=== PATIENT | female | born 2000 | race Caucasian/White ===

== ENCOUNTER 2020-05-26 13:31 | Outpatient (REF) | payer OTHER, SELFPAY ==
--- NOTE | 2020-05-26 | US_ITS ---
EXAMINATION: PELVIC ULTRASOUND CLINICAL INFORMATION: Irregular menses COMPARISON: Previous exam November 2017 TECHNIQUE: Transabdominal and transvaginal pelvic ultrasound was performed. Transvaginal exam was performed for better visualization of the uterus and ovaries. FINDINGS: The uterus is anteverted and anteflexed and measures 7.5 x 3.1 x 4 cm in dimension. No focal uterine lesion is seen. Endometrial thickness is normal measuring 1.2 cm. There are nabothian cysts in the cervix. The ovaries are normal in size. The right ovary measures 3.8 x 2.2 x 2.1 cm and the left ovary measures 3.4 x 3.3 x 2.2 cm. There are multiple small ovarian cysts or follicles seen. Appearance is questionable for polycystic ovarian syndrome. There is a larger simple left ovarian cyst that measures 1.9 x 1.3 x 1.8 cm. There is no fluid in the pelvis. IMPRESSION: Multiple small peripheral cysts or follicles in both ovaries questionable for polycystic ovarian syndrome. The ovaries are normal in size.
== END 2020-05-26 13:32 | disposition home or self-care (01) ==
LOC: HO.US 13:31
PROVIDERS: PCP Internal Medicine; Visit Provider Advanced Practice Midwife
DX: N92.6 Irregular menstruation, unspecified (principal)
CPT/HCPCS: 76830; 76856

== ENCOUNTER 2020-06-18 09:31 | Outpatient (REF) | payer OTHER, SELFPAY | END 2020-06-18 09:32 | disposition home or self-care (01) | LOC: HO.LAB 09:31 | PROVIDERS: Visit Provider Internal Medicine | DX: Z20.828 Contact with and (suspected) exposure to other viral communicable diseases (principal) | CPT/HCPCS: 87635 ==

== ENCOUNTER 2020-07-29 14:14 | Outpatient (REF) | payer OTHER, SELFPAY | END 2020-07-29 14:15 | disposition home or self-care (01) | LOC: HO.LAB 14:14 | PROVIDERS: Visit Provider Internal Medicine | DX: Z20.828 Contact with and (suspected) exposure to other viral communicable diseases (principal) | CPT/HCPCS: C9803; U0003 ==

== ENCOUNTER 2020-07-31 12:25 | Outpatient (REF) | payer OTHER, SELFPAY ==
[2020-07-31 13:01] LABS: MANUAL DIFF FLAG NO
[2020-07-31 13:36] LABS: Anion Gap 12 (12-20); Blood Urea Nitrogen 15 mg/dL (9-16); Calcium 9.3 mg/dL (8.4-10.2); Carbon Dioxide 28 mmol/L (22-29); Chloride 103 mmol/L (96-108); Cholesterol 173 mg/dL; Estimated Glomerular Filt Rate > 60; Glucose Fasting 88 mg/dL (60-99); HDL Cholesterol 59 mg/dL; LDL Cholesterol Calculated 97 mg/dl; Potassium 4.9 mmol/l (3.3-5.1); Sodium 138 mmol/L (135-145); Triglycerides 87 mg/dL
[2020-07-31 13:38] LABS: Basophils Percent Auto 0.2 % (0-2); Eosinophils Percent Auto 0.4 % (0-4); Hematocrit 43.6 % (37-47); Hemoglobin 14.2 g/dl (12.0-16.0); Imm Gran Abs Auto 0.01 X10*3/uL (0.00-0.03); Imm Gran Pct Auto 0.2 % (0.0-0.4); Lymphocytes Absolute Auto 1.5 X10*3/uL (1.2-4.9); Lymphocytes Percent Auto 25.8 % (20-40); Mean Corpuscular HGB Conc 32.6 g/dl (31.0-35.0); Mean Corpuscular Hemoglobin 27.5 pg (27.0-33.0); Mean Corpuscular Volume 84.5 fL (80-98); Monocytes Absolute Auto 0.4 X10*3/uL (0.1-1.2); Monocytes Percent Auto 7.7 % (2-11); Neutrophils Absolute Auto 3.7 X10*3/uL (2.0-8.3); Neutrophils Percent Auto 65.7 % (45-73); Platelet Count 290 X10*3/uL (160-400); Red Blood Count 5.16 X10*6/uL (4.20-5.50); Red Cell Distribution Width 12.4 % (11.0-16.0); White Blood Count 5.6 X10*3/uL (4.8-10.8)
[2020-07-31 13:47] LABS: TSH reflex Free T4 0.64 mIU/mL (0.32-4.0)
== END 2020-07-31 12:26 | disposition home or self-care (01) ==
LOC: HO.LAB 12:25
PROVIDERS: PCP Internal Medicine; Visit Provider Nurse Practitioner Family
DX: Z00.00 Encounter for general adult medical examination without abnormal findings (principal)
CPT/HCPCS: 36415; 80048; 80061; 84443; 85025

== ENCOUNTER 2020-09-02 14:33 | Outpatient (REF) | payer OTHER, SELFPAY ==
[2020-09-03 10:32] LABS: BV Int Neg Control Negative (Negative); BV Int Pos Control Positive (Positive)
[2020-09-03 18:52] LABS: C. trachomatis RNA TMA NOT DETECTED (NOT DETECTED); N. gonorrhoeae RNA TMA NOT DETECTED (NOT DETECTED)
== END 2020-09-02 14:34 | disposition home or self-care (01) ==
LOC: HO.LAB 14:33
PROVIDERS: PCP Internal Medicine; Visit Provider Advanced Practice Midwife
DX: N89.8 Other specified noninflammatory disorders of vagina (principal); Z87.42 Personal history of other diseases of the female genital tract
CPT/HCPCS: 36415; 87480; 87491; 87510; 87591; 87660; 99212

== ENCOUNTER → 2020-09-10 11:32 | Outpatient (BNVA) | payer OTHER, SELFPAY | PROVIDERS: PCP Internal Medicine; Visit Provider Advanced Practice Midwife ==

== ENCOUNTER 2020-09-11 11:17 | Outpatient (REF) | payer OTHER, SELFPAY ==
[2020-09-11 12:56] LABS: HCG Quantitative < 2 mIU/mL; Thyroid Stimulating Hormone 0.65 uIU/mL (0.32-4.0)
[2020-09-13 04:12] LABS: Prolactin 7.9 ng/mL
[2020-09-14 18:23] LABS: DHEA Sulfate 235 mcg/dL (18-391)
== END 2020-09-11 11:18 | disposition home or self-care (01) ==
LOC: HO.LAB 11:17
PROVIDERS: PCP Internal Medicine; Visit Provider Advanced Practice Midwife
DX: N92.6 Irregular menstruation, unspecified (principal); L68.0 Hirsutism
CPT/HCPCS: 36415; 82627; 83498; 84146; 84402; 84403; 84443; 84702

== ENCOUNTER → 2020-10-26 11:43 | Outpatient (BNVA) | payer OTHER, SELFPAY | PROVIDERS: PCP Internal Medicine; Visit Provider Advanced Practice Midwife ==

== ENCOUNTER 2020-10-28 11:20 | Outpatient (REF) | payer OTHER, SELFPAY ==
[2020-11-02 16:07] LABS: Testosterone, Free 6.9 pg/mL (0.1-6.4); Testosterone, Total 41 ng/dL (2-45)
== END 2020-10-28 11:21 | disposition home or self-care (01) ==
LOC: HO.LAB 11:20
PROVIDERS: PCP Internal Medicine; Visit Provider Advanced Practice Midwife
DX: N92.6 Irregular menstruation, unspecified (principal); L68.0 Hirsutism
CPT/HCPCS: 36415; 84402; 84403

== ENCOUNTER → 2020-11-05 11:13 | Outpatient (BNVA) | payer OTHER, SELFPAY | PROVIDERS: PCP Internal Medicine; Visit Provider Advanced Practice Midwife ==

== ENCOUNTER 2021-05-26 09:14 | Outpatient (REF) | payer OTHER, SELFPAY ==
[2021-05-26 11:05] LABS: Mean Corpuscular HGB Conc 33.3 g/dl (31.0-35.0); Mean Corpuscular Hemoglobin 27.1 pg (27.0-33.0); Mean Corpuscular Volume 81.4 fL (80-98); Platelet Count 266 X10*3/uL (160-400); Red Blood Count 4.42 X10*6/uL (4.20-5.50); Red Cell Distribution Width 13.2 % (11.0-16.0)
[2021-05-26 12:06] LABS: Thyroid Stimulating Hormone 0.66 uIU/mL (0.32-4.0)
[2021-05-27 02:41] LABS: CT PCR NOT DETECTED (Not Detect.); NG PCR NOT DETECTED (Not Detect.)
[2021-05-27 10:37] LABS: BV Int Neg Control Negative (Negative); BV Int Pos Control Positive (Positive)
== END 2021-05-26 09:15 | disposition home or self-care (01) ==
LOC: HO.LAB 09:14
PROVIDERS: PCP Internal Medicine; Visit Provider Advanced Practice Midwife
DX: R10.2 Pelvic and perineal pain (principal); N92.6 Irregular menstruation, unspecified; N92.1 Excessive and frequent menstruation with irregular cycle
CPT/HCPCS: 36415; 81003; 81025; 84443; 85027; 87480; 87491; 87510; 87591; 87660; 99212

== ENCOUNTER 2021-08-01 19:57 | Emergency (ER) | payer OTHER, SELFPAY ==
[2021-08-01 20:36] VITALS: BP 99/51; PULSE 80; RESP 16; TEMP 36.6; O2SAT 99; BMI 27.1
--- NOTE | 2021-08-01 21:39 | ED_ITS ---
HPI - Abdominal Pain General Chief Complaint: Abdominal Pain Stated Complaint: abd pain Time Seen by Provider: 08/01/21 21:39 Source: patient Mode of arrival: ambulatory Limitations: no limitations History of Present Illness HPI narrative: Patient having nausea vomiting diarrhea for last 3 -4 days vomiting 3 -4 times and same number of diarrhea every day no fever no chills no cough no shortness of breath no other family member sick Related Data Previous Rx's Medication Instructions Recorded drospirenone 3 mg-ethinyl 1 tab PO DAILY #28 tab 11/05/20 estradiol 0.02 mg tablet (DARYL (28)) drospirenone 3 mg-ethinyl 1 tab PO DAILY 28 Days #28 tab 06/14/21 estradiol 0.02 mg tablet (DARYL (28)) omeprazole 40 mg capsule,delayed 40 mg PO DAILY #20 cap 08/02/21 release ondansetron 4 mg disintegrating 4 mg PO Q6-8H PRN #7 tab 08/02/21 tablet Allergies Allergy/AdvReac Type Severity Reaction Status Date / Time meperidine [From DEMEROL] Allergy Unknown DIFF Verified 08/01/21 20:36 BREATHING morphine [MORPHINE] Allergy Unknown DIFF Verified 08/01/21 20:36 BREATHING Review of Systems Review of Systems Yes all other systems are reviewed and are negative Physical Exam Vital Signs: Vital Signs: Last Vital Signs Temp 98.1 F 08/02/21 00:17 Pulse 73 08/02/21 00:17 Resp 16 08/02/21 00:17 BP 100/60 08/02/21 00:17 Pulse Ox 100 08/02/21 00:17 BMI result Body Mass Index 27.1 Appearance: Alert. Oriented X3. No acute distress. Eyes: No pallor icterus ENT: Pharynx normal. Oral Mucosa moist Neck: Normal inspection. Neck supple. CVS: Normal heart rate and rhythm. Pulses normal. Respiratory: No respiratory distress. Equal air entry bilateral, Abdomen: Soft mild epigastric tenderness Bowel sounds are present, no mass palpable, no CVA tenderness Skin: Skin warm and dry. Normal skin color. Normal skin turgor. Neuro: Oriented X 3. MDM - Abdominal Pain Lab Data Attestation: I reviewed the patient's lab results. Result diagrams: 08/01/21 22:47 08/01/21 22:47 Labs: Lab Results 08/01/21 08/01/21 08/01/21 Range/Units 22:47 22:47 23:41 WBC 4.5 L (4.8-10.8) X10*3/uL RBC 4.87 (4.20-5.50) X10*6/uL Hgb 13.1 (12.0-16.0) g/dl Hct 40.7 (37.0-47.0) % MCV 83.6 (80.0-98.0) fL MCH 26.9 L (27.0-33.0) pg MCHC 32.2 (31.0-35.0) g/dl RDW 13.0 (11.0-16.0) % Plt Count 227 (160-400) X10*3/uL MPV 9.8 (9.4-12.3) fL Immature Gran % (Auto) 0.2 (0.0-0.4) % Neut % (Auto) 60.3 (45-73) % Lymph % (Auto) 22.9 (20-40) % [place] % (Auto) 16.0 H (2-11) % Eos % (Auto) 0.4 (0-4) % Baso % (Auto) 0.2 (0-2) % Lymph # (Auto) 1.0 L (1.2-4.9) X10*3/uL [place] # (Auto) 0.7 (0.1-1.2) X10*3/uL Eos # (Auto) 0.0 (0.0-0.4) X10*3/uL Baso # (Auto) 0.0 (0.0-0.2) X10*3/uL Abs Immat Gran (auto) 0.01 (0.00-0.03) X10*3/uL Absolute Neuts (auto) 2.7 (2.0-8.3) x10*3/uL Absolute Nucleated RBC 0.000 (0.0-0.012) X10*3/uL Nucleated RBC % (auto) 0.0 (0.0-0.2) /100WBC Sodium 141 (135-145) mmol/L Potassium 4.3 (3.3-5.1) mmol/L Chloride 109 H (96-108) mmol/L Carbon Dioxide 19 L (22-29) mmol/L Anion Gap 17 (12-20) BUN 15 (9-16) mg/dL Creatinine 0.67 (0.5-1.4) mg/dL Estim Creat Clear Calc 137.3 Estimated GFR > 60 Random Glucose 80 (60-115) mg/dL Calcium 8.8 (8.4-10.2) mg/dL Total Bilirubin 0.5 (0.0-1.0) mg/dL AST 54 H (5-31) U/L ALT 49 H (0-31) U/L Alkaline Phosphatase 59 (39-117) U/L Total Protein 7.2 (6.5-8.0) g/dL Albumin 3.9 (3.5-5.0) g/dL Lipase 31 (8-78) U/L Urine Color YELLOW Urine Appearance HAZY Urine pH 6.0 (5.0-8.0) Ur Specific [place] >= 1.030 H (1.005-1.025) Urine Protein TRACE (NEG-TRACE) MG/DL Urine Glucose (UA) NEG (NEG) MG/DL Urine Ketones NEG (NEG) MG/DL Urine Blood 1+ H (NEG) Urine Nitrite NEG (NEG) Ur Leukocyte Esterase NEG (NEG) Urine RBC 10-14 H (0) /HPF Urine WBC 1-4 (0-4) /HPF Ur Squamous Epith Cells 1+ /LPF Urine Bacteria TRACE /LPF Urine Mucus 3+ /LPF Urine Test (NEGATIVE) 08/01/21 Range/Units 23:41 WBC (4.8-10.8) X10*3/uL RBC (4.20-5.50) X10*6/uL Hgb (12.0-16.0) g/dl Hct (37.0-47.0) % MCV (80.0-98.0) fL MCH (27.0-33.0) pg MCHC (31.0-35.0) g/dl RDW (11.0-16.0) % Plt Count (160-400) X10*3/uL MPV (9.4-12.3) fL Immature Gran % (Auto) (0.0-0.4) % Neut % (Auto) (45-73) % Lymph % (Auto) (20-40) % [place] % (Auto) (2-11) % Eos % (Auto) (0-4) % Baso % (Auto) (0-2) % Lymph # (Auto) (1.2-4.9) X10*3/uL [place] # (Auto) (0.1-1.2) X10*3/uL Eos # (Auto) (0.0-0.4) X10*3/uL Baso # (Auto) (0.0-0.2) X10*3/uL Abs Immat Gran (auto) (0.00-0.03) X10*3/uL Absolute Neuts (auto) (2.0-8.3) x10*3/uL Absolute Nucleated RBC (0.0-0.012) X10*3/uL Nucleated RBC % (auto) (0.0-0.2) /100WBC Sodium (135-145) mmol/L Potassium (3.3-5.1) mmol/L Chloride (96-108) mmol/L Carbon Dioxide (22-29) mmol/L Anion Gap (12-20) BUN (9-16) mg/dL Creatinine (0.5-1.4) mg/dL Estim Creat Clear Calc Estimated GFR Random Glucose (60-115) mg/dL Calcium (8.4-10.2) mg/dL Total Bilirubin (0.0-1.0) mg/dL AST (5-31) U/L ALT (0-31) U/L Alkaline Phosphatase (39-117) U/L Total Protein (6.5-8.0) g/dL Albumin (3.5-5.0) g/dL Lipase (8-78) U/L Urine Color Urine Appearance Urine pH (5.0-8.0) Ur Specific [place] (1.005-1.025) Urine Protein (NEG-TRACE) MG/DL Urine Glucose (UA) (NEG) MG/DL Urine Ketones (NEG) MG/DL Urine Blood (NEG) Urine Nitrite (NEG) Ur Leukocyte Esterase (NEG) Urine RBC (0) /HPF Urine WBC (0-4) /HPF Ur Squamous Epith Cells /LPF Urine Bacteria /LPF Urine Mucus /LPF Urine Test NEGATIVE (NEGATIVE) Discharge Plan Discharge Clinical Impression: Gastroenteritis Patient Disposition: Home, Self-Care Instructions: Gastroenteritis (ED) Additional Instructions: Drink plenty of fluids Medication for nausea as advised Follow-up with PCP if not better Prescriptions: New ondansetron 4 mg tablet,disintegrating 4 mg PO Q6-8H PRN (Reason: nausea and vomiting) Qty: 7 RF: 0 omeprazole 40 mg capsule,delayed release(DR/EC) 40 mg PO DAILY Qty: 20 RF: 0 No Action drospirenone-ethinyl estradiol [DARYL (28)] 3-0.02 mg tablet 1 tab PO DAILY 28 Days Qty: 28 RF: 3 drospirenone-ethinyl estradiol [DARYL (28)] 3-0.02 mg tablet 1 tab PO DAILY Qty: 28 RF: 4 Stand Alone Forms: Work/School Release Interventions: ED Discharge Assessment Last Done: 08/02/21 00:47 Discharge Date/Time: 08/02/21 00:45 [facility] Past Medical History Medical History Hirsutism History of irregular menstrual cycles PCOS (polycystic ovarian syndrome) Surgical History History of gastric surgery Family History Family History Maternal Grandfather Hx of thyroid cancer Maternal Aunt Hx of thyroid cancer History of colon cancer Social History Social History Alcohol intake: never Patient Tobacco Use Status: Never used Tobacco Advance Directives: No Advance Directives Information Provided: Yes Patient : No Gender identity: Female
[2021-08-01 22:51] LABS: MANUAL DIFF FLAG NO
[2021-08-01 22:52] LABS: Basophils Percent Auto 0.2 % (0-2); Eosinophils Percent Auto 0.4 % (0-4); Hematocrit 40.7 % (37.0-47.0); Hemoglobin 13.1 g/dl (12.0-16.0); Imm Gran Abs Auto 0.01 X10*3/uL (0.00-0.03); Imm Gran Pct Auto 0.2 % (0.0-0.4); Lymphocytes Percent Auto 22.9 % (20-40); Mean Corpuscular HGB Conc 32.2 g/dl (31.0-35.0); Mean Corpuscular Hemoglobin 26.9 pg (27.0-33.0); Mean Corpuscular Volume 83.6 fL (80.0-98.0); Mean Platelet Volume 9.8 fL (9.4-12.3); Monocytes Absolute Auto 0.7 X10*3/uL (0.1-1.2); Neutrophils Absolute Auto 2.7 x10*3/uL (2.0-8.3); Neutrophils Percent Auto 60.3 % (45-73); Platelet Count 227 X10*3/uL (160-400); Red Blood Count 4.87 X10*6/uL (4.20-5.50); White Blood Count 4.5 X10*3/uL (4.8-10.8)
[2021-08-01] MEDS: 0.9 % Sodium Chloride 1,000 ML 999 ML IVCONT (22:52)
[2021-08-01] MEDS: ondansetron HCL 4 MG/2 ML VIAL IVPUSH (22:52)
[2021-08-01 23:09] LABS: Alanine Aminotransferase 49 U/L (0-31); Albumin Level 3.9 g/dL (3.5-5.0); Alkaline Phosphatase 59 U/L (39-117); Anion Gap 17 (12-20); Aspartate Amino Transferase 54 U/L (5-31); Bilirubin Total 0.5 mg/dL (0.0-1.0); Blood Urea Nitrogen 15 mg/dL (9-16); Calcium 8.8 mg/dL (8.4-10.2); Carbon Dioxide 19 mmol/L (22-29); Chloride 109 mmol/L (96-108); Creatinine Clr Calc Pharmacy 137.3; Estimated Glomerular Filt Rate > 60; Glucose Random 80 mg/dL (60-115); Lipase 31 U/L (8-78); Potassium 4.3 mmol/L (3.3-5.1); Sodium 141 mmol/L (135-145); Total Protein 7.2 g/dL (6.5-8.0)
[2021-08-01 23:50] LABS: Appearance Urine HAZY; Color Urine YELLOW; Glucose Urine UA NEG (NEG); Leukocyte Esterase Urine NEG (NEG); Nitrite Urine NEG (NEG); Specific Gravity - Urine >= 1.030 (1.005-1.025); UACC Culture Trigger NO; Urine Blood 1+ (NEG); Urine Ketones NEG (NEG); Urine Protein TRACE MG/DL (NEG-TRACE)
[2021-08-01 23:53] LABS: UPreg QC Valid YES; Urine Pregnancy NEGATIVE (NEGATIVE)
[2021-08-01 23:56] LABS: Bacteria Urine TRACE /LPF; Mucus Urine 3+ /LPF; Squamous Epithelial Cell Urine 1+ /LPF
[2021-08-02 00:17] VITALS: BP 100/60; PULSE 73; RESP 16; TEMP 36.7; O2SAT 100
== END 2021-08-02 00:45 | disposition home or self-care (01) ==
PROVIDERS: Emergency Provider Internal Medicine; PCP Internal Medicine
DX: K52.9 Noninfective gastroenteritis and colitis, unspecified (principal); R11.2 Nausea with vomiting, unspecified
CPT/HCPCS: 36415; 80053; 81001; 81025; 83690; 85025; 96361; 96374; 99283; 99284; J2405

== ENCOUNTER 2021-10-26 16:57 | Emergency (ER) | payer OTHER, SELFPAY ==
[2021-10-26 17:37] VITALS: BP 97/45; PULSE 85; RESP 16; TEMP 36.9; O2SAT 98; BMI 27.2
--- NOTE | 2021-10-26 19:33 | ED_ITS ---
HPI - Skin/Abscess/Foreign Bdy General Chief complaint: Skin/Abscess/Foreign Body Stated complaint: itchy body rash Time Seen by Provider: 10/26/21 18:00 Source: patient Mode of arrival: ambulatory Limitations: no limitations History of Present Illness HPI narrative: Patient is a 21 year old female presenting to the emergency department today with a rash. Patient states that she began having a rash a couple of days ago that has been very itchy. Patient states that she got a tattoo last Monday but the rash is no where near the new tattoo and has been healing fine. Patient denies any dizziness, lightheadedness, abdominal pain, nausea, vomiting, fever, chills, blurry vision, double vision, loss of vision, chest pain, difficulty breathing, shortness of breath, back pain, night sweats, pain with urination, increased urinary frequency, increased urinary urgency, blood in her urine or stool, syncope or a near syncopal episode, recent trauma or falls, bowel incontinence, bladder incontinence, bowel retention, bladder retention, or any other complaints at this time. MD complaint: rash Related Data Previous Rx's Medication Instructions Recorded drospirenone 3 mg-ethinyl 1 tab PO DAILY #28 tab 11/05/20 estradiol 0.02 mg tablet (DARYL (28)) drospirenone 3 mg-ethinyl 1 tab PO DAILY 28 Days #28 tab 06/14/21 estradiol 0.02 mg tablet (DARYL (28)) omeprazole 40 mg capsule,delayed 40 mg PO DAILY #20 cap 08/02/21 release ondansetron 4 mg disintegrating 4 mg PO Q6-8H PRN #7 tab 08/02/21 tablet prednisone 20 mg tablet 20 mg PO DAILY 12 Days #26 tab 10/26/21 Allergies Allergy/AdvReac Type Severity Reaction Status Date / Time meperidine [From DEMEROL] Allergy Unknown DIFF Verified 08/01/21 20:36 BREATHING morphine [MORPHINE] Allergy Unknown DIFF Verified 08/01/21 20:36 BREATHING Review of Systems Constitutional: Constitutional: Reports no additional constitutional complaints, Denies chills, Denies fever(s) and Denies night sweats Eyes: Eyes: Reports no additional eye complaints, Denies blurry vision, Denies change in vision, Denies diplopia, Denies eye discharge, Denies loss of vision and Denies eye pain ENT: Denies dizziness Cardiovascular: Cardiovascular: Reports no additional cardiovascular complaints, Denies chest pain, Denies lightheadedness, Denies Loss of Consciousness and Denies dyspnea Respiratory: Respiratory: Reports no additional respiratory complaints and Denies dyspnea Gastrointestinal: Gastrointestinal: Reports no additional gastrointestinal complaints, Denies abdominal pain, Denies melena, Denies hematochezia, Denies change in bowel habits and Denies change in stool character Genitourinary: Genitourinary: Denies hematuria, Denies urinary frequency, Denies dysuria, Denies urinary incontinence, Denies urinary hesitancy and Denies urinary urgency Musculoskeletal: Musculoskeletal: Reports no additional musculoskeletal complaints, Denies numbness and Denies tingling Integumentary/Breasts: Skin/Breast: Reports pruritus and Reports rash Neurologic: Denies dizziness, Denies loss of vision, Denies numbness and Denies tingling Psychiatric: Psychiatric: Reports no additional psychiatric complaints Endocrine: Endocrine: Reports no additional endocrine complaints Hematologic/Lymphatic: Hematologic/Lymphatic: Reports no additional hematologic/lymphatic complaints Allergic/Immunologic: Allergic/Immunologic: Reports no additional allergic/immunologic complaints [facility] Past Medical History Attestation statement: The following information was validated with the patient. Source: old records reviewed Medical History Hirsutism History of irregular menstrual cycles PCOS (polycystic ovarian syndrome) Surgical History History of gastric surgery Family History Family History Maternal Grandfather Hx of thyroid cancer Maternal Aunt Hx of thyroid cancer History of colon cancer Social History Social History Alcohol intake: never Patient Tobacco Use Status: Never used Tobacco Advance Directives: No Advance Directives Information Provided: No Gender identity: Female Physical Exam Vital Signs: Vital Signs: Last Vital Signs Temp 98.4 F 10/26/21 17:37 Pulse 85 10/26/21 17:37 Resp 16 10/26/21 17:37 BP 97/45 L 10/26/21 17:37 Pulse Ox 98 10/26/21 17:37 BMI result Body Mass Index 27.2 Const: General: cooperative, no acute distress, alert and awake Nutritional Appearance: well nourished Orientation/consciousness: patient oriented x3 Limitations: no limitations HENMT: Head: Yes normal to inspection and Yes atraumatic Ears: hearing grossly normal bilaterally and external ears normal General nose exam: Normal external nose present, no nasal discharge noted and no epistaxis Face and sinus: Yes normal facial exam, No abrasion and No laceration Mouth: Normal oral and palatal mucosa present, no drooling and no muffled voice Eyes: General: appearance normal, both eyes and all related structures Periorbital: periorbital findings normal Eyelids: Yes eyelids normal Conjunctivae: conjunctivae normal Pupils: Equal, round and reactive pupils present EOM: EOMs intact bilaterally Neck: Neck: Yes normal visual inspection, Yes full ROM and Yes no lymphadenopathy Chest: Chest palpation & inspection: normal inspection of the chest Resp: Effort & Inspection: normal respiratory effort and able to speak in complete sentences Auscultation: clear to auscultation bilaterally Cardio: Rate: regular rate Rhythm: regular rhythm GI: Inspection: Yes normal to inspection Skin: Other: diffuse urticaria Neuro: General: patient oriented x3 and moves all extremities Cranial nerves: Yes Equal, round and reactive pupils present Cognition (Neuro): normal cognition Motor exam (neuro): 5/5 motor strength present throughout Sensory Exam: Normal double simultaneous stimulation for sensation Coordination: [id number] test normal Extrem: General: Yes normal to inspection, Yes full ROM and Yes capillary refill normal Psych: Appearance: grossly normal Mental Status: mental status grossly normal Affect: normal affect Attitude: cooperative Thought process: Normal thought process present Thought content: Normal thought content present Insight: Good insight present (Psych) MDM - Skin/Abscess/Foreign Bdy MDM Narrative Medical decision making narrative: Patient is a 21 year old female presenting to the emergency department today with a diffuse, itchy, rash. Patient's physical exam showed diffuse urticaria. However, the patient's new tattoo to the right hip was normal in appearance. Patient's airway was intact and her voice was clear. I explained my physical exam findings to the patient. I answered all questions asked by the patient. Patient received IM solu-medrol and PO Benadryl which she stated helped her symptoms significantly. I stressed the importance of the patient taking her medication as prescribed. I stressed the importance of the patient following up with her primary care provider. I stressed the importance of the patient r eturning to the emergency department immediately if her symptoms were to worsen or if she were to develop any dizziness, shortness of breath, difficulty breathing, chest pain, blurry vision, loss of vision, nausea, vomiting, abdominal pain, fever, chills, back pain, or any other complaints. Patient verbalized agreement and understanding with this treatment plan and discharge. Differential Diagnosis Differential diagnosis: Likely urticaria and eczema Medical Records Attestation: I reviewed the patient's medical records. Discharge Plan Discharge Clinical Impression: Acute idiopathic urticaria Patient Disposition: Home, Self-Care Instructions: Urticaria (ED), Acute Rash (ED) Additional Instructions: Follow up with your primary care provider. Return to the emergency department immediately if your symptoms worsen or if you develop any dizziness, shortness of breath, difficulty breathing, chest pain, blurry vision, loss of vision, nausea, vomiting, abdominal pain, fever, chills, back pain, or any other complaints. Prescriptions: New prednisone 20 mg tablet 20 mg PO DAILY 12 Days Qty: 26 0RF Rx Instructions: Take 3 tablets by mouth for 5 days THEN; Take 2 tablets by mouth for 4 days THEN; Take 1 tablet by mouth for 3 days No Action drospirenone-ethinyl estradiol [DARYL (28)] 3-0.02 mg tablet 1 tab PO DAILY 28 Days Qty: 28 3RF ondansetron 4 mg tablet,disintegrating 4 mg PO Q6-8H PRN (Reason: nausea and vomiting) Qty: 7 0RF omeprazole 40 mg capsule,delayed release(DR/EC) 40 mg PO DAILY Qty: 20 0RF drospirenone-ethinyl estradiol [DARYL (28)] 3-0.02 mg tablet 1 tab PO DAILY Qty: 28 4RF Referrals: Sana Carvalho MD [Primary Care Provider] - 2 days Interventions: ED Discharge Assessment Last Done: 10/26/21 20:37 Discharge Date/Time: 10/26/21 20:39 Print Language: [place]
[2021-10-26] MEDS: diphenhydrAMINE HCL 25 MG TABLET 50 MG PO (19:55)
[2021-10-26] MEDS: methylPREDNISolone Sod Succ 125 MG/2 ML VIAL 120 MG IM (19:55)
== END 2021-10-26 20:39 | disposition home or self-care (01) ==
PROVIDERS: Emergency Provider Internal Medicine; PCP Internal Medicine
DX: L50.1 Idiopathic urticaria (principal)
CPT/HCPCS: 96372; 99283; 99284; J2930; Q0163

== ENCOUNTER 2021-12-14 09:54 | Outpatient (REF) | payer OTHER, SELFPAY ==
[2021-12-14 11:07] LABS: Alanine Aminotransferase 12 U/L (0-31); Albumin Level 4.4 g/dL (3.5-5.0); Alkaline Phosphatase 66 U/L (39-117); Anion Gap 13 (12-20); Aspartate Amino Transferase 18 U/L (5-31); Bilirubin Total 0.7 mg/dL (0.0-1.0); Blood Urea Nitrogen 17 mg/dL (9-16); Calcium 9.8 mg/dL (8.4-10.2); Carbon Dioxide 28 mmol/L (22-29); Chloride 104 mmol/L (96-108); Cholesterol 176 mg/dL; Estimated Glomerular Filt Rate > 60; Glucose Fasting 84 mg/dL (60-99); HDL Cholesterol 60 mg/dL; LDL Cholesterol Calculated 97 mg/dl; Potassium 4.5 mmol/L (3.3-5.1); Sodium 140 mmol/L (135-145); Total Protein 7.7 g/dL (6.5-8.0); Triglycerides 96 mg/dL
== END 2021-12-14 09:55 | disposition home or self-care (01) ==
LOC: HO.LAB 09:54
PROVIDERS: PCP Internal Medicine; Visit Provider Internal Medicine
DX: Z00.00 Encounter for general adult medical examination without abnormal findings (principal); R30.0 Dysuria; L98.9 Disorder of the skin and subcutaneous tissue, unspecified; Z13.220 Encounter for screening for lipoid disorders; T78.40XA Allergy, unspecified, initial encounter
CPT/HCPCS: 36415; 80053; 80061

== ENCOUNTER 2021-12-29 10:43 | Emergency (ER) | payer OTHER, SELFPAY ==
[2021-12-29 11:02] VITALS: BP 123/70; PULSE 120; RESP 18; TEMP 37.6; O2SAT 100; BMI 29.1
[2021-12-29 11:29] LABS: COVID-19 Test Negative (Negative)
[2021-12-29 11:30] LABS: IDNOW Serial# 9DB6401D; Influenza A Positive (Negative); Influenza B2 Negative (Negative)
--- NOTE | 2021-12-29 13:10 | ED_ITS ---
HPI - URI/Sore Throat General Chief Complaint: Upper Respiratory Symptoms Stated Complaint: fever nausea headache Time Seen by Provider: 12/29/21 13:10 Source: patient and family (Mother at bedside) Mode of arrival: ambulatory Limitations: no limitations History of Present Illness MD elicited complaint: fever, cough, rhinorrhea and nasal congestion Onset (ago): day(s) (3) Consistency: constant and progressively worsening Severity: mild Description of mucous: clear, watery and yellow Able to tolerate fluids by mouth: Yes Exacerbating factors: other (Coughing) Relieving factors: nothing Context: sick contacts (Mother started with her symptoms prior to the patient) Associated symptoms: fever, chills, myalgias, headache, rhinorrhea, nasal congestion and cough Treatments prior to arrival: none Related Data Home Medications Medication Instructions Recorded Confirmed diphenhydramine HCl 25 mg tablet 25 mg PO TID PRN 12/14/21 12/14/21 (Benadryl Allergy) Previous Rx's Medication Instructions Recorded clotrimazole-betamethasone 1 1 appl TOPICAL BID 14 Days #15 g 12/14/21 %-0.05 % topical cream acetaminophen 500 mg tablet 1,000 mg PO QID PRN #14 tab 12/29/21 (Tylenol Extra Strength) ibuprofen 800 mg tablet 800 mg PO Q8H PRN #14 tab 12/29/21 oseltamivir 75 mg capsule (Tamiflu) 75 mg PO BID 5 Days #10 cap 12/29/21 Allergies Allergy/AdvReac Type Severity Reaction Status Date / Time meperidine [From DEMEROL] Allergy Unknown DIFF Verified 12/14/21 09:20 BREATHING morphine [MORPHINE] Allergy Unknown DIFF Verified 12/14/21 09:20 BREATHING Review of Systems Review of Systems: Constitutional : + subjective fevers/chills/fatigue/malaise, No Weight loss, No Fever, No Chills, No Night Sweats, No Fatigue, No Malaise ENT/Mouth : + nasal congestion/rhinorrhea, No Hearing loss, No Ear Pain, No Sinus Pain, No Hoarseness, No sore throat, No Swallowing Difficulty Eyes: No Eye Pain, No Swelling, No Redness, No Foreign Body, No Discharge, No Vi romaine Changes Cardiovascular : No Chest Pain, No SOB, No Dyspnea on Exertion, No Orthopnea, No Edema, No Palpitations Respiratory : + Cough, + Sputum, No Wheezing, No Smoke Exposure, No Dyspnea Gastrointestinal : No Nausea, No Vomiting, No Diarrhea, No Constipation, No abdominal Pain, No Hematochezia, No Melena Genitourinary : no irregular bleeding, No Dysuria, No Urinary Frequency, No Hematuria, No Urinary Incontinence, No Urgency, No Flank Pain, No Urinary Flow Changes, No Hesitancy Musculoskeletal : No joint pain, + Myalgias, No Joint Swelling Skin : No Skin Lesions, No rash Neuro : No Weakness, No Numbness, No Paresthesias, No Loss of Consciousness, No Dizziness, No Headache Psych : No Anxiety/Panic, No Depression, No SI/HI/AH/VH, No Social Issues, Heme/Lymph: No Bruising, No Bleeding,No Lymphadenopathy Endocrine : No Polyuria, No Polydipsia, No Temperature Intolerance Yes all other systems are reviewed and are negative [facility] Past Medical History Attestation statement: The following information was validated with the patient. Medical History Abnormal menses Allergic reaction Hirsutism History of irregular menstrual cycles PCOS (polycystic ovarian syndrome) Physical exam Skin lesion Surgical History History of gastric surgery Family History Family History Maternal Grandfather Hx of thyroid cancer Maternal Aunt Hx of thyroid cancer History of colon cancer Father Diabetes mellitus Mother Asthma Social History Social History Housing: Apartment Alcohol intake: never Patient Tobacco Use Status: Never used Tobacco e-Cigarette/Vaping Use: Never Used Second Hand Smoke Exposure: No Advance Directives: No Advance Directives Information Provided: No Patient : No service: No Current occupational status: employed Current occupational exposures/hazards: No Gender identity: Female Cognitive needs: No Hearing needs: No Vision needs: No Physical Exam Vital Signs: Vital Signs: Last Vital Signs Temp 99.6 F 12/29/21 11:02 Pulse 120 H 12/29/21 11:02 Resp 18 12/29/21 11:02 BP 123/70 12/29/21 11:02 Pulse Ox 100 12/29/21 11:02 BMI result Body Mass Index 29.1 vital signs have been reviewed as normal and appeared to be correct. Blood pressure normal. Heart rate 120. Respiration rate normal. Temperature 99.6. Oxygen saturation normal. Appearance: Alert. Oriented X3. No acute distress. Head: Normal external exam. Normocephalic. Atraumatic. Eyes: PERRLA. EOMI. Conjunctiva and sclera normal. Eyelids normal. ENT: EAC normal. TM's Normal. Pharynx normal. Uvula midline. Moist mucous membranes. No lesions/ulcerations or masses noted on the tongue. Normal voice. No trismus noted. No drooling noted. No muffled voice noted. Neck: Normal inspection. Neck supple. FROM. No adenopathy. Thyroid Normal. No meningeal signs. No neck mass noted. CVS: Normal heart rate and rhythm. Heart sound normal. Pulses normal throughout. No murmurs/rales/gallops. Respiratory: No respiratory distress. Painless inspiration. Breath sounds normal. No wheezes/rales/rhonchi noted. Chest nontender. No crepitus is noted. No signs of trauma noted. No accessory muscle usage noted or decreased air movement noted. Abdomen: Soft and nontender. Bowel sounds normal in all 4 quadrants. No distent ion noted. No organomegaly noted. No visible injury noted. Back: No CVA tenderness. Full range of motion noted. Nontender. No signs of trauma. Patient neuro intact bilaterally and distally on all 4 extremities. Patient's reflexes intact bilaterally and distally on all 4 extremities. No rashes/lesion/induration/fluctuance or signs of infection noted. Skin: Skin warm and dry. Normal skin color. Normal skin turgor. No rashes/lesions/lacerations noted. Extremities: No lower extremity edema. No calf tenderness is noted. Extremities exhibit normal range of motion and nontender. Neuro: Oriented X 3. No motor deficit. No sensory deficit. Reflexes normal. Normal steady gait. No focal neuro deficits noted. CN's II-XII intact bilaterally? Vascular: + radial pulses/+ 2 distal pedal pulses/+2 dorsalis pedis b/l. Normal cap refill. No cyanosis noted to upper extremity nails and lower extremity toes nails. Course Course Course Narrative: 21-year-old female who is vaccinated to COVID although not vaccinated to the flu presenting to the ED with her mother at bedside with similar symptoms with complaints of subjective fevers, chills, fatigue, malaise, nasal congestion/rhinorrhea and a productive cough with yellow/clear color sputum for the past 3 days worse today. Denies recent travel or any other sick contacts. She is positive for influenza A. Negative for COVID. No additional labs or imaging indicated at this time. Will DC home with symptomatic treatment instructions to self isolate and to return if any new or worsening symptoms to follow up with primary care provider. Patient understands agrees with this plan. MDM - URI/Sore Throat Medical Records Attestation: I reviewed the patient's medical records. Lab Data Attestation: I reviewed the patient's lab results. Labs: Lab Results 12/29/21 12/29/21 Range/Units 10:58 10:58 COVID-19 (PARMINDER) Negative (Negative) COVID-19 Clin Com See Note Influenza Type A (GEORGETTE) Positive A (Negative) Influenza Type B (GEORGETTE) Negative (Negative) Influenza A & B Note See Note Discharge Plan Discharge Clinical Impression: Influenza A Patient Disposition: Home, Self-Care Instructions: Influenza (ED), Flu Shot (Vaccine) for Adults (ED), Droplet Precautions (ED) Prescriptions: New ibuprofen 800 mg tablet 800 mg PO Q8H PRN (Reason: pain) Qty: 14 0RF acetaminophen [Tylenol Extra Strength] 500 mg tablet 1,000 mg PO QID PRN (Reason: fever or pain) Qty: 14 0RF oseltamivir [Tamiflu] 75 mg capsule 75 mg PO BID 5 Days Qty: 10 0RF No Action diphenhydramine HCl [Benadryl Allergy] 25 mg tablet 25 mg PO TID PRN0RF clotrimazole-betamethasone 1-0.05 % cream 1 appl topical BID 14 Days Qty: 15 0RF Referrals: Sana Carvalho MD [Primary Care Provider] - 2 days Stand Alone Forms: Work/School Release
[2021-12-29] MEDS: Ibuprofen 800 MG TABLET PO (13:48)
== END 2021-12-29 14:40 | disposition home or self-care (01) ==
PROVIDERS: Emergency Provider Emergency Medicine; PCP Internal Medicine
DX: J10.1 Influenza due to other identified influenza virus with other respiratory manifestations (principal); R50.9 Fever, unspecified; R05.9 Cough, unspecified; Z20.822 Contact with and (suspected) exposure to COVID-19; Z79.899 Other long term (current) drug therapy
CPT/HCPCS: 87502; 87635; 99283

== ENCOUNTER 2022-05-18 08:57 | Outpatient (REF) | payer OTHER, SELFPAY ==
[2022-05-18 10:19] LABS: Alanine Aminotransferase 14 U/L (0-31); Albumin Level 4.3 g/dL (3.5-5.0); Alkaline Phosphatase 62 U/L (39-117); Anion Gap 14 (12-20); Aspartate Amino Transferase 16 U/L (5-31); Bilirubin Total 0.5 mg/dL (0.0-1.0); Blood Urea Nitrogen 18 mg/dL (9-16); Calcium 9.2 mg/dL (8.4-10.2); Carbon Dioxide 26 mmol/L (22-29); Chloride 103 mmol/L (96-108); Cholesterol 149 mg/dL; Estimated Glomerular Filt Rate > 60; Glucose Fasting 86 mg/dL (60-99); HDL Cholesterol 46 mg/dL; LDL Cholesterol Calculated 79 mg/dl; Potassium 4.4 mmol/L (3.3-5.1); Sodium 139 mmol/L (135-145); Total Protein 7.3 g/dL (6.5-8.0); Triglycerides 122 mg/dL
[2022-05-18 10:42] LABS: Thyroid Stimulating Hormone 0.84 uIU/mL (0.32-4.0)
== END 2022-05-18 08:58 | disposition home or self-care (01) ==
LOC: HO.LAB 08:57
PROVIDERS: PCP Internal Medicine; Visit Provider Internal Medicine
DX: Z00.00 Encounter for general adult medical examination without abnormal findings (principal); E66.9 Obesity, unspecified
CPT/HCPCS: 36415; 80053; 80061; 84439; 84443

== ENCOUNTER 2022-07-20 09:21 | Outpatient (REF) | payer OTHER, SELFPAY ==
[2022-07-22 05:24] LABS: Rubella IgG Antibody 2.37 Index
== END 2022-07-20 09:22 | disposition home or self-care (01) ==
LOC: HO.LAB 09:21
PROVIDERS: PCP Internal Medicine; Visit Provider Internal Medicine
DX: Z01.84 Encounter for antibody response examination (principal)
CPT/HCPCS: 36415; 86735; 86762; 86765

== ENCOUNTER 2022-11-09 22:20 | Emergency (ER) | payer OTHER, SELFPAY ==
[2022-11-09 22:45] VITALS: BP 94/47; PULSE 90; RESP 16; TEMP 37.1; O2SAT 100; BMI 27.2
--- NOTE | 2022-11-10 01:58 | ED_ITS ---
HPI - General Adult General Chief complaint: General Medical Stated complaint: sore throat Time Seen by Provider: 11/09/22 23:06 Source: patient Mode of arrival: ambulatory Limitations: no limitations History of Present Illness HPI narrative: Patient comes to the emergency room complaining of sore throat for 3-4 days. Patient states it hurts to swallow. Patient denies any dental pain, has mild left-sided ear discomfort. Patient denies fever or chills. Patient denies any trouble handling secretions. Related Data Previous Rx's Medication Instructions Recorded clotrimazole-betamethasone 1 1 appl topical BID 2 weeks #15 12/14/21 %-0.05 % topical cream grams acetaminophen 500 mg tablet 1,000 mg PO QID PRN fever or pain 12/29/21 (Tylenol Extra Strength) #14 tabs ibuprofen 800 mg tablet 800 mg PO Q8H PRN pain #14 tabs 12/29/21 docusate calcium 240 mg capsule 240 mg PO BEDTIME PRN constipation 05/04/22 90 days #90 caps omeprazole 20 mg capsule,delayed 20 mg PO DAILY 90 days #90 caps 07/27/22 release benzocaine 6 mg-menthol 10 mg 1 george mucous membrane Q2-4H PRN 11/10/22 lozenges sore throat #18 ea Allergies Allergy/AdvReac Type Severity Reaction Status Date / Time meperidine [From DEMEROL] Allergy Unknown DIFF Verified 05/04/22 15:37 BREATHING morphine [MORPHINE] Allergy Unknown DIFF Verified 05/04/22 15:37 BREATHING Review of Systems Review of Systems: Constitutional : No Weight loss, No Fever, No Chills, No Night Sweats, No Fatigue, No Malaise ENT/Mouth : No Hearing loss, complaining of mild left-sided Ear Pain, No Nasal Congestion, No Sinus Pain, No Hoarseness, complaining of sore throat, No Rhinorrhea, No Swallowing Difficulty but complaining of pain swallowing Eyes: No Eye Pain, No Swelling, No Redness, No Foreign Body, No Discharge, No Vision Changes Cardiovascular : No Chest Pain, No SOB, No Dyspnea on Exertion, No Orthopnea, No Edema, No Palpitations Respiratory : No Cough, No Sputum, No Wheezing, No Smoke Exposure, No Dyspnea Gastrointestinal : No Nausea, No Vomiting, No Diarrhea, No Constipation, No abdominal Pain, No Hematochezia, No Melena Genitourinary : no irregular bleeding, No Dysuria, No Urinary Frequency, No Hematuria, No Urinary Incontinence, No Urgency, No Flank Pain, No Urinary Flow Changes, No Hesitancy Musculoskeletal : No joint pain, No Myalgias, No Joint Swelling Skin : No Skin Lesions, No rash Neuro : No Weakness, No Numbness, No Paresthesias, No Loss of Consciousness, No Dizziness, No Headache Psych : No Anxiety/Panic, No Depression, No SI/HI/AH/VH, No Social Issues, Heme/Lymph: No Bruising, No Bleeding,No Lymphadenopathy Endocrine : No Polyuria, No Polydipsia, No Temperature Intolerance [facility] Past Medical History Medical History Abnormal menses Allergic reaction Hirsutism History of irregular menstrual cycles PCOS (polycystic ovarian syndrome) Physical exam Skin lesion Surgical History History of gastric surgery Family History Family History Maternal Grandfather Hx of thyroid cancer Maternal Aunt Hx of thyroid cancer History of colon cancer Father Diabetes mellitus Mother Asthma Social History Social History Housing: Apartment Alcohol intake: never Patient Tobacco Use Status: Never used Tobacco e-Cigarette/Vaping Use: Never Used Second Hand Smoke Exposure: No Advance Directives: No service: No Current occupational status: employed Current occupational exposures/hazards: No Gender identity: Female Cognitive needs: No Hearing needs: No Vision needs: No Physical Exam ED Vital Signs: Vital Signs - 24 hr 11/09/22 22:45 Temperature 98.7 F Pulse Rate 90 Respiratory Rate 16 Blood Pressure 94/47 L Pulse Oximetry 100 Oxygen Delivery Method Room Air BMI result Body Mass Index 27.2 Const Other: Appearance: Alert. Oriented X3. No acute distress. Eyes: Pupils equal, round and reactive to light. ENT: Pharynx normal. Neck: Neck is supple, normal flexion and extension, no rigidity. Palpable lymph nodes bilaterally CVS: Normal heart rate and rhythm. Pulses normal. Normal S1 and S2 Respiratory: No respiratory distress. Breath sounds normal. No Wheezing. No rales Abdomen: Soft and nontender. No rigidity. No distention. Skin: Skin warm and dry. Normal skin color. Normal skin turgor. Extremities: No lower extremity edema. No Lacerations. No Rash Neuro: Oriented X 3. No motor deficit. No sensory deficit. Moving all extremities. No slurred speech. CN 2 through 12 grossly intact Psych: calm, cooperative, normal affect Course Course Course Narrative: -patient's COVID and strep test pending -for symptomatic relief patient being given p.o. dexamethasone and viscous lidocaine. Medications Administered Discontinued Medications Generic Name Dose Route Start Last Admin Trade Name Freq PRN Reason Stop Dose Admin Dexamethasone Sodium Phosphate 6 mg 11/10/22 01:58 11/10/22 02:14 Dexamethasone Sod Phosphate 4 Mg/Ml Vial IVPUSH 11/10/22 01:59 6 mg ONCE ONE Administration Lidocaine HCl 15 ml 11/10/22 01:58 11/10/22 02:14 Lidocaine Hcl Viscous 2 % 15 Ml Solution MUCOUS MEM 11/10/22 01:59 15 ml ONCE ONE Administration Medical Decision Making Medical Decision Making MDM Narrative: Patient tested negative for COVID and strep. Patient like having viral pharyngitis Differential Diagnosis Differential Diagnoses: The differential diagnosis associated with the presentation includes (Strep, COVID, bacterial pharyngitis) Lab Data Labs: Lab Results 11/10/22 11/10/22 Range/Units 01:44 02:26 COVID-19 (PARMINDER) Negative (Negative) COVID-19 Clin Com See Note S. pyogenes GrpA GEORGETTE Negative (Negative) Discharge Plan Discharge Clinical Impression: Acute viral pharyngitis Patient Disposition: Home, Self-Care Instructions: Pharyngitis (ED) Additional Instructions: Please follow-up with your primary care physician tomorrow. If you have any worsening or new symptoms, please return to the emergency room or call 911 Prescriptions: New benzocaine-menthol 6-10 mg lozenge 1 george mucous membrane Q2-4H PRN (Reason: sore throat) Qty: 18 0RF No Action omeprazole 20 mg capsule,delayed release(DR/EC) 20 mg PO DAILY 90 Days Qty: 90 0RF ibuprofen 800 mg tablet 800 mg PO Q8H PRN (Reason: pain) Qty: 14 0RF acetaminophen [Tylenol Extra Strength] 500 mg tablet 1,000 mg PO QID PRN (Reason: fever or pain) Qty: 14 0RF clotrimazole-betamethasone 1-0.05 % cream 1 appl topical BID 14 Days Qty: 15 0RF docusate calcium 240 mg capsule 240 mg PO BEDTIME PRN (Reason: constipation) 90 Days Qty: 90 0RF
[2022-11-10 02:03] LABS: Strep A Nucleic Acid Negative (Negative)
[2022-11-10] MEDS: Lidocaine HCl Viscous 2 % 15 ML SOLUTION MUCOUS MEM (02:14)
[2022-11-10] MEDS: dexAMETHasone sod phosphate 4 MG/ML VIAL 6 MG IVPUSH (02:14)
[2022-11-10 03:07] LABS: COVID-19 Test Negative (Negative); IDNOW Serial# BCCEAD1C
[2022-11-10 03:19] VITALS: BP 106/62; PULSE 88; RESP 16; TEMP 37.1; O2SAT 99
== END 2022-11-10 03:20 | disposition home or self-care (01) ==
PROVIDERS: Emergency Provider Emergency Medicine; PCP Internal Medicine
DX: J02.8 Acute pharyngitis due to other specified organisms (principal); Z20.822 Contact with and (suspected) exposure to COVID-19
CPT/HCPCS: 36415; 87635; 87651; 99283; 99284; J1100

== ENCOUNTER 2022-12-21 09:52 | Outpatient (REF) | payer OTHER, SELFPAY ==
[2022-12-21 10:26] LABS: MANUAL DIFF FLAG NO
[2022-12-21 10:38] LABS: Basophils Percent Auto 0.1 % (0-2); Eosinophils Percent Auto 0.3 % (0-4); Hematocrit 39.9 % (37.0-47.0); Hemoglobin 13.3 g/dl (12.0-16.0); Imm Gran Abs Auto 0.05 X10*3/uL (0.00-0.03); Imm Gran Pct Auto 0.7 % (0.0-0.4); Lymphocytes Absolute Auto 1.8 X10*3/uL (1.2-4.9); Lymphocytes Percent Auto 26.9 % (20-40); Mean Corpuscular HGB Conc 33.3 g/dl (31.0-35.0); Mean Corpuscular Hemoglobin 27.1 pg (27.0-33.0); Mean Corpuscular Volume 81.3 fL (80.0-98.0); Mean Platelet Volume 9.9 fL (9.4-12.3); Monocytes Absolute Auto 0.5 X10*3/uL (0.1-1.2); Monocytes Percent Auto 8.1 % (2-11); Neutrophils Absolute Auto 4.3 x10*3/uL (2.0-8.3); Neutrophils Percent Auto 63.9 % (45-73); Platelet Count 303 X10*3/uL (160-400); Red Blood Count 4.91 X10*6/uL (4.20-5.50); White Blood Count 6.7 X10*3/uL (4.8-10.8)
[2022-12-21 10:52] LABS: Alanine Aminotransferase 16 U/L (0-31); Albumin Level 4.2 g/dL (3.5-5.0); Alkaline Phosphatase 55 U/L (39-117); Anion Gap 14 (12-20); Aspartate Amino Transferase 19 U/L (5-31); Bilirubin Total 0.5 mg/dL (0.0-1.0); Blood Urea Nitrogen 17 mg/dL (9-16); Calcium 9.6 mg/dL (8.4-10.2); Carbon Dioxide 25 mmol/L (22-29); Chloride 106 mmol/L (96-108); Estimated Glomerular Filt Rate > 60; Glucose Random 88 mg/dL (60-115); Lipase 24 U/L (8-78); Potassium 4.6 mmol/L (3.3-5.1); Sodium 140 mmol/L (135-145); Total Protein 7.4 g/dL (6.5-8.0)
[2022-12-21 11:06] LABS: Vitamin D 25-OH Total 23.9 ng/mL (>30)
== END 2022-12-21 09:53 | disposition home or self-care (01) ==
LOC: HO.LAB 09:52
PROVIDERS: PCP Internal Medicine; Visit Provider Nurse Practitioner Family
DX: R10.13 Epigastric pain (principal)
CPT/HCPCS: 36415; 80053; 82306; 83690; 85025

== ENCOUNTER 2023-03-10 16:06 | Outpatient (REF) | payer OTHER, SELFPAY ==
[2023-03-13 16:28] LABS: TS Negative Control Passed; TS Panel A 1; TS Panel B 0; TS Positive Control Passed; TSpotTB Negative (Negative)
== END 2023-03-10 16:07 | disposition home or self-care (01) ==
LOC: HO.LAB 16:06
PROVIDERS: PCP Internal Medicine; Visit Provider Internal Medicine
DX: Z11.1 Encounter for screening for respiratory tuberculosis (principal)
CPT/HCPCS: 36415; 86481

== ENCOUNTER 2023-04-12 09:28 | Outpatient (AMB) | payer OTHER, SELFPAY ==
[2023-04-12 09:31] VITALS: BP 92/60; PULSE 69; O2SAT 99; BMI 29.3
--- NOTE | 2023-04-12 09:31 | MHC.PC.OV ---
Vital Signs 04/12/23 09:31 Height 5 ft 5 in Weight 176 lb BMI 29.3 BP 92/60 Blood Pressure Location Lt brachial Position Sitting Pulse 69 Pulse Source Pulse Oximeter Temp Source Skin Pulse Oximetry (%) 99 Oxygen Delivery Method Room Air Intake Visit Reasons: Annual PE Intake Note: Patient is here today for a physical. Instructional Technology Coordinator Required: No Allergies meperidine [From DEMEROL] Allergy (Unknown, Verified 04/12/23 09:40) DIFF BREATHING morphine [MORPHINE] Allergy (Unknown, Verified 04/12/23 09:40) DIFF BREATHING Medication List - Last Reconciled 04/12/23 by SD Low acetaminophen (Tylenol Extra Strength) 1,000 mg (2 x 500 mg) PO QID PRN benzocaine-menthol 6-10 mg 1 george mucous membrane Q2-4H PRN cholecalciferol (vitamin D3) 25 mcg PO DAILY docusate calcium 240 mg PO BEDTIME PRN 90 days ibuprofen 800 mg PO Q8H PRN omeprazole 20 mg PO BID 90 days Tobacco use date assessed: 04/12/23 Dental Screening Dental Screen Date: 04/12/23 Did you have a dental visit in the last 12 months?: No Did you have a dental problem in the last 6 months where you did not have access to dental care?: No Was dental information given to patient?: Patient has dentist HPI Annual PE HPI Details Patient is a 22-year-old female who presents today for physical exam. Patient of Dr. Garcia. Medical history significant for PCOS, dyspepsia-currently on omeprazole 20 mg b.i.d. with no much improvement-she has referral to see GI specialist-will follow-up on this, low vitamin-D level. Patient also reports intermittent sore throat on monthly basis, she reports that in [place] she was told that her tonsils need to be removed - patient would like to be seen by ENT provider in regards to this. Currently she denies any sore throat. Patient reports normal Pap smear 2 years ago in [place], she reports that she is followed by [facility] gynecology and she will ask them when is her next Pap smear due. Patient reports tetanus vaccine in the last 10 years. Patient will call for an eye exam. Up-to-date with dental exam. Patient denies shortness of breath or chest pain. [facility] Medical History Abnormal menses Allergic reaction Hirsutism History of irregular menstrual cycles PCOS (polycystic ovarian syndrome) Physical exam Skin lesion Surgical History History of gastric surgery Family History Maternal Grandfather Hx of thyroid cancer Maternal Aunt Hx of thyroid cancer History of colon cancer Father Diabetes mellitus Mother Asthma Social History Housing: Apartment Alcohol intake: never Patient Tobacco Use Status: Never used Tobacco e-Cigarette/Vaping Use: Never Used Second Hand Smoke Exposure: No service: No Current occupational status: employed Current occupational exposures/hazards: No Gender identity: Female Cognitive needs: No Hearing needs: No Vision needs: No Questionnaire PHQ-9 Over the last 2 weeks, how often have you been bothered by any of the following problems? 1. Little interest or pleasure in doing things: not at all 2. Feeling down, depressed, or hopeless: not at all 3. Trouble falling or staying asleep, or sleeping too much: not at all 4. Feeling tired or having little energy: not at all 5. Poor appetite or overeating: not at all 6. Feeling bad about yourself - or that you are a failure or have let yourself or your family down: not at all 7. Trouble concentrating on things, such as reading the newspaper or watching television: not at all 8. Moving or speaking so slowly that other people could have noticed. Or the opposite - being so fidgety or restless that you have been moving around a lot more than usual: not at all 9. Thoughts that you would be better off or of hurting yourself in some way: not at all Total score: 0 Depression Screening Interpretation: Negative 49681 - PHQ-9 Billing: Yes Source: Developed by Drs. Jeffery Sprague, Charity Thomas, Huy Holman and colleagues, with an educational lila from [employer]. Thrive Questionnaire Date Thrive assessed: 12/21/22 AUDIT C Alcohol Use Questionnaire (AUDIT-C) 1. How often do you have a drink containing alcohol?: Never Total Score: 0 Score Reviewed/Action Taken: No ANDRESSA-7 AMB Questionnaire ANDRESSA-7 Date ANDRESSA - 7 assessed: 01/24/23 Feeling nervous, anxious, or on edge: 0 = Not at all Not being able to stop or control worryin = Not at all Worrying too much about different things: 0 = Not at all Trouble relaxin = Not at all Being so restless that it is hard to sit still: 0 = Not at all Becoming easily annoyed or irritable: 0 = Not at all Feeling afraid as if something awful might happen: 0 = Not at all Total ANDRESSA-7 score (0-4 normal; 5-9 mild; 10-14 moderate; 15-21 severe): 0 Source: Developed by Drs. Jeffery Sprague, Charity Thomas, Huy Holman and colleagues, with an educational lila from [employer]. ANDRESSA-7 Assessment Billing ANDRESSA-7 Assessment Tool: ANDRESSA-7 Assessment 48319 Review of Systems Const Denies body aches, Denies chills, Denies fever(s) and Denies headache(s) Eyes Denies change in vision ENT Reports as per HPI, Denies dizziness, Denies otalgia, Denies headache(s), Denies nasal discharge, Denies sinus pain and Denies sore throat Card Denies chest pain, Denies edema, Denies lightheadedness and Denies dyspnea Resp Denies cough, Denies dyspnea and Denies wheezing GI Reports abdominal pain, Denies constipation, Reports dyspepsia, Denies diarrhea, Reports nausea and Denies vomiting Denies dysuria Musc Denies myalgias Skin/Breast Denies rash Neuro Denies dizziness and Denies headache(s) Aller/Immun Denies wheezing Physical exam (Primary Care) Vital Signs: Last Vital Signs Pulse 69 04/12/23 09:31 BP 92/60 04/12/23 09:31 Pulse Ox 99 04/12/23 09:31 Oxygen Delivery Method Room Air 04/12/23 09:31 BMI result Body Mass Index 29.3 Tobacco/Smoking Status: Tobacco use Status Tobacco use date assessed 04/12/23 04/12/23 09:32 Patient Tobacco Use Status Never used Tobacco 04/12/23 09:32 e-Cigarette/Vaping Use Never Used 04/12/23 09:32 PHQ-9: PHQ-9 Score PHQ-9: Total score 0 04/12/23 09:32 Depression Screening Interpretation: Negative Thrive Assessment: Date of Thrive Assessment Date Thrive assessed 12/21/22 04/12/23 09:32 Const General: cooperative and no acute distress Orientation/consciousness: patient oriented x3 HENMT Other: Left ear canal with moderate cerumen, visualized TM normal Head: Yes normocephalic and Yes atraumatic Ears: TM normal on the right Face and sinus: Yes sinuses nontender Mouth: oropharynx normal and moist mucous membranes Throat: Yes posterior oropharynx normal and Yes other (Enlarged tonsils) Eyes General: appearance normal, both eyes and all related structures Pupils: Equal, round and reactive pupils present EOM: EOMs intact bilaterally Neck Neck: Yes normal visual inspection, Yes full ROM and Yes no lymphadenopathy Thyroid: Thyroid normal Resp Effort & Inspection: normal respiratory effort and able to speak in complete sentences Auscultation: clear to auscultation bilaterally, no crackles, no rales, no rhonchi and no wheezes Cardio Rate: regular rate Rhythm: regular rhythm Heart sounds: S1 normal heart sound present, S2 normal heart sound present and no murmurs GI Palpation (GI): Soft to palpation, not firm, Tenderness to palpation present (GI) in the epigastrum; with no rebound tenderness, no guarding, not rigid and no hepatosplenomegaly Auscultation: normal bowel sounds General: No CVA tenderness Back/Spine/Pelvis Back: No CVA tenderness Skin General skin exam: no rashes or lesions noted Neuro General: patient oriented x3 Cranial nerves: Yes Equal, round and reactive pupils present Gait exam (Neuro): Normal gait present Extrem General: Yes full ROM and No edema Assessment and Plan Assessment & Plan (1) Enlarged tonsils: Code(s): J35.1 - Hypertrophy of tonsils Plan: ENT referral for an evaluation and treatment (2) Dyspepsia: Code(s): R10.13 - Epigastric pain Plan: Continue omeprazole 20 mg b.i.d. Avoid acidic foods Do not lay down 2-3 hours after evening meal Will follow-up on GI referral (3) Annual physical exam: Code(s): Z00.00 - Encounter for general adult medical examination without abnormal findings Plan: Repeat in 1 year Orders: Referrals Ear/Nose/Throat Referral J35.1 - Hypertrophy of tonsils Coding Level of Care Code Est Pt Prev Care 18-39y(39308) Diagnoses Enlarged tonsils J35.1 Dyspepsia R10.13 Annual physical exam Z00.00 Additional Codes ANDRESSA-7 Assessment Billing - ANDRESSA-7 Assessment Tool: ANDRESSA-7 Assessment [id number] ([id number])
== END 2023-04-12 09:54 | disposition home or self-care (01) ==
PROVIDERS: PCP Internal Medicine; Visit Provider Nurse Practitioner Family
DX: J35.1 Hypertrophy of tonsils (principal); R10.13 Epigastric pain; Z00.00 Encounter for general adult medical examination without abnormal findings
CPT/HCPCS: 99395

== ENCOUNTER 2023-04-17 14:28 | Outpatient (AMB) | payer OTHER, SELFPAY ==
[2023-04-17 14:36] VITALS: BP 101/50; PULSE 87; BMI 29.5
--- NOTE | 2023-04-17 14:36 | A.OFFVIS_ITS ---
Intake Vital Signs 04/17/23 14:36 Height 5 ft 5 in Weight 177 lb 4.026 oz BMI 29.5 BP 101/50 L Blood Pressure Location Lt brachial Position Sitting Pulse 87 Intake Visit Reasons: epigastric pain Intake Note: Molly presents in office as a new.patient for epigastric pain. PT CC: pt reports having epigastric pain pt denies any other GI Issues Block Handler Required: No Accompanied by: Self / Same As Patient Allergies meperidine [From DEMEROL] Allergy (Unknown, Verified 04/17/23 14:37) DIFF BREATHING morphine [MORPHINE] Allergy (Unknown, Verified 04/17/23 14:37) DIFF BREATHING HPI epigastric pain HPI Details 22-year-old female with past medical history dyspepsia, PCOS, low vitamin-D level, is here today for initial consultation. Patient was sent by her PCP. Patient reports history of epigastric discomfort with nausea and occasional vomiting postprandially for over 6 months or so. Patient reports that she is feeling like this despite taking omeprazole. Patient has been on omeprazole for over 6 months. Initially patient was on omeprazole twice a day, however reports no help and she stopped taking it twice a day and now taking it every morning. Patient reports that occasionally after eating she will have epigastric discomfort Patient states that she was diagnosed with H pylori in the past and treated. As a baby at 7-month-old patient had stomach surgery most likely pyloric stenosis repair for frequent vomiting. Patient reports that she had similar surgery when she was 6 years old. Patient reports that she is not moving her bowels regularly. Sometimes she is unable to move her bowels for 5 days or so. Reports abdominal bloating. Patient also reports occasional dyspepsia with dysphagia without odynophagia. Patient denies melena, hematochezia, unintentional weight loss or ribbon like stools. [facility] Medical History Abnormal menses Allergic reaction Hirsutism History of irregular menstrual cycles PCOS (polycystic ovarian syndrome) Physical exam Skin lesion Surgical History History of gastric surgery Family History Maternal Grandfather Hx of thyroid cancer Maternal Aunt Hx of thyroid cancer History of colon cancer Father Diabetes mellitus Mother Asthma Social History Housing: Apartment Alcohol intake: never Patient Tobacco Use Status: Never used Tobacco e-Cigarette/Vaping Use: Never Used Second Hand Smoke Exposure: No service: No Current occupational status: employed Current occupational exposures/hazards: No Gender identity: Female Cognitive needs: No Hearing needs: No Vision needs: No Review of Systems Const Denies weight gain and Denies weight loss ENT Reports no additional complaints, Denies dysphagia and Denies odynophagia Card Reports no additional complaints Resp Reports no additional complaints GI Reports abdominal pain (Epigastric), Denies belching, Denies melena, Reports bloating, Denies change in bowel habits, Denies dysphagia, Denies excessive flatus, Reports dyspepsia (Occasional solids and liquids), Reports heartburn, Denies diarrhea, Denies loose stools, Reports nausea, Denies odynophagia and Denies vomiting Reports no additional complaints Musc Reports no additional complaints Neuro Reports no additional complaints Psych Reports no additional complaints Endo Reports no additional complaints Physical Exam Vital Signs: Last Vital Signs Pulse 87 04/17/23 14:36 BP 101/50 L 04/17/23 14:36 BMI result Body Mass Index 29.5 Const General: healthy appearing, no acute distress and well developed Nutritional Appearance: obese Orientation/consciousness: patient oriented x3 HEENT Head: Yes normal to inspection, Yes normocephalic and Yes atraumatic Face and sinus: Yes normal facial exam Mouth: Normal oral and palatal mucosa present Throat: Yes posterior oropharynx normal, Yes tonsils normal and Yes uvula midline Eyes General: appearance normal, both eyes and all related structures Neck Neck: Yes normal visual inspection, Yes full ROM and Yes trachea midline Thyroid: Thyroid normal Resp Effort & Inspection: normal respiratory effort, able to speak in complete sentences, no tracheal deviation and symmetric chest movement Auscultation: clear to auscultation bilaterally Cardio Rate: regular rate Heart sounds: S1 normal heart sound present and S2 normal heart sound present GI Inspection: Yes normal to inspection, No distended and Yes obesity Palpation (GI): Soft to palpation, not firm, nontender and No hepatosplenomegaly present Auscultation: normal bowel sounds General: Yes no CVA tenderness Back/Spine/Pelvis Back: no CVA tenderness Skin General skin exam: elasticity normal, turgor normal and dry skin Neuro General: patient oriented x3 Psych Appearance: grossly normal Mental Status: mental status grossly normal Speech and movement: Normal speech and movement present Assessment & Plan Assessment & Plan (1) Dyspepsia: Code(s): R10.13 - Epigastric pain Plan: Patient reports occasional dyspepsia with dysphagia without odynophagia. Patient will be tested for H pylori. Will treat empirically if positive. (2) GERD (gastroesophageal reflux disease): Code(s): K21.9 - Gastro-esophageal reflux disease without esophagitis Qualifiers: Esophagitis presence: esophagitis presence not specified Qualified Code(s): K21.9 - Gastro-esophageal reflux disease without esophagitis Plan: Will stop omeprazole. Will start patient on pantoprazole. H pylori testing as mentioned above. Patient does have a history of H pylori in the past. He will schedule upper endoscopy in near future (3) Chronic idiopathic constipation: Code(s): K59.04 - Chronic idiopathic constipation Plan: Patient reports constipation sometimes no BM for 5 days. Patient was encouraged to increase fluid intake and activity to promote better bowel motility. I will start her on Senokot 2 tablets every evening. (4) Postprandial abdominal bloating: Code(s): R14.0 - Abdominal distension (gaseous) Plan: Patient reports postprandial abdominal bloating and dyspepsia. Most likely related to her being constipated. Will have patient move her bowels better. Will check for transglutaminase, patient does have epigastric discomfort postprandially. I will see her in 4 weeks, sooner on as needed basis. Patient is agreeable to this plan and verbalizes understanding of instructions. She was given the opportunity to ask questions and all questions answered. Thank you for allowing me to participate in her care Orders: Orders Transglutaminase IgA Today R10.9 - Unspecified abdominal pain Transglutaminase Ab IgG Today R10.9 - Unspecified abdominal pain H pylori Ag Stool Today K21.9 - Gastro-esophageal reflux disease without esophagitis TSH reflex Free T4 Today K59.00 - Constipation, unspecified Medications: New pantoprazole take one tablet half an hour before breakfast 40 mg PO DAILY 30 tabs 2RF K21.9 - Gastro-esophageal reflux disease without esophagitis sennosides (Natural Senna Laxative) 17.2 mg (2 x 8.6 mg) PO BEDTIME 60 tabs 3RF constipation K59.00 - Constipation, unspecified Discontinued omeprazole Discontinued Reason: Doctor's Order 20 mg PO BID 90 days 180 caps 0RF R10.13 - Epigastric pain Coding Level of Care Code New Pt Level 4 (73382) Diagnoses Dyspepsia R10.13 GERD (gastroesophageal reflux disease) K21.9 Esophagitis presence: esophagitis presence not specified Chronic idiopathic constipation K59.04 Postprandial abdominal bloating R14.0 Time Spent (min) 45 Comment 30 minutes spent with patient and additional 15 minutes spent reviewing her records
== END 2023-04-17 15:14 | disposition home or self-care (01) ==
PROVIDERS: PCP Internal Medicine; Visit Provider Nurse Practitioner Family
DX: R10.13 Epigastric pain (principal); K21.9 Gastro-esophageal reflux disease without esophagitis; K59.04 Chronic idiopathic constipation; R14.0 Abdominal distension (gaseous)
CPT/HCPCS: 99204

== ENCOUNTER → 2023-04-17 14:28 | Outpatient (BNVA) | payer OTHER, SELFPAY | PROVIDERS: PCP Internal Medicine; Visit Provider Nurse Practitioner Family | DX: K21.9 Gastro-esophageal reflux disease without esophagitis (principal); K59.04 Chronic idiopathic constipation; R10.13 Epigastric pain; R14.0 Abdominal distension (gaseous) | CPT/HCPCS: 99202 ==

== ENCOUNTER 2023-04-18 15:55 | Outpatient (REF) | payer OTHER, SELFPAY ==
[2023-04-18 17:41] LABS: TSH reflex Free T4 1.05 uIU/mL (0.32-4.0)
[2023-04-20 13:33] LABS: Transglutaminase Ab IgG <1.0 U/mL; Transglutaminase IgA <1.0 U/mL
== END 2023-04-18 15:56 | disposition home or self-care (01) ==
LOC: HO.LAB 15:55
PROVIDERS: PCP Internal Medicine; Visit Provider Nurse Practitioner Family
DX: R10.9 Unspecified abdominal pain (principal); K59.00 Constipation, unspecified
CPT/HCPCS: 36415; 84443; 86364

== ENCOUNTER 2023-05-03 | Outpatient (REF) | payer OTHER, SELFPAY | END 2023-05-03 00:01 | disposition home or self-care (01) | LOC: HO.LNP | PROVIDERS: Visit Provider Nurse Practitioner Family | DX: K21.9 Gastro-esophageal reflux disease without esophagitis (principal) | CPT/HCPCS: 87338 ==

== ENCOUNTER 2023-05-05 13:08 | Outpatient (REF) | payer OTHER, SELFPAY | END 2023-05-05 13:09 | disposition home or self-care (01) | LOC: HO.LNP 13:08 | PROVIDERS: Visit Provider Nurse Practitioner Family | DX: Z13.89 Encounter for screening for other disorder (principal) ==

== ENCOUNTER 2023-06-16 13:21 | Outpatient (AMB) | payer OTHER, SELFPAY ==
--- NOTE | 2023-06-16 13:23 | A.OFFVIS_ITS ---
Intake Vital Signs 06/16/23 13:33 Height 5 ft 5 in Weight 178 lb 9.191 oz BMI 29.7 BP 118/72 Intake Visit Reasons: pelvic pain/irregular periods Intake Note: The patient agreed to use of a medical illustrator during this encounter. Scribed for ALTON Pabon by Lian Treadwell medical illustrator, on 06/14/2023 at 1:40 pm, EST. Nursing Services Manager Required: Yes Nursing Services Manager Language: Ward Helper Name: Audrey MITCHELL Information Interpreted: non-clinical & clinical Business Systems Technician: Business Systems Technician Present (Audrey Otto MITCHELL) Accompanied by: Self / Same As Patient Allergies meperidine [From DEMEROL] Allergy (Unknown, Verified 06/16/23 13:34) DIFF BREATHING morphine [MORPHINE] Allergy (Unknown, Verified 06/16/23 13:34) DIFF BREATHING Nexplanon Adverse Reaction (Uncoded 06/16/23 14:07) rash Is last menstrual period known: Yes Last menstrual period: 04/27/23 HPI HPI Comments History of Present Illness Details The patient presented to the office today for an evaluation of pelvic pain and irregular periods. Was seen in the office 3 years ago, in 2019. Chart documents PCOS. Pain for one month and radiates down. Has had pain before with a diagnosis of ovarian cyst. History of taking control that caused headaches. Has done patch with headaches and nausea. Nexplanon caused her an allergic reaction. She was seen by [facility]. Denies smoking. Confirms having an intimate partner. She is not currently using any form of control. Her last pap smear was here. [facility] Medical History Abnormal menses Allergic reaction Skin lesion Physical exam PCOS (polycystic ovarian syndrome) Hirsutism History of irregular menstrual cycles Surgical History History of gastric surgery Family History Maternal Grandfather Hx of thyroid cancer Maternal Aunt Hx of thyroid cancer History of colon cancer Father Diabetes mellitus Mother Asthma Social History Housing: Apartment Alcohol intake: never Patient Tobacco Use Status: Never used Tobacco e-Cigarette/Vaping Use: Never Used Second Hand Smoke Exposure: No service: No Current occupational status: employed Current occupational exposures/hazards: No Gender identity: Female Cognitive needs: No Hearing needs: No Vision needs: No Female Reproductive History Menstrual Date of last menstrual period: 04/27/23 Review of Systems Const All systems reviewed & are unremarkable except as noted in HPI and below Reports pelvic pain Physical Exam Vital Signs: Last Vital Signs BP 118/72 06/16/23 13:33 BMI result Body Mass Index 29.7 Const General: cooperative, healthy appearing, no acute distress, well developed and alert Orientation/consciousness: patient oriented x3 General: Yes bladder normal to inspection and Yes bladder normal to palpation External Female Exam: normal external appearance and normal appearance of the urethra Speculum Exam - Vagina: normal appearance of the vagina and normal palpation Speculum Exam - Cervix: normal appearance of the cervix Bimanual exam- vagina & uterus: normal bimanual exam, normal palpation, uterine size normal, bladder normal to palpation and Uterine tenderness (on exam; no guarding.) Bimanual Exam- Adnexa, other: normal adnexae and no masses Neuro General: patient oriented x3 Psych Attitude: cooperative Thought process: Normal thought process present Results AMB Test Urine AMB Test Urine Negative Last Edit by Audrey Menjivar CMA on 13:38 AMB Urinalysis Dipstick UR Leukocytes Negative Last Edit by Audrey Menjivar CMA on 06/16/23 13:39 UR Nitrite Negative Last Edit by Audrey Menjivar CMA on 06/16/23 13:39 UR Urobilinogen Normal Last Edit by Audrey Menjivar CMA on 06/16/23 13:39 UR Protein Negative Last Edit by Audrey Menjivar CMA on 06/16/23 13:39 UR Ph 6.0 Last Edit by Audrey Menjivar CMA on 06/16/23 13:39 UR Blood Negative Last Edit by Audrey Menjivar CMA on 06/16/23 13:39 UR Specific [place] 1.020 Last Edit by Audrey Menjivar CMA on 06/16/23 13:39 UR Ketone Negative Last Edit by Audrey Menjivar CMA on 06/16/23 13:39 UR Bilirubin Negative Last Edit by Audrey Menjivar CMA on 06/16/23 13:39 UR Glucose Negative Last Edit by Audrey Menjivar CMA on 06/16/23 13:39 Results Reviewed Results Reviewed: Laboratory Last Values Urine pH (Clinic) 6.0 06/16/23 13:38 Specific [place] (Clinic) 1.020 06/16/23 13:38 Ur Protein (Clinic) Negative 06/16/23 13:38 Ur Ketones (Clinic) Negative 06/16/23 13:38 Urine Blood (Clinic) Negative 06/16/23 13:38 Urine Nitrite Negative 06/16/23 13:38 Urine Bilirubin (Clinic) Negative 06/16/23 13:38 Urobilinogen (Clinic) Normal 06/16/23 13:38 Leukocyte Esterase (Clinic) Negative 06/16/23 13:38 Urine Glucose (Clinic) Negative 06/16/23 13:38 Tst Clinic Negative 06/16/23 13:38 EXAMINATION: PELVIC ULTRASOUND obtained on 05/26/2020. CLINICAL INFORMATION: Irregular menses COMPARISON: Previous exam November 2017 TECHNIQUE: Transabdominal and transvaginal pelvic ultrasound was performed. Transvaginal exam was performed for better visualization of the uterus and ovaries. FINDINGS: The uterus is anteverted and anteflexed and measures 7.5 x 3.1 x 4 cm in dimension. No focal uterine lesion is seen. Endometrial thickness is normal measuring 1.2 cm. There are nabothian cysts in the cervix. The ovaries are normal in size. The right ovary measures 3.8 x 2.2 x 2.1 cm and the left ovary measures 3.4 x 3.3 x 2.2 cm. There are multiple small ovarian cysts or follicles seen. Appearance is questionable for polycystic ovarian syndrome. There is a larger simple left ovarian cyst that measures 1.9 x 1.3 x 1.8 cm. There is no fluid in the pelvis. IMPRESSION: Multiple small peripheral cysts or follicles in both ovaries questionable for polycystic ovarian syndrome. The ovaries are normal in size. Assessment & Plan Assessment & Plan (1) Pelvic pain: Code(s): R10.2 - Pelvic and perineal pain Plan: I would like for her to schedule an annual exam in the near future. At that time we will discuss her control options. Pelvic rest, nothing in the vagina, heating pad, and Tylenol for pain. She was educated should her pain increase she should present to the emergency room. Pelvic US ordered. Follow up in person for results. All of her questions and concerns were addressed to the best of my ability and shared decision making. She is agreeable to plan of care. Orders: Orders AMB Urinalysis Dipstick Today Z32.02 - Encounter for test, result negative US pelvic and transvaginal Today R10.2 - Pelvic and perineal pain CT NG by PCR Today R10.2 - Pelvic and perineal pain Bacterial Vaginosis Panel Today R10.2 - Pelvic and perineal pain AMB HCG Urine Test Today Z32.02 - Encounter for test, result negative Coding Level of Care Code Est Pt Level 4 (18313) Diagnoses Pelvic pain R10.2
[2023-06-16 13:33] VITALS: BP 118/72; BMI 29.7
== END 2023-06-16 14:19 | disposition home or self-care (01) ==
PROVIDERS: PCP Internal Medicine; Visit Provider Advanced Practice Midwife
DX: Z32.02 Encounter for pregnancy test, result negative (principal); R10.2 Pelvic and perineal pain
CPT/HCPCS: 99214

== ENCOUNTER 2023-06-16 13:21 | Outpatient (REF) | payer OTHER, SELFPAY ==
[2023-06-17 05:59] LABS: CT PCR NOT DETECTED (Not Detect.); NG PCR NOT DETECTED (Not Detect.)
[2023-06-17 11:24] LABS: BV Int Neg Control Negative (Negative); BV Int Pos Control Positive (Positive)
== END 2023-06-16 13:22 | disposition home or self-care (01) ==
LOC: HO.LNP 13:21
PROVIDERS: PCP Internal Medicine; Visit Provider Advanced Practice Midwife
DX: Z32.02 Encounter for pregnancy test, result negative (principal); R10.2 Pelvic and perineal pain
CPT/HCPCS: 0353U; 81002; 81025; 87480; 87510; 87660; 99212

== ENCOUNTER 2023-09-05 15:44 | Outpatient (REF) | payer OTHER, SELFPAY ==
--- NOTE | ~2023-09-05 | US_ITS ---
EXAMINATION: US PELVIS COMPLETE TRANSVAGINAL PELVIC ULTRASOUND: CLINICAL INFORMATION: Pelvic and perineal pain COMPARISON: 05/26/2020 TECHNIQUE: Transabdominal imaging initially performed. For more definitive evaluation of the endometrium and ovaries, transvaginal technique was employed. FINDINGS: Uterus is anteverted measuring 6.9 x 2.2 x 3.2cm. Endometrium measures and 0.9 cm. Small amount of endometrial and endocervical fluid. Right ovary measures 3.5 x 2.0 x 2.6 cm for a volume of 9.5 mL. Previous measurement was 3.8 x 2.2 x 2.1 cm for a volume of 9.2 mL. Multiple small ovarian follicles. The left ovary measures 3.2 x 1.8 x 3.1 cm for a volume of 9.3 mL. Previous measurement was 3.4 x 3.3 x 2.2 cm for a volume of 12.9 mL. Multiple small ovarian follicles. There is small amount of pelvic free fluid. US/US pelvic and transvaginal IMPRESSION: Small amount of endocervical, endometrial and free pelvic fluid.
== END 2023-09-05 15:45 | disposition home or self-care (01) ==
LOC: HO.US 15:44
PROVIDERS: PCP Internal Medicine; Visit Provider Advanced Practice Midwife
DX: R10.2 Pelvic and perineal pain (principal)
CPT/HCPCS: 76830; 76856

== ENCOUNTER 2023-09-15 14:05 | Outpatient (AMB) | payer OTHER, SELFPAY ==
[2023-09-15 14:07] VITALS: BP 116/72; PULSE 99; TEMP 36.8; O2SAT 98; BMI 30.1
--- NOTE | 2023-09-15 14:07 | MHC.OFFWIV ---
Intake Vital Signs 09/15/23 14:07 Height 5 ft 5 in Weight 181 lb BMI 30.1 BP 116/72 Blood Pressure Location Lt brachial Position Sitting Pulse 99 Pulse Source Pulse Oximeter Temp 98.3 F Temp Source Temporal Artery Scan Pulse Oximetry (%) 98 Oxygen Delivery Method Room Air Intake Visit Reasons: EP Sore throat/LT Ear/Headache [phone] Intake Note: pt is here today for sore throat lft ear headaches started yesterday Patient Tobacco Use Status: Never used Tobacco Allergies meperidine [From DEMEROL] Allergy (Unknown, Verified 09/15/23 14:11) DIFF BREATHING morphine [MORPHINE] Allergy (Unknown, Verified 09/15/23 14:11) DIFF BREATHING Nexplanon Adverse Reaction (Uncoded 06/16/23 14:07) rash Do you need a note to return to daycare/school/sports/work: No HPI HPI Comments History of Present Illness Details This is a 23-year-old female who presented to the walk-in clinic today complaining of sore throat x 1 day. Patient states she started to develop left ear pain with muffled/decreased hearing approximately 3 days ago. She then developed a severe sore throat yesterday. She reports associated subjective fever/chills and myalgias. She reports odynophagia but denies dysphagia. She does not have any wheezing or difficulty breathing. [facility] Medical History Abnormal menses Allergic reaction Skin lesion Physical exam PCOS (polycystic ovarian syndrome) Hirsutism History of irregular menstrual cycles Surgical History History of gastric surgery Family History Maternal Grandfather Hx of thyroid cancer Maternal Aunt Hx of thyroid cancer History of colon cancer Father Diabetes mellitus Mother Asthma Social History Housing: Apartment Alcohol intake: never Patient Tobacco Use Status: Never used Tobacco e-Cigarette/Vaping Use: Never Used Second Hand Smoke Exposure: No service: No Current occupational status: employed Current occupational exposures/hazards: No Gender identity: Female Cognitive needs: No Hearing needs: No Vision needs: No Review of Systems Const All systems reviewed & are unremarkable except as noted in HPI and below Reports no additional complaints Eyes Reports no additional complaints ENT Reports no additional complaints Card Reports no additional complaints Resp Reports no additional complaints GI Reports no additional complaints Reports no additional complaints Musc Reports no additional complaints Skin/Breast Reports system reviewed and no additional complaints, except as documented Neuro Reports no additional complaints Psych Reports no additional complaints Endo Reports no additional complaints Grayson/Lymph Reports no additional complaints Aller/Immun Reports no additional complaints Physical Exam Vital Signs: Last Vital Signs Temp 98.3 F 09/15/23 14:07 Pulse 99 09/15/23 14:07 BP 116/72 09/15/23 14:07 Pulse Ox 98 09/15/23 14:07 Oxygen Delivery Method Room Air 09/15/23 14:07 BMI result Body Mass Index 30.1 Const Other: Vital signs reviewed. Constitutional: Non-toxic appearing. No acute distress. Well-developed and well-nourished. HEENT: Bilateral cerumen impaction, left greater than right. She has bilateral tonsillar hypertrophy/edema with scattered patchy exudates and erythema. Skin: Warm and dry. No rashes or lesions noted. Neck: Boggy anterior cervical lymphadenopathy. Cardio: Regular rate and rhythm. No murmurs, gallops, or rubs. No lower extremity edema. No JVD. Pulmonary: No respiratory distress. No accessory muscle usage. Clear to auscultation bilaterally without wheezing, crackles, or rhonchi. No stridor. Gastrointestinal: Soft, nontender, and nondistended in all 4 quadrants. Musculoskeletal: Normal range of motion in joints throughout the body. No deformity or other signs of injury. Neuro: Alert and oriented x4. Cranial nerves 2-12 grossly intact. No focal deficits appreciated. Psych: Normal mood and affect. Office Procedures Cerumen Removal From which ear canal was the cerumen removed: bilateral Removal: irrigation Notes: patient tolerated procedure well [id number] Irrigation/Lavage Results AMB Rapid Strep AMB Rapid Strep Negative Last Edit by Ariadna Corral CMA on 09/15/23 14:28 Assessment & Plan Assessment & Plan (1) Strep pharyngitis: Code(s): J02.0 - Streptococcal pharyngitis Plan: This is a 23-year-old female who presented to the walk-in clinic complaining of a sore throat with subjective fever/chills x1 day. On physical examination, patient has bilateral tonsillar hypertrophy/edema with scattered patchy exudates and boggy anterior cervical lymphadenopathy. Her rapid strep testing was negative; however, her physical examination does appear to be consistent with streptococcal pharyngitis. No evidence of peritonsillar mass/abscess, peritonsillar cellulitis, or, unilateral neck swelling. Patient's vital signs are stable, physical exam is otherwise benign, and patient is overall nontoxic appearing. Patient sent home on p.o. amoxicillin 500 mg twice daily times 10 days. Recommended symptomatic management including rest, increased fluids, advil/tylenol for pain/fever, salt water gargles, and over the counter throat lozenges. Patient advised to follow up here or go to the emergency room for worsening/persistent symptoms including difficulty breathing, wheezing/stridor, difficulty swallowing, worsening throat pain, or worsening fevers. Patient verbalizes understanding and she is in agreement the plan. (2) Impacted cerumen of both ears: Code(s): H61.23 - Impacted cerumen, bilateral Plan: On physical examination, the patient was found to have bilateral cerumen impaction (left greater than right). Cerumen removal was performed with ear irrigation/lavage patient states that her ears feel significantly better. On repeat physical examination, there is no cerumen impaction. Orders: Orders AMB Rapid Strep Screen Today Z13.9 - Encounter for screening, unspecified Medications: New amoxicillin 500 mg PO BID 20 caps 0RF Coding Level of Care Code Est Pt Level 3 (69120) Diagnoses Strep pharyngitis J02.0 Impacted cerumen of both ears H61.23 CPT Codes Office Procedure - CPT: 87451-Mxc Irrigation/Lavage ([id number])
== END 2023-09-15 16:01 | disposition home or self-care (01) ==
PROVIDERS: PCP Internal Medicine; Visit Provider Physician Assistant Medical
DX: J02.0 Streptococcal pharyngitis (principal); H61.23 Impacted cerumen, bilateral; J02.9 Acute pharyngitis, unspecified
CPT/HCPCS: 69209; 87880; 99213

== ENCOUNTER 2023-09-22 09:42 | Outpatient (AMB) | payer OTHER, SELFPAY ==
--- NOTE | 2023-09-22 09:46 | MHC.OFFVIS ---
Intake Vital Signs 09/22/23 09:55 Height 5 ft 5 in Weight 180 lb 12.465 oz BMI 30.1 BP 118/70 Intake Visit Reasons: pelvic pain/ultra sound follow up Allergies meperidine [From DEMEROL] Allergy (Unknown, Verified 09/15/23 14:11) DIFF BREATHING morphine [MORPHINE] Allergy (Unknown, Verified 09/15/23 14:11) DIFF BREATHING Nexplanon Adverse Reaction (Uncoded 06/16/23 14:07) rash HPI HPI Comments History of Present Illness Details Patient is here for a follow-up on ultrasound results for history of pelvic pain. She has a history of PCOS and reports she has not had a period in 4 months. She is sexually active same monogamous partner and admits to painful intimacy. She reports on and off chronic pelvic pain she is concerned that she might have endometriosis. Family history of endometriosis- mother and sister. She also complains of vaginal discharge that is increased, no odor, itching, or burning irritation. She requests further testing to diagnose whether she has endometriosis. She reports trying the Nexplanon in the past when she was at [facility] she had a removed within the month of insertion due to arm numbness and itching near the insertion site. She tried Maria C control in the past and discontinued after 1 month due to headaches. She is not interested in BC today. [facility] Medical History Abnormal menses Allergic reaction Skin lesion Physical exam PCOS (polycystic ovarian syndrome) Hirsutism History of irregular menstrual cycles Surgical History History of gastric surgery Family History Maternal Grandfather Hx of thyroid cancer Maternal Aunt Hx of thyroid cancer History of colon cancer Father Diabetes mellitus Mother Asthma Social History Housing: Apartment Alcohol intake: never Patient Tobacco Use Status: Never used Tobacco e-Cigarette/Vaping Use: Never Used Second Hand Smoke Exposure: No service: No Current occupational status: employed Current occupational exposures/hazards: No Gender identity: Female Cognitive needs: No Hearing needs: No Vision needs: No Review of Systems Const All systems reviewed & are unremarkable except as noted in HPI and below Physical Exam Vital Signs: Last Vital Signs BP 118/70 09/22/23 09:55 BMI result Body Mass Index 30.1 Const General: cooperative, healthy appearing and no acute distress Orientation/consciousness: patient oriented x3 GI Inspection: Yes normal to inspection Palpation (GI): Soft to palpation and Other GI palpation findings present (Nontender) Rectal Exam - Female: visual inspection normal General: Yes bladder normal to palpation External Female Exam: normal appearance of the urethra Speculum Exam - Vagina: normal appearance of the vagina, normal palpation and normal vaginal discharge Speculum Exam - Cervix: normal appearance of the cervix and normal palpation Bimanual exam- vagina & uterus: normal bimanual exam, normal palpation, uterine size normal, bladder normal to palpation, normal palpation, uterine shape normal and non-tender Bimanual Exam- Adnexa, other: normal adnexae Neuro General: patient oriented x3 Results AMB Test Urine AMB Test Urine Negative Last Edit by Audrey Menjivar CMA on 09/22/23 11:22 Results Reviewed Results Reviewed: Laboratory Last Values Tst Clinic Negative 09/22/23 11:21 Assessment & Plan Assessment & Plan (1) PCOS (polycystic ovarian syndrome): Code(s): E28.2 - Polycystic ovarian syndrome Plan: (2) Encounter to discuss test results: Code(s): Z71.2 - Person consulting for explanation of examination or test findings (3) Chronic pelvic pain in female: Code(s): R10.2 - Pelvic and perineal pain; G89.29 - Other chronic pain Plan Discussed: Ultrasound results findings consistent with PCOS symptoms. Encouraged her to consider control options for a longer period of time to see if it will alleviate any of her pelvic discomfort. Option for consult with MD possible laparoscopic diet for diagnosis of endometrial cyst advised that it has not the 1st option usually. Advised to use progesterone now to help protect the endometrium, purpose of the use of this medicine explained. Plan consult with MD due to chronic pelvic pain, w/ PCOS. All of her questions and concerns were addressed to the best of my ability and shared decision making. She is agreeable to the plan of care. This note is constructed using voice recognition software. While every effort has been made to ensure accuracy, landscape maintenance internship errors may have been included. Orders: Orders Bacterial Vaginosis Panel Today R10.2 - Pelvic and perineal pain AMB HCG Urine Test Today Z32.02 - Encounter for test, result negative CT NG by PCR Today R10.2 - Pelvic and perineal pain Medications: New progesterone micronized (Prometrium) 200 mg PO ONCE 10 days 10 caps 0RF E28.2 - Polycystic ovarian syndrome Coding Level of Care Code Est Pt Level 3 (65473) Diagnoses PCOS (polycystic ovarian syndrome) E28.2 Encounter to discuss test results Z71.2 Chronic pelvic pain in female R10.2; G89.29
[2023-09-22 09:55] VITALS: BP 118/70; BMI 30.1
== END 2023-09-22 13:29 | disposition home or self-care (01) ==
LOC: HO.HWS 09:42
PROVIDERS: PCP Internal Medicine; Visit Provider Advanced Practice Midwife
DX: E28.2 Polycystic ovarian syndrome (principal); Z71.2 Person consulting for explanation of examination or test findings; R10.2 Pelvic and perineal pain; G89.29 Other chronic pain; Z32.02 Encounter for pregnancy test, result negative
CPT/HCPCS: 99213

== ENCOUNTER 2023-09-22 09:42 | Outpatient (REF) | payer OTHER, SELFPAY ==
[2023-09-23 05:55] LABS: CT PCR NOT DETECTED (Not Detect.); NG PCR NOT DETECTED (Not Detect.)
[2023-09-23 11:44] LABS: BV Int Neg Control Negative (Negative); BV Int Pos Control Positive (Positive)
== END 2023-09-22 09:43 | disposition home or self-care (01) ==
LOC: HO.LNP 09:42
PROVIDERS: PCP Internal Medicine; Visit Provider Advanced Practice Midwife
DX: R10.2 Pelvic and perineal pain (principal); G89.29 Other chronic pain; E28.2 Polycystic ovarian syndrome; N94.10 Unspecified dyspareunia; N89.8 Other specified noninflammatory disorders of vagina; Z32.02 Encounter for pregnancy test, result negative; Z84.2 Family history of other diseases of the genitourinary system; Z71.2 Person consulting for explanation of examination or test findings
CPT/HCPCS: 0353U; 81025; 87480; 87510; 87660; 99212

== ENCOUNTER 2023-10-24 07:36 | Outpatient (AMB) | payer OTHER, SELFPAY ==
--- NOTE | 2023-10-24 07:44 | MHC.OFFVIS ---
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 Language: Day Trader Name: Audrey MITCHELL Information Interpreted: non-clinical & clinical Accompanied by: Self / Same As Patient Allergies meperidine [From DEMEROL] Allergy (Unknown, Verified 10/24/23 07:47) DIFF BREATHING morphine [MORPHINE] Allergy (Unknown, Verified 10/24/23 07:47) DIFF BREATHING Nexplanon Adverse Reaction (Uncoded 10/24/23 07:47) rash Is last menstrual period known: Yes Last menstrual period: 10/04/23 HPI HPI Comments History of Present Illness Details Presenting complaining of long-term history of irregular menstrual cycles/oligomenorrhea associated with continuous daily pelvic pain and dyspareunia that gets exacerbated around the menstrual cycle and improves afterwards. Last Pap smear? Workup done recently included the following: Pelvic ultrasound in 09/13 which was unremarkable, and GC/CT which were negative. [facility] Medical History Abnormal menses Allergic reaction Skin lesion Physical exam PCOS (polycystic ovarian syndrome) Hirsutism History of irregular menstrual cycles Surgical History History of gastric surgery Family History Maternal Grandfather Hx of thyroid cancer Maternal Aunt Hx of thyroid cancer History of colon cancer Father Diabetes mellitus Mother Asthma Social History Housing: Apartment Alcohol intake: never Patient Tobacco Use Status: Never used Tobacco e-Cigarette/Vaping Use: Never Used Second Hand Smoke Exposure: No service: No Current occupational status: employed Current occupational exposures/hazards: No Gender identity: Female Cognitive needs: No Hearing needs: No Vision needs: No Female Reproductive History Menstrual Date of last menstrual period: 10/04/23 Review of Systems Const All systems reviewed & are unremarkable except as noted in HPI and below Physical Exam Vital Signs: Last Vital Signs BP 108/60 10/24/23 07:46 BMI result Body Mass Index 30.1 General: Yes no CVA tenderness External Female Exam: normal external appearance and normal appearance of the urethra Speculum Exam - Vagina: normal appearance of the vagina, normal palpation, no lesions and no masses Speculum Exam - Cervix: normal appearance of the cervix, normal palpation, no lesions, no masses and nontender Bimanual exam- vagina & uterus: normal bimanual exam, normal palpation, uterine size normal, normal palpation, uterine shape normal, No Cervical tenderness present and non-tender Bimanual Exam- Adnexa, other: normal adnexae Back/Spine/Pelvis Back: no CVA tenderness Assessment & Plan Assessment & Plan (1) Pelvic pain: Code(s): R10.2 - Pelvic and perineal pain Plan: Urine test done in the office was negative. GC and chlamydia taken recently were negative and pelvic ultrasound done in 09/13 was unremarkable. Discussed with the patient the differential diagnosis of pelvic pain including but not limited to adnexal, uterine masses, pelvic infections (PID), GI the (Irritable bowel syndrome, diverticulitis, others), musculoskeletal, myofascial pain abdominal wall , adhesions, endometriosis, psychological and others causes. Will consider diagnostic/therapeutic treatment for possible endometriosis and oligomenorrhea as part of the options of treatment during next visit. Instructions given the patient to schedule a 2 week follow-up appointment (2) Oligomenorrhea: Code(s): N91.5 - Oligomenorrhea, unspecified Plan: Pap smear taken. Discussed the patient possible cause of oligomenorrhea including anovulation with its different possible causes including but not limited to thyroid/prolactin this ordered, hyperandrogenism and PCOS and other Will order CBC, TSH, prolactin, hCG, 17 hydroxyprogesterone, total and free testosterone. Instructions given the patient to schedule a 2 week follow-up appointment if negative will consider continuous control pills for treatment of oligomenorrhea and possible endometriosis if oligomenorrhea is persistent will consider endometrial biopsy to rule out endometrial pathology including endometrial hyperplasia malignancy (3) Microscopic hematuria: Code(s): R31.29 - Other microscopic hematuria Plan: Urine dip done in the office showed microscopic hematuria, will send urine for culture and repeat urine dip next visit, if microscopic hematuria is persistent and urine culture is negative will proceed with CT scan and urology referral. All questions answered, the patient verbalized understanding Orders: Orders HCG Quantitative Today N93.9 - Abnormal uterine and vaginal bleeding, unspecified Testosterone, Free/Total Today N91.5 - Oligomenorrhea, unspecified TSH reflex Free T4 Today N93.9 - Abnormal uterine and vaginal bleeding, unspecified Prolactin Today N93.9 - Abnormal uterine and vaginal bleeding, unspecified 17 Hydroxyprogesterone Today N91.5 - Oligomenorrhea, unspecified Coding Level of Care Code Est Pt Level 3 (58690) Diagnoses Pelvic pain R10.2 Oligomenorrhea N91.5 Microscopic hematuria R31.29
[2023-10-24 07:46] VITALS: BP 108/60; BMI 30.1
== END 2023-10-24 08:18 | disposition home or self-care (01) ==
LOC: HO.HWS 07:37
PROVIDERS: PCP Internal Medicine; Visit Provider Obstetrics & Gynecology
DX: R10.2 Pelvic and perineal pain (principal); N91.5 Oligomenorrhea, unspecified; R31.29 Other microscopic hematuria; Z32.02 Encounter for pregnancy test, result negative
CPT/HCPCS: 99213

== ENCOUNTER 2023-10-24 07:36 | Outpatient (REF) | payer OTHER, SELFPAY ==
[2023-10-24 10:28] LABS: HCG Quantitative < 2 mIU/mL; TSH reflex Free T4 0.46 uIU/mL (0.32-4.0)
[2023-10-25 15:43] LABS: Prolactin 7.1 ng/mL
== END 2023-10-24 07:37 | disposition home or self-care (01) ==
LOC: HO.LAB 07:36
PROVIDERS: PCP Internal Medicine; Visit Provider Obstetrics & Gynecology
DX: R10.2 Pelvic and perineal pain (principal); N91.5 Oligomenorrhea, unspecified; R31.29 Other microscopic hematuria; N93.9 Abnormal uterine and vaginal bleeding, unspecified
CPT/HCPCS: 36415; 81002; 81025; 83498; 84146; 84402; 84403; 84443; 84702; 87086; 87147; 99212

== ENCOUNTER 2023-10-24 08:27 | Outpatient (REF) | payer OTHER, SELFPAY | END 2023-10-24 08:28 | disposition home or self-care (01) | LOC: HO.LNP 08:27 | PROVIDERS: Visit Provider Obstetrics & Gynecology | DX: Z12.4 Encounter for screening for malignant neoplasm of cervix (principal); R10.2 Pelvic and perineal pain; R31.29 Other microscopic hematuria | CPT/HCPCS: 88142 ==

== ENCOUNTER 2023-11-28 16:07 | Outpatient (REF) | payer OTHER, SELFPAY ==
[2023-12-06 19:03] LABS: Testosterone, Free 5.5 pg/mL (0.1-6.4); Testosterone, Total 41 ng/dL (2-45)
== END 2023-11-28 16:08 | disposition home or self-care (01) ==
LOC: HO.LAB 16:07
PROVIDERS: PCP Internal Medicine; Visit Provider Obstetrics & Gynecology
DX: N91.5 Oligomenorrhea, unspecified (principal)
CPT/HCPCS: 36415; 84402; 84403

== ENCOUNTER 2023-11-29 11:26 | Outpatient (AMB) | payer OTHER, SELFPAY ==
[2023-11-29 11:40] VITALS: BP 110/64
--- NOTE | 2023-11-29 11:40 | A.OFFVIS_ITS ---
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 The following workup was done TSH, prolactin are negative androgen level including free and total testosterone was 17 hydroxy progesterone are still pending Urine culture showed GBS less than 10 K GC/CT was negative H&H 13.3/39.2 Pap smear was negative Pelvic ultrasound was unremarkable [facility] Medical History Abnormal menses Allergic reaction Skin lesion Physical exam PCOS (polycystic ovarian syndrome) Hirsutism History of irregular menstrual cycles Surgical History History of gastric surgery Family History Maternal Grandfather Hx of thyroid cancer Maternal Aunt Hx of thyroid cancer History of colon cancer Father Diabetes mellitus Mother Asthma Social History Housing: Apartment Alcohol intake: never Patient Tobacco Use Status: Never used Tobacco e-Cigarette/Vaping Use: Never Used Second Hand Smoke Exposure: No service: No Current occupational status: employed Current occupational exposures/hazards: No Gender identity: Female Cognitive needs: No Hearing needs: No Vision needs: No Female Reproductive History Menstrual Date of last menstrual period: 11/16/23 control method: none Review of Systems Const All systems reviewed & are unremarkable except as noted in HPI and below Reports as per HPI and Reports no additional complaints GI Reports no additional complaints Reports no additional complaints Physical Exam Vital Signs: Last Vital Signs BP 110/64 11/29/23 11:40 BMI result Body Mass Index 30.0 Results AMB Urinalysis, Automated UA Leukoctes 0 Katie/uL Last Edit by STEPHEN Maradiaga on 11/29/23 11:42 UA Nitrite Negative Last Edit by Genet Rojas Acosta on 11/29/23 11:42 UA Urobilinogen 0 mg/dL Last Edit by Genet Rojas Acosta on 11/29/23 11:42 UA Protein 1 mg/dL Last Edit by Genet Rojas [facility] on 11/29/23 11:42 UA pH 5 Last Edit by Genet Rojas [facility] on 11/29/23 11:42 UA Blood 1 Rki/uL Last Edit by Genet Rojas [facility] on 11/29/23 11:42 UA Specific [place] 1.025 Last Edit by Genet Rojas Acosta on 11/29/23 11: 42 UA Ketone Negative Last Edit by Genet Rojas [facility] on 11/29/23 11:42 UA Bilirubin 0 mg/dL Last Edit by Genet Rojas [facility] on 11/29/23 11:42 UA Glucose 0 mg/dL Last Edit by Genet Rojas [facility] on 11/29/23 11:42 Assessment & Plan Assessment & Plan (1) Microscopic hematuria: Code(s): R31.29 - Other microscopic hematuria Plan: Repeat urine dip showed persistent microscopic hematuria. Will refer to Urology for further management (2) Oligomenorrhea: Code(s): N91.5 - Oligomenorrhea, unspecified Plan: Since androgen levels are still pending, instructions given the patient to schedule a 2 week follow-up appointment to discuss the results and options of treatment (3) Pelvic pain: Code(s): R10.2 - Pelvic and perineal pain Plan: Since urine dip showed persistent microscopic hematuria will await urology workup if negative and not related to pelvic pain will treat accordingly. Instructions given the patient to follow-up after urology workup is done to discuss options of treatment regarding pelvic pain if it is still persistent not improved. All questions answered, the patient verbalized understanding Orders: Orders AMB Urinalysis Automated Today R31.29 - Other microscopic hematuria Referrals Urology Referral R31.29 - Other microscopic hematuria Coding Level of Care Code Est Pt Level 3 (90074) Diagnoses Microscopic hematuria R31.29 Oligomenorrhea N91.5 Pelvic pain R10.2
== END 2023-11-29 11:50 | disposition home or self-care (01) ==
PROVIDERS: PCP Internal Medicine; Visit Provider Obstetrics & Gynecology
DX: R31.29 Other microscopic hematuria (principal); N91.5 Oligomenorrhea, unspecified; R10.2 Pelvic and perineal pain
CPT/HCPCS: 99213

== ENCOUNTER → 2023-11-29 11:26 | Outpatient (BNVA) | payer OTHER, SELFPAY | PROVIDERS: PCP Internal Medicine; Visit Provider Obstetrics & Gynecology | DX: R31.29 Other microscopic hematuria (principal); R10.2 Pelvic and perineal pain; N91.5 Oligomenorrhea, unspecified | CPT/HCPCS: 81003; 99212 ==

== ENCOUNTER 2023-12-06 15:39 | Outpatient (AMB) | payer OTHER, SELFPAY ==
[2023-12-06 15:43] VITALS: BP 80/72; BMI 30.1
--- NOTE | 2023-12-06 15:43 | MHC.PC.OV ---
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 Accompanied by: Self / Same As Patient Allergies meperidine [From DEMEROL] Allergy (Unknown, Verified 12/06/23 15:53) DIFF BREATHING morphine [MORPHINE] Allergy (Unknown, Verified 12/06/23 15:53) DIFF BREATHING Nexplanon Adverse Reaction (Uncoded 12/06/23 15:53) rash Medication List - Last Reconciled 12/06/23 by Sana Lynn MD cholecalciferol (vitamin D3) 25 mcg PO DAILY pantoprazole 40 mg PO DAILY Tobacco use date assessed: 12/06/23 Dental Screening Dental Screen Date: 12/06/23 Did you have a dental visit in the last 12 months?: Yes Did you have a dental problem in the last 6 months where you did not have access to dental care?: No Was dental information given to patient?: Patient has dentist HPI HPI Comments History of Present Illness Details This is a 23-year-old female with chronic GERD and low vitamin-D that comes today complaining of fatigue and tiredness that has been present for few weeks and happens on a daily basis. She also has been found to have low blood pressure most likely idiopathic hypotension and blood pressure will be recheck by nurse in 3 weeks. GERD has been stable with pantoprazole. On vitamin-D supplements for her low vitamin-D. She also complains of bilateral hand pain that is bothering her. Feels like she catches colds very frequently and is always sick. [facility] Medical History (Updated 12/06/23 @ 19:38 by Sana Lynn MD) Abnormal menses Allergic reaction Skin lesion Physical exam PCOS (polycystic ovarian syndrome) Hirsutism History of irregular menstrual cycles Surgical History History of gastric surgery Family History Maternal Grandfather Hx of thyroid cancer Maternal Aunt Hx of thyroid cancer History of colon cancer Father Diabetes mellitus Mother Asthma Social History Housing: Apartment Alcohol intake: never Patient Tobacco Use Status: Never used Tobacco e-Cigarette/Vaping Use: Never Used Second Hand Smoke Exposure: No service: No Current occupational status: employed Current occupational exposures/hazards: No Gender identity: Female Cognitive needs: No Hearing needs: No Vision needs: No Questionnaire PHQ-9 Over the last 2 weeks, how often have you been bothered by any of the following problems? 1. Little interest or pleasure in doing things: not at all 2. Feeling down, depressed, or hopeless: not at all 3. Trouble falling or staying asleep, or sleeping too much: not at all 4. Feeling tired or having little energy: nearly every day 5. Poor appetite or overeating: not at all 6. Feeling bad about yourself - or that you are a failure or have let yourself or your family down: not at all 7. Trouble concentrating on things, such as reading the newspaper or watching television: not at all 8. Moving or speaking so slowly that other people could have noticed. Or the opposite - being so fidgety or restless that you have been moving around a lot more than usual: not at all 9. Thoughts that you would be better off or of hurting yourself in some way: not at all Total score: 3 Depression Screening Interpretation: Negative Depression Screening Done: Yes 53024 - PHQ-9 Billing: Yes Source: Developed by Drs. Jeffery Sprague, Charity Thomas, Huy Holman and colleagues, with an educational lila from [employer]. Thrive Questionnaire Date Thrive assessed: 12/06/23 I am a: Patient What is your living situation today?: I have a steady place to live Within the past 12 months, did the food you bought not last and you didn't have the money to get more?: Never true Within the past 12 months, did you worry whether your food would run out before you got money to buy more?: Never true Do you have trouble paying for medicines?: No Do you have trouble getting transportation to medical appointments?: No Do you have trouble paying your heating and electricity bill?: No Do you have trouble taking care of your child, family member or friend?: No Do you have trouble with day-to-day activities such as bathing, preparing meals, shopping, managing finances, etc.?: No Are you currently unemployed and looking for a job?: No Are you interested in more education?: No Please select the resources that you would like help with: None Currently or been in a relationship where the following occur: no concerns reported THRIVE Score: 0 AUDIT C Alcohol Use Questionnaire (AUDIT-C) 1. How often do you have a drink containing alcohol?: Never Total Score: 0 Score Reviewed/Action Taken: No ANDRESSA-7 AMB Questionnaire ANDRESSA-7 Date ANDRESSA - 7 assessed: 12/06/23 Feeling nervous, anxious, or on edge: 0 = Not at all Not being able to stop or control worryin = Not at all Worrying too much about different things: 0 = Not at all Trouble relaxin = Not at all Being so restless that it is hard to sit still: 0 = Not at all Becoming easily annoyed or irritable: 0 = Not at all Feeling afraid as if something awful might happen: 0 = Not at all Total ANDRESSA-7 score (0-4 normal; 5-9 mild; 10-14 moderate; 15-21 severe): 0 Source: Developed by Drs. Jeffery Sprague, Charity Thomas, Huy Holman and colleagues, with an educational lila from [employer]. ANDRESSA-7 Assessment Billing ANDRESSA-7 Assessment Tool: ANDRESSA-7 Assessment 43249 Review of Systems Const All systems reviewed & are unremarkable except as noted in HPI and below Eyes Reports no additional complaints, Denies change in vision and Denies other visual disturbances Card Denies chest pain at rest, Denies chest pain with activity, Denies edema, Denies irregular heart rhythm, Denies claudication, Denies dyspnea, Denies dyspnea on exertion, Denies orthopnea, Denies paroxysmal nocturnal dyspnea and Denies slow heart rate Resp Denies cough, Denies dyspnea and Denies dyspnea on exertion GI Denies abdominal pain, Denies change in bowel habits, Denies excessive flatus, Denies nausea and Denies vomiting Denies urinary incontinence, Denies urinary hesitancy and Denies urinary urgency Physical exam (Primary Care) Vital Signs: Last Vital Signs BP 80/72 L 12/06/23 15:43 BMI result Body Mass Index 30.1 Tobacco/Smoking Status: Tobacco use Status Tobacco use date assessed 12/06/23 12/06/23 15:49 Patient Tobacco Use Status Never used Tobacco 12/06/23 15:49 e-Cigarette/Vaping Use Never Used 12/06/23 15:49 PHQ-9: PHQ-9 Score PHQ-9: Total score 3 12/06/23 15:55 Depression Screening Interpretation: Negative Thrive Assessment: Date of Thrive Assessment Date Thrive assessed 12/06/23 12/06/23 15:49 Currently or been in a relationship where the following occur: no concerns reported Resp Effort & Inspection: normal respiratory effort Auscultation: clear to auscultation bilaterally Cardio Jugular venous distension: no JVD Rate: regular rate Rhythm: regular rhythm Heart sounds: S1 normal heart sound present and S2 normal heart sound present Extrem General: Yes full ROM Assessment and Plan Assessment & Plan (1) Fatigue: Code(s): R53.83 - Other fatigue Plan: Labs ordered to further evaluate the etiology of fatigue. (2) Idiopathic hypotension: Code(s): I95.0 - Idiopathic hypotension Plan: Was advised to monitor blood pressure at home with her sphingomanometer. Blood pressure will be recheck in 3 weeks by nurse. (3) Low vitamin D level: Code(s): R79.89 - Other specified abnormal findings of blood chemistry Plan: Continue vitamin-D supplements. (4) Chronic GERD: Code(s): K21.9 - Gastro-esophageal reflux disease without esophagitis Plan: Continue pantoprazole. Orders: Orders XR hand LT 2V Today M79.642 - Pain in left hand XR hand RT 2V Today M79.641 - Pain in right hand Vitamin D 25-OH Total Today E55.9 - Vitamin D deficiency, unspecified Thyroid Stimulating Hormone Today R53.83 - Other fatigue Complete Blood Count Auto Diff Today R53.83 - Other fatigue Erythrocyte Sedimentation Rate Today M79.641 - Pain in right hand SANA Reflex Titer and Pattern Today M79.641 - Pain in right hand Comprehensive [place]. Panel Fast Today R53.83 - Other fatigue Vitamin B12 and Folate Today R53.83 - Other fatigue Cyclic Citrullinated Peptide Today M79.641 - Pain in right hand Rheumatoid Factor Today M79.641 - Pain in right hand Coding Level of Care Code Est Pt Level 4 (19862) Diagnoses Fatigue R53.83 Idiopathic hypotension I95.0 Low vitamin D level R79.89 Chronic GERD K21.9 Additional Codes ANDRESSA-7 Assessment Billing - ANDRESSA-7 Assessment Tool: ANDRESSA-7 Assessment 65252 ([id number]) Time Spent (min) 22
== END 2023-12-06 16:06 | disposition home or self-care (01) ==
PROVIDERS: PCP Internal Medicine; Visit Provider Internal Medicine
DX: R53.83 Other fatigue (principal); I95.0 Idiopathic hypotension; R79.89 Other specified abnormal findings of blood chemistry; K21.9 Gastro-esophageal reflux disease without esophagitis
CPT/HCPCS: 99214

== ENCOUNTER 2023-12-14 14:14 | Outpatient (AMB) | payer OTHER, SELFPAY ==
--- NOTE | 2023-12-14 14:15 | A.OFFVIS_ITS ---
Vital Signs 12/14/23 14:18 Height 5 ft 5 in Weight 180 lb 12.465 oz BMI 30.1 BP 80/40 L Intake Visit Reasons: lab follow up Telecommunications Field Technician Required: Yes Telecommunications Field Technician Language: Lead Android Developer Name: Audrey MITCHELL Information Interpreted: non-clinical & clinical Accompanied by: Self / Same As Patient Allergies meperidine [From DEMEROL] Allergy (Unknown, Verified 12/14/23 14:19) DIFF BREATHING morphine [MORPHINE] Allergy (Unknown, Verified 12/14/23 14:19) DIFF BREATHING Nexplanon Adverse Reaction (Uncoded 12/14/23 14:19) rash Is last menstrual period known: Yes Last menstrual period: 11/15/23 HPI Comments Details: The following workup was done TSH, prolactin are negative free and total testosterone and 17 hydroxy progesterone are within normal Urine culture showed GBS less than 10 K GC/CT was negative H&H 13.3/39.2 Pap smear was negative Pelvic ultrasound was unremarkable [facility] Medical History Abnormal menses Allergic reaction Skin lesion Physical exam PCOS (polycystic ovarian syndrome) Hirsutism History of irregular menstrual cycles Surgical History History of gastric surgery Family History Maternal Grandfather Hx of thyroid cancer Maternal Aunt Hx of thyroid cancer History of colon cancer Father Diabetes mellitus Mother Asthma Social History Housing: Apartment Alcohol intake: never Patient Tobacco Use Status: Never used Tobacco e-Cigarette/Vaping Use: Never Used Second Hand Smoke Exposure: No service: No Current occupational status: employed Current occupational exposures/hazards: No Gender identity: Female Cognitive needs: No Hearing needs: No Vision needs: No Female Reproductive History Menstrual Date of last menstrual period: 11/15/23 Review of Systems Const All systems reviewed & are unremarkable except as noted in HPI and below Reports as per HPI and Reports no additional complaints GI Reports no additional complaints Reports no additional complaints Physical Exam Vital Signs: Last Vital Signs BP 80/40 L 12/14/23 14:18 BMI result Body Mass Index 30.1 Assessment & Plan Assessment & Plan (1) PCOS (polycystic ovarian syndrome): Code(s): E28.2 - Polycystic ovarian syndrome Category: Medical Plan: Discussed with the patient the results of her blood work included TSH, prolactin, testosterone, 17 hydroxyprogesterone and DHEA-S. Recommended EMB Explained to the patient that she has a diagnosis of PCOS. D/w the patient the association of PCOS with an increase in the risk of diabetes or pre diabetes, heart disease, hypercholesterolemia and metabolic syndrome, endometrial hyperplasia and/or cancer if untreated and an increase in the risk of breast cancer. Recommended for the patient the following: -To call her pcp to screen for cardiovascular risk and diabetes with FBS and 2 hr GTT after 75 g OGTT, in addition to cholesterol, lipids, HDL and LDL. -Instructions given to patient to increase exercise combined with dietary changes reduce the risk of diabetes, explained to the patient that reduction in body weight has been associated with improved rate and decreased hirsutism as well as improvement in glucose tolerance and lipid levels -For her Menstrual cycle control: Discussed with the patient the following options of treatment : Combination low-dose hormonal contraceptives are recommended as the primary treatment for menstrual disorder, but the patient developed headaches on the previous experience with control pills Or Progestins: Cyclic progesterone versus Mirena IUD No studies have addressed the long-term use of depot medroxyprogesterone acetate and intermittent oral medroxyprogesterone acetate to treat hirsutism. The regimen of cyclic oral progestin therapy or progestin-containing intrauterine devices that most effectively prevent endometrial cancer in women with PCOS is unknown. Progestin-only contraceptives or progestin-containing intrauterine devices are an alternative for endometrial protection, but they are associated with abnormal bleeding patterns in 50?89% of users. The patient would like to be on cyclic progesterone so a more detailed discussion re: Progesterone treatment including mechanism of action, benefits (regular menses, endometrial protection form unopposed estrogen and reduction in the risk of endometrial hyperplasia and/or cancer ...), risks (Thrombosis, mood changes, weight gain, breast soreness, ? increased breast ca, others). Instructions were given to use a back- up method for contraception since this is not a method control, take Prometrium 200 mg 1 tablet daily starting day 15-24 and to schedule a 2 week EMB appointment and a 3 months follow-up appointment; patient verbalized understanding and agreed with the plan. Medications: New progesterone micronized (Prometrium) Take the pill 1 tablet a day cyclically every month from day 15-24 day 1 being the 1st day of next menstrual cycle 200 mg PO BEDTIME 10 days 30 caps 0RF Coding Level of Care Code Est Pt Level 3 (43053) Diagnoses PCOS (polycystic ovarian syndrome) E28.2
[2023-12-14 14:18] VITALS: BP 80/40; BMI 30.1
== END 2023-12-14 14:44 | disposition home or self-care (01) ==
PROVIDERS: PCP Internal Medicine; Visit Provider Obstetrics & Gynecology
DX: E28.2 Polycystic ovarian syndrome (principal)
CPT/HCPCS: 99213

== ENCOUNTER → 2023-12-14 14:14 | Outpatient (BNVA) | payer OTHER, SELFPAY | PROVIDERS: PCP Internal Medicine; Visit Provider Obstetrics & Gynecology | DX: E28.2 Polycystic ovarian syndrome (principal) | CPT/HCPCS: 99212 ==

== ENCOUNTER 2023-12-19 11:31 | Outpatient (REF) | payer OTHER, SELFPAY ==
--- NOTE | ~2023-12-19 | XR_ITS ---
EXAMINATION: XR HAND, RIGHT CLINICAL INFORMATION: Pain in right hand, numbness in fingers, no injury. COMPARISON: November 23, 2018. TECHNIQUE: PA, lateral, and oblique views of the right hand. FINDINGS: Redemonstration of a healed fracture of the distal aspect of the middle phalanx of the third digit. The bone mineralization is normal. Joint spaces and alignment are preserved. XR/XR hand RT min 3V IMPRESSION: Redemonstration of a healed fracture of the distal aspect of the middle phalanx of the third digit. No acute displaced fracture appreciated. Recommend follow-up imaging in 10-14 days if fracture is suspected.
--- NOTE | ~2023-12-19 | XR_ITS ---
EXAMINATION: XR HAND, LEFT CLINICAL INFORMATION: Pain and numbness in fingers, no injury. COMPARISON: 12/18/2019. TECHNIQUE: PA, lateral, and oblique views of the left hand. FINDINGS: Redemonstration of a sclerotic lesion characteristic of a bone island in the distal third metacarpal. Joint spaces and alignment are preserved. No displaced fracture. XR/XR hand LT min 3V IMPRESSION: No displaced fracture. Recommend follow-up imaging in 10-14 days if fracture is suspected.
[2023-12-19 11:59] LABS: MANUAL DIFF FLAG NO
[2023-12-19 12:12] LABS: Basophils Percent Auto 0.2 % (0-2); Eosinophils Absolute Auto 0.1 X10*3/uL (0.0-0.4); Eosinophils Percent Auto 0.8 % (0-4); Hematocrit 41.1 % (37.0-47.0); Hemoglobin 13.4 g/dl (12.0-16.0); Imm Gran Abs Auto 0.01 X10*3/uL (0.00-0.03); Imm Gran Pct Auto 0.2 % (0.0-0.4); Lymphocytes Absolute Auto 1.5 X10*3/uL (1.2-4.9); Lymphocytes Percent Auto 23.8 % (20-40); Mean Corpuscular HGB Conc 32.6 g/dl (31.0-35.0); Mean Corpuscular Hemoglobin 27.3 pg (27.0-33.0); Mean Corpuscular Volume 83.7 fL (80.0-98.0); Mean Platelet Volume 9.9 fL (9.4-12.3); Monocytes Absolute Auto 0.5 X10*3/uL (0.1-1.2); Monocytes Percent Auto 8.2 % (2-11); Neutrophils Absolute Auto 4.2 x10*3/uL (2.0-8.3); Neutrophils Percent Auto 66.8 % (45-73); Platelet Count 259 X10*3/uL (160-400); Red Blood Count 4.91 X10*6/uL (4.20-5.50); Red Cell Distribution Width 12.9 % (11.0-16.0); White Blood Count 6.2 X10*3/uL (4.8-10.8)
[2023-12-19 12:55] LABS: Erythrocyte Sedimentation Rate 11 MM/HR (0-20)
[2023-12-19 13:05] LABS: Alanine Aminotransferase 19 U/L (0-31); Albumin Level 4.2 g/dL (3.5-5.0); Alkaline Phosphatase 68 U/L (39-117); Anion Gap 13 (12-20); Aspartate Amino Transferase 20 U/L (5-31); Bilirubin Total 0.3 mg/dL (0.0-1.0); Blood Urea Nitrogen 16 mg/dL (9-16); Calcium 9.6 mg/dL (8.4-10.2); Carbon Dioxide 25 mmol/L (22-29); Chloride 105 mmol/L (96-108); Estimated Glomerular Filt Rate > 60; Glucose Fasting 91 mg/dL (60-99); Potassium 4.3 mmol/L (3.3-5.1); Sodium 139 mmol/L (135-145); Total Protein 7.7 g/dL (6.5-8.0)
[2023-12-19 13:08] LABS: Vitamin D 25-OH Total 16.8 ng/mL (>30)
[2023-12-19 16:18] LABS: Rheumatoid Factor < 13.0 IU/mL (<15.0)
[2023-12-19 16:43] LABS: Folate 7.3 ng/mL (> or = 4.0); Vitamin B12 334 pg/mL (200-900)
[2023-12-20 13:04] LABS: Cyclic Citrullinated Peptide <16 UNITS
[2023-12-22 18:29] LABS: Anti Nuclear Antibody Screen NEGATIVE (NEGATIVE)
== END 2023-12-19 11:32 | disposition home or self-care (01) ==
LOC: HO.LAB 11:31
PROVIDERS: PCP Internal Medicine; Visit Provider Internal Medicine
DX: M79.641 Pain in right hand (principal); M79.642 Pain in left hand; R53.83 Other fatigue; E55.9 Vitamin D deficiency, unspecified
CPT/HCPCS: 36415; 73130; 80053; 82306; 82607; 82746; 84443; 85025; 85652; 86038; 86200; 86431

== ENCOUNTER 2023-12-26 14:05 | Outpatient (AMB) | payer OTHER, SELFPAY ==
[2023-12-26 14:10] VITALS: BP 110/72; BMI 30.8
--- NOTE | 2023-12-26 14:10 | A.OFFPC_ITS ---
Vital Signs 12/26/23 14:10 Height 5 ft 5 in Weight 185 lb BMI 30.8 BP 110/72 Blood Pressure Location Lt brachial Position Sitting Intake Visit Reasons: breast pain Intake Note: Patient here c/o right side underarm shooting pain radiating to breast Invasive Cardiologist Required: No Accompanied by: Self / Same As Patient Allergies meperidine [From DEMEROL] Allergy (Unknown, Verified 12/26/23 14:23) DIFF BREATHING morphine [MORPHINE] Allergy (Unknown, Verified 12/26/23 14:23) DIFF BREATHING Nexplanon Adverse Reaction (Uncoded 12/26/23 14:23) rash Medication List - Last Reconciled 12/26/23 by Sana Lynn MD cholecalciferol (vitamin D3) 25 mcg PO DAILY pantoprazole 40 mg PO DAILY progesterone micronized (Prometrium) 200 mg PO BEDTIME 10 days Tobacco use date assessed: 12/06/23 Dental Screening Dental Screen Date: 12/06/23 HPI HPI Comments History of Present Illness Details This is a 23-year-old female with chronic GERD and low vitamin-D that complains of right breast pain at 09:00 o'clock that started about 2-3 weeks ago. She denies any mass, nipple discharge or nipple retraction. Has family history of cancer but not breast cancer. GERD stable with medication as needed. On vitamin-D supplements for her low vitamin-D. [facility] Medical History (Updated 12/26/23 @ 14:32 by Sana Lynn MD) Abnormal menses Allergic reaction Skin lesion Physical exam PCOS (polycystic ovarian syndrome) Hirsutism History of irregular menstrual cycles Surgical History History of gastric surgery Family History Maternal Grandfather Hx of thyroid cancer Maternal Aunt Hx of thyroid cancer History of colon cancer Father Diabetes mellitus Mother Asthma Social History Housing: Apartment Alcohol intake: never Patient Tobacco Use Status: Never used Tobacco e-Cigarette/Vaping Use: Never Used Second Hand Smoke Exposure: No service: No Current occupational status: employed Current occupational exposures/hazards: No Gender identity: Female Cognitive needs: No Hearing needs: No Vision needs: No Questionnaire Thrive Questionnaire Date Thrive assessed: 12/06/23 ANDRESSA-7 AMB Questionnaire ANDRESSA-7 Date ANDRESSA - 7 assessed: 12/06/23 Source: Developed by Drs. Jeffery Sprague, Charity Thomas, Huy Holman and colleagues, with an educational lila from [employer]. Review of Systems Const All systems reviewed & are unremarkable except as noted in HPI and below Eyes Reports no additional complaints, Denies change in vision and Denies other visual disturbances Card Denies chest pain at rest, Denies chest pain with activity, Denies edema, Denies irregular heart rhythm, Denies claudication, Denies dyspnea, Denies dyspnea on exertion, Denies orthopnea, Denies paroxysmal nocturnal dyspnea and Denies slow heart rate Resp Denies cough, Denies dyspnea and Denies dyspnea on exertion Skin/Breast Reports breast pain Physical exam (Primary Care) Vital Signs: Last Vital Signs BP 110/72 12/26/23 14:10 BMI result Body Mass Index 30.8 Tobacco/Smoking Status: Tobacco use Status Tobacco use date assessed 12/06/23 12/26/23 14:13 Patient Tobacco Use Status Never used Tobacco 12/26/23 14:13 e-Cigarette/Vaping Use Never Used 12/26/23 14:13 Thrive Assessment: Date of Thrive Assessment Date Thrive assessed 12/06/23 12/26/23 14:13 Chest Breast/axilla inspection: normal inspection of the breasts and normal inspection of the axillae Breast/axilla palpation: normal palpation of the axillae and abnormal palpation of the breast (Right breast pain at 09:00 o'clock) Resp Effort & Inspection: normal respiratory effort Auscultation: clear to auscultation bilaterally Cardio Jugular venous distension: no JVD Rate: regular rate Rhythm: regular rhythm Heart sounds: S1 normal heart sound present and S2 normal heart sound present Extrem General: Yes full ROM Assessment and Plan Assessment & Plan (1) Breast pain, right: Code(s): N64.4 - Mastodynia Plan: Ultrasound and mammogram ordered. (2) Chronic GERD: Code(s): K21.9 - Gastro-esophageal reflux disease without esophagitis Plan: Continue PPIs. (3) Low vitamin D level: Code(s): R79.89 - Other specified abnormal findings of blood chemistry Plan: Continue vitamin-D supplements. Orders: Orders US breast RT complete Today N64.4 - Mastodynia MM diagnostic mammo BI Today N64.4 - Mastodynia Medications: Refilled pantoprazole take one tablet half an hour before breakfast 40 mg PO DAILY 30 tabs 2RF K21.9 - Gastro-esophageal reflux disease without esophagitis Coding Level of Care Code Est Pt Level 3 (03158) Diagnoses Breast pain, right N64.4 Chronic GERD K21.9 Low vitamin D level R79.89 Time Spent (min) 19
== END 2023-12-26 14:36 | disposition home or self-care (01) ==
PROVIDERS: PCP Internal Medicine; Visit Provider Internal Medicine
DX: N64.4 Mastodynia (principal); K21.9 Gastro-esophageal reflux disease without esophagitis; R79.89 Other specified abnormal findings of blood chemistry
CPT/HCPCS: 99213

== ENCOUNTER 2024-01-31 14:02 | Outpatient (REF) | payer OTHER, SELFPAY | END 2024-01-31 14:03 | disposition home or self-care (01) | LOC: HO.LNP 14:02 | PROVIDERS: PCP Internal Medicine; Visit Provider Obstetrics & Gynecology | DX: N93.9 Abnormal uterine and vaginal bleeding, unspecified (principal); N92.6 Irregular menstruation, unspecified | CPT/HCPCS: 58100; 81025; 88305 ==

== ENCOUNTER 2024-01-31 14:02 | Outpatient (AMB) | payer OTHER, SELFPAY ==
--- NOTE | 2024-01-31 14:23 | A.OFFVIS_ITS ---
Intake Visit Reasons: EMB Allergies meperidine [From DEMEROL] Allergy (Unknown, Verified 12/26/23 14:23) DIFF BREATHING morphine [MORPHINE] Allergy (Unknown, Verified 12/26/23 14:23) DIFF BREATHING Nexplanon Adverse Reaction (Uncoded 12/26/23 14:23) rash HPI Comments Details: Presenting for EMB [facility] Medical History Abnormal menses Allergic reaction Skin lesion Physical exam PCOS (polycystic ovarian syndrome) Hirsutism History of irregular menstrual cycles Surgical History History of gastric surgery Family History (Reviewed 12/26/23 @ 14: by Sana Lynn MD) Maternal Grandfather Hx of thyroid cancer Maternal Aunt Hx of thyroid cancer History of colon cancer Father Diabetes mellitus Mother Asthma Social History Housing: Apartment Alcohol intake: never Patient Tobacco Use Status: Never used Tobacco e-Cigarette/Vaping Use: Never Used Second Hand Smoke Exposure: No service: No Current occupational status: employed Current occupational exposures/hazards: No Gender identity: Female Cognitive needs: No Hearing needs: No Vision needs: No Office Procedures Endometrial Biopsy Details: The patient was counseled regarding the indication and benefits of endometrial sampling to rule out endometrial pathology including not limited to endometrial hyperplasia or endometrial cancer and others; The alternatives (Either do nothing vs. hysteroscopy D&C) & the risks were discussed with the patient including but not limited: pain, uterine perforation, bleeding, infection, possible injury to bladder, bowel, ureter, possible need for blood transfusion with all its possible risks. The patient verbalized understanding all questions answered and signed consent. Urine test done in the office was negative The patient was placed into the dorsal lithotomy position; a speculum was inserted in the vagina. Using aseptic technique for the procedure, the cervix w as cleansed with Betadine. The anterior lip of the cervix was grasped with a single tooth tenaculum. The uterus was sounded to 7 cm with a 4 mm Pipelle was used. Tissues samples were obtained and placed in formalin, in a patient labeled container and sent to the pathology department. At the end of the procedure, there was minimal bleeding noted The patient tolerated the procedure well and was discharged in good condition with the following instructions: Nothing in the vagina until the bleeding stops. No sex until the bleeding stops, to call if any of the following occurs: fever (>100.4), flu-like symptoms, abdominal pain, heavy bleeding, four smelling vaginal discharge. The patient was instructed to schedule a Follow up appointment in 2 weeks to discuss pathology results of the biopsy and treatment options. This note was generated with a voice recognition program. Some errors may have been overlooked during the review of this note. Sometimes these errors may affect the content or meaning of a given sentence. [id number] Biopsy Assessment & Plan Assessment & Plan (1) Irregular menses: Comment: PCOS Code(s): N92.6 - Irregular menstruation, unspecified Category: Medical Plan: EMB done, see procedure note Orders: Orders AMB Endometrial Biopsy Today N92.6 - Irregular menstruation, unspecified Coding Level of Care Code Procedure Only Diagnoses Irregular menses N92.6 CPT Codes Endometrial Biopsy - CPT: 45520-[id number] Biopsy ([id number])
== END 2024-01-31 14:46 | disposition home or self-care (01) ==
LOC: HO.HWS 14:02
PROVIDERS: PCP Internal Medicine; Visit Provider Obstetrics & Gynecology
DX: N92.6 Irregular menstruation, unspecified (principal); Z32.02 Encounter for pregnancy test, result negative
CPT/HCPCS: 58100

== ENCOUNTER 2024-02-06 15:01 | Outpatient (REF) | payer OTHER, SELFPAY ==
[2024-02-06 16:53] LABS: Urine Cytology See Pathology rpt
== END 2024-02-06 15:02 | disposition home or self-care (01) ==
LOC: HO.LNP 15:01
PROVIDERS: PCP Internal Medicine; Visit Provider Nurse Practitioner Family
DX: R31.29 Other microscopic hematuria (principal); R39.89 Other symptoms and signs involving the genitourinary system
CPT/HCPCS: 81003; 88112; 99202

== ENCOUNTER 2024-02-06 15:01 | Outpatient (AMB) | payer OTHER, SELFPAY ==
--- NOTE | 2024-02-06 15:06 | MHC.OFFVIS ---
Intake Visit Reasons: microscopic hematuria Intake Note: New Patient presents today for initial visit to establish treatment for : microscopic hematuria Urology Medications: none Allergies to Antibiotic: none Blood Thinner: none Smoker: never Plant Protection Officer Required: No Accompanied by: Self / Same As Patient Allergies meperidine [From DEMEROL] Allergy (Unknown, Verified 02/06/24 15:49) DIFF BREATHING morphine [MORPHINE] Allergy (Unknown, Verified 02/06/24 15:49) DIFF BREATHING Nexplanon Adverse Reaction (Uncoded 02/06/24 15:49) rash Medication List - Last Reconciled 02/06/24 by LOLLY Mcneil No Known Home Meds HPI Comments Details: Molly is a very pleasant 23-year-old female patient of Dr. Jose Lynn. She has a past medical history of PCOS an abnormal menses. She presents to the office today as a new patient for microscopic hematuria. When asked she denies any previous smoking history and or workplace chemical exposure. She does note intermittent bladder pressure/discomfort approximately 2-3 times per month however this is very infrequent. She otherwise denies any bothersome urinary issues. She denies urinary urgency, urinary frequency, incontinence, nocturia, hematuria, dysuria, foul smelling urine, changes to urinary stream, flank pain, fever, and or chills. She is happy with her current voiding parameters. In office urinalysis results reviewed with the patient today no microscopic hematuria noted. Discussed at length potential causes for microscopic hematuria. She otherwise offers no other issues or concerns at this time. [facility] Medical History Abnormal menses Allergic reaction Skin lesion Physical exam PCOS (polycystic ovarian syndrome) Hirsutism History of irregular menstrual cycles Surgical History History of gastric surgery Family History Maternal Grandfather Hx of thyroid cancer Maternal Aunt Hx of thyroid cancer History of colon cancer Father Diabetes mellitus Mother Asthma Social History Housing: Apartment Alcohol intake: never Patient Tobacco Use Status: Never used Tobacco e-Cigarette/Vaping Use: Never Used Second Hand Smoke Exposure: No service: No Current occupational status: employed Current occupational exposures/hazards: No Gender identity: Female Cognitive needs: No Hearing needs: No Vision needs: No Review of Systems Const All systems reviewed & are unremarkable except as noted in HPI and below Physical Exam Const General: cooperative, healthy appearing, comfortable, no acute distress, well developed, alert and awake Orientation/consciousness: patient oriented x3 Limitations: no limitations HEENT Head: Yes normal to inspection, Yes normocephalic and Yes atraumatic Ears: hearing grossly normal bilaterally Eyes General: appearance normal, both eyes and all related structures Neck Neck: Yes normal visual inspection and Yes trachea midline Chest Chest palpation & inspection: normal inspection of the chest Resp Effort & Inspection: normal respiratory effort and able to speak in complete sentences Cardio Rate: regular rate GI Inspection: Yes normal to inspection General: Yes no CVA tenderness Back/Spine/Pelvis Back: no CVA tenderness Skin General skin exam: no rashes or lesions noted Neuro General: patient oriented x3 Extrem General: Yes normal to inspection Psych Appearance: grossly normal and well kempt Mental Status: mental status grossly normal Speech and movement: Normal speech and movement present and Clear speech present Affect: normal affect Attitude: cooperative Thought process: Normal thought process present Thought content: Normal thought content present Insight: Fair insight present (Psych) Judgement: Fair judgement present (Psych) Results AMB Urinalysis, Automated UA Leukoctes 0 Katie/uL Last Edit by [employer] on 02/06/24 15:26 UA Nitrite Negative Last Edit by [employer] on 02/06/24 15:26 UA Urobilinogen 0.2 mg/dL Last Edit by E[employer] on 02/06/24 15:26 UA Protein 0 mg/dL Last Edit by E[employer] on 02/06/24 15:26 UA pH 7.5 Last Edit by [employer] on 02/06/24 15:26 UA Blood 0 Rik/uL Last Edit by [employer] on 02/06/24 15:26 UA Specific [place] 1.005 Last Edit by E[employer] App on 02/06/24 15:26 UA Ketone Negative Last Edit by E[employer] App on 02/06/24 15:26 UA Bilirubin 0 mg/dL Last Edit by [employer] on 02/06/24 15:26 UA Glucose 0 mg/dL Last Edit by Amber Shafer on 02/06/24 15:26 Assessment & Plan Assessment & Plan (1) Microscopic hematuria: Code(s): R31.29 - Other microscopic hematuria Category: Medical (2) Sensation of pressure in bladder area: Code(s): R39.89 - Other symptoms and signs involving the genitourinary system Category: Medical Plan In office urinalysis results reviewed with the patient today; as noted above; will send for urine cytology. Discussed at length potential causes of microscopic hematuria. Will obtain retroperitoneal ultrasound for further assessment evaluation. Discussed, educated, and stressed the importance of adequate hydration. Discussed bladder triggers/irritants. Follow-up in 1-3 months with imaging to be completed prior; or sooner with any issues, concerns, and or questions. Orders: Orders AMB Urinalysis Automated Today Z13.9 - Encounter for screening, unspecified Urine Cytology Today R31.29 - Other microscopic hematuria US retroperitoneal comp Today R31.29 - Other microscopic hematuria, R39.89 - Other symptoms and signs involving the genitourinary system Patient Instructions: The patient had an opportunity to ask questions regarding the treatment plan. All questions were answered. Physical exam, labs, and imaging were discussed and reviewed in detail. As well as risks, benefits, and discussion of treatment choices. No major barriers to understanding were identified. The patient expressed understanding and agreement with the above treatment plan. The patient was made aware they should contact our office by phone for worsening of their current condition, the appearance of new symptoms, or with any questions or concerns. Compliance is encouraged with any medications and follow up testing that is ordered. It is a privilege to be allowed the opportunity to participate in? your urological care.? Again, if you have any questions or concerns If you have any questions or concerns please do not hesitate to contact me. The office is [phone]. This note is constructed using voice recognition software. While every effort has been made to ensure accuracy electro optics engineer errors may have been included. Yours sincerely, LOLLY Mcneil Coding Level of Care Code New Pt Level 3 (80279) Diagnoses Microscopic hematuria R31.29 Sensation of pressure in bladder area R39.89
== END 2024-02-06 15:31 | disposition home or self-care (01) ==
PROVIDERS: PCP Internal Medicine; Visit Provider Nurse Practitioner Family
DX: R31.29 Other microscopic hematuria (principal); R39.89 Other symptoms and signs involving the genitourinary system; Z13.9 Encounter for screening, unspecified
CPT/HCPCS: 99203

== ENCOUNTER 2024-02-20 15:47 | Outpatient (AMB) | payer OTHER, SELFPAY ==
[2024-02-20 15:49] VITALS: BP 100/70; PULSE 83; O2SAT 99; BMI 30.5
--- NOTE | 2024-02-20 15:49 | A.OFFPC_ITS ---
Vital Signs 02/20/24 15:49 Height 5 ft 5 in Weight 183 lb 0.4 oz BMI 30.5 BP 100/70 Blood Pressure Location Lt brachial Position Sitting Pulse 83 Pulse Source Pulse Oximeter Pulse Oximetry (%) 99 Oxygen Delivery Method Room Air Intake Visit Reasons: referred to [facility] Data Entry Required: No Accompanied by: Self / Same As Patient Allergies meperidine [From DEMEROL] Allergy (Unknown, Verified 02/20/24 16:01) DIFF BREATHING morphine [MORPHINE] Allergy (Unknown, Verified 02/20/24 16:01) DIFF BREATHING Nexplanon Adverse Reaction (Uncoded 02/20/24 16:01) rash Medication List - Last Reconciled 02/20/24 by Sana Lynn MD No Known Home Meds Tobacco use date assessed: 12/06/23 Dental Screening Dental Screen Date: 12/06/23 HPI HPI Comments History of Present Illness Details This is a 23-year-old female with PCOS, chronic GERD and obesity that complains of infertility for the past 8-9 years. She has irregular menses and was recently diagnosed with PCOS. I will start her on metformin. Side effects such as abdominal discomfort and diarrhea were discussed. Wants to be referred to reproductive endocrinology for her infertility. Also has GERD and last endoscopy was 6 years ago at [facility] and had peptic ulcer disease. She has obese with a BMI of 30.5 and was advised to do diet and exercise to reach BMI goal less than 30. Denies any chest pain or shortness on breath. [facility] Medical History (Updated 02/20/24 @ 16:13 by Sana Lynn MD) Abnormal menses Allergic reaction Skin lesion Physical exam PCOS (polycystic ovarian syndrome) Hirsutism History of irregular menstrual cycles Surgical History History of gastric surgery Family History Maternal Grandfather Hx of thyroid cancer Maternal Aunt Hx of thyroid cancer History of colon cancer Father Diabetes mellitus Mother Asthma Social History Housing: Apartment Alcohol intake: never Patient Tobacco Use Status: Never used Tobacco e-Cigarette/Vaping Use: Never Used Second Hand Smoke Exposure: No service: No Current occupational status: employed Current occupational exposures/hazards: No Gender identity: Female Cognitive needs: No Hearing needs: No Vision needs: No Questionnaire PHQ-9 Over the last 2 weeks, how often have you been bothered by any of the following problems? 1. Little interest or pleasure in doing things: not at all 2. Feeling down, depressed, or hopeless: not at all 3. Trouble falling or staying asleep, or sleeping too much: not at all 4. Feeling tired or having little energy: nearly every day 5. Poor appetite or overeating: not at all 6. Feeling bad about yourself - or that you are a failure or have let yourself or your family down: not at all 7. Trouble concentrating on things, such as reading the newspaper or watching television: not at all 8. Moving or speaking so slowly that other people could have noticed. Or the opposite - being so fidgety or restless that you have been moving around a lot more than usual: not at all 9. Thoughts that you would be better off or of hurting yourself in some way: not at all Total score: 3 Depression Screening Interpretation: Positive Depression Screening Follow-up: Existing condition and Follow-up Visit Requested Depression Screening Done: Yes 40902 - PHQ-9 Billing: Yes Source: Developed by Drs. Jeffery Sprague, Huy Arthur and colleagues, with an educational lila from [employer]. Thrive Questionnaire Date Thrive assessed: 12/06/23 AUDIT C Alcohol Use Questionnaire (AUDIT-C) 1. How often do you have a drink containing alcohol?: Never Total Score: 0 Score Reviewed/Action Taken: No ANDRESSA-7 AMB Questionnaire ANDRESSA-7 Date ANDRESSA - 7 assessed: 12/06/23 Source: Developed by Charity Kenyon Kurt Kroenke and colleagues, with an educational lila from [employer]. Review of Systems Const All systems reviewed & are unremarkable except as noted in HPI and below Card Denies chest pain at rest, Denies chest pain with activity, Denies edema, Denies irregular heart rhythm, Denies claudication, Denies dyspnea, Denies dyspnea on exertion, Denies orthopnea, Denies paroxysmal nocturnal dyspnea and Denies slow heart rate Resp Denies cough, Denies dyspnea and Denies dyspnea on exertion GI Reports heartburn Physical exam (Primary Care) Vital Signs: Last Vital Signs Pulse 83 02/20/24 15:49 BP 100/70 02/20/24 15:49 Pulse Ox 99 02/20/24 15:49 Oxygen Delivery Method Room Air 02/20/24 15:49 BMI result Body Mass Index 30.5 Tobacco/Smoking Status: Tobacco use Status Tobacco use date assessed 12/06/23 02/20/24 15:50 Patient Tobacco Use Status Never used Tobacco 02/20/24 15:50 e-Cigarette/Vaping Use Never Used 02/20/24 15:50 PHQ-9: PHQ-9 Score PHQ-9: Total score 3 02/20/24 15:50 Depression Screening Interpretation: Positive Depression Screening Follow-up: Existing condition and Follow-up Visit Requested Thrive Assessment: Date of Thrive Assessment Date Thrive assessed 12/06/23 02/20/24 15:50 Resp Effort & Inspection: normal respiratory effort Auscultation: clear to auscultation bilaterally Cardio Jugular venous distension: no JVD Rate: regular rate Rhythm: regular rhythm Heart sounds: S1 normal heart sound present and S2 normal heart sound present Extrem General: Yes full ROM Assessment and Plan Assessment & Plan (1) Chronic GERD: Code(s): K21.9 - Gastro-esophageal reflux disease without esophagitis Plan: Restart PPIs. Upper GI series ordered. Referred to Gastroenterology. (2) PCOS (polycystic ovarian syndrome): Code(s): E28.2 - Polycystic ovarian syndrome Plan: Start metformin. (3) Infertility counseling: Code(s): Z31.69 - Encounter for other general counseling and advice on procreation Plan: Referred to reproductive endocrinology. (4) Obesity (BMI 30-39.9): Code(s): E66.9 - Obesity, unspecified Plan: Advised to do diet and exercise. BMI goal is less than 30. Orders: Orders [place] upper GI series Today K21.9 - Gastro-esophageal reflux disease without esophagitis Referrals Reproductive Endocrinology Z31.69 - Encounter for other general counseling and advice on procreation Gastroenterology Referral K21.9 - Gastro-esophageal reflux disease without esophagitis Medications: New metformin 500 mg PO DAILY 90 days 90 tabs 1RF E28.2 - Polycystic ovarian syndrome omeprazole 20 mg PO DAILY 90 days 90 caps 1RF K21.9 - Gastro-esophageal reflux disease without esophagitis Coding Level of Care Code Est Pt Level 4 (13554) Complex EM visit Add On G2211 Diagnoses Chronic GERD K21.9 PCOS (polycystic ovarian syndrome) E28.2 Infertility counseling Z31.69 Obesity (BMI 30-39.9) E66.9 Time Spent (min) 21
== END 2024-02-20 16:11 | disposition home or self-care (01) ==
PROVIDERS: PCP Internal Medicine; Visit Provider Internal Medicine
DX: K21.9 Gastro-esophageal reflux disease without esophagitis (principal); E28.2 Polycystic ovarian syndrome; E66.9 Obesity, unspecified; Z68.30 Body mass index [BMI] 30.0-30.9, adult; Z31.69 Encounter for other general counseling and advice on procreation
CPT/HCPCS: 99214; G2211

== ENCOUNTER → 2024-03-11 15:02 | Outpatient (BNVA) | payer OTHER, SELFPAY | PROVIDERS: PCP Internal Medicine; Visit Provider Obstetrics & Gynecology | DX: N91.5 Oligomenorrhea, unspecified (principal); Z71.2 Person consulting for explanation of examination or test findings | CPT/HCPCS: 81025; 99212 ==

== ENCOUNTER 2024-05-21 11:04 | Outpatient (AMB) | payer OTHER, SELFPAY ==
--- NOTE | 2024-05-21 11:04 | AM.OFFWIN_ITS ---
Intake Vital Signs 05/21/24 11:05 Height 5 ft 5 in Weight 181 lb 8 oz BMI 30.2 BP 110/62 Blood Pressure Location Rt brachial Position Sitting Pulse 77 Pulse Source Pulse Oximeter Temp 97.2 F Temp Source Temporal Artery Scan Pulse Oximetry (%) 100 Oxygen Delivery Method Room Air Intake Visit Reasons: EP-rt ear pain Intake Note: Pt presents to the office today for c/o right ear pain that started monday. Pt states she went to the dentist Monday to fill a cavity and then her ear started hurting the next day. Patient Tobacco Use Status: Never used Tobacco Allergies meperidine [From DEMEROL] Allergy (Unknown, Verified 05/21/24 11:07) DIFF BREATHING morphine [MORPHINE] Allergy (Unknown, Verified 05/21/24 11:07) DIFF BREATHING Nexplanon Adverse Reaction (Uncoded 05/21/24 11:07) rash Medication List - Last Reconciled 05/21/24 by Opal Page MD metformin 500 mg PO DAILY 90 days omeprazole 20 mg PO DAILY 90 days progesterone micronized (Prometrium) 200 mg PO BEDTIME 10 days HPI EP-rt ear pain HPI Details 23-year-old female came in today to be e valuated for right ear pain Patient had dental work done a day before the pain started She says that she is able to chew from right side However her ear hurts even when she press on it On examination she has pain with the tricuspid pressure however her ear is filled with wax Unable to visualize tympanic membrane I am treating her with amoxicillin for 7 days Patient was instructed to return in 7 days for re-evaluation Review system: There is no fever no chills no cough no sore throat no headache PFSH Medical History Abnormal menses Allergic reaction Skin lesion Physical exam PCOS (polycystic ovarian syndrome) Hirsutism History of irregular menstrual cycles Surgical History History of gastric surgery Family History Maternal Grandfather Hx of thyroid cancer Maternal Aunt Hx of thyroid cancer History of colon cancer Father Diabetes mellitus Mother Asthma Social History Housing: Apartment Alcohol intake: never Patient Tobacco Use Status: Never used Tobacco e-Cigarette/Vaping Use: Never Used Second Hand Smoke Exposure: No service: No Current occupational status: employed Current occupational exposures/hazards: No Gender identity: Female Cognitive needs: No Hearing needs: No Vision needs: No Review of Systems Const All systems reviewed & are unremarkable except as noted in HPI and below Physical Exam Vital Signs: Last Vital Signs Temp 97.2 F 05/21/24 11:05 Pulse 77 05/21/24 11:05 BP 110/62 05/21/24 11:05 Pulse Ox 100 05/21/24 11:05 Oxygen Delivery Method Room Air 05/21/24 11:05 BMI result Body Mass Index 30.2 Const General: no acute distress Orientation/consciousness: patient oriented x3 HEENT Other: Both ears filled with wax, right ear painful with tragus pressure, no throat erythema, no swelling right side of her gums Eyes General: appearance normal, both eyes and all related structures Resp Effort & Inspection: normal respiratory effort and able to speak in complete sentences Neuro General: patient oriented x3 Psych Mental Status: mental status grossly normal Assessment & Plan Assessment & Plan (1) Right ear pain: Code(s): H92.01 - Otalgia, right ear (2) Impacted cerumen, bilateral: Code(s): H61.23 - Impacted cerumen, bilateral Plan 23-year-old female came in today to be evaluated for right ear pain Patient had dental work done a day before the pain started She says that she is able to chew from right side However her ear hurts even when she press on it On examination she has pain with the tricuspid pressure however her ear is filled with wax Unable to visualize tympanic membrane I am treating her with amoxicillin for 7 days Patient was instructed to return in 7 days for re-evaluation Review system: There is no fever no chills no cough no sore throat no headache Medications: New amoxicillin 875 mg PO BID 14 tabs 0RF 7 days Coding Level of Care Code Est Pt Level 3 (78096) Diagnoses Right ear pain H92.01 Impacted cerumen, bilateral H61.23
[2024-05-21 11:05] VITALS: BP 110/62; PULSE 77; TEMP 36.2; O2SAT 100; BMI 30.2
== END 2024-05-21 11:24 | disposition home or self-care (01) ==
PROVIDERS: PCP Internal Medicine; Visit Provider Internal Medicine
DX: H92.01 Otalgia, right ear (principal); H61.23 Impacted cerumen, bilateral

== ENCOUNTER → 2024-05-21 11:04 | Outpatient (BNVA) | payer OTHER, SELFPAY | PROVIDERS: PCP Internal Medicine | DX: H92.01 Otalgia, right ear (principal); H61.23 Impacted cerumen, bilateral | CPT/HCPCS: 99212 ==

== ENCOUNTER 2024-06-10 08:59 | Outpatient (AMB) | payer OTHER, SELFPAY ==
--- NOTE | 2024-06-10 09:10 | AM.OFFVISNUR ---
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
== END 2024-06-10 09:10 | disposition home or self-care (01) ==
PROVIDERS: PCP Internal Medicine; Visit Provider Internal Medicine
DX: Z11.1 Encounter for screening for respiratory tuberculosis (principal)

== ENCOUNTER → 2024-06-10 08:59 | Outpatient (BNVA) | payer OTHER, SELFPAY | PROVIDERS: PCP Internal Medicine; Visit Provider Internal Medicine | DX: Z11.1 Encounter for screening for respiratory tuberculosis (principal) | CPT/HCPCS: 86580 ==

== ENCOUNTER 2025-05-09 11:34 | Emergency (ER) | payer OTHER, SELFPAY ==
--- NOTE | 2025-05-09 | ECG_ITS ---
Test Reason : DIZINESS Blood Pressure : */* mmHG Vent. Rate : 71 BPM Atrial Rate : 71 BPM P-R Int : 148 ms QRS Dur : 66 ms QT Int : 382 ms P-R-T Axes : 22 53 24 degrees QTcB Int : 415 ms Normal sinus rhythm Nonspecific ST and T wave abnormality Borderline ECG No previous ECGs available Referred By: Generic ED Physician Electronically Signed By: TETE MARTINEZ
[2025-05-09 11:59] VITALS: BP 104/57; PULSE 70; RESP 16; TEMP 36.4; O2SAT 98; BMI 23.6
--- NOTE | 2025-05-09 11:59 | ED.GENADULT ---
HPI - General Adult General Chief complaint: General Medical Stated complaint: rapid heart beat dizzy Time Seen by Provider: 05/09/25 18:46 Source: patient Limitations: language barrier History of Present Illness ED Provider: Shavon Barnhart PA-C HPI narrative: 24-year-old female presents with multiple complaints. Patient states she has not been feeling well for the past 2 days, experiencing palpitations at times. Associated poor oral intake and nausea. Denies chest pain, shortness of breath, cough cold symptoms or fever. No sick contacts with similar symptoms. Related Data Previous Rx's ?Medication ?Instructions ?Recorded metformin 500 mg tablet 500 mg PO DAILY 90 days #90 tabs 02/20/24 omeprazole 20 mg capsule,delayed 20 mg PO DAILY 90 days #90 caps 02/20/24 release progesterone micronized 200 mg 200 mg PO BEDTIME 10 days #30 caps 03/15/24 capsule (Prometrium) amoxicillin 875 mg tablet 875 mg PO BID 7 days #14 tabs 05/21/24 Allergies Allergy/AdvReac Type Severity Reaction Status Date / Time meperidine (From DEMEROL) Allergy Unknown DIFF Verified 05/09/25 12:00 BREATHING morphine (MORPHINE) Allergy Unknown DIFF Verified 05/09/25 12:00 BREATHING Nexplanon AdvReac Unknown rash Uncoded 05/09/25 12:00 Review of Systems Review of Systems: Yes all other systems are reviewed and are negative Constitutional: Constitutional: Denies chills, Denies fatigue, Denies fever(s), Reports malaise and Reports poor appetite Cardiovascular: Cardiovascular: Denies chest pain, Reports chest pain at rest, Reports palpitations and Denies dyspnea Respiratory: Respiratory: Denies cough and Denies dyspnea Gastrointestinal: Gastrointestinal: Denies abdominal pain, Denies diarrhea, Reports nausea and Denies vomiting Endocrine: Endocrine: Denies fatigue and Reports palpitations PMFSH Past Medical History Attestation statement: The following information was validated with the patient. Medical History Abnormal menses Allergic reaction Skin lesion Physical exam PCOS (polycystic ovarian syndrome) Hirsutism History of irregular menstrual cycles Surgical History History of gastric surgery Family History Family History Maternal Grandfather Hx of thyroid cancer Maternal Aunt Hx of thyroid cancer History of colon cancer Father Diabetes mellitus Mother Asthma Social History Social History Housing: Apartment Alcohol intake: current Alcohol intake frequency: holidays/special occasions only Patient Tobacco Use Status: Never used Tobacco Smoked in Last 30 Days: No e-Cigarette/Vaping Use: Never Used Second Hand Smoke Exposure: No Use of substances other than those prescribed or required for medical reasons: No Advance Directives: No Advance Directives Information Provided: Yes Patient : No service: No Current occupational status: employed Current occupational exposures/hazards: No Gender identity: Female Cognitive needs: No Hearing needs: No Vision needs: No Physical Exam ED Vital Signs: Vital Signs - 24 hr 05/09/25 11:59 05/09/25 18:19 Temperature 97.6 F 98.2 F Pulse Rate 70 78 Respiratory Rate 16 18 Blood Pressure 104/57 L 109/60 Pulse Oximetry 98 100 Oxygen Delivery Method Room Air Room Air BMI result Body Mass Index 23.6 Const Other: Alert well-appearing Orientation/consciousness: patient oriented x3 Resp Effort & Inspection: normal respiratory effort Cardio Other: Normal peripheral perfusion Skin Other: Warm dry no rash Neuro General: patient oriented x3, gait normal, no focal motor deficits and CN's II-XI intact bilaterally Psych Other: Cooperative Course Course Course Narrative: RME, this is a rapid medical exam performed by Arturo Ayala please refer to primary provider for complete H&P- 24 year old female presents for evaluation of epigastric abdominal pain, nausea, and palpitations for the last few days. Ekg performed on arrival. Plan for labs, UA Medications Administered Discontinued Medications Generic Name Dose Route Start Last Admin Trade Name Freq PRN Reason Stop Dose Admin Ondansetron HCl 4 mg 05/09/25 19:12 05/09/25 20:00 Ondansetron Odt 4 Mg Tab.Rapdis TRANSLINGU 05/09/25 19:13 4 mg ONCE ONE Administration Medical Decision Making Medical Decision Making [facility] Narrative: 24-year-old female presents with multiple complaints. Patient states she has not been feeling well for the past 2 days, experiencing palpitations at times. Associated poor oral intake and nausea. Denies chest pain, shortness of breath, cough cold symptoms or fever. No sick contacts with similar symptoms. No chronic issues History: Per patient I have considered the following differential diagnoses: Viral syndrome, acute intra-abdominal pathology, UTI, palpitations, dehydration, anemia, electrolyte abnormality Plan: Regard to the palpitations, we have not documented elevated heart rate, her EKG is normal sinus, a cardiac enzyme was obtained and it was negative. Not that I expected it to be elevated, the patient has a risk factors for coronary artery disease, her heart score is 0. There are so are no underlying organic causes that could have precipitated her symptoms; i.e. dehydration, anemia or electrolyte abnormality. We will be giving Zofran and adding on a viral panel. Her symptoms are very vague and nonspecific, she also has no abdominal pain, she does not require imaging. I have independently reviewed the following tests: Labs: No leukocytosis, not anemic, not , COVID negative, troponin less than 2.7 EKG: Normal sinus rhythm, rate of 71, no ischemic changes no ectopy QTC 415 Differential Diagnosis Differential Diagnoses: The differential diagnosis associated with the presentation includes See medical decision-making Admission/Observation Consideration of admission/observation: Escalation of care including admission/observation considered Not applicable Lab Data MDM Lab Attestation statement: I reviewed the patient's lab results. 05/09/25 15:14 05/09/25 15:14 Labs: Lab Results 05/09/25 05/09/25 Range/Units 15:14 19:38 WBC 8.0 (4.8-10.8) X10*3/uL RBC 5.13 (4.20-5.50) X10*6/uL Hgb 14.2 (12.0-16.0) g/dl Hct 42.2 (37.0-47.0) % MCV 82.3 (80.0-98.0) fL MCH 27.7 (27.0-33.0) pg MCHC 33.6 (31.0-35.0) g/dl RDW 13.0 (11.0-16.0) % Plt Count 297 (160-400) X10*3/uL MPV 9.2 L (9.4-12.3) fL Immature Gran % (Auto) 0.3 (0.0-0.4) % Neut % (Auto) 72.8 (45-73) % Lymph % (Auto) 19.4 L (20-40) % [place] % (Auto) 7.3 (2-11) % Eos % (Auto) 0.1 (0-4) % Baso % (Auto) 0.1 (0-2) % Lymph # (Auto) 1.6 (1.2-4.9) X10*3/uL [place] # (Auto) 0.6 (0.1-1.2) X10*3/uL Eos # (Auto) 0.0 (0.0-0.4) X10*3/uL Baso # (Auto) 0.0 (0.0-0.2) X10*3/uL Abs Immat Gran (auto) 0.02 (0.00-0.03) X10*3/uL Absolute Neuts (auto) 5.8 (2.0-8.3) x10*3/uL Absolute Nucleated RBC 0.000 (0.0-0.012) X10*3/uL Nucleated RBC % (auto) 0.0 (0.0-0.2) /100WBC Sodium 139 (135-145) mmol/L Potassium 4.4 (3.3-5.1) mmol/L Chloride 105 (96-108) mmol/L Carbon Dioxide 25 (22-29) mmol/L Anion Gap 13 (12-20) BUN 12 (9-16) mg/dL Creatinine 0.61 (0.5-1.4) mg/dL Estim Creat Clear Calc 130.8 Estimated GFR > 60 Random Glucose 74 (60-115) mg/dL Calcium 9.5 (8.4-10.2) mg/dL Total Bilirubin 0.8 (0.0-1.0) mg/dL AST 25 (5-31) U/L ALT 17 (0-31) U/L Alkaline Phosphatase 70 (39-117) U/L Total Protein 8.4 H (6.5-8.0) g/dL Albumin 4.8 (3.5-5.0) g/dL Lipase 20 (8-78) U/L TSH 0.81 (0.32-4.0) uIU/mL Beta HCG, Quant < 2 mIU/mL COVID-19 (PARMINDER) Negative (Negative) COVID-19 Clin Com See Note Independent Interpretation I performed an independent interpretation of an: EKG Discharge Plan Discharge Clinical Impression: Heart palpitations, Nausea Patient Disposition: Home, Self-Care Instructions: Heart Palpitations (ED) Additional Instructions: All of your screening labs were normal, you were not , you were tested for COVID the viral panel was negative. There were no concerning changes on the EKG. You may still be coming down with another virus has been circulating within the community given you have not been feeling well. Uses Zofran as needed for nausea. In regard to the heart palpitations, you should follow up with primary care, you can discuss the need to have a Holter monitor trial. This will determine if you truly have an abnormal rhythm of your heart. Call tomorrow to schedule an appointment. Prescriptions: No Action progesterone micronized [Prometrium] 200 mg capsule 200 mg PO BEDTIME 10 Days Qty: 30 0RF Rx Instructions: Take the pill 1 tablet a day cyclically every month from day 15-24 day 1 being the 1st day of next menstrual cycle metformin 500 mg tablet 500 mg PO DAILY 90 Days Qty: 90 1RF omeprazole 20 mg capsule,delayed release(DR/EC) 20 mg PO DAILY 90 Days Qty: 90 1RF amoxicillin 875 mg tablet 875 mg PO BID 7 Days Qty: 14 0RF Stand Alone Forms: Work/School Release Print Language: Macedonian
[2025-05-09 15:18] LABS: Hematocrit 42.2 % (37.0-47.0); Hemoglobin 14.2 g/dl (12.0-16.0); Imm Gran Abs Auto 0.02 X10*3/uL (0.00-0.03); Imm Gran Pct Auto 0.3 % (0.0-0.4); Lymphocytes Absolute Auto 1.6 X10*3/uL (1.2-4.9); MANUAL DIFF FLAG NO; Mean Corpuscular HGB Conc 33.6 g/dl (31.0-35.0); Mean Corpuscular Hemoglobin 27.7 pg (27.0-33.0); Mean Corpuscular Volume 82.3 fL (80.0-98.0); NRBC Abs Auto 0.000 X10*3/uL (0.0-0.012); NRBC Pct Auto 0.0 /100WBC (0.0-0.2); Platelet Count 297 X10*3/uL (160-400); Red Blood Count 5.13 X10*6/uL (4.20-5.50); White Blood Count 8.0 X10*3/uL (4.8-10.8)
[2025-05-09 15:39] LABS: Alanine Aminotransferase 17 U/L (0-31); Albumin Level 4.8 g/dL (3.5-5.0); Alkaline Phosphatase 70 U/L (39-117); Anion Gap 13 (12-20); Aspartate Amino Transferase 25 U/L (5-31); Blood Urea Nitrogen 12 mg/dL (9-16); Calcium 9.5 mg/dL (8.4-10.2); Carbon Dioxide 25 mmol/L (22-29); Chloride 105 mmol/L (96-108); Creatinine Clr Calc Pharmacy 130.8; Estimated Glomerular Filt Rate > 60; Lipase 20 U/L (8-78); Potassium 4.4 mmol/L (3.3-5.1); Sodium 139 mmol/L (135-145); Total Protein 8.4 g/dL (6.5-8.0)
[2025-05-09 18:19] VITALS: BP 109/60; PULSE 78; RESP 18; TEMP 36.8; O2SAT 100
--- OUTSIDE RECORDS SUMMARY | 2025-05-09 18:34 | XMS_ITS | Clinical Summary ---
Author Organization [facility] Address [address] [place] [address] Care Team Providers Care Liner Roll Changer Name Role Phone Sana Carvalho Primary Care Provider [phone] Allergies Active Allergy Reactions Criticality Noted Date Comments Meperidine Rash 07/09/2024 Morphine Rash 07/09/2024 Medications medroxyPROGESTER one (PROVERA) 10 mg tabletIndication s:PCOS (polycystic ovarian syndrome) Take 1 tablet (10 mg total) by mouth once a day. 10 tablet 07/09/2024 Active Active Problems Problem Noted Date Diagnosed Date Procreation management investigation and testing 07/09/2024 Encounters Date Type Department Care Team Description 05/05/2025 Results Follow-Up [facility] [address] [place] [address] Component Prep Operator: Cheri Gómez MS 03/18/2025 myChart Message [facility] Financial Counseling Department [address] [place] [id number] Mychart, Generic Provider To set up Payment plan Please read from Last 3 Months Social History Tobacco Use Types Packs/Day Years Used Date Smoking Tobacco: Never Assessed Comments Unknown Sex and Gender Information Value Date Recorded Sex Assigned at Female 03/11/2024 2:46 PM EDT Legal Sex Female 2:25 PM EDT Gender Identity Female 07/08/2024 1:38 PM EST Sexual Orientation Straight 07/08/2024 1: 38 PM EST Last Filed Vital Signs Vital Sign Reading Time Taken Comments Blood Pressure 97/63 07/09/2024 1:03 PM EST Pulse - - Temperature - - Respiratory Rate - - Oxygen Saturation - - Inhaled Oxygen Concentration - - Weight 81.2 kg (179 lb) 07/09/2024 1:03 PM EST Height 167.6 cm (5' 6 ) 07/09/2024 1:03 PM EST Body Mass Index 28.89 07/09/2024 1:03 PM EST Plan of Treatment Upcoming Encounters Date Type Department Care Team (Late st Contact Info) Description 10/03/2025 1:00 PM EST Appointment [facility] Ot[facility]ology [facility] [address] [place] [address] Component Prep Operator: Supa Olson MD [address] [place] [address] Health Maintenance Due Date Last Done Comments Pap Smear 1998 Varicella Vaccines (1 of 2 - 13+ 2-dose series) 2011 HPV Vaccines (1 - 3-dose series) 2013 Hepatitis B Vaccines (1 of 3 - 19+ 3-dose series) 2017 DTaP,Tdap,and Td Vaccines (1 - Tdap) 2020 Alcohol/Substance Use Screening 08/21/2024 Depression Screening and Follow-Up 08/21/2024 Social Drivers of Health Codie ual Screening 08/21/2024 COVID-19 Vaccine (1 - 2023-2 5 season) 2025 Influenza Vaccine (#1) 2025 Chlamydia Screening 10/15/2025 10/15/2024 RSV Vaccine (60+ years old a nd patients) (1 - 1-dose 75+ series) 2073 HIV Screening Completed 07/09/2024 Hepatitis C Screening Completed 07/09/2024 Pneumococcal Vaccine: Pediat lynnette (0-5 Years) and At-Risk Patients (6-50 Years) Aged Out No longer eligible b ased on patient's age to complete this topic Procedures * Due to [place] state law, this organization might not be sharing negative HIV tests. Procedure Name Priority Date/Time Associated Diagnosis Comments CHLAMYDIA/NEISSERIA GONORRHEA RNA Routine 10/15/2024 11:32 AM EST PCOS (polycystic ovarian syndrome) Procreation management investigation and testing HEPATITIS C ANTIBODY W/REFLEX TO HCV RNA, QUANTITATIVE PCR Routine 07/09/2024 2:16 PM EST PCOS (polycystic ovarian syndrome) Procreation management investigation and testing from Last 3 Months or Most Recently Relevant to Health Maintenance Results * Due to [place] state law, this organization might not be sharing negative HIV tests. * Chlamydia/Neisseria gonorrhoeae RNA (10/15/2024 11:32 AM EST) Chlamydia trachomatis RNA, TMA NOT DETECTED NOT DETECTED 10/16/2024 9:48 AM EST [facility] Neisseria Gonorrhoeae RNA, TMA NOT DETECTED NOT DETECTED 10/16/2024 9:48 AM EST [facility] Comment: The analytical performance characteristics of this assay, when used to test SurePath(TM) specimens have been determined by [facility]. The modifications have not been cleared or approved by the FDA. This assay has been validated pursuant to the CLIA regulations and is used for clinical purposes. For additional information, please refer to https://education.Netrepid/faq/DKK066 (This link is being provided for information/ educational purposes only.) Urine Voided urine specimen / Unknown Non-Blood Collection / Unknown 10/15/2024 11:32 AM EST 10/15/2024 12:36 PM EST Narrative [facility] - 10/16/2024 9:48 AM EST [facility] Received Date:[id number] Sandra Leigh NP LAB URINE ORDERABLES Fin al Result [facility] [address] [facility] [address], [place] [address], [place] [phone] [facility] [address] [facility] 3rd Floor, [place] [address], [place] [phone] * Hepatitis C Antibody w/Reflex to HCV RNA, Quantitative PCR (07/09/2024 2:16 PM EST) Hepatitis C Antibody NON-REACT KAITLIN NON-REACT KAITLIN 07/09/2024 10:42 PM EST [facility] Comment: HCV antibody was non-reactive. There is no laboratory evidence of HCV infection. In most cases, no further action is required. However, if recent HCV exposure is suspected, a test for HCV RNA (test code 17812) is suggested. For additional information please refer to http://education.Netrepid/faq/ZQY29z3 (This link is being provided for informational/ educational purposes only.) Blood Structure of peripheral vein / Unknown Venipuncture / Unknown 07/09/2024 2:16 PM EST 07/09/2024 2:41 PM EST Narrative [facility] - 07/09/2024 10:42 PM EST [facility] Received Date: Sandra Leigh NP LAB BLOOD ORDERABLES Fin al Result [facility] [address] [facility] [address], [place] [address], General Assembly [facility] [address], [place] [address], from Last 3 Months or Most Recently Relevant to Health Maintenance Insurance CIG HMO/POS Care Teams Liner Roll Changer Relationship Specialty Start Date End Date Sana Carvalho [address] [place] [address] PCP - General Internal Medicine 02/28/24
--- OUTSIDE RECORDS SUMMARY | 2025-05-09 18:34 | XMS_ITS | Encounter Summary ---
Author Organization [facility] Address [address] [id number] Care Team Providers Care Digital Forensic Analyst Name Role Phone Sana Carvalho Primary Care Provider [phone] Encounter Details Date Type Department Care Team (Late st Contact Info) Description 05/05/2025 Results Follow-Up [facility]etics [facility] [address] [place] [address] Geography Head: Cheri Gómez, MS [address] [place] [address] Social History Tobacco Use Types Packs/Day Years Used Date Smoking Tobacco: Never Assessed Comments Unknown Sex and Gender Information Value Date Recorded Sex Assigned at Female 03/11/2024 2:46 PM EDT Legal Sex Female 2:25 PM EDT Gender Identity Female 07/08/2024 1:38 PM EST Sexual Orientation Straight 07/08/2024 1: 38 PM EST documented as of this encounter Plan of Treatment Upcoming Encounters Date Type Department Care Team (Late st Contact Info) Description 10/03/2025 1:00 PM EST Appointment [facility] Otolaryngology Clinic [address] [place] [address] Geography Head: Supa Olson MD [address] [place] [address] documented as of this encounter Visit Diagnoses Not on filedocumented in this encounter Care Teams Digital Forensic Analyst Relationship Specialty Start Date End Date Sana Carvalho [address] [facility] [place] [address] PCP - General Internal Medicine 02/28/24 documented as of this encounter
--- OUTSIDE RECORDS SUMMARY | 2025-05-09 18:34 | XMS_ITS | Encounter Summary ---
Author Organization [facility] Address [address] [place] [address] Care Team Providers Care Import Manager Name Role Phone Sana Carvalho Primary Care Provider Encounter Details Date Type Department Care Team (Late st Contact Info) Description 03/18/2025 [employer]is [employer] Message [facility] Financial Counseling Department [address] [place], [place] [phone] Dada Room, Generic Provider [address] [place], [place] [phone] To set up Payment plan Please read Social History Tobacco Use Types Packs/Day Years [...] Info) Description 10/03/2025 1:00 PM EST Appointment [facility] Otolaryngology Clinic [address] [place] [address] Trash Man: Supa Olson MD [address] [place] [address] documented as of this encounter Visit Diagnoses Not on filedocumented in this encounter Care Teams Import Manager Relationship Specialty Start Date End Date Sana Carvalho [address] [place] [address] PCP - General Internal Medicine 02/28/24 documented as of this encounter
--- OUTSIDE RECORDS SUMMARY | 2025-05-09 18:34 | XMS_ITS | Clinical Summary ---
Author Organization [facility] Address [address] [place] [address] Phone Care Team Providers Care Retail Asset Protection Specialist Name Role Phone Rochelle Musa Primary Care Provider [phone] Allergies Active Allergy Reactions Criticality Noted Date Comments Meperidine Rash 07/09/2024 Morphine Rash 07/09/2024 Medications No known medications Social History Tobacco Use Types Packs/Day Years Used Date Smoking Tobacco: Never Assessed Comments Unknown Sex and Gender Information Value Date Recorded Sex Assigned at Not on file Legal Sex Female 3:34 PM EST Gender Identity Not on file Sexual Orientation Not on file Last Filed Vital Signs Vital Sign Reading Time Taken Comments Blood Pressure 90/75 09/23/2024 2:08 PM EST Pulse 53 09/23/2024 2:08 PM EST Temperature - - Respiratory Rate - - Oxygen Saturation 97% 09/23/2024 2:08 PM EST Inhaled Oxygen Concentration - - Weight 80.3 kg (177 lb) 09/23/2024 2:08 PM EST Height 170.2 cm (5' 7 ) 09/23/2024 2:08 PM EST Body Mass Index 27.72 09/23/2024 2:08 PM EST Plan of Treatment Health Maintenance Due Date Last Done Comments HPV Vaccines (1 - 3-dose series) 2013 DTaP,Tdap,and Td Vaccines (1 - Tdap) 2017 Hepatitis B Vaccines (1 of 3 - 19+ 3-dose series) 2017 Cervical Cancer Screening: P ap Smear 2019 HIV Screening 07/20/2022 Social Influencers of Health Screening 07/20/2022 Depression Screening 08/21/2024 COVID-19 Vaccine ( - 2023-2 5 season) 2025 Influenza Vaccine (#1) 2025 Cholesterol Screening (Lipid Panel) 10/15/2029 10/15/2024 Hepatitis C Screening Completed 07/09/2024 HIB Vaccines Aged Out No longer eligi ble based on patient's age to complete this topic Hepatitis A Vaccines Aged Out No long er eligible based on patient's age to complete this topic IPV Vaccines Aged Out No longer eligi ble based on patient's age to complete this topic MMR Vaccines Aged Out No longer eligi ble based on patient's age to complete this topic Meningococcal ACWY Vaccine Aged Out N o longer eligible based on patient's age to complete this topic Meningococcal B Vaccine Aged Out No l onger eligible based on patient's age to complete this topic Pneumococcal Vaccine: Pediat rics (0 to 5 Years) and At-Risk Patients (6 to 49 Years) Aged Out No longer eligi ble based on patient's age to complete this topic RSV Immunization Patients Un savannah 20 months Aged Out No longer eligible b ased on patient's age to complete this topic Varicella Vaccines Aged Out No longer eligible based on patient's age to complete this topic Procedures Procedure Name Priority Date/Time Associated Diagnosis Comments MONONUCLEOSIS SCREEN Routine 03/24/2025 11:16 AM EDT Acute pharyngitis from Last 3 Months Results * Mononucleosis screen (03/24/2025 11:16 AM EDT) Monospot Negative Negative 03/24/2025 2:07 PM EDT [facility] Blood Venous blood specimen / Unknown Venipuncture / Unknown 03/24/2025 11:16 AM EDT 03/24/2025 12:43 PM EDT us Rochelle PINTO LAB BLOOD ORDERABLES Lurdes l Result [facility] [address] [place] [address], [place] [phone] from Last 3 Months Insurance [employer] MEDICAID - [place] Care Teams Retail Asset Protection Specialist Relationship Specialty Start Date End Date Rochelle Musa PA [address] [place] [address] PCP - General 08/13/24
--- OUTSIDE RECORDS SUMMARY | 2025-05-09 18:34 | XMS_ITS | Encounter Summary ---
Author Organization [facility] Address [address] [place] [address] Care Team Providers Care Security Support Analyst Name Role Phone Sana Carvalho Primary Care Provider [phone] Encounter Details Date Type Department Care Team (Late st Contact Info) Description 10/11/2024 Mithridion Message [facility] - Second Floor [address] [place] [address] [facility] EVAKUATORY ROSSIIhart, Generic Provider [address] [place] [address] Maribeth con [employer] Social History Tobacco Use Types Packs/Day Years [...] Info) Description 10/03/2025 1:00 PM EST Appointment [facility] Otolaryngology Clinic [address] [place] [address] Ell Teacher: Supa Olson MD [address] [place] [address] documented as of this encounter Visit Diagnoses Not on filedocumented in this encounter Care Teams Security Support Analyst Relationship Specialty Start Date End Date Sana Carvalho [address] [place] [address] dr [place], [place] [address] PCP - General Internal Medicine 02/28/24 documented as of this encounter
[2025-05-09 19:55] LABS: COVID-19 Test Negative (Negative); IDNOW Serial# 08D9AD1C
[2025-05-09 21:24] VITALS: BP 109/60; PULSE 78; RESP 18; TEMP 36.8; O2SAT 100
== END 2025-05-09 21:34 | disposition home or self-care (01) ==
PROVIDERS: Physician Assistant; Physician Assistant Medical; Emergency Provider Emergency Medicine Emergency Medical Services
DX: R00.2 Palpitations (principal); R11.0 Nausea; R10.2 Pelvic and perineal pain; Z11.52 Encounter for screening for COVID-19
CPT/HCPCS: 36415; 80053; 83690; 84443; 84702; 85025; 87635; 93005; 99283; 99284

== ENCOUNTER → 2025-05-09 11:45 | Outpatient (BNV) | payer OTHER, SELFPAY | PROVIDERS: Emergency Provider Emergency Medicine Emergency Medical Services; Visit Provider Internal Medicine | DX: R42 Dizziness and giddiness (principal) | CPT/HCPCS: 93010 ==

== ENCOUNTER 2025-06-13 17:17 | Emergency (ER) | payer OTHER, SELFPAY ==
--- OUTSIDE RECORDS SUMMARY | 2024-12-10 05:45 | XMS_ITS ---
Author Organization [facility] [address] Address [address] [place] [address] Care Team Providers Care Medical Radiation Therapist Name Role Phone CHARLES ZIMMERMAN [phone] Medications Medication SIG (Take, Route, Frequency, Duration) Notes Start Date End Date Status Famotidine 40 MG TAKE 1 TABLET BY JACLYN TH ONCE A DAY NEEDED FOR ACID REFLUX 30 DAYS; Duration: 90 Not-Taking NIFEdipine 10 MG TAKE 1 CAPSULE BY MO UTH THREE TIMES A DAY; Duration: 90 days Active Omeprazole 20 MG 1 capsule 1/2 to 1 hour before morning meal Orally Once a day As needed Active Clarithromycin 500 MG 1 tablet Orally ev kerry 12 hrs Not-Taking Ondansetron 4 MG 1 tablet on the tong ue and allow to dissolve Orally Once a day; Duration: 30 days 10/23/2024 Active Amoxicillin 500 MG 1 capsule Orally alida ry 8 hrs Not-Taking Zepbound 5 MG/0.5ML Inject 5 mg Subcutan eous weekly; Duration: 28 days Active metroNIDAZOLE 500 MG 1 tablet Orally Thr ee times a day Not-Taking Tretinoin 0.025 % 1 application in the evening to areas of hyperpigmented skin Externally Once a day; Duration: 30 days 10/23/2024 Active Encounters Encounter Location Date Provider Diagnosis [facility] [address] [address] 12/10/2024 CHARLES ZIMMERMAN Nutritional counseli ng Z71.3 ; BMI 24.0-24.9, adult Z68.24 ; PCOS (polycystic ovarian syndrome) E28.2 ; Raynaud's phenomenon without gangrene I73.00 ; Helicobacter pylori (H. pylori) A04.8 ; Elevated LDL cholesterol level E78.00 ; Vitamin D insufficiency E55.9 and Lumbar back pain M54.50 Assessments Encounter Date Diagnosis (ICD Code) Assessment Notes Treatment Notes Treatment Clinical Notes Section Notes 12/10/2024 Nutritional counseling (ICD-10 - Z71.3) Patient is here for weight management follow-up. We focused on significance of healthy lifestyle changes. We talked about need to track steps with goal between 6000-10,000 steps daily, focus on portion control, read food labels, get adequate sleep between 7 to 8 hours, get adequate rest to the body, meditate, frequent nutritious meals including vegetables and healthy choices of lean meats, fish, and elimination of refined carbohydrates. We also talked about mindfulness and mindful eating. Particular focus was on increasing physical activity. Total time of 30 minutes spent with patient with greater than 50% spent on counseling and coordinating care. 09/05/2024: Weight 179 pounds, BMI 28.03. SECA scan completed today and interpreted with patient. Patient reports difficulty with weight loss surrounding history of PCOS, has consistently trialed improving diet and incorporating physical activity however continues to struggle. Reviewed goals of diet and exercise and patient is physically active with walking as well as resistance training once to twice weekly. We discussed weight loss medications as adjunctive aid in weight loss including both oral medications as well as injectables. She is a good candidate for Zepbound. Discussed proper use of the medication including rotating injection sites as well as expected side effect profile including but not limited to nausea, constipation, abdominal pain, and heartburn. Reports no personal history of pancreatitis, no personal or family history of medullary thyroid cancer, and no personal or family history of multiple endocrine neoplasia syndrome. Advised that this medication requires a prior authorization which can take 2 to 4 weeks. Patient understanding. She otherwise will follow-up in office in 4 weeks for further management. 11/11/2024: Weight 159 pounds, BMI 24.9. Seca scan completed today and interpreted with the patient. Patient is down about 18 pounds from her last consultation in August. Down about 11 pounds of fat mass. Small reduction of muscle mass by about 4 to 5 pounds, discussed importance of increasing her protein as well as improving physical activity, particular weight training. Currently on Zepbound 2.5 mg weekly. Reporting less depression appetite at this time and has interest in increasing to next dose. Reviewed goals of diet and exercise and she will follow-up in office in 4 weeks for further management. 12/10/2024: # Low back pain: Patient reporting pain in her lower back for the past 3 weeks. On and off in duration. Reports no injuries or strains to her knowledge. Does move a lot in her sleep. On exam there is no tenderness to palpation of the cervical, thoracic, or lumbar spine. Some tenderness to palpation of the left sacroiliac joint. Discussed measures including [id number] Tylenol or Profen for pain relief as well as importance of increasing her physical activity and stretching to manage symptoms. Will continue to monitor. # PCOS: No current medication therapy. Patient does follow with [facility] in [place]. Will continue to monitor. # Hyperlipidemia: Lipid panel on 08/28/2024 with cholesterol 192, triglycerides 124, HDL 56, and LDL 114. ASCVD risk less than 5%. Discussed importance of diet and lifestyle to lower cholesterol levels and prevent other comorbidities. Will continue to monitor. # Vitamin D insufficiency: Vitamin D level decreased at 08/26/2024 at 21.5. Discussed the importance of daily supplementation. Will continue to monitor. # Raynaud's syndrome continue nifedipine 10 mg 1 capsule 3 times daily. Will continue to monitor. Blood pressure stable in office (). # H. 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 pylori stool antigens on 10/01/2024. Patient has finished triple antibiotic therapy, now needs to repeat her stool antigen studies and then will follow-up shortly afterwards with gastroenterology. Taking omeprazole daily as needed for acid reflux. Patient is to follow-up with her senior director of global [employer] after stool studies. Reports several cases of H. pylori infection in the past. Will continue to follow with GI. All questions have been answered to patient's satisfaction. Patient verbalized understanding of diagnosis and treatments explained. Advised to call sooner prior to next visit it any questions/concerns arise. Case discussed with collaborating physician Bhargavi Pedraza who reviewed the assessment and plan. Chart, medications, labs, vital signs reviewed. Dictation was accomplished with the use of [employer] voice recognition software, which is prone to medical misidentifications and grammatical errors. This are unintentional and the practitioner does try to identify and correct these, but some could still be present. Please do not hesitate to contact practitioner for clarification. 12/10/2024 BMI 24.0-24.9, adult (ICD-10 - Z68.24) Patient is here for weight management follow-up. We focused on significance of healthy lifestyle changes. We talked about need to track steps with goal between 6000-10,000 steps daily, focus on portion control, read food labels, get adequate sleep between 7 to 8 hours, get adequate rest to the body, meditate, frequent nutritious meals including vegetables and healthy choices of lean meats, fish, and elimination of refined carbohydrates. We also talked about mindfulness and mindful eating. Particular focus was on increasing physical activity. Total time of 30 minutes spent with patient with greater than 50% spent on counseling and coordinating care. 09/05/2024: Weight 179 pounds, BMI 28.03. SECA scan completed today and interpreted with patient. Patient reports difficulty with weight loss surrounding history of PCOS, has consistently trialed improving diet and incorporating physical activity however continues to struggle. Reviewed goals of diet and exercise and patient is physically active with walking as well as resistance training once to twice weekly. We discussed weight loss medications as adjunctive aid in weight loss including both oral medications as well as injectables. She is a good candidate for Zepbound. Discussed proper use of the medication including rotating injection sites as well as expected side effect profile including but not limited to nausea, constipation, abdominal pain, and heartburn. Reports no personal history of pancreatitis, no personal or family history of medullary thyroid cancer, and no personal or family history of multiple endocrine neoplasia syndrome. Advised that this medication requires a prior authorization which can take 2 to 4 weeks. Patient understanding. She otherwise will follow-up in office in 4 weeks for further management. 11/11/2024: Weight 159 pounds, BMI 24.9. Seca scan completed today and interpreted with the patient. Patient is down about 18 pounds from her last consultation in August. Down about 11 pounds of fat mass. Small reduction of muscle mass by about 4 to 5 pounds, discussed importance of increasing her protein as well as improving physical activity, particular weight training. Currently on Zepbound 2.5 mg weekly. Reporting less depression appetite at this time and has interest in increasing to next dose. Reviewed goals of diet and exercise and she will follow-up in office in 4 weeks for further management. 12/10/2024: # Low back pain: Patient reporting pain in her lower back for the past 3 weeks. On and off in duration. Reports no injuries or strains to her knowledge. Does move a lot in her sleep. On exam there is no tenderness to palpation of the cervical, thoracic, or lumbar spine. Some tenderness to palpation of the left sacroiliac joint. Discussed measures including [id number] Tylenol or Profen for pain relief as well as importance of increasing her physical activity and stretching to manage symptoms. Will continue to monitor. # PCOS: No current medication therapy. Patient does follow with [facility] center in [place]. Will continue to monitor. # Hyperlipidemia: Lipid panel on 08/28/2024 with cholesterol 192, triglycerides 124, HDL 56, and LDL 114. ASCVD risk less than 5%. Discussed importance of diet and lifestyle to lower cholesterol levels and prevent other comorbidities. Will continue to monitor. # Vitamin D insufficiency: Vitamin D level decreased at 08/26/2024 at 21.5. Discussed the importance of daily supplementation. Will continue to monitor. # Raynaud's syndrome continue nifedipine 10 mg 1 capsule 3 times daily. Will continue to monitor. Blood pressure stable in office (). # H. 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 pylori stool antigens on 10/01/2024. Patient has finished triple antibiotic therapy, now needs to repeat her stool antigen studies and then will follow-up shortly afterwards with gastroenterology. Taking omeprazole daily as needed for acid reflux. Patient is to follow-up with her senior director of [employer] after stool studies. Reports several cases of H. pylori infection in the past. Will continue to follow with GI. All questions have been answered to patient's satisfaction. Patient verbalized understanding of diagnosis and treatments explained. Advised to call sooner prior to next visit it any questions/concerns arise. Case discussed with collaborating physician Bhargavi Pedraza who reviewed the assessment and plan. Chart, medications, labs, vital signs reviewed. Dictation was accomplished with the use of [employer] voice recognition software, which is prone to medical misidentifications and grammatical errors. This are unintentional and the practitioner does try to identify and correct these, but some could still be present. Please do not hesitate to contact practitioner for clarification. 12/10/2024 PCOS (polycystic ovarian syndrome) (ICD-10 - E28.2) Patient is here for weight management follow-up. We focused on significance of healthy lifestyle changes. We talked about need to track steps with goal between 6000-10,000 steps daily, focus on portion control, read food labels, get adequate sleep between 7 to 8 hours, get adequate rest to the body, meditate, frequent nutritious meals including vegetables and healthy choices of lean meats, fish, and elimination of refined carbohydrates. We also talked about mindfulness and mindful eating. Particular focus was on increasing physical activity. Total time of 30 minutes spent with patient with greater than 50% spent on counseling and coordinating care. 09/05/2024: Weight 179 pounds, BMI 28.03. SECA scan completed today and interpreted with patient. Patient reports difficulty with weight loss surrounding history of PCOS, has consistently trialed improving diet and incorporating physical activity however continues to struggle. Reviewed goals of diet and exercise and patient is physically active with walking as well as resistance training once to twice weekly. We discussed weight loss medications as adjunctive aid in weight loss including both oral medications as well as injectables. She is a good candidate for Zepbound. Discussed proper use of the medication including rotating injection sites as well as expected side effect profile including but not limited to nausea, constipation, abdominal pain, and heartburn. Reports no personal history of pancreatitis, no personal or family history of medullary thyroid cancer, and no personal or family history of multiple endocrine neoplasia syndrome. Advised that this medication requires a prior authorization which can take 2 to 4 weeks. Patient understanding. She otherwise will follow-up in office in 4 weeks for further management. 11/11/2024: Weight 159 pounds, BMI 24.9. Seca scan completed today and interpreted with the patient. Patient is down about 18 pounds from her last consultation in August. Down about 11 pounds of fat mass. Small reduction of muscle mass by about 4 to 5 pounds, discussed importance of increasing her protein as well as improving physical activity, particular weight training. Currently on Zepbound 2.5 mg weekly. Reporting less depression appetite at this time and has interest in increasing to next dose. Reviewed goals of diet and exercise and she will follow-up in office in 4 weeks for further management. 12/10/2024: # Low back pain: Patient reporting pain in her lower back for the past 3 weeks. On and off in duration. Reports no injuries or strains to her knowledge. Does move a lot in her sleep. On exam there is no tenderness to palpation of the cervical, thoracic, or lumbar spine. Some tenderness to palpation of the left sacroiliac joint. Discussed measures including [id number] Tylenol or Profen for pain relief as well as importance of increasing her physical activity and stretching to manage symptoms. Will continue to monitor. # PCOS: No current medication therapy. Patient does follow with [facility] center in [place]. Will continue to monitor. # Hyperlipidemia: Lipid panel on 08/28/2024 with cholesterol 192, triglycerides 124, HDL 56, and LDL 114. ASCVD risk less than 5%. Discussed importance of diet and lifestyle to lower cholesterol levels and prevent other comorbidities. Will continue to monitor. # Vitamin D insufficiency: Vitamin D level decreased at 08/26/2024 at 21.5. Discussed the importance of daily supplementation. Will continue to monitor. # Raynaud's syndrome continue nifedipine 10 mg 1 capsule 3 times daily. Will continue to monitor. Blood pressure stable in office (). # H. 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 pylori stool antigens on 10/01/2024. Patient has finished triple antibiotic therapy, now needs to repeat her stool antigen studies and then will follow-up shortly afterwards with gastroenterology. Taking omeprazole daily as needed for acid reflux. Patient is to follow-up with her senior director of [employer] after stool studies. Reports several cases of H. pylori infection in the past. Will continue to follow with GI. All questions have been answered to patient's satisfaction. Patient verbalized understanding of diagnosis and treatments explained. Advised to call sooner prior to next visit it any questions/concerns arise. Case discussed with collaborating physician Bhargavi Pedraza who reviewed the assessment and plan. Chart, medications, labs, vital signs reviewed. Dictation was accomplished with the use of [employer] voice recognition software, which is prone to medical misidentifications and grammatical errors. This are unintentional and the practitioner does try to identify and correct these, but some could still be present. Please do not hesitate to contact practitioner for clarification. 12/10/2024 Raynaud's phenomenon without gangrene (ICD-10 - I73.00) Patient is here for weight management follow-up. We focused on significance of healthy lifestyle changes. We talked about need to track steps with goal between 6000-10,000 steps daily, focus on portion control, read food labels, get adequate sleep between 7 to 8 hours, get adequate rest to the body, meditate, frequent nutritious meals including vegetables and healthy choices of lean meats, fish, and elimination of refined carbohydrates. We also talked about mindfulness and mindful eating. Particular focus was on increasing physical activity. Total time of 30 minutes spent with patient with greater than 50% spent on counseling and coordinating care. 09/05/2024: Weight 179 pounds, BMI 28.03. SECA scan completed today and interpreted with patient. Patient reports difficulty with weight loss surrounding history of PCOS, has consistently trialed improving diet and incorporating physical activity however continues to struggle. Reviewed goals of diet and exercise and patient is physically active with walking as well as resistance training once to twice weekly. We discussed weight loss medications as adjunctive aid in weight loss including both oral medications as well as injectables. She is a good candidate for Zepbound. Discussed proper use of the medication including rotating injection sites as well as expected side effect profile including but not limited to nausea, constipation, abdominal pain, and heartburn. Reports no personal history of pancreatitis, no personal or family history of medullary thyroid cancer, and no personal or family history of multiple endocrine neoplasia syndrome. Advised that this medication requires a prior authorization which can take 2 to 4 weeks. Patient understanding. She otherwise will follow-up in office in 4 weeks for further management. 11/11/2024: Weight 159 pounds, BMI 24.9. Seca scan completed today and interpreted with the patient. Patient is down about 18 pounds from her last consultation in August. Down about 11 pounds of fat mass. Small reduction of muscle mass by about 4 to 5 pounds, discussed importance of increasing her protein as well as improving physical activity, particular weight training. Currently on Zepbound 2.5 mg weekly. Reporting less depression appetite at this time and has interest in increasing to next dose. Reviewed goals of diet and exercise and she will follow-up in office in 4 weeks for further management. 12/10/2024: # Low back pain: Patient reporting pain in her lower back for the past 3 weeks. On and off in duration. Reports no injuries or strains to her knowledge. Does move a lot in her sleep. On exam there is no tenderness to palpation of the cervical, thoracic, or lumbar spine. Some tenderness to palpation of the left sacroiliac joint. Discussed measures including [id number] Tylenol or Profen for pain relief as well as importance of increasing her physical activity and stretching to manage symptoms. Will continue to monitor. # PCOS: No current medication therapy. Patient does follow with [facility] center in [place]. Will continue to monitor. # Hyperlipidemia: Lipid panel on 08/28/2024 with cholesterol 192, triglycerides 124, HDL 56, and LDL 114. ASCVD risk less than 5%. Discussed importance of diet and lifestyle to lower cholesterol levels and prevent other comorbidities. Will continue to monitor. # Vitamin D insufficiency: Vitamin D level decreased at 08/26/2024 at 21.5. Discussed the importance of daily supplementation. Will continue to monitor. # Raynaud's syndrome continue nifedipine 10 mg 1 capsule 3 times daily. Will continue to monitor. Blood pressure stable in office (). # H. 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 pylori stool antigens on 10/01/2024. Patient has finished triple antibiotic therapy, now needs to repeat her stool antigen studies and then will follow-up shortly afterwards with gastroenterology. Taking omeprazole daily as needed for acid reflux. Patient is to follow-up with her senior director of [employer] after stool studies. Reports several cases of H. pylori infection in the past. Will continue to follow with GI. All questions have been answered to patient's satisfaction. Patient verbalized understanding of diagnosis and treatments explained. Advised to call sooner prior to next visit it any questions/concerns arise. Case discussed with collaborating physician Bhargavi Pedraza who reviewed the assessment and plan. Chart, medications, labs, vital signs reviewed. Dictation was accomplished with the use of [employer] voice recognition software, which is prone to medical misidentifications and grammatical errors. This are unintentional and the practitioner does try to identify and correct these, but some could still be present. Please do not hesitate to contact practitioner for clarification. 12/10/2024 Helicobacter pylori (H. pylori) (ICD-10 - A04.8) Patient is here for weight management follow-up. We focused on significance of healthy lifestyle changes. We talked about need to track steps with goal between 6000-10,000 steps daily, focus on portion control, read food labels, get adequate sleep between 7 to 8 hours, get adequate rest to the body, meditate, frequent nutritious meals including vegetables and healthy choices of lean meats, fish, and elimination of refined carbohydrates. We also talked about mindfulness and mindful eating. Particular focus was on increasing physical activity. Total time of 30 minutes spent with patient with greater than 50% spent on counseling and coordinating care. 09/05/2024: Weight 179 pounds, BMI 28.03. SECA scan completed today and interpreted with patient. Patient reports difficulty with weight loss surrounding history of PCOS, has consistently trialed improving diet and incorporating physical activity however continues to struggle. Reviewed goals of diet and exercise and patient is physically active with walking as well as resistance training once to twice weekly. We discussed weight loss medications as adjunctive aid in weight loss including both oral medications as well as injectables. She is a good candidate for Zepbound. Discussed proper use of the medication including rotating injection sites as well as expected side effect profile including but not limited to nausea, constipation, abdominal pain, and heartburn. Reports no personal history of pancreatitis, no personal or family history of medullary thyroid cancer, and no personal or family history of multiple endocrine neoplasia syndrome. Advised that this medication requires a prior authorization which can take 2 to 4 weeks. Patient understanding. She otherwise will follow-up in office in 4 weeks for further management. 11/11/2024: Weight 159 pounds, BMI 24.9. Seca scan completed today and interpreted with the patient. Patient is down about 18 pounds from her last consultation in August. Down about 11 pounds of fat mass. Small reduction of muscle mass by about 4 to 5 pounds, discussed importance of increasing her protein as well as improving physical activity, particular weight training. Currently on Zepbound 2.5 mg weekly. Reporting less depression appetite at this time and has interest in increasing to next dose. Reviewed goals of diet and exercise and she will follow-up in office in 4 weeks for further management. 12/10/2024: # Low back pain: Patient reporting pain in her lower back for the past 3 weeks. On and off in duration. Reports no injuries or strains to her knowledge. Does move a lot in her sleep. On exam there is no tenderness to palpation of the cervical, thoracic, or lumbar spine. Some tenderness to palpation of the left sacroiliac joint. Discussed measures including pdfo-xlm-[id number] Tylenol or Profen for pain relief as well as importance of increasing her physical activity and stretching to manage symptoms. Will continue to monitor. # PCOS: No current medication therapy. Patient does follow with [facility] in [place]. Will continue to monitor. # Hyperlipidemia: Lipid panel on 08/28/2024 with cholesterol 192, triglycerides 124, HDL 56, and LDL 114. ASCVD risk less than 5%. Discussed importance of diet and lifestyle to lower cholesterol levels and prevent other comorbidities. Will continue to monitor. # Vitamin D insufficiency: Vitamin D level decreased at 08/26/2024 at 21.5. Discussed the importance of daily supplementation. Will continue to monitor. # Raynaud's syndrome continue nifedipine 10 mg 1 capsule 3 times daily. Will continue to monitor. Blood pressure stable in office (). # H. 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 pylori stool antigens on 10/01/2024. Patient has finished triple antibiotic therapy, now needs to repeat her stool antigen studies and then will follow-up shortly afterwards with gastroenterology. Taking omeprazole daily as needed for acid reflux. Patient is to follow-up with her senior director of [employer] after stool studies. Reports several cases of H. pylori infection in the past. Will continue to follow with GI. All questions have been answered to patient's satisfaction. Patient verbalized understanding of diagnosis and treatments explained. Advised to call sooner prior to next visit it any questions/concerns arise. Case discussed with collaborating physician Bhargavi Pedraza who reviewed the assessment and plan. Chart, medications, labs, vital signs reviewed. Dictation was accomplished with the use of [employer] voice recognition software, which is prone to medical misidentifications and grammatical errors. This are unintentional and the practitioner does try to identify and correct these, but some could still be present. Please do not hesitate to contact practitioner for clarification. 12/10/2024 Elevated LDL cholesterol level (ICD-10 - E78.00) Patient is here for weight management follow-up. We focused on significance of healthy lifestyle changes. We talked about need to track steps with goal between 6000-10,000 steps daily, focus on portion control, read food labels, get adequate sleep between 7 to 8 hours, get adequate rest to the body, meditate, frequent nutritious meals including vegetables and healthy choices of lean meats, fish, and elimination of refined carbohydrates. We also talked about mindfulness and mindful eating. Particular focus was on increasing physical activity. Total time of 30 minutes spent with patient with greater than 50% spent on counseling and coordinating care. 09/05/2024: Weight 179 pounds, BMI 28.03. SECA scan completed today and interpreted with patient. Patient reports difficulty with weight loss surrounding history of PCOS, has consistently trialed improving diet and incorporating physical activity however continues to struggle. Reviewed goals of diet and exercise and patient is physically active with walking as well as resistance training once to twice weekly. We discussed weight loss medications as adjunctive aid in weight loss including both oral medications as well as injectables. She is a good candidate for Zepbound. Discussed proper use of the medication including rotating injection sites as well as expected side effect profile including but not limited to nausea, constipation, abdominal pain, and heartburn. Reports no personal history of pancreatitis, no personal or family history of medullary thyroid cancer, and no personal or family history of multiple endocrine neoplasia syndrome. Advised that this medication requires a prior authorization which can take 2 to 4 weeks. Patient understanding. She otherwise will follow-up in office in 4 weeks for further management. 11/11/2024: Weight 159 pounds, BMI 24.9. Seca scan completed today and interpreted with the patient. Patient is down about 18 pounds from her last consultation in August. Down about 11 pounds of fat mass. Small reduction of muscle mass by about 4 to 5 pounds, discussed importance of increasing her protein as well as improving physical activity, particular weight training. Currently on Zepbound 2.5 mg weekly. Reporting less depression appetite at this time and has interest in increasing to next dose. Reviewed goals of diet and exercise and she will follow-up in office in 4 weeks for further management. 12/10/2024: # Low back pain: Patient reporting pain in her lower back for the past 3 weeks. On and off in duration. Reports no injuries or strains to her knowledge. Does move a lot in her sleep. On exam there is no tenderness to palpation of the cervical, thoracic, or lumbar spine. Some tenderness to palpation of the left sacroiliac joint. Discussed measures including nnty-osc-tialbij Tylenol or Profen for pain relief as well as importance of increasing her physical activity and stretching to manage symptoms. Will continue to monitor. # PCOS: No current medication therapy. Patient does follow with [facility] center in [place]. Will continue to monitor. # Hyperlipidemia: Lipid panel on 08/28/2024 with cholesterol 192, triglycerides 124, HDL 56, and LDL 114. ASCVD risk less than 5%. Discussed importance of diet and lifestyle to lower cholesterol levels and prevent other comorbidities. Will continue to monitor. # Vitamin D insufficiency: Vitamin D level decreased at 08/26/2024 at 21.5. Discussed the importance of daily supplementation. Will continue to monitor. # Raynaud's syndrome continue nifedipine 10 mg 1 capsule 3 times daily. Will continue to monitor. Blood pressure stable in office (). # H. 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 pylori stool antigens on 10/01/2024. Patient has finished triple antibiotic therapy, now needs to repeat her stool antigen studies and then will follow-up shortly afterwards with gastroenterology. Taking omeprazole daily as needed for acid reflux. Patient is to follow-up with her senior director of [employer] after stool studies. Reports several cases of H. pylori infection in the past. Will continue to follow with GI. All questions have been answered to patient's satisfaction. Patient verbalized understanding of diagnosis and treatments explained. Advised to call sooner prior to next visit it any questions/concerns arise. Case discussed with collaborating physician Bhargavi Pedraza who reviewed the assessment and plan. Chart, medications, labs, vital signs reviewed. Dictation was accomplished with the use of [employer] voice recognition software, which is prone to medical misidentifications and grammatical errors. This are unintentional and the practitioner does try to identify and correct these, but some could still be present. Please do not hesitate to contact practitioner for clarification. 12/10/2024 Vitamin D insufficiency (ICD-10 - E55.9) Patient is here for weight management follow-up. We focused on significance of healthy lifestyle changes. We talked about need to track steps with goal between 6000-10,000 steps daily, focus on portion control, read food labels, get adequate sleep between 7 to 8 hours, get adequate rest to the body, meditate, frequent nutritious meals including vegetables and healthy choices of lean meats, fish, and elimination of refined carbohydrates. We also talked about mindfulness and mindful eating. Particular focus was on increasing physical activity. Total time of 30 minutes spent with patient with greater than 50% spent on counseling and coordinating care. 09/05/2024: Weight 179 pounds, BMI 28.03. SECA scan completed today and interpreted with patient. Patient reports difficulty with weight loss surrounding history of PCOS, has consistently trialed improving diet and incorporating physical activity however continues to struggle. Reviewed goals of diet and exercise and patient is physically active with walking as well as resistance training once to twice weekly. We discussed weight loss medications as adjunctive aid in weight loss including both oral medications as well as injectables. She is a good candidate for Zepbound. Discussed proper use of the medication including rotating injection sites as well as expected side effect profile including but not limited to nausea, constipation, abdominal pain, and heartburn. Reports no personal history of pancreatitis, no personal or family history of medullary thyroid cancer, and no personal or family history of multiple endocrine neoplasia syndrome. Advised that this medication requires a prior authorization which can take 2 to 4 weeks. Patient understanding. She otherwise will follow-up in office in 4 weeks for further management. 11/11/2024: Weight 159 pounds, BMI 24.9. Seca scan completed today and interpreted with the patient. Patient is down about 18 pounds from her last consultation in August. Down about 11 pounds of fat mass. Small reduction of muscle mass by about 4 to 5 pounds, discussed importance of increasing her protein as well as improving physical activity, particular weight training. Currently on Zepbound 2.5 mg weekly. Reporting less depression appetite at this time and has interest in increasing to next dose. Reviewed goals of diet and exercise and she will follow-up in office in 4 weeks for further management. 12/10/2024: # Low back pain: Patient reporting pain in her lower back for the past 3 weeks. On and off in duration. Reports no injuries or strains to her knowledge. Does move a lot in her sleep. On exam there is no tenderness to palpation of the cervical, thoracic, or lumbar spine. Some tenderness to palpation of the left sacroiliac joint. Discussed measures including nfda-rqj-yfkddea Tylenol or Profen for pain relief as well as importance of increasing her physical activity and stretching to manage symptoms. Will continue to monitor. # PCOS: No current medication therapy. Patient does follow with [facility] center in [place]. Will continue to monitor. # Hyperlipidemia: Lipid panel on 08/28/2024 with cholesterol 192, triglycerides 124, HDL 56, and LDL 114. ASCVD risk less than 5%. Discussed importance of diet and lifestyle to lower cholesterol levels and prevent other comorbidities. Will continue to monitor. # Vitamin D insufficiency: Vitamin D level decreased at 08/26/2024 at 21.5. Discussed the importance of daily supplementation. Will continue to monitor. # Raynaud's syndrome continue nifedipine 10 mg 1 capsule 3 times daily. Will continue to monitor. Blood pressure stable in office (). # H. 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 pylori stool antigens on 10/01/2024. Patient has finished triple antibiotic therapy, now needs to repeat her stool antigen studies and then will follow-up shortly afterwards with gastroenterology. Taking omeprazole daily as needed for acid reflux. Patient is to follow-up with her senior director of [employer] after stool studies. Reports several cases of H. pylori infection in the past. Will continue to follow with GI. All questions have been answered to patient's satisfaction. Patient verbalized understanding of diagnosis and treatments explained. Advised to call sooner prior to next visit it any questions/concerns arise. Case discussed with collaborating physician Bhargavi Pedraza who reviewed the assessment and plan. Chart, medications, labs, vital signs reviewed. Dictation was accomplished with the use of [employer] voice recognition software, which is prone to medical misidentifications and grammatical errors. This are unintentional and the practitioner does try to identify and correct these, but some could still be present. Please do not hesitate to contact practitioner for clarification. 12/10/2024 Lumbar back pain (ICD-10 - M54.50) Patient is here for weight management follow-up. We focused on significance of healthy lifestyle changes. We talked about need to track steps with goal between 6000-10,000 steps daily, focus on portion control, read food labels, get adequate sleep between 7 to 8 hours, get adequate rest to the body, meditate, frequent nutritious meals including vegetables and healthy choices of lean meats, fish, and elimination of refined carbohydrates. We also talked about mindfulness and mindful eating. Particular focus was on increasing physical activity. Total time of 30 minutes spent with patient with greater than 50% spent on counseling and coordinating care. 09/05/2024: Weight 179 pounds, BMI 28.03. SECA scan completed today and interpreted with patient. Patient reports difficulty with weight loss surrounding history of PCOS, has consistently trialed improving diet and incorporating physical activity however continues to struggle. Reviewed goals of diet and exercise and patient is physically active with walking as well as resistance training once to twice weekly. We discussed weight loss medications as adjunctive aid in weight loss including both oral medications as well as injectables. She is a good candidate for Zepbound. Discussed proper use of the medication including rotating injection sites as well as expected side effect profile including but not limited to nausea, constipation, abdominal pain, and heartburn. Reports no personal history of pancreatitis, no personal or family history of medullary thyroid cancer, and no personal or family history of multiple endocrine neoplasia syndrome. Advised that this medication requires a prior authorization which can take 2 to 4 weeks. Patient understanding. She otherwise will follow-up in office in 4 weeks for further management. 11/11/2024: Weight 159 pounds, BMI 24.9. Seca scan completed today and interpreted with the patient. Patient is down about 18 pounds from her last consultation in August. Down about 11 pounds of fat mass. Small reduction of muscle mass by about 4 to 5 pounds, discussed importance of increasing her protein as well as improving physical activity, particular weight training. Currently on Zepbound 2.5 mg weekly. Reporting less depression appetite at this time and has interest in increasing to next dose. Reviewed goals of diet and exercise and she will follow-up in office in 4 weeks for further management. 12/10/2024: # Low back pain: Patient reporting pain in her lower back for the past 3 weeks. On and off in duration. Reports no injuries or strains to her knowledge. Does move a lot in her sleep. On exam there is no tenderness to palpation of the cervical, thoracic, or lumbar spine. Some tenderness to palpation of the left sacroiliac joint. Discussed measures including ilgc-scz-uoxvqff Tylenol or Profen for pain relief as well as importance of increasing her physical activity and stretching to manage symptoms. Will continue to monitor. # PCOS: No current medication therapy. Patient does follow with [facility] center in [place]. Will continue to monitor. # Hyperlipidemia: Lipid panel on 08/28/2024 with cholesterol 192, triglycerides 124, HDL 56, and LDL 114. ASCVD risk less than 5%. Discussed importance of diet and lifestyle to lower cholesterol levels and prevent other comorbidities. Will continue to monitor. # Vitamin D insufficiency: Vitamin D level decreased at 08/26/2024 at 21.5. Discussed the importance of daily supplementation. Will continue to monitor. # Raynaud's syndrome continue nifedipine 10 mg 1 capsule 3 times daily. Will continue to monitor. Blood pressure stable in office (). # H. 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 pylori stool antigens on 10/01/2024. Patient has finished triple antibiotic therapy, now needs to repeat her stool antigen studies and then will follow-up shortly afterwards with gastroenterology. Taking omeprazole daily as needed for acid reflux. Patient is to follow-up with her senior director of [employer] after stool studies. Reports several cases of H. pylori infection in the past. Will continue to follow with GI. All questions have been answered to patient's satisfaction. Patient verbalized understanding of diagnosis and treatments explained. Advised to call sooner prior to next visit it any questions/concerns arise. Case discussed with collaborating physician Bhargavi Pedraza who reviewed the assessment and plan. Chart, medications, labs, vital signs reviewed. Dictation was accomplished with the use of [employer] voice recognition software, which is prone to medical misidentifications and grammatical errors. This are unintentional and the practitioner does try to identify and correct these, but some could still be present. Please do not hesitate to contact practitioner for clarification. Plan Of Treatment Medication Medication Name Sig Start Date Stop Date Notes Zepbound 5 MG/0.5ML Inject 5 mg Subcutan eous weekly; Duration: 28 days Next Appt Details Provider Name:CHARLES ZIMMERMAN , 07/08/2025 09:30:00 AM, [facility], [address], [address], Provider Name:CHARLES ZIMMERMAN , 10/24/2025 09:00:00 AM, [address] [facility], [facility], [place], [address], Progress Notes * Kaila DOMINGO:1 10/18/1999 (24 yo F)Acc No.[id number]:12/10/2024 Patient: Isabel ODOM Provider: Melissa ZIMMERMAN :2000 A ge:24 Y S ex:Female Date:12/10/2024 Address:[address] [place] [address] Subjective: * Chief Complaints: * * HPI: C onstitutional: Isabel is a 24-year-old female with history of PCOS, overweight, acid reflux, and H. pylori infection who presents today for weight management follow-up. She was last seen in office on 11/11/2024 at which time weight was 159 pounds, BMI 24.9. Patient is currently on Zepbound 5 mg weekly. * ROS: C onstitutional: Denies sudden weight loss, fever, night sweats, excessive fatigue, or changes in sleep. CV: Denies chest pain or heart palpitations. Respiratory: Denies SOB, wheezing, or pleuritic pain. GI: Denies n/v/d, constipation, blood in stools, pain associated with eating, indigestion, or difficulty/pain with swallowing. MSK: Denies back pain, joint deformity/pain, or muscle weakness. Integumentary: Denies skin changes. Endocrine: Denies polyuria, polyphagia, or polydipsia. No heat/cold intolerance or excessive thirst. * Medical History: * Medications: T aking Ondansetron 4 MG Tablet Disintegrating 1 tablet on the tongue and allow to dissolve Orally Once a day , Taking Tretinoin 0.025 % Cream 1 application in the evening to areas of hyperpigmented skin Externally Once a day , Taking Omeprazole 20 MG Capsule Delayed Release 1 capsule 1/2 to 1 hour before morning meal Orally Once a day As needed, Taking NIFEdipine 10 MG Capsule TAKE 1 CAPSULE BY MOUTH THREE TIMES A DAY , Taking Zepbound 5 MG/0.5ML Solution Auto-injector Inject 5 mg Subcutaneous weekly , Not-Taking metroNIDAZOLE 500 MG Tablet 1 tablet Orally Three times a day , Not-Taking Amoxicillin 500 MG Capsule 1 capsule Orally every 8 hrs , Not-Taking Clarithromycin 500 MG Tablet 1 tablet Orally every 12 hrs , Not-Taking Famotidine 40 MG Tablet TAKE 1 TABLET BY MOUTH ONCE A DAY NEEDED FOR ACID REFLUX 30 DAYS Objective: * Vitals: * Physical Examination: G eneral: Age appropriate, well-appearing 24-year-old female in no acute distress, speaking in full sentences without respiratory compromise. Well groomed, well developed. Alert, interactive. Skin: Warm, dry and intact. No lesions/rashes/erythema. HEENT: Normocephalic/atraumatic. Neck/Thyroid: Thyroid symmetrical, nonenlarged, and free of nodules to palpation. Lungs: Clear to auscultation bilaterally. CV: Regular rate and rhythm without murmurs, rubs, or gallops. 2+ radial pulses bilaterally. Neuro: CN II-XII grossly intact. Steady gait with non-assisted ambulation observed. Psych: Stable mood and affect. Assessment: * Assessment: 1. N utritional counseling - Z71.3 (Primary) 2 . B NM 24.0-24.9, adult - Z68.24 3 . P COS (polycystic ovarian syndrome) - E28.2 4 . R aynaud's phenomenon without gangrene - I73.00 5 . H elicobacter pylori (H. pylori) - A04.8 6 . E levated LDL cholesterol level - E78.00 7 . V itamin D insufficiency - E55.9 8 . L umbar back pain - M54.50 Patient is here for weight m anagement follow-up. We focused on significance of healthy lifestyle changes. We talked about need to track steps with goal between 6000-10,000 steps daily, focus on portion control, read food labels, get adequate sleep between 7 to 8 hours, get adequate rest to the body, meditate, frequent nutritious meals including vegetables and healthy choices of lean meats, fish, and elimination of refined carbohydrates. We also talked about mindfulness and mindful eating. Particular focus was on increasing physical activity. Total time of 30 minutes spent with patient with greater than 50% spent on counseling and coordinating care. 09/05/2024: Weight 179 pounds, BMI 28.03. SECA scan completed today and interpreted with patient. Patient reports difficulty with weight loss surrounding history of PCOS, has consistently trialed improving diet and incorporating physical activity however continues to struggle. Reviewed goals of diet and exercise and patient is physically active with walking as well as resistance training once to twice weekly. We discussed weight loss medications as adjunctive aid in weight loss including both oral medications as well as injectables. She is a good candidate for Zepbound. Discussed proper use of the medication including rotating injection sites as well as expected side effect profile including but not limited to nausea, constipation, abdominal pain, and heartburn. Reports no personal history of pancreatitis, no personal or family history of medullary thyroid cancer, and no personal or family history of multiple endocrine neoplasia syndrome. Advised that this medication requires a prior authorization which can take 2 to 4 weeks. Patient understanding. She otherwise will follow-up in office in 4 weeks for further management. 11/11/2024: Weight 159 pounds, BMI 24.9. Seca scan completed today and interpreted with the patient. Patient is down about 18 pounds from her last consultation in August. Down about 11 pounds of fat mass. Small reduction of muscle mass by about 4 to 5 pounds, discussed importance of increasing her protein as well as improving physical activity, particular weight training. Currently on Zepbound 2.5 mg weekly. Reporting less depression appetite at this time and has interest in increasing to next dose. Reviewed goals of diet and exercise and she will follow-up in office in 4 weeks for further management. 12/10/2024: # Low back pain: Patient reporting pain in her lower back for the past 3 weeks. On and off in duration. Reports no injuries or strains to her knowledge. Does move a lot in her sleep. On exam there is no tenderness to palpation of the cervical, thoracic, or lumbar spine. Some tenderness to palpation of the left sacroiliac joint. Discussed measures including ajcz-rjc-wvvobye Tylenol or Profen for pain relief as well as importance of increasing her physical activity and stretching to manage symptoms. Will continue to monitor. # PCOS: No current medication therapy. Patient does follow with [facility] center in [place]. Will continue to monitor. # Hyperlipidemia: Lipid panel on 08/28/2024 with cholesterol 192, triglycerides 124, HDL 56, and LDL 114. ASCVD risk less than 5%. Discussed importance of diet and lifestyle to lower cholesterol levels and prevent other comorbidities. Will continue to monitor. # Vitamin D insufficiency: Vitamin D level decreased at 08/26/2024 at 21.5. Discussed the importance of daily supplementation. Will continue to monitor. # Raynaud's syndrome continue nifedipine 10 mg 1 capsule 3 times daily. Will continue to monitor. Blood pressure stable in office (). # H. 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 pylori stool antigens on 10/01/2024. Patient has finished triple antibiotic therapy, now needs to repeat her stool antigen studies and then will follow-up shortly afterwards with gastroenterology. Taking omeprazole daily as needed for acid reflux. Patient is to follow-up with her senior director of global commercial technology solutions after stool studies. Reports several cases of H. pylori infection in the past. Will continue to follow with GI. All questions have been answered to patient's satisfaction. Patient verbalized understanding of diagnosis and treatments explained. Advised to call sooner prior to next visit it any questions/concerns arise. Case discussed with collaborating physician Bhargavi Pedraza who reviewed the assessment and plan. Chart, medications, labs, vital signs reviewed. Dictation was accomplished with the use of [employer] voice recognition software, which is prone to medical misidentifications and grammatical errors. This are unintentional and the practitioner does try to identify and correct these, but some could still be present. Please do not hesitate to contact practitioner for clarification. Plan: * Treatment: * Procedure Codes: 9 9199 NO SHOW OFFICE VISIT * Images: Billing Information: * Visit Code: * Procedure Codes: 17200 NO SHOW OFFICE VISIT. * Electronic signature of JENNIFER ZIMMERMAN PA-C, [id number] on 06/13/2025 at 07:19 PM EDT Sign off status: Pending * Provider: Melissa ZIMMERMAN Date: 0 12/10/2024 Generated for Bird santillan/Leah/Mark on: 1 07:19 PM EDT History and Physical Notes * HPI (History of Present Illness) Category Sub-Category Detail Notes Category Not es Constitutional Isabel i s a 24-year-old female with history of PCOS, overweight, acid reflux, and H. pylori infection who presents today for weight management follow-up. She was last seen in office on 11/11/2024 at which time weight was 159 pounds, BMI 24.9. Patient is currently on Zepbound 5 mg weekly. Physical Examination Category Sub-Category Detail Notes Section Note s General: Age appropriate, well-appearing 24-year-old female in no acute distress, speaking in full sentences without respiratory compromise. Well groomed, well developed. Alert, interactive. Skin: Warm, dry and intact. No lesions/rashes/erythema. HEENT: Normocephalic/atraumatic. Neck/Thyroid: Thyroid symmetrical, nonenlarged, and free of nodules to palpation. Lungs: Clear to auscultation bilaterally. CV: Regular rate and rhythm without murmurs, rubs, or gallops. 2+ radial pulses bilaterally. Neuro: CN II-XII grossly intact. Steady gait with non-assisted ambulation observed. Psych: Stable mood and affect.
--- OUTSIDE RECORDS SUMMARY | 2024-12-25 05:15 | XMS_ITS ---
Author Organization [facility] [address] Address [address] [place] [address] Care Team Providers Care Platemaker Name Role Phone CHARLES ZIMMERMAN Unavailable [phone] REASON FOR VISIT ongoing back pain (discussed briefly in previous visit) Medications Medication SIG (Take, Route, Frequency, Duration) Notes Start Date End Date Status Clarithromycin 500 MG 1 tablet Orally ev kerry 12 hrs Not-Taking Omeprazole 20 MG 1 capsule 1/2 to 1 hour before morning meal Orally Once a day As needed Active Famotidine 40 MG TAKE 1 TABLET BY JACLYN TH ONCE A DAY NEEDED FOR ACID REFLUX 30 DAYS; Duration: 90 Not-Taking Zepbound 5 MG/0.5ML Inject 5 mg Subcutan eous weekly; Duration: 28 days Active NIFEdipine 10 MG TAKE 1 CAPSULE BY MO [facility] THREE TIMES A DAY; Duration: 90 Active Ondansetron 4 MG 1 tablet on the tong ue and allow to dissolve Orally Once a day; Duration: 30 days 10/23/2024 Active Tretinoin 0.025 % 1 application in the evening to areas of hyperpigmented skin Externally Once a day; Duration: 30 days 10/23/2024 Active metroNIDAZOLE 500 MG 1 tablet Orally Thr ee times a day Not-Taking Amoxicillin 500 MG 1 capsule Orally alida ry 8 hrs Not-Taking Encounters Encounter Location Date Provider Diagnosis [facility] [address] [facility] [address] [place] [address] 12/25/2024 CHARLES ZIMMERMAN Assessments Encounter Date Diagnosis (ICD Code) Assessment Notes Treatment Notes Treatment Clinical Notes Section Notes 12/25/2024 # PCOS: No current medication therapy. Patient does follow with [facility] infertility center in [place]. Will continue to monitor. # Hyperlipidemia: Lipid [...] monitor. Blood pressure stable in office (). Plan Of Treatment Next Appt Details Provider Name:CHARLES ZIMMERMAN , 07/08/2025 09:30:00 AM, [address], [address], [place], [address], Provider Name:CHARLES ZIMMERMAN , 10/24/2025 09:00:00 AM, [address], [address], [place], [address], Progress Notes * ALANIS Molly PALACIOSDOB:1 10/18/1999 (24 yo F)Acc No.[id number]:12/25/2024 Progress Notes Patient: Molly ODOM Provider: S SHAKIRA ZIMMERMAN :2000 A ge:24 Y S ex:Female Date:12/25/2024 Address:[address] [place], [place] [id number] Subjective: * Chief Complaints: * 1 . Ongoing back pain (discussed briefly in previous visit). * HPI: C onstitutional: Molly is a 24-year-old female with history of PCOS, overweight, acid reflux, and antibiotic treated H. pylori who presents today for urgent visit for continuing low back pain. * Medical History: * Medications: T aking [...] Orally Once a day As needed, Taking Zepbound 5 MG/0.5ML Solution Auto-injector Inject 5 mg Subcutaneous weekly , Taking NIFEdipine 10 MG Capsule TAKE 1 CAPSULE BY MOUTH THREE TIMES A DAY , Not-Taking metroNIDAZOLE 500 MG Tablet 1 tablet Orally Three times a day , Not-Taking Amoxicillin 500 MG Capsule 1 capsule Orally every 8 hrs , Not- Taking Clarithromycin 500 MG Tablet 1 tablet Orally every 12 hrs , Not-Taking Famotidine 40 MG Tablet TAKE 1 TABLET BY MOUTH ONCE A DAY NEEDED FOR ACID REFLUX 30 DAYS Objective: * Vitals: Assessment: * Assessment: # PCOS: No current medicatio n therapy. Patient does follow with [facility] center in [place]. Will continue to monitor. # Hyperlipidemia: Lipid [...] monitor. Blood pressure stable in office (). Plan: * Treatment: Care Plan: * Problems: * Images: Billing Information: * Visit Code: * Procedure Codes: Care Plan Details* * Electronic signature of JENNIFER ZIMMERMAN PA-C, [id number] on 06/13/2025 at 07:19 PM EDT Sign off status: Pending * Provider: Melissa ZIMMERMAN Date: 0 12/25/2024 Generated for Bird santillan/Leah/Mark on: 07:19 PM EDT History and Physical Notes * HPI (History of Present Illness) Category Sub-Category Detail Notes Category Not es Constitutional Molly i s a 24-year-old female with history of PCOS, overweight, acid reflux, and antibiotic treated H. pylori who presents today for urgent visit for continuing low back pain.
--- OUTSIDE RECORDS SUMMARY | 2025-05-05 06:45 | XMS_ITS ---
Author Organization [facility] [address] Address [address] [place] [address] Care Team Providers Care Statistical Programmer Name Role Phone CHARLES ZIMMERMAN [phone] Encounters Encounter Location Date Provider Diagnosis [facility] [address] [place] [address] 05/05/2025 CHARLES ZIMMERMAN Plan Of Treatment Next Appt Details Provider Name:CHARLES ZIMMERMAN , 07/08/2025 09:30:00 AM, [address], [address], [place], [address], Provider Name:CHARLES ZIMMERMAN , 10/24/2025 09:00:00 AM, [address], [address], [place], [address], Progress Notes * Isabel DOMINGODOB:1 10/18/1999 (24 yo F)Acc No.[id number]:05/05/2025 Patient: Erick JOSE Isabel NEVILLE Provider: Melissa ZIMMERMAN :2000 A ge:24 Y S ex:Female Date:05/05/2025 Address:[address] [place], [place] [id number] Subjective: * Chief Complaints: * * Medical History: Objective: * Vitals: Assessment: Plan: * Treatment: * Images: Billing Information: * Visit Code: * Procedure Codes: * Electronic signature of JENNIFER ZIMMERMAN PA-C, [id number] on 06/13/2025 at 07:18 PM EDT Sign off status: Pending * Provider: Melissa ZIMMERMAN Date: 0 05/05/2025 Generated for Bird santillan/Leah/Mark on: 1 07:18 PM EDT
--- OUTSIDE RECORDS SUMMARY | 2025-06-12 04:30 | XMS_ITS ---
Author Organization [facility] Mariya dominguez [place] Address [address] [place] [address] Care Team Providers Care House Player Name Role Phone Rizwan Segovia Allergies Allergen (clinical drug ingredient) Drug/Non Drug Allergy documented on EMR Reaction Allergy Type Onset Date Status meperidine Demerol Heart races Drug Allergy Acti ve morphine Morphine Heart races Drug Allergy Activ e REASON FOR VISIT Ingrown Nail, Foot pain Medications Medication SIG (Take, Route, Fr equency, Duration) Notes Start Date End Date Status Capsaicin 0.075 % 1 application as nee ded Externally Three times a day; Duration: 30 days 06/12/2025 Active Social History Tobacco Use: Social History Observation Description Date Details (start date - stop date) Never Smoker NA - NA Tobacco use other than smoking: Question Answer Notes Are you an other tobacco user? No Tobacco Control (Standard) Question Answer Notes Tobacco use: Nonsmoker Additional Findings: Tobacco non-user Current no nsmoker AUDIT-C (Standard) Question Answer Notes Did you have a drink containing alcohol in the p ast year? No Points 0 Interpretation Negative Problems Problem Type SNOMED Code ICD Code Onset Dates Problem Status W/U Status Risk Notes Problem Mononeuropathy of lower limb (133794725) Neuritis of right foot (G57.91) Active confirmed Problem Ingrowing nail of toe of left foot (78589796652127414) Ingrown nail (L60.0) Active confirmed Vital Signs Height 6 ft 6 in in 06/12/2025 Weight 145 lbs 06/12/2025 BMI 16.75 kg/m2 06/12/2025 Blood pressure systolic 102 mm Hg 06/12/20 25 Blood pressure diastolic 68 mm Hg 025 Procedures Procedure Date Ordered Date Performed Result Body Sit e 88823-Nnxmbpbj Plate 06/12/2025 N/A Encounters Encounter Location Date Provider Diagnosis [facility] [address] [address] 06/12/2025 Rizwan Segovia Ingrown nail L60.0 ; Neuritis of right foot G57.91 and Pain in right foot M79.671 Assessments Encounter Date Diagnosis (ICD Code) Assessment Notes Treatment Notes Treatment Clinical Notes Section Notes 06/12/2025 Ingrown nail (ICD-10 - L60.0) 06/12/2025 Neuritis of right foot (ICD-10 - G57.91) 06/12/2025 Pain in right foot (ICD-10 - M79.671) Plan Of Treatment Medication Medication Name Sig Start Date Stop Date Notes Capsaicin 0.075 % 1 application as nee ded Externally Three times a day; Duration: 30 days 06/12/2025 Pending Test Test Name Order Date [id number]-Yjzlziir Plate 06/12/2025 Next Appt Details Follow Up: 2 Weeks, Reason: Provider Name:Rizwan Segovia, 06/26/2025 02:30:00 PM, [address] [place], [address], Procedure Notes * Category Sub-Category Detail Notes Nail Avulsion Procedure A fine sterile e levator was placed between the eponychium, nail fold, and nail plate to separate the structures. A sterile nail splitter, and/or sterile 316 blade, was then used to longitudinally section the nail along its entire length through the eponychium to the area under the nail fold. The offending portion of nail was from the nail bed with a rolling action and then removed with a hemostat. No underlying bone was identified. There was minimal bleeding as hemostasis was achieved through the temporary use of either a digital tourniquet or the aforementioned local with epinephrine. A bacitracin sterile dressing was applied. Local wound aftercare instructions were discussed and dispensed. The patient was informed of both conservative and future surgical procedures to prevent recurrence. Tylenol or Motrin was recommended for pain or discomfort - 68373 Anesthesia 6cc of 1 percent Lid ocaine Plain local anesthesic utilizing aseptic technique Location Medial nail border, TA Progress Notes * Molly CUENCADOB: (24 yo F)Acc No.[id number]:06/12/2025 Progress Notes Patient: Molly SALDIVAR Provider: Lois Segovia DPM :2000 A ge:24 Y S ex:Female Date:06/12/2025 Address:[address] [place] [address], [place], [id number] Subjective: * Chief Complaints: * I ngrown NailFoot pain * HPI: I ngrown toenail: Nature: a david, tenderness. Location: G reat toe, Left foot. Duration: t wo months. Onset/Cause: s elf nail treatment. Course: w orse. Aggravated by: a ny pressure, shoes. Treatments: s elf treatment. F oot Pain: Nature: b urning , sharp, tingling. Location: B ack t o O utside, Rearfoot, RIGHT. Duration: 3 years. Onset: s udden, denies trauma. Course: w orse. Aggravated: a ny pressure, w alking. Treatments: r est/alter normal daily activity, tylenol.? Misc: P t States Last PCP Visit -05/28/2025. * ROS: G eneral/Constitutional: Nausea d enies. V omiting d enies. H dontae Thirst d enies. L oss appetite d enies. C hills d enies. F atigue d enies.?Fever d enies. N ight Sweats d enies. U nexplained weight loss d enies. U nexplained weight gain d enies. H EENTM: Dentures d enies. D izziness d enies. G lasses/contacts d enies. R etinopathy d enies. B lurred/double vision d enies. T MJ?denies. D ischarge/drainage d enies. I mplants d enies. S ore throat d enies. D ental implants d enies. H dave of hearing d enies. D ifficulty chewing/swallowing/speaking d enies. N ose bleeds d enies. S ore mouth d enies. ? R espiratory: On Oxygen d enies. P neumonia/pleurisy d enies.?Bronchitis d enies. E mphysema d enies. C oughing d enies. C ough blood?denies. S hortness of breath d enies. W heezing d enies. C ardiovascular: Pacemaker d enies. M MEDICAL DETAIL REPRESENTATIVE d enies. W PW d enies. C HF d enies. H eart attack d enies. S eptal defect d enies. R apid beat d enies. C hest pain d enies. A trial Fib. d enies. M urmur/Palpitations d enies. G astrointestinal: Hemorrhoids d enies. S tomach/Abdominal pain a dmits. D ark blood stool d enies. I rritable bowel d enies. C onstipation d enies. D iarrhea d enies. H ematology: Swelling d enies. C lots d enies. V aricose Veins d enies. B ruising d enies. B leeding problem d enies. G enitourinary: Blood urine d enies. F requent/Painfu/urination/bladder control d enies. K idney stones d enies. I nfection (UTI) d enies. N ephropathy d enies. s ex trans dis (STD) d enies. P rostate d enies. M usculoskeletal: Hammertoes d enies. B unions d enies. B ack Pain d enies. M uscle Cramps/ Resting d enies. M uscle cramps / walking d enies.?Generalized aches and pains d enies. W eakness d enies. I nteg.: Brown d enies. S cars d enies. C orns/calluses?denies. I ngrown nails a dmits. P ainful nails a dmits. O pen Sores d enies. R ashes d enies. N eurologic: Difficulty sleeping d enies. B rain disorder d enies. N umbness d enies. B alance trouble d enies. C onfusion d enies. F ainting/blackouts d enies. T ingling a dmits. T remors d enies. * Medical History: * Surgical History: D enies Past Surgical History * Hospitalization/Major Diagno stic Procedure: H - heart 04/2025 * Family History: M other: alive, cancer, Foot problems, heart attack, diagnosed with Diabetic - NIDDM, Unspecified essential hypertension, Family history of arthritis. F ather: alive, stroke, cancer, Foot problems, heart attack, diagnosed with Diabetic - NIDDM, Unspecified essential hypertension, Family history of arthritis. * Social History: T obacco Use: T obacco use other than smoking A re you an other tobacco user? N o Tobacco Control (Standard) T obacco use: N onsmoker A dditional Findings: Tobacco non-user C urrent nonsmoker D rugs/Alcohol: D rugs H ave you used drugs other than those for medical reasons in the past 12 months? N o M iscellaneous: C affeine: 2-3 cups per day. Marital status: Single. Occupation: [employer]. D rug/Alcohol: A ABRIL-C (Standard) D id you have a drink containing alcohol in the past year? N o P oints 0 I nterpretation N egative * Medications: N one * Allergies: M orphine: Heart racesDemerol: Heart racesyes[Allergies Verified] Objective: * Vitals: H t: 6 ft 6 in, Wt:145, BMI:16.75, Shoe size: 9/9.5, BP:102/68mm Hg, Ht-cm: 198.12 cm, Wt-k.77 kg. * Examination: I ngrown Nail: INSPECTION: R eveals nail incurvation, pain on palpation, groove hypertrophy , Medial nail border, TA. N eurological: SENSORY: N eurological exam reveals intact sensorium, pain sensation normal, vibration sensation. Pt relates, sharp shooting/radiating sensation Lateral, Rearfoot, Right. TINEL'S COMPRESSION: P ositive, Lateral sural nerve distribution, Right. DEEP TENDON REFLEXES: A chilles, 2/4, B/L. N euroma Pain: PALPATION: N o interspace pain noted on palpation. ? V ascular: DP PULSES (B): 3 /4, B/L. PT PULSES (B): 3 /4, B/L. CAPILLARY FILL TIME: i mmediate, all digits, B/L. TROPHIC CONDITION-TEXTURE/ELASTICITY/TURGOR/HAIR GROWTH (B):?normal, B/L. TEMPERTURE GRADIENT (C): w arm to cool, proximal to distal, B/L. PIGMENTATION: n ormal, B/L. EDEMA (C): a bsent, B/L. O rthopedic: MUSCLE STRENGTH: 5 /5 all groups in a symmetrical fashion , B/L. FOOT MORPHOLOGY: P es Planus structure, Semi-flexible, Decreased Ankle joint dorsiflexion ROM, knee extended. FOOTWEAR EVALUATION: g ood condition, shoe gear properties exacerbate patients foot/toe deformity, good condition. G eneral Examination: GENERAL APPEARANCE: R garciaeals a pleasant, alert, well-nourished, well-developed, well hydrated individual, who demonstrates proper attention to hygiene/body habitus, and is in no acute distress, Pt serves as own h istorian for office visit today. ORIENTED: p erson, place, and time. Assessment: * Assessment: 1. I ngrown nail - L60.0 (Primary) S pecify :Medial TA 2 . N euritis of right foot - G57.91 S pecify :Chronic problem, Worse (4) Rx Management 3 . P ain in right foot - M79.671 Plan: * Treatment: 2. N euritis of right foot Start Capsaicin Cream, 0.075 %, 1 application as needed, Externally, Three times a day, 30 days, 57 Gram, Refills 3. * Procedures: N ail Avulsion: Location M edial nail border, TA. Anesthesia 6 cc of 1 percent Lidocaine Plain local anesthesic utilizing aseptic technique. Procedure A fine sterile elevator was placed between the eponychium, nail fold, and nail plate to separate the structures. A sterile nail splitter, and/or sterile 316 blade, was then used to longitudinally section the nail along its entire length through the eponychium to the area under the nail fold. The offending portion of nail was from the nail bed with a rolling action and then removed with a hemostat. No underlying bone was identified. There was minimal bleeding as hemostasis was achieved through the temporary use of either a digital tourniquet or the aforementioned local with epinephrine. A bacitracin sterile dressing was applied. Local wound aftercare instructions were discussed and dispensed. The patient was informed of both conservative and future surgical procedures to prevent recurrence. Tylenol or Motrin was recommended for pain or discomfort - 19941. * Procedure Codes: 1 1730 Avulsion Plate, Modifiers: TA * Preventive Medicine: Counseling: D iscussion: - 04: Office or other outpatient visit for the evaluation and management of a new patient, which required a medically appropriate history and/or examination and MODERATE level of DECISION MAKING for: 1 OR MORE CHRONIC PROBLEM(S) THATS WORSENING, 2 STABLE CHRONIC PROBLEMS, A NEWLY DIAGNOSED PROBLEM WITH UNCERTAIN PROGNOSIS, AN ACUTE COMPLICATED INJURY WITH MULTIPLE TREATMENT OPTIONS, OR AN ACUTE PROBLEM WITH ACCOMPANYING SYSTEMIC SYMPTOMS, THAT POSE(S) A MODERATE RISK OF MORBIDITY. THIS CONDITION MAY ALSO INCLUDE RX DRUG MANAGEMENT, OR A DECISON FOR MINOR SURGERY. The visit on the day of the encounter encompassed interpreting the data and educating the patient as to the nature of their condition, treatment options available according to their individual PMH, meds, allergies, and overall health/living conditions, as well as any potential risks or complications that may occur from a failure to adhere to, and participate in, the recommended course of therapy. The discussion included a complete verbal, and/or written explanation of the examination results, any x- rays taken, the proposed diagnosis, and outline of the treatment plan. A schedule for future care needs was also explained. The patient verbalized an understanding of the instructions at this time and agreed to be an active participant in their treatment. If the patient should think of any questions or concerns after the visit, I have encouraged the patient to call the office. N euritis/Neuropathy: T he patient was counseled on the diagnosis, possible etiologies (including mechanical stress, injury, entrapment, chemotherapy, diabetes, vertebral disk herniation if hx), treatment options, and importance for adherence to recommendations in order to address the patients Neuritis/Neuropathy. The advantages and disadvantages re: Accomidative mechanical support/offloading, Topical vs PO analgesics including Aspercream/Voltaren gel/Lidoderm patches/ Capsaicin cream/Neurontin/Lyrica along with their potential side effects were discussed with the patient to their satisfaction. Also discussed the use of therapeutic injectable cortisone if needed. Surgical treatment, if considered an option, was discussed as well. If surgery is warranted, we discussed the potential successful outcomes as well as the possible complications such as failure, painful scar, permanent tingling/numbness/neuralgea/or intractable pain. Patient questions re: medication use, dosage, and possible side effects and drug interactions were reviewed and the answers to each understood. If the condition worsens, the patient was instructed to contact the office for an appointment. The patient verbally confirmed a full understanding of the above. , Rx Topical analgesics (Capsaicin 0.075% cream) and discussed usage. Patient may consider other discussed treatments, new imaging study if pain worsens or doesnt resolve. O rthotics: I explained to the patient the benefits of OT use. I explained that orthoses are medically necessary to decrease the foot pain through proper mechanical control, support of their foot, Pt defers orthotics but may consider if pain worsens..? P odiatric Surgery Counseling: S urgical procedures to treat the patients foot problem were discussed. We reviewed the risks of the procedure (described below) vs not having the procedure (persistent pain, deformity, risk for skin ulceration/infection, loss of toe). We discussed the potential procedure complications including, but not limited to: pain, swelling, bleeding, scarring, numbness, infection, delayed/non healing, floppy/unstable/shorthened toe, recurrence, failure of the procedure, overcorrection leading to plantarflexed/downward positioned toe, recurrence, need for further surgery, as well as the possibility for loss of the toe itself. We discussed the use of IV/Local anesthesia, and the usual post-op course for healing. No guarentees were given. The patient verbally indicated a full understanding of the above conversation, and any other of their questions were answered to their satisfaction, Pt deferred any surgery at the present time. S little Mix Counseling: T he patient and I reviewed the types of shoes they should be wearing. My recommendation included obtaining a well-fitted shoe with a good supportive, non-foldable nor twistable sole, plenty of toe/room for the forefoot, and proper arch support. Based on todays examination, I recommended the patient look for new shoes, by having their feet professionally measured. We discussed that generally the best time of the day for a shoe fitting is the afternoon. Different shoes types and brands to best match the patients occupation and vocation were discussed. Specific brand selection will be up to the patient, their individual foot condition/deformities, and fit. The patient and I reviewed the standard new shoe break in period by wearing them for a few hours a day while checking for redness or sores as wear time is increased. The patient verbally confirmed to understanding the information discussed. Recommend supportive running shoes for patient, discussed various shoe brands including Kennedy, Asics, New Balance, [employer]. Discussed types of shoes to avoid for patients foot type especially high arch tight fiiting shoes that may exacerbate pain symptoms by adding pressure to the sural nerve.. S teriod Injection: I explained that a steroid and local anesthetic injections are administered to relieve pain and inflammation and thereby meant to improve function. I explained the possible complications including but not limited to signs/symptoms of steroid flare, infection, bruising, atrophy, discoloration of skin, change/deviation in toe position, and that additional injections may be necessary, cortisone post- injection informative educational handout was dispensed to and reviewed with the patient., Pt defers injection today. Screening/Special Tests: F all Risk Screening: N o falls in the past year F ALLS: Screening for Future Fall Risk Have you had any falls with injury in the past year? N o * Follow Up: 2 Weeks * Images: * Sign off status: Completed true * Provider: Lois Segovia DPM Date: Generated for Bird santillan/Leah/Mark on: 07:19 PM EDT History and Physical Notes * HPI (History of Present Illness) Category Sub-Category Detail Notes Category Not es Ingrown toenail Duration: two months Nature: aching, tenderness Location: Great toe, Left foot Treatments: self treatment Aggravated by: any pressure, shoes Onset/Cause: self nail treatment Course: worse Foot Pain Nature: burning , sharp, tingling Location: Back to Outside, [place] rfoot, RIGHT Duration: 3 years Onset: sudden, denies traum a Course: worse Aggravated: any pressure, walkin g Treatments: rest/alter normal da jacob activity, tylenol Misc: Pt States Last PCP V isit -05/28/2025 Examination Category Sub-Category Detail Notes Category Not es Ingrown Nail INSPECTION: Reveals nail inc urvation, pain on palpation, groove hypertrophy , Medial nail border, TA Neuroma Pain PALPATION: No interspace pain noted on palpation Neurological SENSORY: Neurological exa m reveals intact sensorium, pain sensation normal, vibration sensation. Pt relates, sharp shooting/radiating sensation Lateral, Rearfoot, Right TINEL'S COMPRESSION: Positive, Lateral s ural nerve distribution, Right DEEP TENDON REFLEXES: Achilles, 2/4, B/L Orthopedic FOOT MORPHOLOGY: Pes Planus stru cture, Semi-flexible, Decreased Ankle joint dorsiflexion ROM, knee extended FOOTWEAR EVALUATION: good condition, zeina e gear properties exacerbate patients foot/toe deformity, good condition MUSCLE STRENGTH: 5/5 all groups in a symmetrical fashion , B/L General Examination GENERAL APPEARANCE: Reveals a pleasant, alert, well- nourished, well-developed, well hydrated individual, who demonstrates proper attention to hygiene/body habitus, and is in no acute distress, Pt serves as own historian for office visit today ORIENTED: person, place, and t [facility] DP PULSES (B): 3/4, B/L PT PULSES (B): 3/4, B/L CAPILLARY FILL TIME: immediate, all digi ts, B/L TEMPERTURE GRADIENT (C): warm to cool, p roximal to distal, B/L TROPHIC CONDITION-TEXTURE/ELASTICITY/TURGOR/HAIR GROWTH (B): normal, B/L EDEMA (C): absent, B/L PIGMENTATION: normal, B/L
[2025-06-13 17:38] VITALS: BP 113/59; PULSE 80; RESP 18; TEMP 36.3; O2SAT 98; BMI 23.9
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
--- OUTSIDE RECORDS SUMMARY | 2025-06-13 19:19 | XMS_ITS | Patient Health Record ---
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 Name Role Phone CHARLES ZIMMERMAN Unavailable [phone] YURI ROCHA Unavailable [phone] Allergies Allergen (clinical drug ingredient) Drug/Non Drug Allergy documented on EMR Reaction Allergy Type Onset Date Status meperidine Meperidine Unknown Drug Allergy Activ e morphine Morphine Unknown Drug Allergy Active Results Component Value Reference Range Notes Antineutrophil Cytoplasmic A [id number] Reviewed date:09/03/2024 05:01:40 PM Interpretation: Performing Lab:[facility] [place], [address] [place] [address], Phone - [phone], Director - Analisa Notes/Report: Cytoplasmic (C-ANCA) <1:20 Neg:<1:20 titer Perinuclear (P-ANCA) <1:20 Neg:<1:20 titer The presence of positive fluorescence exhibiting P-ANCA or C-ANCA patterns alone is not specific for the diagnosis of Caden's Granulomatosis (WG) or microscopic polyangiitis. Decisions about treatment should not be based solely on ANCA IFA results. The International ANCA Group Consensus recommends follow up testing of positive sera with both NY-3 and MPO-ANCA enzyme immunoassays. As many as 5% serum samples are positive only by EIA. Ref. AM J Clin Pathol 1999;111:507-513. Atypical pANCA <1:20 Neg:<1:20 titer The atypical pANCA pattern has been observed in a significant percentage of patients with ulcerative colitis, primary sclerosing cholangitis and autoimmune hepatitis. HELICOBACTER PYLORI ANTIGEN, STOOL Reviewed date:10/10/2024 10:47:00 AM Interpretation: Performing Lab: Notes/Report: Helicobacter Pylori Ag DETECTED Not detected This test was performed at [facility] using a chemiluminescent immunoassay intended for the qualitative determination of helicobacter pylori (H. pylori) antigen in human stool. The test is an aid in the diagnosis of patients suspected of H. pylori infection and to measure post therapy response from patients. Assay results should be used in conjunction with other clinical and laboratory data to assist the clinician in making individual patient management decisions. A negative test result does not preclude the possibility of the presence of H. pylori antigen in the specimen, which may occur if the level of antigen is below the detection limit of the test. Antimicrobials, proton pump inhibitors, and bismuth preparations are known to suppress H. pylori and, if ingested, may give a false negative result. In these cases a new fecal sample should be collected and tested 14 days after treatment has stopped. Positive results from patients that have used antibiotics, PPIs, or bismuth compounds in the 14 days prior to fecal sample collection are still considered accurate. This assay has not been evaluated in a pediatric population. This test has been approved as an in vitro diagnostic by the US Food and Drug Administration. Test performed at [facility], [facility] [place] [address] Tyra Lackey MD, PhD - Wool Handler Comp. Metabolic Panel ([id number] Reviewed date:09/03/2024 05:01:24 PM Interpretation: Performing Lab:[facility], [address] [place] [address], [place], Phone - [phone], Director - Analisa Notes/Report: Glucose 93 70-99 mg/dL BUN 18 6-20 mg/dL Creatinine 0.64 0.57-1.00 mg/dL eGFR 125 >59 mL/min/1.73 BUN/Creatinine Ratio 28 9-23 Sodium 138 134-144 mmol/L Potassium 4.5 3.5-5.2 mmol/L Chloride 98 96-106 mmol/L Carbon Dioxide, Total 25 20-29 mmol/L Calcium 9.6 8.7-10.2 mg/dL Protein, Total 7.8 6.0-8.5 g/dL Albumin 4.6 4.0-5.0 g/dL Globulin, Total 3.2 1.5-4.5 g/dL Bilirubin, Total 0.4 0.0-1.2 mg/dL Alkaline Phosphatase 87 44-121 IU/L AST (SGOT) 20 0-40 IU/L ALT (SGPT) 16 0-32 IU/L Lipid Panel-[id number] Reviewed date:09/03/2024 05:01:32 PM Interpretation: Performing Lab:[facility] [place], [address] [place] [address], Phone - [phone], Director - Analisa Notes/Report: Cholesterol, Total 192 100-199 mg/dL Triglycerides 124 0-149 mg/dL HDL Cholesterol 56 >39 mg/dL VLDL Cholesterol Toy 22 5-40 mg/dL LDL Chol Calc (NIH) 114 0-99 mg/dL Vitamin D, 99-[id number] Reviewed date:09/03/2024 05:04:49 PM Interpretation: Performing Lab:[facility] [place], [address] [place] [address], Phone - [phone], Director - Analisa Notes/Report: Vitamin D, 25-Hydroxy 18.7 30.0-100.0 ng/mL Vitamin D deficiency has been defined by the [place] and an Endocrine Society practice guideline as a level of serum 25-OH vitamin D less than 20 ng/mL (1,2). The Endocrine Society went on to further define vitamin D insufficiency as a level between 21 and 29 ng/mL (2). 1. IOM ([place]). 2010. Dietary reference intakes for calcium and D. [place]: The National Academies Press. 2. Marisela MF, Caren NOLAN, Wilfred SINGH, et al. Evaluation, treatment, and prevention of vitamin D deficiency: an Endocrine Society clinical practice guideline. JCEM. 2010; 96(7):1911-30. C-Reactive Protein, Quant-00 6627 Reviewed date:09/03/2024 05:04:55 PM Interpretation: Performing Lab:[facility] [place], [address] [place] [address], Phone - [phone], Director - Analisa Notes/Report: C-Reactive Protein, Quant 2 0-10 mg/L Complement C3, Serum-[id number] Reviewed date:09/03/2024 05:05:02 PM Interpretation: Performing Lab:[facility] [place], [address] [place] [address], Phone - [phone], Director - Analisa Notes/Report: Complement C3, Serum 156 82-167 mg/dL Sedimentation Rate-Westergre n-[id number] Reviewed date:09/03/2024 05:05:11 PM Interpretation: Performing Lab:[facility] [place], [address] [place] [address], Phone - [phone], Director - Analisa Notes/Report: Sedimentation Rate-Margeren 48 0-32 mm/hr CBC With Differential/Platel et-[id number] Reviewed date:09/03/2024 05:05:17 PM Interpretation: Performing Lab:[facility] [place], [address] [place] [address], Phone - [phone], Director - Analisa Notes/Report: WBC 7.8 3.4-10.8 x10E3/uL RBC 5.22 3.77-5.28 x10E6/uL Hemoglobin 14.2 11.1-15.9 g/dL Hematocrit 44.6 34.0-46.6 % MCV 85 79-97 fL MCH 27.2 26.6-33.0 pg MCHC 31.8 31.5-35.7 g/dL RDW 12.9 11.7-15.4 % Platelets 325 150-450 x10E3/uL Neutrophils 72 Not Estab. % Lymphs 22 Not Estab. % Monocytes 6 Not Estab. % Eos 0 Not Estab. % Basos 0 Not Estab. % Neutrophils (Absolute) 5.5 1.4-7.0 x10E3/uL Lymphs (Absolute) 1.7 0.7-3.1 x10E3/uL Monocytes(Absolute) 0.5 0.1-0.9 x10E3/uL Eos (Absolute) 0.0 0.0-0.4 x10E3/uL Baso (Absolute) 0.0 0.0-0.2 x10E3/uL Immature Granulocytes 0 Not Estab. % Immature Grans (Abs) 0.0 0.0-0.1 x10E3/uL TSH-[id number] Reviewed date:09/03/2024 05:05:22 PM Interpretation: Performing Lab:[facility], [address] [place] [address], Phone - [phone], Director - Analisa Notes/Report: TSH 1.060 0.450-4.500 uIU/mL Urinalysis, Routine-[id number] Reviewed date:09/03/2024 05:05:27 PM Interpretation: Performing Lab:[facility], [address] [place] [address], Phone - [phone], Director - MDJodry Notes/Report: Specific Hartman 1.022 1.005-1.030 pH 7.0 5.0-7.5 Urine-Color Yellow Yellow Appearance Clear Clear WBC Esterase Negative Negative Protein Negative Negative/Trace Glucose Negative Negative Ketones Negative Negative Occult Blood Negative Negative Bilirubin Negative Negative Urobilinogen,Semi-Qn 0.2 0.2-1.0 mg/dL Nitrite, Urine Negative Negative Microscopic Examination Micr oscopic not indicated and not performed. Complement C4, Serum-[id number] Reviewed date:09/03/2024 05:05:31 PM Interpretation: Performing Lab:[facility], [address] [place] [address], Phone - [phone], Director - MDdry Notes/Report: Complement C4, Serum 19 12-38 mg/dL Vitamin [id number] Reviewed date:09/03/2024 05:05:38 PM Interpretation: Performing Lab:[facility], [address] [place] [address], Phone - [phone], Director - MDdry Notes/Report: Vitamin B12 317 233-4541 pg/mL MONONUCLEOSIS SCREEN Reviewed date:03/24/2025 04:12:42 PM Interpretation: Performing Lab: Notes/Report: Monospot Negative Negative IRON Reviewed date:01/31/2025 10:47:16 AM Interpretation: Performing Lab: Notes/Report: Iron 77 40-150 mcg/dL FERRITIN Reviewed date:01/31/2025 10:47:36 AM Interpretation: Performing Lab: Notes/Report: Ferritin 32 8-252 ng/mL THYROID STIMULATING HORMONE Reviewed date:01/31/2025 10:47:29 AM Interpretation: Performing Lab: Notes/Report: TSH 0.82 0.40-4.00 mcIU/mL CBC WITH AUTO DIFFERENTIAL Reviewed date:01/31/2025 10:47:46 AM Interpretation: Performing Lab: Notes/Report: WBC 7.9 4.8-10.8 K/mcL RBC 4.60 3.80-4.80 M/mcL Hemoglobin 12.8 11.5-16.0 g/dL Hematocrit 38.8 35.0-47.0 % MCV 84.7 79.0-98.0 FL MCH 27.9 27.0-32.0 pcg MCHC 33.0 32.0-37.0 g/dL RDW 13.2 11.0-15.0 % Platelets 296 130-400 K/mcL MPV 10.4 7.0-11.0 FL NRBC 0.0 <1.0 % NRBC Absolute 0.00 <0.10 K/mcL Neutrophils Relative 73.1 Lymphocytes Relative 20.4 Monocytes Relative 5.7 Eosinophils Relative 0.4 Basophils Relative 0.1 Immature Granulocytes Relative 0.3 Neutrophils Absolute 5.80 1.50-7.00 K/mcL Lymphocytes Absolute 1.62 1.00-5.00 K/mcL Monocytes Absolute 0.45 0.20-1.00 K/mcL Eosinophils Absolute 0.03 0.00-0.50 K/mcL Basophils Absolute 0.01 0.00-0.20 K/mcL Immature Granulocytes Absolute 0.02 0.00-0.03 K/mcL XR LUMBAR SPINE 4+ VIEWS Reviewed date:12/27/2024 10:25:11 AM Interpretation: Performing Lab: Notes/Report: Note See Note [facility], a member of [employer] Patient Name: MOLLY NEVILLE Date of : 2000 Reason for Exam: back pain Exam Date: 12/26/2024 [id number] EST Report Status: Final Ordering Provider: CHARLES ZIMMERMAN PCP: CHARLES ZIMMERMAN EXAMINATION: LUMBAR SPINE CLINICAL INFORMATION: Back pain. Symptoms for 3 months. No trauma COMPARISON: None. TECHNIQUE: 5 views of the lumba r spine FINDINGS: There are 5 lumbar-t ype vertebrae. No acute fracture. No focal lesion. No significant loss of volume. There is straighteni ng of expected lordosis. No significant disc narrowing. The pars interarticulares appear intact. No suspicious parasp inal abnormality. Large amount of fecal residue in the right colon. Incidentally noted i s a rudimentary left 12th rib. IMPRESSION: No acute abnormality. No significant disc narrowing. Some straightening of the expected lordosis. -------- FINAL REPOR T -------- Dictated By: Elliott Solis Dictated Date: 12/27/2024 08:24 ET Assigned Physician: Elliott Guerrero Reviewed and Electronically Signed By: Elliott Guerrero Signed Date: 025 08:27 ET Workstation ID: [id number] Transcribed By: Self Edit Transcribed Date: 12/27/2024 08:24 ET Lipid Panel-[id number] Reviewed date:08/28/2024 10:05:38 PM Interpretation: Performing Lab:[facility] [place], [address] [place] [address], Phone - [phone], Director - Analisa Notes/Report: Clinical Information:CC:[id number] SRC:UR Cholesterol, Total 182 100-199 mg/dL Triglycerides 121 0-149 mg/dL HDL Cholesterol 55 >39 mg/dL VLDL Cholesterol Toy 22 5-40 mg/dL LDL Chol Calc ([facility]) 105 0-99 mg/dL Ct, Ng, Trich vag by PARMINDER-183 160 Reviewed date:08/28/2024 10:05:51 PM Interpretation: Performing Lab:[facility] [place], [address] [place] [address], Phone - [phone], Director - Analisa Notes/Report: Clinical Information:[id number] SRC:UR Chlamydia by PARMINDER Negative Negative Gonococcus by PARMINDER Negative Negative Trich vag by PARMINDER Negative Negative Vitamin D, 31-[id number] Reviewed date:08/30/2024 01:28:15 PM Interpretation: Performing Lab:[facility] [place], [address] [place] [address], Phone - [phone], Director - Analisa Notes/Report: Clinical Information:[id number] SRC:UR Vitamin D, 25-Hydroxy 21.5 30.0-100.0 ng/mL Vitamin D deficiency has been defined by the [place] and an Endocrine Society practice guideline as a level of serum 25-OH vitamin D less than 20 ng/mL (1,2). The Endocrine Society went on to further define vitamin D insufficiency as a level between 21 and 29 ng/mL (2). 1. IOM ([place]). 2010. Dietary reference intakes for calcium and D. [place]: The National Academies Press. 2. Marisela MF, Caren NOLAN, Wilfred SINGH, et al. Evaluation, treatment, and prevention of vitamin D deficiency: an Endocrine Society clinical practice guideline. JCEM. 2010; 96(7):1911-30. Estradiol-[id number] Reviewed date:08/28/2024 10:06:11 PM Interpretation: Performing Lab:[facility], [address] [facility], [place], Phone - [phone], Director - Analisa Notes/Report: Clinical Information:[id number] SRC:UR Estradiol 41.2 Adult Female Range Follicular phase 12.5 - 166.0 Ovulation phase 85.8 - 498.0 Luteal phase 43.8 - 211.0 Postmenopausal <6.0 - 54.7 1st trimester 215.0 - >4300.0 Luisa ECLIA methodology Progesterone-[id number] Reviewed date:08/28/2024 10:06:26 PM Interpretation: Performing Lab:[facility], [address] [facility], [place], Phone - [phone], Director - Analisa Notes/Report: Clinical Information:[id number] SRC:UR Progesterone 0.3 Follicular phase 0.1 - 0.9 Luteal phase 1.8 - 23.9 Ovulation phase 0.1 - 12.0 First trimester 11.0 - 44.3 Second trimester 25.4 - 83.3 Third trimester 58.7 - 214.0 Postmenopausal 0.0 - 0.1 Luteinizing Hormone(LH)-[id number] Reviewed date:08/28/2024 10:06:39 PM Interpretation: Performing Lab:[facility], [address] [facility], [place], Phone - [phone], Director - Analisa Notes/Report: Clinical Information:[id number] SRC:UR LH 21.0 Adult Female Range Follicular phase 2.4 - 12.6 Ovulation phase 14.0 - 95.6 Luteal phase 1.0 - 11.4 Postmenopausal 7.7 - 58.5 Reason For Referral Reason [facility] 1 Generalized abdomina l pain (R10.84) Referral Organization [facility] [address] Referring Provider First Name CHARLES Referring Provider Last Name ELSIE Referring Provider Speciality Internal M edicine Referred Provider Jennifer DUBOIS Referred Provider Specialty Gastroentero logy General Notes Nicole Barber 08/13/2024 12:42:06 PM > Referral with attachment faxed, pt given info to call and schedule visit. 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 1 Hair loss (L65.9) Referral Organization [facility] [address] Referring Provider First Name CHARLES Referring Provider Last Name ELSIE Referring Provider Speciality Internal M edicine Referred Provider Carl Monroe Referred Provider Specialty Skip Operator General Notes Skylar Oliver 06/2025 01:31:11 PM > referral faxed to Referral Priority Routine Diagnosis 1 Ganglion, left hand (M67.442) Referral Organization [facility] [address] Referring Provider First Name CHARLES Referring Provider Last Name ELSIE Referring Provider Speciality Internal edicine Referred Provider Specialty Hand Surgery General Notes faxed to [facility] ast[facility] Re[facility] - MOB, Hand and Wrist Surgery , [address] [place] [address], [address] [place] [address] , Ganesh Rubio 04/22/2025 10:32:36 AM > pt walked in with information Clinical Notes Jerome Chapman 03:44:48 PM > The patient was seen on 05/05/25 Referral Priority Routine Reason Diagnosis 1 Ingrown toenail (L60 .0) Referral Organization [facility] [address] Referring Provider First Name CHARLES Referring Provider Last Name ELSIE Referring Provider Speciality Internal edicine Referred Provider Specialty Podiatry General Notes Skylar Oliver 03/2025 10:02:57 AM > Pt given phone [phone] referral faxed to [phone] Clinical Notes Jerome Chapman 02:21:17 PM > I called the office and they informed me that they have left voicemails for the patient and are just waiting for her to callback to schedule an appintment Referral Priority Routine Medications Medication SIG (Take, Route, Frequency, Duration) Notes Start Date End Date Status Ondansetron 4 MG 1 tablet on the tong ue and allow to dissolve Orally Once a day; Duration: 30 days 10/23/2024 Active Famotidine 40 MG TAKE 1 TABLET BY JACLYN ONCE A DAY NEEDED FOR ACID REFLUX 30 DAYS; Duration: 90 Not-Taking Betamethasone Valerate 0.12 % 1 application Externally Twice a day; Duration: 14 days Apply to scalp once in the morning and once at night. 01/29/2025 Active Naproxen 250 MG 1 tablet with food o r milk as needed for pain Orally every 12 hrs; Duration: 30 days Active Ciclopirox 1 % as directed Externally; Duration: 30 days Apply up to 10 mL to wet scalp, lather, leave on for about 3 minutes, then rinse thoroughly. Can repeat twice weekly for 4 weeks. Allow 3 days between treatments. 01/29/2025 Active NIFEdipine 10 MG TAKE 1 CAPSULE BY [facility] THREE TIMES A DAY; Duration: 90 Active tiZANidine HCl 2 MG 1 tablet as needed f or muscle spasm Orally every 6-8 hours; Duration: 30 days 12/26/2024 Active Zepbound 7.5 MG/0.5ML INJECT 7.5 MG SUBCUTANEOUS WEEKLY; Duration: 30 Active Tretinoin 0.025 % 1 application in the evening to areas of hyperpigmented skin Externally Once a day; Duration: 30 days 10/23/2024 Active Omeprazole 20 MG 1 capsule 1/2 to 1 hour before morning meal Orally Once a day As needed Active Problems Problem Type SNOMED Code ICD Code Onset Dates Problem Status W/U Status Risk Notes Problem Overweight (194637920) Overweigh t (E66.3) Active confirmed Problem Hypertrophy of tonsi ls (02323077) Hypertrophy of tonsils (J35.1) Active confirmed Problem Raynaud's disease (760924080) Raynaud's disease without gangrene (I73.00) Active confirmed Problem Polycystic ovary syndrome (disorder) (567308075) PCOS (polycystic ovarian syndrome) (E28.2) Active confirmed Problem Raynaud's disease (851252590) Raynaud's phenomenon without gangrene (I73.00) Active confirmed Problem Upper respiratory infection (67926131) Upper respiratory tract infection, unspecified type (J06.9) Active confirmed Problem Pure hypercholesterolemia (116425505) Elevated LDL cholesterol level (E78.00) Active confirmed Problem C-reactive protein abnormal (290914695) CRP elevated (R79.82) Active confirmed Problem Gastroesophageal reflux disease (995715311) Mild acid reflux (K21.9) Active confirmed Problem Vitamin D deficiency (89452156) Vitamin D insufficiency (E55.9) Active confirmed Vital Signs Heart Rate 73 /min 05/27/2025 Oximetry 99 % 05/27/2025 Blood pressure diastolic 68 mm Hg 05/27/2025 Height 67 in 05/27/2025 Blood pressure systolic 102 mm Hg 05/27/2025 Weight 145 lbs 05/27/2025 BMI 22.71 kg/m2 05/27/2025 Encounters Encounter Location Date Provider Diagnosis [facility] [address] [address] 12/10/2024 CHARLES ZIMMERMAN Nutritional counseli ng Z71.3 ; BMI 24.0-24.9, adult Z68.24 ; PCOS (polycystic ovarian syndrome) E28.2 ; Raynaud's phenomenon without gangrene I73.00 ; Helicobacter pylori (H. pylori) A04.8 ; Elevated LDL cholesterol level E78.00 ; Vitamin D insufficiency E55.9 and Lumbar back pain M54.50 [facility] [address] [address] 08/13/2024 CHARLES ZIMMERMAN Cramp and spasm R25. 2 ; Raynaud's disease without gangrene I73.00 ; Overweight (BMI 25.0-29.9) E66.3 ; PCOS (polycystic ovarian syndrome) E28.2 and Mild acid reflux K21.9 [facility] [address] [address] 08/26/2024 YURI AJ Upper respiratory tr act infection, unspecified type J06.9 [facility] [address] [address] 09/05/2024 CHARLES ZIMMERMAN Overweight E66.3 ; B FL 28.0-28.9,adult Z68.28 ; Nutritional counseling Z71.3 ; Elevated LDL cholesterol level E78.00 ; PCOS (polycystic ovarian syndrome) E28.2 ; Mild acid reflux K21.9 and Vitamin D deficiency E55.9 [facility] [address] [address] 10/23/2024 CHARLES ZIMMERMAN Annual physical exam Z00.00 ; H. pylori infection A04.8 ; PCOS (polycystic ovarian syndrome) E28.2 ; Elevated LDL cholesterol level E78.00 ; Vitamin D deficiency E55.9 ; Hyperpigmentation L81.9 ; Overweight E66.3 ; Depression screening Z13.31 ; Screening for substance abuse Z13.89 ; Raynaud's phenomenon without gangrene I73.00 and Nausea R11.0 [facility] [address] 11/11/2024 CHARLES ZIMMERMAN Nutritional counseli ng Z71.3 ; BMI 24.0-24.9, adult Z68.24 ; PCOS (polycystic ovarian syndrome) E28.2 ; Raynaud's phenomenon without gangrene I73.00 ; Helicobacter pylori (H. pylori) A04.8 ; Elevated LDL cholesterol level E78.00 ; Vitamin D insufficiency E55.9 and Lumbar back pain M54.50 [facility] [address] [address] 12/26/2024 CHARLES ZIMMERMAN Lumbar back pain M54 .50 ; PCOS (polycystic ovarian syndrome) E28.2 ; Raynaud's disease without gangrene I73.00 ; Elevated LDL cholesterol level E78.00 ; Vitamin D insufficiency E55.9 and Helicobacter pylori (H. pylori) A04.8 [facility] [address] [address] 01/29/2025 CHARLES ZIMMERMAN Hair loss L65.9 ; Seborrheic dermatitis L21.9 ; PCOS (polycystic ovarian syndrome) E28.2 ; Mild acid reflux K21.9 ; Raynaud's disease without gangrene I73.00 ; Elevated LDL cholesterol level E78.00 and Vitamin D insufficiency E55.9 [facility] [address] [address] 02/10/2025 CHARLES ZIMMERMAN BMI 23.0-23.9, adult Z68.23 ; Nutritional counseling Z71.3 ; PCOS (polycystic ovarian syndrome) E28.2 ; Raynaud's phenomenon without gangrene I73.00 ; Helicobacter pylori (H. pylori) A04.8 ; Elevated LDL cholesterol level E78.00 ; Vitamin D insufficiency E55.9 and Lumbar back pain M54.50 [facility] [address] 03/10/2025 CHARLES ZIMMERMAN Ganglion, left hand M67.442 ; Raynaud's disease without gangrene I73.00 ; PCOS (polycystic ovarian syndrome) E28.2 ; Mild acid reflux K21.9 ; Elevated LDL cholesterol level E78.00 ; Helicobacter pylori (H. pylori) A04.8 ; Nutritional counseling Z71.3 and Encounter for examination of blood pressure without abnormal findings Z01.30 [facility] [address] 03/24/2025 CHARLES ZIMMERMAN BMI 24.0-24.9, adult Z68.24 ; PCOS (polycystic ovarian syndrome) E28.2 ; Nutritional counseling Z71.3 ; Raynaud's phenomenon without gangrene I73.00 ; Helicobacter pylori (H. pylori) A04.8 ; Elevated LDL cholesterol level E78.00 ; Vitamin D insufficiency E55.9 ; Lumbar back pain M54.50 ; Hypertrophy of tonsils J35.1 ; Sore throat J02.9 and Encounter for examination of blood pressure without abnormal findings Z01.30 [facility] [address] [address] 05/27/2025 CHARLES ZIMMERMAN BMI 22.0-22.9, adult Z68.22 ; PCOS (polycystic ovarian syndrome) E28.2 ; Raynaud's phenomenon without gangrene I73.00 ; Nutritional counseling Z71.3 ; Elevated LDL cholesterol level E78.00 ; Vitamin D insufficiency E55.9 ; Ingrown toenail L60.0 and Encounter for examination of blood pressure without abnormal findings Z01.30 [facility] [address] [address] 08/13/2024 CHARLES BIRKS [facility] [address] [place] [address] 08/13/2024 CHARLES BIRKS [facility] [address] [place] [address] 08/20/2024 CHARLES BIRKS [facility] [address] [place] [address] 08/26/2024 CHARLES BIRKS [facility] [address] [place] [address] 09/03/2024 CHARLES BIRKS [facility] [address] [place] [address] 09/05/2024 CHARLES BIRKS [facility] [address] [place] [address] 12/11/2024 CHARLES BIRKS [facility] [address] [place] [address] 12/24/2024 CHARLES BIRKS [facility] [address] [place] [address] 12/25/2024 [facility] [address] [place] [address] 12/27/2024 [facility] [address] [place] [address] 03/10/2025 [facility] [address] [place] [address] 03/10/2025 [facility] [address] [place] [address] 03/10/2025 [facility] [address] [place] [address] 03/24/2025 [facility] [address] [place] [address] 03/24/2025 [facility] [address] [place] [address] 05/28/2025 [facility] Assessments Encounter Date Diagnosis (ICD Code) Assessment Notes Treatment Notes Treatment Clinical Notes Section Notes 08/13/2024 Cramp and spasm (ICD-10 - R25.2) Kaleb is a 23-year-old female who presents to the office today for new patient evaluation. Patient is welcomed to the practice. They are coming from [facility]. Last complete physical exam with labs last year. Medications, medical history, allergies, surgeries, hospitalizations, family history, and social history were reviewed. Problem list updated. Cardiopulmonary and abdominal exam unremarkable. Patient will follow-up in office. All patient questions answered at this time. # Hand cramping: Patient reporting 2-year history of cramping of her hands worse with exposure to cold. On physical exam bilateral extremities without visible deformity. Nontender to palpation of bilateral MCP, DIP, or PIP joints. Negative Tinel's test bilaterally. Given worsening pain with exposure to cold likely suspect Raynaud's phenomenon. To further workup other vasculitis will order ESR, ANCA, complement C3, complement C4, and CRP. Will also obtain vitamin B12 level. At this time will prescribe nifedipine to be taken 10 mg 3 times daily for management of cramping. Discussed proper use of the medication as well as expected side effect profile including but not limited to low blood pressure, headache, dizziness, and flushing. Patient understanding. She will follow-up in approximately 1 month for complete physical exam and will assess effect of the medication. # PCOS: No current medication therapy. Patient does follow with [facility] infertility center in [place]. Will continue to monitor. # Acid reflux: Patient reporting intermittent upper abdominal pain, states consistent with heartburn. Will prescribe famotidine 40 mg to be used once daily as needed for acid reflux. Discussed proper use of the medication and expected side effect profile including but not limited to headache, dizziness, constipation. Will also refer to gastroenterology for further management. Will continue to monitor. # Overweight: Weight 180 pounds, BMI 28.19. Discussed importance of diet and lifestyle in maintaining healthy weight for the patient and preventing other comorbidities. Will continue to monitor. All questions have been answered to patient's satisfaction. Patient verbalized understanding of diagnosis and treatments explained. Advised to call sooner prior to next visit it any questions/concerns arise. Case discussed with collaborating physician Bhargavi Pedraza who reviewed the assessment and plan. Chart, medications, labs, vital signs reviewed. Dictation was accomplished with the use of Dragon voice recognition software, which is prone to medical misidentifications and grammatical errors. This are unintentional and the practitioner does try to identify and correct these, but some could still be present. Please do not hesitate to contact practitioner for clarification. 08/13/2024 Raynaud's disease without gangrene (ICD-10 - I73.00) Kaleb is a 23-year-old female who presents to the office today for new patient evaluation. Patient is welcomed to the practice. They are coming from [facility]. Last complete physical exam with labs last year. Medications, medical history, allergies, surgeries, hospitalizations, family history, and social history were reviewed. Problem list updated. Cardiopulmonary and abdominal exam unremarkable. Patient will follow-up in office. All patient questions answered at this time. # Hand cramping: Patient reporting 2-year history of cramping of her hands worse with exposure to cold. On physical exam bilateral extremities without visible deformity. Nontender to palpation of bilateral MCP, DIP, or PIP joints. Negative Tinel's test bilaterally. Given worsening pain with exposure to cold likely suspect Raynaud's phenomenon. To further workup other vasculitis will order ESR, ANCA, complement C3, complement C4, and CRP. Will also obtain vitamin B12 level. At this time will prescribe nifedipine to be taken 10 mg 3 times daily for management of cramping. Discussed proper use of the medication as well as expected side effect profile including but not limited to low blood pressure, headache, dizziness, and flushing. Patient understanding. She will follow-up in approximately 1 month for complete physical exam and will assess effect of the medication. # PCOS: No current medication therapy. Patient does follow with [facility] infertility center in [place]. Will continue to monitor. # Acid reflux: Patient reporting intermittent upper abdominal pain, states consistent with heartburn. Will prescribe famotidine 40 mg to be used once daily as needed for acid reflux. Discussed proper use of the medication and expected side effect profile including but not limited to headache, dizziness, constipation. Will also refer to gastroenterology for further management. Will continue to monitor. # Overweight: Weight 180 pounds, BMI 28.19. Discussed importance of diet and lifestyle in maintaining healthy weight for the patient and preventing other comorbidities. Will continue to monitor. All questions have been answered to patient's satisfaction. Patient verbalized understanding of diagnosis and treatments explained. Advised to call sooner prior to next visit it any questions/concerns arise. Case discussed with collaborating physician Bhargavi Pedraza who reviewed the assessment and plan. Chart, medications, labs, vital signs reviewed. Dictation was accomplished with the use of [employer] voice recognition software, which is prone to medical misidentifications and grammatical errors. This are unintentional and the practitioner does try to identify and correct these, but some could still be present. Please do not hesitate to contact practitioner for clarification. 08/26/2024 Upper respiratory tract infection, unspecified type (ICD-10 - J06.9) 24-year-old female with a PMH of PCOS, acid reflux that presents for evaluation of congestion, rhinorrhea, dry cough despite throat, and fatigue for over 1 week. On presentation, patient is vitally stable. Physical exam significant for nasal quality of voice, mild erythema of the posterior pharynx, and bilateral tonsillar lymphadenopathy. Patient can be heard coughing infrequently throughout exam. Lungs CTA. Exam otherwise WNL. Swab for COVID/flu/RSV obtained, results negative. Given duration of symptoms plan to proceed with empiric antibiotic treatment. Rx for sent to pharmacy. Reviewed proper use/side effects. Patient encouraged to continue symptomatic treatment with Tylenol and ibuprofen as needed, rest, fluids, and OTC decongestants as needed. All questions answered to the patient's satisfaction. Patient demonstrates understanding of diagnosis and treatments discussed. Follow-up at next scheduled appointment, sooner should any questions/concerns arise or should symptoms not improve despite treatment.. Case discussed with collaborating physician Alan Pedraza who has reviewed the assessment/plan. Chart, medications, labs, and vital signs reviewed. Dictation completed with the use of [employer] voice recognition software, prone to medical misidentifications and grammatical errors. All errors are unintentional. Although the practitioner does try to identify and correct errors, some may be present. Please do not hesitate to contact the practitioner for clarification. 09/05/2024 Overweight (ICD-10 - E66.3) Molly is a 24-year-old female with history of overweight who presents to the office today for weight management consult. Medical history, labs, allergies, medications, and social history reviewed with the patient. Provided education on healthy diet and lifestyle which includes high-protein, low carbohydrate, high-fiber, and a variety of fruits and vegetables. Patient encouraged to exercise with emphasis on resistance training minimum 3 times per week to maintain muscle mass and cardio to burn fat. All patient questions answered. Patient will follow-up in 2 to 4 weeks for weight management. 09/05/2024: Weight 179 pounds, BMI 28.03. SECA [...] office in 4 weeks for further management. # PCOS: No current medication therapy. Patient does follow with [facility] infertility center in [place]. Will continue to monitor. # Acid reflux: Continue famotidine 40 mg once daily as needed for acid reflux. Discussed proper use and side effect profile. Will continue to monitor. # Hyperlipidemia: Lipid panel on 08/28/2024 with cholesterol 192, triglycerides 124, HDL 56, and LDL 114. ASCVD risk less than 5%. Discussed importance of diet and lifestyle to lower cholesterol levels and prevent other comorbidities. Will continue to monitor. # Vitamin D deficiency: Vitamin D level decreased at 08/26/2024 at 21.5. Discussed the importance of daily supplementation. Will continue to monitor. Patient was reassured and welcomed to the practice. We discussed that we stress a hollistic medical approach with emphasis on lifestyle modification. Patient was informed that a healthy lifestyle with exercise and good eating habits can help reduce their risk of medical complications. Patient is explained that obesity increases their risk of diabetes, cardiovascular disease, or organ damage. We spent a lot of time discussing the relationship between food, exercise, sleep, mental health and obesity. Patient was counseled on the importance EATING local, organic food when possible. Patient was educated on clean 15 and dirty dozen. I provided information about reading books called The Food Rules by Kyler Watt and Eat Fat Get Lean by Dr Erasto Rachel. Self education is important in the journey for weight management. Patient was offered diagnostic testing/ SECA scale. We want to measure visceral adiposity, advanced body composition, adverse lipids, fatty acid balance, risk for heart disease and atherosclerosis, markers of inflammation and genetic susceptibility. Patient was counseled on weight management and was advised to lose weight using A. Meal Replacement Products Patient was educated on the replacement products called optifast. This is a good way of taking fixed amount of calories. It has been shown in studies to be ineffective weight management tool. This however has to be coupled with lifestyle intervention as well as laboratory data and EKG monitoring. It is impossible to know how a person will tolerate complete meal replacement. The side effects of meal replacement and weight loss could include syncopal attacks, dizziness, gallstones, potential cholecystectomy, possible heart attack and even . The benefits of meal replacement would be potential weight loss but no guarantees can be made. Meal replacement products are not covered by insurance. Once the patient has bought these products we cannot return them B. Lifestyle management which includes several strategies as below 1. Eat a low carbohydrate good fat good protein diet. Eliminate refined carbohydrates from the diet. Limit sugared beverages. Eat local organic when possible. Cook your own meals. Read food labels. Focus on healthy snacks. Portion control and food with low glycemic index 2. Exercise regularly. Try to get at least 6000 steps a day. Use a predominant to track activity level. Consider using apps like 7 minute excercise, myfitnesspal, lose it, stick as needed for self-monitoring and weight management. Consider group exercises. Consider hiring a safety trainer. Regular exercise is [place] to sustainable health and prevents as a buffer against weight regain 3. Sleep is most important for healing. Try to sleep at least 6-8 hours a night. A good quality sleep needs a sleep ritual with ideal room temperature of around 68. It might help to take a shower and have no electronics in the room and sleep in a very dark room without artificial light. Start sleep routine and get up early in the morning and go to bed on time. 4. Make a social connection. Surround yourself with positive people with positive energy. Connect with friends and family. 5. Get into the habit of meditating and mindfulness while doing everything. 6. Go outside and connect with nature. C. Prescription medications Patient was educated on the use of prescription medications for medical weight loss. This is a growing list and includes phentermine, Topamax,Qsymia, contrave, belviq and saxenda, wegovy etc. All prescription medications could have side effects including but not limited to kidney stones, seizure disorder cardiac arrhythmias heart attack pancreatitis, GI effects, Etc. Patient was encouraged to read the prescription insert and have coaching with their pharmacist and make an informed decision about taking medication and know that these medications are being prescribed with good intentions and we do not know how a patient would react to the medication. Some medications are FDA approved for weight loss and there is also off label use depending on patient's inability to afford medications in an attempt to lose weight D. Behavioral counseling was done to establish a relationship between food and an mood. Patient was provided information about local counseling and psychiatry and Dr Fung at [facility]. We would like to cover regular topics and build on low glycemic eating exercise mindful eating, using yoga and meditation along with deep breathing and connecting with friends and family. E. MASS PAT reviewed, Patient's current medications were reviewed and opinion was given on medication that can cause weight gain and can be substituted F. Patient was assessed for risk with obesity including and not limiting to atherosclerosis heart disease stroke kidney disease, restrictive lung disease, irritable bowel syndrome and overall mortality. Risk of developing prediabetes diabetes and metabolic syndrome was discussed G. Therapeutic plan: We have decided to make therapeutic plan which would include choosing wisely on calories restricting portion getting active, tracking weight, getting good quality sleep and working on time management H. Patient will follow up in 4 weeks for weight management Total time spent today was 60 minutes of which greater than 50% was spent on coordinating and counseling Case discussed with collaborating physician Diane Pedraza who reviewed the assessment and plan. Chart, medications, labs, vital signs reviewed. Dictation was accomplished with the use of [employer] voice recognition software, prone to medical misidentifications and grammatical errors. This is unintentional and the practitioner does try to identify and correct these, but some could still be present. Please do not hesitate to contact practitioner for clarification. All questions answered to patients satisfaction. Patient verbalized understanding of diagnosis and treatments explained. To call sooner prior to next visit it any questions/concerns arise. Patient was offered diagnostic testing/ SECA scale. We want to measure visceral adiposity, advanced body composition, adverse lipids, fatty acid balance, risk for heart disease and atherosclerosis, markers of inflammation and genetic susceptibility. Patient was counseled on weight management and was advised to lose weight using A. Meal Replacement Products Patient was educated on the replacement products called optifast. This is a good way of taking fixed amount of calories. It has been shown in studies to be ineffective weight management tool. This however has to be coupled with lifestyle intervention as well as laboratory data and EKG monitoring. It is impossible to know how a person will tolerate complete meal replacement. The side effects of meal replacement and weight loss could include syncopal attacks, dizziness, gallstones, potential cholecystectomy, possible heart attack and even . The benefits of meal replacement would be potential weight loss but no guarantees can be made. Meal replacement products are not covered by insurance. Once the patient has bought these products we cannot return them B. Lifestyle management which includes several strategies as below 1. Eat a low carbohydrate good fat good protein diet. Eliminate refined carbohydrates from the diet. Limit sugared beverages. Eat local organic when possible. Cook your own meals. Read food labels. Focus on healthy snacks. Portion control and food with low glycemic index 2. Exercise regularly. Try to get at least 6000 steps a day. Use a predominant to track activity level. Consider using apps like 7 minute excercise, myfitnesspal, lose it, stick as needed for self-monitoring and weight management. Consider group exercises. Consider hiring a safety trainer. Regular exercise is [place] to sustainable health and prevents as a buffer against weight regain 3. Sleep is most important for healing. Try to sleep at least 6-8 hours a night. A good quality sleep needs a sleep ritual with ideal room temperature of around 68. It might help to take a shower and have no electronics in the room and sleep in a very dark room without artificial light. Start sleep routine and get up early in the morning and go to bed on time. 4. Make a social connection. Surround yourself with positive people with positive energy. Connect with friends and family. 5. Get into the habit of meditating and mindfulness while doing everything. 6. Go outside and connect with nature. C. Prescription medications Patient was educated on the use of prescription medications for medical weight loss. This is a growing list and includes phentermine, Topamax,Qsymia, contrave, belviq and saxenda, wegovy etc. All prescription medications could have side effects including but not limited to kidney stones, seizure disorder cardiac arrhythmias heart attack pancreatitis, GI effects, Etc. Patient was encouraged to read the prescription insert and have coaching with their pharmacist and make an informed decision about taking medication and know that these medications are being prescribed with good intentions and we do not know how a patient would react to the medication. Some medications are FDA approved for weight loss and there is also off label use depending on patient's inability to afford medications in an attempt to lose weight D. Behavioral counseling was done to establish a relationship between food and an mood. Patient was provided information about local counseling and psychiatry and Dr Fung at [facility]. We would like to cover regular topics and build on low glycemic eating exercise mindful eating, using yoga and meditation along with deep breathing and connecting with friends and family. E. MASS PAT reviewed, Patient's current medications were reviewed and opinion was given on medication that can cause weight gain and can be substituted F. Patient was assessed for risk with obesity including and not limiting to atherosclerosis heart disease stroke kidney disease, restrictive lung disease, irritable bowel syndrome and overall mortality. Risk of developing prediabetes diabetes and metabolic syndrome was discussed G. Therapeutic plan: We have decided to make therapeutic plan which would include choosing wisely on calories restricting portion getting active, tracking weight, getting good quality sleep and working on time management H. Patient will follow up in 4 weeks for weight management Total time spent today was 60 minutes of which greater than 50% was spent on coordinating and counseling After consultation and careful review of medical history, this patient would benefit from Zepbound based off of the following criteria met: Patient is over the age of 18, has a BMI of 28.03. Additional comorbidities include PCOS, hyperlipidemia, acid reflux, and vitamin D deficiency. Patient has trialed other methods of weight loss including improving diet, exercise without success over three months. This medication is prescribed by or in consultation with a board certified obesity and weight management physician (Dr. Liane Pedraza or Dr. Vivi Pedraza) Case discussed with collaborating physician Diane Pedraza who reviewed the assessment and plan. Chart, medications, labs, vital signs reviewed. Dictation was accomplished with the use of Dragon voice recognition software, prone to medical misidentifications and grammatical errors. This is unintentional and the practitioner does try to identify and correct these, but some could still be present. Please do not hesitate to contact practitioner for clarification. All questions answered to patients satisfaction. Patient verbalized understanding of diagnosis and treatments explained. To call sooner prior to next visit it any questions/concerns arise. 09/05/2024 BMI 28.0-28.9,adult (ICD-10 - Z68.28) Molly is a 24-year-old female with history of overweight who presents to the office today for weight management consult. Medical history, labs, allergies, medications, and social history reviewed with the patient. Provided education on healthy diet and lifestyle which includes high-protein, low carbohydrate, high-fiber, and a variety of fruits and vegetables. Patient encouraged to exercise with emphasis on resistance training minimum 3 times per week to maintain muscle mass and cardio to burn fat. All patient questions answered. Patient will follow-up in 2 to 4 weeks for weight management. 09/05/2024: Weight 179 pounds, BMI 28.03. SECA [...] office in 4 weeks for further management. # PCOS: No current medication therapy. Patient does follow with [facility] infertility center in [place]. Will continue to monitor. # Acid reflux: Continue famotidine 40 mg once daily as needed for acid reflux. Discussed proper use and side effect profile. Will continue to monitor. # Hyperlipidemia: Lipid panel on 08/28/2024 with cholesterol 192, triglycerides 124, HDL 56, and LDL 114. ASCVD risk less than 5%. Discussed importance of diet and lifestyle to lower cholesterol levels and prevent other comorbidities. Will continue to monitor. # Vitamin D deficiency: Vitamin D level decreased at 08/26/2024 at 21.5. Discussed the importance of daily supplementation. Will continue to monitor. Patient was reassured and welcomed to the practice. We discussed that we stress a hollistic medical approach with emphasis on lifestyle modification. Patient was informed that a healthy lifestyle with exercise and good eating habits can help reduce their risk of medical complications. Patient is explained that obesity increases their risk of diabetes, cardiovascular disease, or organ damage. We spent a lot of time discussing the relationship between food, exercise, sleep, mental health and obesity. Patient was counseled on the importance EATING local, organic food when possible. Patient was educated on clean 15 and dirty dozen. I provided information about reading books called The Food Rules by Kyler Watt and Eat Fat Get Lean by Dr Erasto Rachel. Self education is important in the journey for weight management. Patient was offered diagnostic testing/ SECA scale. We want to measure visceral adiposity, advanced body composition, adverse lipids, fatty acid balance, risk for heart disease and atherosclerosis, markers of inflammation and genetic susceptibility. Patient was counseled on weight management and was advised to lose weight using A. Meal Replacement Products Patient was educated on the replacement products called optifast. This is a good way of taking fixed amount of calories. It has been shown in studies to be ineffective weight management tool. This however has to be coupled with lifestyle intervention as well as laboratory data and EKG monitoring. It is impossible to know how a person will tolerate complete meal replacement. The side effects of meal replacement and weight loss could include syncopal attacks, dizziness, gallstones, potential cholecystectomy, possible heart attack and even . The benefits of meal replacement would be potential weight loss but no guarantees can be made. Meal replacement products are not covered by insurance. Once the patient has bought these products we cannot return them B. Lifestyle management which includes several strategies as below 1. Eat a low carbohydrate good fat good protein diet. Eliminate refined carbohydrates from the diet. Limit sugared beverages. Eat local organic when possible. Cook your own meals. Read food labels. Focus on healthy snacks. Portion control and food with low glycemic index 2. Exercise regularly. Try to get at least 6000 steps a day. Use a predominant to track activity level. Consider using apps like 7 minute excercise, myfitTinderBoxpal, lose it, stick as needed for self-monitoring and weight management. Consider group exercises. Consider hiring a safety trainer. Regular exercise is [place] to sustainable health and prevents as a buffer against weight regain 3. Sleep is most important for healing. Try to sleep at least 6-8 hours a night. A good quality sleep needs a sleep ritual with ideal room temperature of around 68. It might help to take a shower and have no electronics in the room and sleep in a very dark room without artificial light. Start sleep routine and get up early in the morning and go to bed on time. 4. Make a social connection. Surround yourself with positive people with positive energy. Connect with friends and family. 5. Get into the habit of meditating and mindfulness while doing everything. 6. Go outside and connect with nature. C. Prescription medications Patient was educated on the use of prescription medications for medical weight loss. This is a growing list and includes phentermine, Topamax,Qsymia, contrave, belviq and saxenda, wegovy etc. All prescription medications could have side effects including but not limited to kidney stones, seizure disorder cardiac arrhythmias heart attack pancreatitis, GI effects, Etc. Patient was encouraged to read the prescription insert and have coaching with their pharmacist and make an informed decision about taking medication and know that these medications are being prescribed with good intentions and we do not know how a patient would react to the medication. Some medications are FDA approved for weight loss and there is also off label use depending on patient's inability to afford medications in an attempt to lose weight D. Behavioral counseling was done to establish a relationship between food and an mood. Patient was provided information about local counseling and psychiatry and Dr Fung at [facility]. We would like to cover regular topics and build on low glycemic eating exercise mindful eating, using yoga and meditation along with deep breathing and connecting with friends and family. E. MASS PAT reviewed, Patient's current medications were reviewed and opinion was given on medication that can cause weight gain and can be substituted F. Patient was assessed for risk with obesity including and not limiting to atherosclerosis heart disease stroke kidney disease, restrictive lung disease, irritable bowel syndrome and overall mortality. Risk of developing prediabetes diabetes and metabolic syndrome was discussed G. Therapeutic plan: We have decided to make therapeutic plan which would include choosing wisely on calories restricting portion getting active, tracking weight, getting good quality sleep and working on time management H. Patient will follow up in 4 weeks for weight management Total time spent today was 60 minutes of which greater than 50% was spent on coordinating and counseling Case discussed with collaborating physician Diane Pedraza who reviewed the assessment and plan. Chart, medications, labs, vital signs reviewed. Dictation was accomplished with the use of [employer] voice recognition software, prone to medical misidentifications and grammatical errors. This is unintentional and the practitioner does try to identify and correct these, but some could still be present. Please do not hesitate to contact practitioner for clarification. All questions answered to patients satisfaction. Patient verbalized understanding of diagnosis and treatments explained. To call sooner prior to next visit it any questions/concerns arise. Patient was offered diagnostic testing/ SECA scale. We want to measure visceral adiposity, advanced body composition, adverse lipids, fatty acid balance, risk for heart disease and atherosclerosis, markers of inflammation and genetic susceptibility. Patient was counseled on weight management and was advised to lose weight using A. Meal Replacement Products Patient was educated on the replacement products called optifast. This is a good way of taking fixed amount of calories. It has been shown in studies to be ineffective weight management tool. This however has to be coupled with lifestyle intervention as well as laboratory data and EKG monitoring. It is impossible to know how a person will tolerate complete meal replacement. The side effects of meal replacement and weight loss could include syncopal attacks, dizziness, gallstones, potential cholecystectomy, possible heart attack and even . The benefits of meal replacement would be potential weight loss but no guarantees can be made. Meal replacement products are not covered by insurance. Once the patient has bought these products we cannot return them B. Lifestyle management which includes several strategies as below 1. Eat a low carbohydrate good fat good protein diet. Eliminate refined carbohydrates from the diet. Limit sugared beverages. Eat local organic when possible. Cook your own meals. Read food labels. Focus on healthy snacks. Portion control and food with low glycemic index 2. Exercise regularly. Try to get at least 6000 steps a day. Use a predominant to track activity level. Consider using apps like 7 minute excercise, myfitnesspal, lose it, stick as needed for self-monitoring and weight management. Consider group exercises. Consider hiring a safety trainer. Regular exercise is [place] to sustainable health and prevents as a buffer against weight regain 3. Sleep is most important for healing. Try to sleep at least 6-8 hours a night. A good quality sleep needs a sleep ritual with ideal room temperature of around 68. It might help to take a shower and have no electronics in the room and sleep in a very dark room without artificial light. Start sleep routine and get up early in the morning and go to bed on time. 4. Make a social connection. Surround yourself with positive people with positive energy. Connect with friends and family. 5. Get into the habit of meditating and mindfulness while doing everything. 6. Go outside and connect with nature. C. Prescription medications Patient was educated on the use of prescription medications for medical weight loss. This is a growing list and includes phentermine, Topamax,Qsymia, contrave, belviq and saxenda, wegovy etc. All prescription medications could have side effects including but not limited to kidney stones, seizure disorder cardiac arrhythmias heart attack pancreatitis, GI effects, Etc. Patient was encouraged to read the prescription insert and have coaching with their pharmacist and make an informed decision about taking medication and know that these medications are being prescribed with good intentions and we do not know how a patient would react to the medication. Some medications are FDA approved for weight loss and there is also off label use depending on patient's inability to afford medications in an attempt to lose weight D. Behavioral counseling was done to establish a relationship between food and an mood. Patient was provided information about local counseling and psychiatry and Dr Fung at [facility]. We would like to cover regular topics and build on low glycemic eating exercise mindful eating, using yoga and meditation along with deep breathing and connecting with friends and family. E. MASS PAT reviewed, Patient's current medications were reviewed and opinion was given on medication that can cause weight gain and can be substituted F. Patient was assessed for risk with obesity including and not limiting to atherosclerosis heart disease stroke kidney disease, restrictive lung disease, irritable bowel syndrome and overall mortality. Risk of developing prediabetes diabetes and metabolic syndrome was discussed G. Therapeutic plan: We have decided to make therapeutic plan which would include choosing wisely on calories restricting portion getting active, tracking weight, getting good quality sleep and working on time management H. Patient will follow up in 4 weeks for weight management Total time spent today was 60 minutes of which greater than 50% was spent on coordinating and counseling After consultation and careful review of medical history, this patient would benefit from Zepbound based off of the following criteria met: Patient is over the age of 18, has a BMI of 28.03. Additional comorbidities include PCOS, hyperlipidemia, acid reflux, and vitamin D deficiency. Patient has trialed other methods of weight loss including improving diet, exercise without success over three months. This medication is prescribed by or in consultation with a board certified obesity and weight management physician (Dr. Liane Pedraza or Dr. Vivi Pedraza) Case discussed with collaborating physician Diane Pedraza who reviewed the assessment and plan. Chart, medications, labs, vital signs reviewed. Dictation was accomplished with the use of [employer] voice recognition software, prone to medical misidentifications and grammatical errors. This is unintentional and the practitioner does try to identify and correct these, but some could still be present. Please do not hesitate to contact practitioner for clarification. All questions answered to patients satisfaction. Patient verbalized understanding of diagnosis and treatments explained. To call sooner prior to next visit it any questions/concerns arise. 10/23/2024 Annual physical exam (ICD-10 - Z00.00) Patient seen and examined. Comprehensive discussion was done on the following. # H. 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 pylori stool antigens on 10/01/2024. She is now on triple antibiotic therapy including clarithromycin 500 mg, amoxicillin 500 mg, and metronidazole 500 mg. On second day of course for total 14 days. Continue omeprazole once daily. 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 Reports several cases of H. pylori infection in the past. Will continue to follow with GI. # Hyperpigmentation: Patient reporting darkening of her skin in the skin folds of her arms as well as folds of her upper thighs. No irritation. Does not history of PCOS. We discussed topical agents including tretinoin which is a vitamin A derivative which would be helpful for increasing skin turnover. Advised the patient to use the medication at nighttime and small amounts. Discussed the medication may cause dry skin. Will continue to monitor. # PCOS: No current medication therapy. Patient does follow with [facility] center in [place]. Will continue to monitor. # Hyperlipidemia: Lipid panel on 08/28/2024 with cholesterol 192, triglycerides 124, HDL 56, and LDL 114. ASCVD risk less than 5%. Discussed importance of diet and lifestyle to lower cholesterol levels and prevent other comorbidities. Will continue to monitor. # Vitamin D deficiency: Vitamin D level decreased at 08/26/2024 at 21.5. Discussed the importance of daily supplementation. Will continue to monitor. # Overweight: Weight 164 pounds, BMI 25.68. Patient established in weight management program. Currently on Zepbound 2.5 mg weekly. Next follow-up on 11/11/2024. Will continue to monitor. # Hyperlipidemia: Lipid panel on 08/26/2024 significant for LDL 105. Remainder of values in normal limits. ASCVD risk less than 5%. Discussed lifestyle modifications including increasing consumption of whole foods, fiber intake, vitamin D, turmeric/curcumin, and increasing physical activity. Will continue to monitor. # Raynaud's syndrome continue nifedipine 10 mg 1 capsule 3 times daily. Will continue to monitor. Blood pressure stable in office 116/80. 1. Nutrition: It is important to follow a healthy diet based on lots of vegetables and legumes and good fat. Avoid processed food and processed carbohydrates. Prepare your own meals. Read labels and avoid high fructose corn syrup, processed chemicals added to increase shelf life and preprepared meals. Avoid fast foods. Eat slowly and plan meals for a week. Try to count calories and be mindful off daily calorie intake. Get into the habit of keeping an eye on your weight by using an appropriate scale. Learn to log exercise and discussed fitness Apps like HelpingDoc or [employer]ometer which can help keep log off calories taken versus calories burned. Local food should be preferred. Discussed Dirty Dozen Versus Clean Fifteen. Discussed healthy supplements like fish oil, Tumeric, Curcumin, Melatonin, Resveratrol, Probiotics, Vitamin-D, Alpha-Lipoic acid, Vitamin-D and coconut oil. 2. It is important to exercise regularly. Is a good habit to walk at least 30 minutes a day. Gentle weightlifting with standard precautions to protect the back. Finding activity like cycling or hiking and get into the habit of engaging in it. Stretching before and after the exercises important. It is also important to contact me if there are any problems like shortness of breath, chest pain, back pain and joint or muscle pain associated with the exercise. 3. Discussed age appropriate screening guidelines. Colonoscopy needs to start at age 50 with stool for occult blood as appropriate. There is a new test that can test for genetic abnormalities in the stool sample, Cologuard. This would not replace a colonoscopy but could be used as a screening tool for patients who do not want a colonoscopy. We discussed the importance of early detection of colon cancer. 4. Discussed current guidelines with respect to breast examination, mammogram and pap smear for early detection of breast and cervical cancer. Patient advised to follow up with these appointments. 5. Discussed safe driving and no use of smart phone while driving 6. Age-appropriate immunizations were discussed. A tetanus booster is needed every 10 years. Flu vaccine is recommended every year just before the start of the flu season. Shingles vaccine is recommended after age 50 but not all insurances cover it. Pneumonia vaccine is given after age 65 unless there are certain comorbidities for which it is started earlier. 7. Diagnostic labs were discussed. These could include/not limited to CBC CMP and lipids with fasting blood glucose and insulin levels. Vitamin D and hemoglobin A1c testing might be appropriate. All questions have been answered to patient's satisfaction. Patient verbalized understanding of diagnosis and treatments explained. Advised to call sooner prior to next visit it any questions/concerns arise. Case discussed with collaborating physician Bhargavi Pedraza who reviewed the assessment and plan. Chart, medications, labs, vital signs reviewed. Dictation was accomplished with the use of [employer] voice recognition software, which is prone to medical misidentifications and grammatical errors. This are unintentional and the practitioner does try to identify and correct these, but some could still be present. Please do not hesitate to contact practitioner for clarification. 10/23/2024 H. pylori infection (ICD-10 - A04.8) Patient seen and examined. Comprehensive discussion was done on the following. # H. 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 pylori stool antigens on 10/01/2024. She is now on triple antibiotic therapy including clarithromycin 500 mg, amoxicillin 500 mg, and metronidazole 500 mg. On second day of course for total 14 days. Continue omeprazole once daily. 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 Reports several cases of H. pylori infection in the past. Will continue to follow with GI. # Hyperpigmentation: Patient reporting darkening of her skin in the skin folds of her arms as well as folds of her upper thighs. No irritation. Does not history of PCOS. We discussed topical agents including tretinoin which is a vitamin A derivative which would be helpful for increasing skin turnover. Advised the patient to use the medication at nighttime and small amounts. Discussed the medication may cause dry skin. Will continue to monitor. # PCOS: No current medication therapy. Patient does follow with [facility] infertility center in [place]. Will continue to monitor. # Hyperlipidemia: Lipid panel on 08/28/2024 with cholesterol 192, triglycerides 124, HDL 56, and LDL 114. ASCVD risk less than 5%. Discussed importance of diet and lifestyle to lower cholesterol levels and prevent other comorbidities. Will continue to monitor. # Vitamin D deficiency: Vitamin D level decreased at 08/26/2024 at 21.5. Discussed the importance of daily supplementation. Will continue to monitor. # Overweight: Weight 164 pounds, BMI 25.68. Patient established in weight management program. Currently on Zepbound 2.5 mg weekly. Next follow-up on 11/11/2024. Will continue to monitor. # Hyperlipidemia: Lipid panel on 08/26/2024 significant for LDL 105. Remainder of values in normal limits. ASCVD risk less than 5%. Discussed lifestyle modifications including increasing consumption of whole foods, fiber intake, vitamin D, turmeric/curcumin, and increasing physical activity. Will continue to monitor. # Raynaud's syndrome continue nifedipine 10 mg 1 capsule 3 times daily. Will continue to monitor. Blood pressure stable in office 116/80. 1. Nutrition: It is important to follow a healthy diet based on lots of vegetables and legumes and good fat. Avoid processed food and processed carbohydrates. Prepare your own meals. Read labels and avoid high fructose corn syrup, processed chemicals added to increase shelf life and preprepared meals. Avoid fast foods. Eat slowly and plan meals for a week. Try to count calories and be mindful off daily calorie intake. Get into the habit of keeping an eye on your weight by using an appropriate scale. Learn to log exercise and discussed fitness Apps like [employer]Doc or [employer] which can help keep log off calories taken versus calories burned. Local food should be preferred. Discussed Dirty Dozen Versus Clean Fifteen. Discussed healthy supplements like fish oil, Tumeric, Curcumin, Melatonin, Resveratrol, Probiotics, Vitamin-D, Alpha-Lipoic acid, Vitamin-D and coconut oil. 2. It is important to exercise regularly. Is a good habit to walk at least 30 minutes a day. Gentle weightlifting with standard precautions to protect the back. Finding activity like cycling or hiking and get into the habit of engaging in it. Stretching before and after the exercises important. It is also important to contact me if there are any problems like shortness of breath, chest pain, back pain and joint or muscle pain associated with the exercise. 3. Discussed age appropriate screening guidelines. Colonoscopy needs to start at age 50 with stool for occult blood as appropriate. There is a new test that can test for genetic abnormalities in the stool sample, Cologuard. This would not replace a colonoscopy but could be used as a screening tool for patients who do not want a colonoscopy. We discussed the importance of early detection of colon cancer. 4. Discussed current guidelines with respect to breast examination, mammogram and pap smear for early detection of breast and cervical cancer. Patient advised to follow up with these appointments. 5. Discussed safe driving and no use of smart phone while driving 6. Age-appropriate immunizations were discussed. A tetanus booster is needed every 10 years. Flu vaccine is recommended every year just before the start of the flu season. Shingles vaccine is recommended after age 50 but not all insurances cover it. Pneumonia vaccine is given after age 65 unless there are certain comorbidities for which it is started earlier. 7. Diagnostic labs were discussed. These could include/not limited to CBC CMP and lipids with fasting blood glucose and insulin levels. Vitamin D and hemoglobin A1c testing might be appropriate. All questions have been answered to patient's satisfaction. Patient verbalized understanding of diagnosis and treatments explained. Advised to call sooner prior to next visit it any questions/concerns arise. Case discussed with collaborating physician Bhargavi Pedraza who reviewed the assessment and plan. Chart, medications, labs, vital signs reviewed. Dictation was accomplished with the use of [employer] voice recognition software, which is prone to medical misidentifications and grammatical errors. This are unintentional and the practitioner does try to identify and correct these, but some could still be present. Please do not hesitate to contact practitioner for clarification. 11/11/2024 BMI 24.0-24.9, adult (ICD-10 - Z68.24) Patient [...] office in 4 weeks for further management. # Low back pain: Patient reporting pain in her lower back for the past 3 weeks. On and off in duration. Reports no injuries or strains to her knowledge. Does move a lot in her sleep. On exam there is no tenderness to palpation of the cervical, thoracic, or lumbar spine. Some tenderness to palpation of the left sacroiliac joint. Discussed measures including [id number] Tylenol or Profen for pain relief as well as importance of increasing her physical activity and stretching to manage symptoms. Will continue to monitor. # PCOS: No current medication therapy. Patient does follow with [facility] infertility center in [place]. Will continue to monitor. 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 pylori stool antigens on 10/01/2024. Patient has finished triple antibiotic therapy, now needs to repeat her stool antigen studies and then will follow-up shortly afterwards with gastroenterology. Taking omeprazole daily as needed for acid reflux. Patient is to follow-up with her excavating machine operator after stool studies. Reports several cases of [...] Dictation was accomplished with the use of [employer] voice recognition software, which is prone to medical misidentifications and grammatical errors. This are unintentional and the practitioner does try to identify and correct these, but some could still be present. Please do not hesitate to contact practitioner for clarification. 11/11/2024 Nutritional counseling (ICD-10 - Z71.3) Patient is [...] office in 4 weeks for further management. # Low back pain: Patient reporting pain in her lower back for the past 3 weeks. On and off in duration. Reports no injuries or strains to her knowledge. Does move a lot in her sleep. On exam there is no tenderness to palpation of the cervical, thoracic, or lumbar spine. Some tenderness to palpation of the left sacroiliac joint. Discussed measures including [id number] Tylenol or Profen for pain relief as well as importance of increasing her physical activity and stretching to manage symptoms. Will continue to monitor. # PCOS: No current medication therapy. Patient does follow with [facility] infertility center in [place]. Will continue to monitor. 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 pylori stool antigens on 10/01/2024. Patient has finished triple antibiotic therapy, now needs to repeat her stool antigen studies and then will follow-up shortly afterwards with gastroenterology. Taking omeprazole daily as needed for acid reflux. Patient is to follow-up with her excavating machine operator after stool studies. Reports several cases of [...] Dictation was accomplished with the use of [employer] voice recognition software, which is prone to medical misidentifications and grammatical errors. This are unintentional and the practitioner does try to identify and correct these, but some could still be present. Please do not hesitate to contact practitioner for clarification. 12/10/2024 Nutritional counseling (ICD-10 - Z71.3) Patient [...] the left sacroiliac joint. Discussed measures including [id number] Tylenol or Profen for pain relief as well as importance of increasing her physical activity and stretching to manage symptoms. Will continue to monitor. # PCOS: No current medication therapy. Patient does follow with [facility] infertility center in [place]. Will continue to monitor. 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 pylori stool antigens on 10/01/2024. Patient has finished triple antibiotic therapy, now needs to repeat her stool antigen studies and then will follow-up shortly afterwards with gastroenterology. Taking omeprazole daily as needed for acid reflux. Patient is to follow-up with her excavating machine operator after stool studies. Reports several cases of [...] Dictation was accomplished with the use of [employer] voice recognition software, which is prone to medical misidentifications and grammatical errors. This are unintentional and the practitioner does try to identify and correct these, but some could still be present. Please do not hesitate to contact practitioner for clarification. 12/26/2024 PCOS (polycystic ovarian syndrome) (ICD-10 - E28.2) Patient is a 24-year-old female with history of PCOS, acid reflux, and antibiotic treated H. pylori infection who presents today for urgent visit for persistent back pain for the past 3 months. No initial injuries or trauma. No previous history of spinal surgeries or IV drug use. Patient has trialed use of Tylenol, ibuprofen, and CBD with limited relief. Reports pain localized in the lower back, no radiation of pain and no associated numbness, tingling, or weakness. On exam patient is well-appearing and in no acute distress. Vital signs are stable. Cardiopulmonary exam is unremarkable. No tenderness to palpation of the cervical, thoracic, or lumbar spine. No bilateral sacroiliac tenderness bilaterally. Thoracal spinal muscles are nontender bilaterally. Negative straight leg raise test. Based on clinical evaluation and examination, likely suspect uncomplicated musculoskeletal pain. Low concern at this time for sciatica given lack of numbness or tingling. Low concern for disc bulge at this time however cannot rule out without imaging. Low risk for cauda equina given lack of urinary/fecal incontinence and no saddle anesthesia. At this time we will treat symptomatically with naproxen 250 mg 1-2 times daily as needed for acute pain. For muscle spasm will treat with tizanidine 2 mg every 6-8 hours as needed for spasm. Discussed proper use of the medications and potential side effects. Will also obtain lumbar spine x-ray for further evaluation. Discussed red flag signs of back pain requiring ED evaluation. Patient understanding, all patient questions answered at this time. # PCOS: No current therapy at this time. Previously was following with [facility] infertility center in [place], reports that specialist no longer takes her insurance. Will create new referral. # Hyperlipidemia: Lipid panel on 08/28/2024 with [...] continue to monitor. Blood pressure stable in office. # H. pylori infection: Patient follows with [facility] gastroenterology. Found to have positive stool culture for H. pylori antigens on 10/01/2024. Has now finished triple antibiotic therapy, reports no further abdominal pain or acid reflux. Will continue to monitor. Continue follow-up with GI. All questions have been answered to patient's satisfaction. Patient verbalized understanding of diagnosis and treatments explained. Advised to call sooner prior to next visit it any questions/concerns arise. Case discussed with collaborating physician Bhargavi Pedraza who reviewed the assessment and plan. Chart, medications, labs, vital signs reviewed. Dictation was accomplished with the use of [employer] voice recognition software, which is prone to medical misidentifications and grammatical errors. This are unintentional and the practitioner does try to identify and correct these, but some could still be present. Please do not hesitate to contact practitioner for clarification. 12/26/2024 Lumbar back pain (ICD-10 - M54.50) Patient is a 24-year-old female with history of PCOS, acid reflux, and antibiotic treated H. pylori infection who presents today for urgent visit for persistent back pain for the past 3 months. No initial injuries or trauma. No previous history of spinal surgeries or IV drug use. Patient has trialed use of Tylenol, ibuprofen, and CBD with limited relief. Reports pain localized in the lower back, no radiation of pain and no associated numbness, tingling, or weakness. On exam patient is well-appearing and in no acute distress. Vital signs are stable. Cardiopulmonary exam is unremarkable. No tenderness to palpation of the cervical, thoracic, or lumbar spine. No bilateral sacroiliac tenderness bilaterally. Thoracal spinal muscles are nontender bilaterally. Negative straight leg raise test. Based on clinical evaluation and examination, likely suspect uncomplicated musculoskeletal pain. Low concern at this time for sciatica given lack of numbness or tingling. Low concern for disc bulge at this time however cannot rule out without imaging. Low risk for cauda equina given lack of urinary/fecal incontinence and no saddle anesthesia. At this time we will treat symptomatically with naproxen 250 mg 1-2 times daily as needed for acute pain. For muscle spasm will treat with tizanidine 2 mg every 6-8 hours as needed for spasm. Discussed proper use of the medications and potential side effects. Will also obtain lumbar spine x-ray for further evaluation. Discussed red flag signs of back pain requiring ED evaluation. Patient understanding, all patient questions answered at this time. # PCOS: No current therapy at this time. Previously was following with [facility] infertility center in [place], reports that specialist no longer takes her insurance. Will create new referral. # Hyperlipidemia: Lipid panel on 08/28/2024 with [...] continue to monitor. Blood pressure stable in office. # H. pylori infection: Patient follows with [facility] gastroenterology. Found to have positive stool culture for H. pylori antigens on 10/01/2024. Has now finished triple antibiotic therapy, reports no further abdominal pain or acid reflux. Will continue to monitor. Continue follow-up with GI. All questions have been answered to patient's satisfaction. Patient verbalized understanding of diagnosis and treatments explained. Advised to call sooner prior to next visit it any questions/concerns arise. Case discussed with collaborating physician Bhargavi Pedraza who reviewed the assessment and plan. Chart, medications, labs, vital signs reviewed. Dictation was accomplished with the use of [employer] voice recognition software, which is prone to medical misidentifications and grammatical errors. This are unintentional and the practitioner does try to identify and correct these, but some could still be present. Please do not hesitate to contact practitioner for clarification. 01/29/2025 Hair loss (ICD-10 - L65.9) Patient is a 24-year-old female with history of PCOS, acid reflux, lordosis, and H. pylori infection who presents today for urgent visit for chronic intermittent rash and acute hair loss. Patient reports that rash has been present for the past 5 months and is transient. Reports no rash present during visit today. She has been mindful about detergents, creams, cosmetics, and perfumes however unable to identify etiology of rash. Does find that rash gets worse with heat from hot showers. Has been using an joji-zbv-nglvbtw itch spray when necessary. Reports no mucosal involvement. She also reports concern regarding hair loss for 1 month. Reports no patches on her scalp however states that when styling and brushing more hair is coming out in clumps. Has associated scalp itchiness. States that she has tried a prescription ketoconazole shampoo before for similar symptoms which was ineffective. On exam the patient is well-appearing and in no acute distress. Vital signs are stable. Exam of the patient's skin reveals no acute rash at this time. Examination of the patient's scalp reveals no patches of hair loss however there is widespread white patches of dry skin and generalized dandruff. No bleeding or crusting lesions. Based on assessment and examination, unclear for why the patient may be having rash. There are no hypopigmented lesions on the patient's upper extremities which could indicate tinea versicolor. Examination of her scalp appears consistent with seborrheic dermatitis. At this time we will trial topical betamethasone valerate foam, patient can use the topical steroid daily for 2 weeks and then intermittently twice weekly. Will also trial a ciclopirox 1% shampoo, patient will apply 5 mL to wet hair, lather and leave on the area for 3 minutes, then rinse. Can repeat twice weekly for 4 weeks. For further workup we will also obtain updated TSH, CBC, serum iron, and ferritin levels. Will further refer the patient to [facility] for further assessment and treatment. All patient questions answered at this time. # PCOS: Provided today with referral for gynecology. # Hyperlipidemia: Lipid panel on 08/28/2024 with [...] continue to monitor. Blood pressure stable in office. # H. pylori infection: Patient follows with [facility] gastro[facility]. Found to have positive stool culture for H. pylori antigens on 10/01/2024. Has now finished triple antibiotic therapy, reports no further abdominal pain or acid reflux. Will continue to monitor. Continue follow-up with GI. All questions have been answered to patient's satisfaction. Patient verbalized understanding of diagnosis and treatments explained. Advised to call sooner prior to next visit it any questions/concerns arise. Case discussed with collaborating physician Bhargavi Pedraza who reviewed the assessment and plan. Chart, medications, labs, vital signs reviewed. Dictation was accomplished with the use of [employer] voice recognition software, which is prone to medical misidentifications and grammatical errors. This are unintentional and the practitioner does try to identify and correct these, but some could still be present. Please do not hesitate to contact practitioner for clarification. 01/29/2025 Seborrheic dermatitis (ICD-10 - L21.9) Patient is a 24-year-old female with history of PCOS, acid reflux, lordosis, and H. pylori infection who presents today for urgent visit for chronic intermittent rash and acute hair loss. Patient reports that rash has been present for the past 5 months and is transient. Reports no rash present during visit today. She has been mindful about detergents, creams, cosmetics, and perfumes however unable to identify etiology of rash. Does find that rash gets worse with heat from hot showers. Has been using an dtwx-yhd-fiovnrr itch spray when necessary. Reports no mucosal involvement. She also reports concern regarding hair loss for 1 month. Reports no patches on her scalp however states that when styling and brushing more hair is coming out in clumps. Has associated scalp itchiness. States that she has tried a prescription ketoconazole shampoo before for similar symptoms which was ineffective. On exam the patient is well-appearing and in no acute distress. Vital signs are stable. Exam of the patient's skin reveals no acute rash at this time. Examination of the patient's scalp reveals no patches of hair loss however there is widespread white patches of dry skin and generalized dandruff. No bleeding or crusting lesions. Based on assessment and examination, unclear for why the patient may be having rash. There are no hypopigmented lesions on the patient's upper extremities which could indicate tinea versicolor. Examination of her scalp appears consistent with seborrheic dermatitis. At this time we will trial topical betamethasone valerate foam, patient can use the topical steroid daily for 2 weeks and then intermittently twice weekly. Will also trial a ciclopirox 1% shampoo, patient will apply 5 mL to wet hair, lather and leave on the area for 3 minutes, then rinse. Can repeat twice weekly for 4 weeks. For further workup we will also obtain updated TSH, CBC, serum iron, and ferritin levels. Will further refer the patient to [facility] for further assessment and treatment. All patient questions answered at this time. # PCOS: Provided today with referral for gynecology. # Hyperlipidemia: Lipid panel on 08/28/2024 with [...] continue to monitor. Blood pressure stable in office. # H. pylori infection: Patient follows with [facility] gastro[facility]. Found to have positive stool culture for H. pylori antigens on 10/01/2024. Has now finished triple antibiotic therapy, reports no further abdominal pain or acid reflux. Will continue to monitor. Continue follow-up with GI. All questions have been answered to patient's satisfaction. Patient verbalized understanding of diagnosis and treatments explained. Advised to call sooner prior to next visit it any questions/concerns arise. Case discussed with collaborating physician Bhargavi Pedraza who reviewed the assessment and plan. Chart, medications, labs, vital signs reviewed. Dictation was accomplished with the use of [employer] voice recognition software, which is prone to medical misidentifications and grammatical errors. This are unintentional and the practitioner does try to identify and correct these, but some could still be present. Please do not hesitate to contact practitioner for clarification. 02/10/2025 BMI 23.0-23.9, adult (ICD-10 - Z68.23) Patient is here for weight management follow-up. [...] office in 4 weeks for further management. 02/10/2025: Weight 147 pounds, BMI 23.02. Seca scan completed and discussed with the patient. Patient is down 12 pounds from her last visit in October. On body analysis she is down 12 pounds of fat mass. Fat mass index today is 8.7 which is within normal limits, previously 10.7. She is maintaining 42 pounds of muscle mass. Visceral adiposity is 0.8 L, reduced from 1.5. Patient currently is on Zepbound 5 mg weekly. No adverse effects. Discussed goals of diet and exercise. Plan is to maintain current dose and follow-up in 4 to 6 weeks. # Low back pain: Patient reporting pain in her lower back for the past 3 weeks. On and off in duration. Reports no injuries or strains to her knowledge. Does move a lot in her sleep. On exam there is no tenderness to palpation of the cervical, thoracic, or lumbar spine. Some tenderness to palpation of the left sacroiliac joint. Discussed measures including [id number] Tylenol or Profen for pain relief as well as importance of increasing her physical activity and stretching to manage symptoms. Will continue to monitor. # PCOS: No current medication therapy. Patient does follow with [facility] infertility center in [place]. Will continue to monitor. 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 pylori stool antigens on 10/01/2024. Patient has finished triple antibiotic therapy, now needs to repeat her stool antigen studies and then will follow-up shortly afterwards with gastroenterology. Taking omeprazole daily as needed for acid reflux. Patient is to follow-up with her excavating machine operator after stool studies. Reports several cases of [...] Dictation was accomplished with the use of [employer] voice recognition software, which is prone to medical misidentifications and grammatical errors. This are unintentional and the practitioner does try to identify and correct these, but some could still be present. Please do not hesitate to contact practitioner for clarification. 03/10/2025 Ganglion, left hand (ICD-10 - M67.442) Patient is a 24-year-old female who presents today for urgent visit for a bump on the palm of her left hand that has waxed and waned for the past 3 years. Reports that the lump will appear with associated pain, can be present for a few months, then will resolve on its own. She reports no associated numbness or tingling of the hand. States that sometimes her hand has a bruised appearance. Has full range of motion. She reports no constitutional symptoms including fevers or chills. Denies injury or trauma to the extremity. On exam the patient is well-appearing and in no acute distress, vital signs are stable and cardiopulmonary exam unremarkable. Examination of the patient's left hand reveals a approximate 3 x 3 mm circular mass on the palmar surface at the base of the thumb that is tender to palpation. Overlying skin on erythematous. Potentially a ganglion cyst. For further evaluation and treatment will refer to hand surgery. Discussed red flag signs that require ED evaluation, all patient questions answered at this time. # Low back pain: X-ray of her lumbar spine on 12/26/2024 obtained for pain reveals no significant disc narrowing and some straightening of the spine consistent with lordosis. Discussed benefit of strengthening her core to improve pain. Continue analgesic medications including naproxen twice daily as needed for pain and tizanidine 2 mg every 6 hours as needed for muscle spasm. Will continue to monitor. # PCOS: No current medication therapy. Patient does follow with [facility] infertility center in [place]. Will continue to monitor. 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 pylori stool antigens on 10/01/2024. Patient has finished triple antibiotic therapy, now needs to repeat her stool antigen studies and then will follow-up shortly afterwards with gastroenterology. Taking omeprazole daily as needed for acid reflux. Patient is to follow-up with her excavating machine operator after stool studies. Reports several cases of H. pylori infection in the past. Will continue to follow with GI. # Nutritional counseling: Continue Zepbound 5 mg subcutaneous injection weekly. Next follow-up on 03/24/2025. All questions have been answered to patient's satisfaction. Patient verbalized understanding of diagnosis and treatments explained. Advised to call sooner prior to next visit it any questions/concerns arise. Case discussed with collaborating physician Bhargavi Pedraza who reviewed the assessment and plan. Chart, medications, labs, vital signs reviewed. Dictation was accomplished with the use of [employer] voice recognition software, which is prone to medical misidentifications and grammatical errors. This are unintentional and the practitioner does try to identify and correct these, but some could still be present. Please do not hesitate to contact practitioner for clarification. 03/10/2025 Raynaud's disease without gangrene (ICD-10 - I73.00) Patient is a 24-year-old female who presents today for urgent visit for a bump on the palm of her left hand that has waxed and waned for the past 3 years. Reports that the lump will appear with associated pain, can be present for a few months, then will resolve on its own. She reports no associated numbness or tingling of the hand. States that sometimes her hand has a bruised appearance. Has full range of motion. She reports no constitutional symptoms including fevers or chills. Denies injury or trauma to the extremity. On exam the patient is well-appearing and in no acute distress, vital signs are stable and cardiopulmonary exam unremarkable. Examination of the patient's left hand reveals a approximate 3 x 3 mm circular mass on the palmar surface at the base of the thumb that is tender to palpation. Overlying skin on erythematous. Potentially a ganglion cyst. For further evaluation and treatment will refer to hand surgery. Discussed red flag signs that require ED evaluation, all patient questions answered at this time. # Low back pain: X-ray of her lumbar spine on 12/26/2024 obtained for pain reveals no significant disc narrowing and some straightening of the spine consistent with lordosis. Discussed benefit of strengthening her core to improve pain. Continue analgesic medications including naproxen twice daily as needed for pain and tizanidine 2 mg every 6 hours as needed for muscle spasm. Will continue to monitor. # PCOS: No current medication therapy. Patient does follow with [facility] infertility center in [place]. Will continue to monitor. 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 pylori stool antigens on 10/01/2024. Patient has finished triple antibiotic therapy, now needs to repeat her stool antigen studies and then will follow-up shortly afterwards with gastroenterology. Taking omeprazole daily as needed for acid reflux. Patient is to follow-up with her excavating machine operator after stool studies. Reports several cases of H. pylori infection in the past. Will continue to follow with GI. # Nutritional counseling: Continue Zepbound 5 mg subcutaneous injection weekly. Next follow-up on 03/24/2025. All questions have been answered to patient's satisfaction. Patient verbalized understanding of diagnosis and treatments explained. Advised to call sooner prior to next visit it any questions/concerns arise. Case discussed with collaborating physician Bhargavi Pedraza who reviewed the assessment and plan. Chart, medications, labs, vital signs reviewed. Dictation was accomplished with the use of [employer] voice recognition software, which is prone to medical misidentifications and grammatical errors. This are unintentional and the practitioner does try to identify and correct these, but some could still be present. Please do not hesitate to contact practitioner for clarification. 03/24/2025 BMI 24.0-24.9, adult (ICD-10 - Z68.24) Patient [...] office in 4 weeks for further management. 02/10/2025: Weight 147 pounds, BMI 23.02. Seca scan completed and discussed with the patient. Patient is down 12 pounds from her last visit in October. On body analysis she is down 12 pounds of fat mass. Fat mass index today is 8.7 which is within normal limits, previously 10.7. She is maintaining 42 pounds of muscle mass. Visceral adiposity is 0.8 L, reduced from 1.5. Patient currently is on Zepbound 5 mg weekly. No adverse effects. Discussed goals of diet and exercise. Plan is to maintain current dose and follow-up in 4 to 6 weeks. 03/24/2025: Weight 149 pounds, BMI 24.2. Seca scan completed and discussed results with the patient. She is up approximately 2 pounds since her last visit. On body composition analysis however she is maintaining 53 pounds of fat mass, fat mass index of 8.6. She has had a 3 pound increase of muscle mass which she was congratulated for. Visceral adiposity is stable at 0.9 L. Patient currently on Zepbound 5 mg weekly. Endorsing good tolerance of medication. Has adjusted her goal to reach approximately 10 more pounds weight loss. At this time plan will be to temporarily increase dose 7.5 mg to more efficiently reach goal along with maintaining lifestyle adjustments. Follow-up in approximately 4 to 6 weeks. # Low back pain: Patient reporting pain in her lower back for the past 3 weeks. On and off in duration. Reports no injuries or strains to her knowledge. Does move a lot in her sleep. On exam there is no tenderness to palpation of the cervical, thoracic, or lumbar spine. Some tenderness to palpation of the left sacroiliac joint. Discussed measures including [id number] Tylenol or Profen for pain relief as well as importance of increasing her physical activity and stretching to manage symptoms. Will continue to monitor. # PCOS: No current medication therapy. Patient does follow with [facility] infertility center in [place]. Will continue to monitor. 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 pylori stool antigens on 10/01/2024. Patient has finished triple antibiotic therapy, now needs to repeat her stool antigen studies and then will follow-up shortly afterwards with gastroenterology. Taking omeprazole daily as needed for acid reflux. Patient is to follow-up with her excavating machine operator after stool studies. Reports several cases of H. pylori infection in the past. Will continue to follow with GI. # Sore throat: Patient reports having gone to urgent care for symptoms of sore throat, diagnosed with bacterial strep and treated with 10 days of penicillin. Patient continued to have symptoms and was evaluated again by urgent care who refilled medication for 5 more days. Today she reports continued sore throat as well as fatigue and right-sided neck swelling. On exam, the tonsils are enlarged and erythematous bilaterally, no exudates seen. No uvular deviation. There is right-sided anterior cervical lymphadenopathy and lymphadenitis. Based on history and examination, high suspicion for mononucleosis. Will obtain Monospot testing. Discussed that symptoms will be continuing rest, hydration, proper nutrition, and as needed Tylenol and ibuprofen. Discussed that can take several weeks to recover. Discussed that if mononucleosis to avoid contact activity until feeling better. All questions have been answered to patient's satisfaction. Patient verbalized understanding of diagnosis and treatments explained. Advised to call sooner prior to next visit it any questions/concerns arise. Case discussed with collaborating physician Bhargavi Pedraza who reviewed the assessment and plan. Chart, medications, labs, vital signs reviewed. Dictation was accomplished with the use of [employer] voice recognition software, which is prone to medical misidentifications and grammatical errors. This are unintentional and the practitioner does try to identify and correct these, but some could still be present. Please do not hesitate to contact practitioner for clarification. 05/27/2025 BMI 22.0-22.9, adult (ICD-10 - Z68.22) Patient is here for weight management follow-up. [...] office in 4 weeks for further management. 02/10/2025: Weight 147 pounds, BMI 23.02. Seca scan completed and discussed with the patient. Patient is down 12 pounds from her last visit in October. On body analysis she is down 12 pounds of fat mass. Fat mass index today is 8.7 which is within normal limits, previously 10.7. She is maintaining 42 pounds of muscle mass. Visceral adiposity is 0.8 L, reduced from 1.5. Patient currently is on Zepbound 5 mg weekly. No adverse effects. Discussed goals of diet and exercise. Plan is to maintain current dose and follow-up in 4 to 6 weeks. 03/24/2025: Weight 149 pounds, BMI 24.2. Seca scan completed and discussed results with the patient. She is up approximately 2 pounds since her last visit. On body composition analysis however she is maintaining 53 pounds of fat mass, fat mass index of 8.6. She has had a 3 pound increase of muscle mass which she was congratulated for. Visceral adiposity is stable at 0.9 L. Patient currently on Zepbound 5 mg weekly. Endorsing good tolerance of medication. Has adjusted her goal to reach approximately 10 more pounds weight loss. At this time plan will be to temporarily increase dose 7.5 mg to more efficiently reach goal along with maintaining lifestyle adjustments. Follow-up in approximately 4 to 6 weeks. 05/27/2025: Weight 145 pounds, BMI 22.71. Seca scan completed and discussed results with the patient. Patient is down 4 pounds from last visit. On body composition analysis fat mass is largely stable, index today of 8.7. Muscle mass has reduced by 6 pounds. No longer has high composition. Discussed importance of increasing intensity weight training and adding more protein into diet. Patient understanding. Visceral adiposity stable at 0.9 L. Currently on Zepbound 7.5 mg weekly. Will maintain this dose and follow-up in 6 weeks. # PCOS: No current medication therapy. Patient does follow with [facility] infertility center in [place]. Will continue to monitor. # Hyperlipidemia: Lipid [...] 3 times daily. Will continue to monitor. # Ingrown toenail: Patient reports bilateral great toenail are ingrown. Attempts to treat with regular pedicures. Will refer to podiatry. All questions have been answered to patient's satisfaction. Patient verbalized understanding of diagnosis and treatments explained. Advised to call sooner prior to next visit it any questions/concerns arise. Case discussed with collaborating physician Bhargavi Pedraza who reviewed the assessment and plan. Chart, medications, labs, vital signs reviewed. Dictation was accomplished with the use of [employer] voice recognition software, which is prone to medical misidentifications and grammatical errors. This are unintentional and the practitioner does try to identify and correct these, but some could still be present. Please do not hesitate to contact practitioner for clarification. 05/27/2025 PCOS (polycystic ovarian syndrome) (ICD-10 - E28.2) [...] office in 4 weeks for further management. 02/10/2025: Weight 147 pounds, BMI 23.02. Seca scan completed and discussed with the patient. Patient is down 12 pounds from her last visit in October. On body analysis she is down 12 pounds of fat mass. Fat mass index today is 8.7 which is within normal limits, previously 10.7. She is maintaining 42 pounds of muscle mass. Visceral adiposity is 0.8 L, reduced from 1.5. Patient currently is on Zepbound 5 mg weekly. No adverse effects. Discussed goals of diet and exercise. Plan is to maintain current dose and follow-up in 4 to 6 weeks. 03/24/2025: Weight 149 pounds, BMI 24.2. Seca scan completed and discussed results with the patient. She is up approximately 2 pounds since her last visit. On body composition analysis however she is maintaining 53 pounds of fat mass, fat mass index of 8.6. She has had a 3 pound increase of muscle mass which she was congratulated for. Visceral adiposity is stable at 0.9 L. Patient currently on Zepbound 5 mg weekly. Endorsing good tolerance of medication. Has adjusted her goal to reach approximately 10 more pounds weight loss. At this time plan will be to temporarily increase dose 7.5 mg to more efficiently reach goal along with maintaining lifestyle adjustments. Follow-up in approximately 4 to 6 weeks. 05/27/2025: Weight 145 pounds, BMI 22.71. Seca scan completed and discussed results with the patient. Patient is down 4 pounds from last visit. On body composition analysis fat mass is largely stable, index today of 8.7. Muscle mass has reduced by 6 pounds. No longer has high composition. Discussed importance of increasing intensity weight training and adding more protein into diet. Patient understanding. Visceral adiposity stable at 0.9 L. Currently on Zepbound 7.5 mg weekly. Will maintain this dose and follow-up in 6 weeks. # PCOS: No current medication therapy. Patient does follow with [facility] infertility center in [place]. Will continue to monitor. # Hyperlipidemia: Lipid [...] 3 times daily. Will continue to monitor. # Ingrown toenail: Patient reports bilateral great toenail are ingrown. Attempts to treat with regular pedicures. Will refer to podiatry. All questions have been answered to patient's satisfaction. Patient verbalized understanding of diagnosis and treatments explained. Advised to call sooner prior to next visit it any questions/concerns arise. Case discussed with collaborating physician Bhargavi Pedraza who reviewed the assessment and plan. Chart, medications, labs, vital signs reviewed. Dictation was accomplished with the use of [employer] voice recognition software, which is prone to medical misidentifications and grammatical errors. This are unintentional and the practitioner does try to identify and correct these, but some could still be present. Please do not hesitate to contact practitioner for clarification. 03/24/2025 PCOS (polycystic ovarian syndrome) (ICD-10 - E28.2) [...] office in 4 weeks for further management. 02/10/2025: Weight 147 pounds, BMI 23.02. Seca scan completed and discussed with the patient. Patient is down 12 pounds from her last visit in October. On body analysis she is down 12 pounds of fat mass. Fat mass index today is 8.7 which is within normal limits, previously 10.7. She is maintaining 42 pounds of muscle mass. Visceral adiposity is 0.8 L, reduced from 1.5. Patient currently is on Zepbound 5 mg weekly. No adverse effects. Discussed goals of diet and exercise. Plan is to maintain current dose and follow-up in 4 to 6 weeks. 03/24/2025: Weight 149 pounds, BMI 24.2. Seca scan completed and discussed results with the patient. She is up approximately 2 pounds since her last visit. On body composition analysis however she is maintaining 53 pounds of fat mass, fat mass index of 8.6. She has had a 3 pound increase of muscle mass which she was congratulated for. Visceral adiposity is stable at 0.9 L. Patient currently on Zepbound 5 mg weekly. Endorsing good tolerance of medication. Has adjusted her goal to reach approximately 10 more pounds weight loss. At this time plan will be to temporarily increase dose 7.5 mg to more efficiently reach goal along with maintaining lifestyle adjustments. Follow-up in approximately 4 to 6 weeks. # Low back pain: Patient reporting pain in her lower back for the past 3 weeks. On and off in duration. Reports no injuries or strains to her knowledge. Does move a lot in her sleep. On exam there is no tenderness to palpation of the cervical, thoracic, or lumbar spine. Some tenderness to palpation of the left sacroiliac joint. Discussed measures including [id number]-[id number] Tylenol or Profen for pain relief as well as importance of increasing her physical activity and stretching to manage symptoms. Will continue to monitor. # PCOS: No current medication therapy. Patient does follow with [facility] infertility center in [place]. Will continue to monitor. 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 pylori stool antigens on 10/01/2024. Patient has finished triple antibiotic therapy, now needs to repeat her stool antigen studies and then will follow-up shortly afterwards with gastroenterology. Taking omeprazole daily as needed for acid reflux. Patient is to follow-up with her excavating machine operator after stool studies. Reports several cases of H. pylori infection in the past. Will continue to follow with GI. # Sore throat: Patient reports having gone to urgent care for symptoms of sore throat, diagnosed with bacterial strep and treated with 10 days of penicillin. Patient continued to have symptoms and was evaluated again by urgent care who refilled medication for 5 more days. Today she reports continued sore throat as well as fatigue and right-sided neck swelling. On exam, the tonsils are enlarged and erythematous bilaterally, no exudates seen. No uvular deviation. There is right-sided anterior cervical lymphadenopathy and lymphadenitis. Based on history and examination, high suspicion for mononucleosis. Will obtain Monospot testing. Discussed that symptoms will be continuing rest, hydration, proper nutrition, and as needed Tylenol and ibuprofen. Discussed that can take several weeks to recover. Discussed that if mononucleosis to avoid contact activity until feeling better. All questions have been answered to patient's satisfaction. Patient verbalized understanding of diagnosis and treatments explained. Advised to call sooner prior to next visit it any questions/concerns arise. Case discussed with collaborating physician Bhargavi Pedraza who reviewed the assessment and plan. Chart, medications, labs, vital signs reviewed. Dictation was accomplished with the use of [employer] voice recognition software, which is prone to medical misidentifications and grammatical errors. This are unintentional and the practitioner does try to identify and correct these, but some could still be present. Please do not hesitate to contact practitioner for clarification. 02/10/2025 PCOS (polycystic ovarian syndrome) (ICD-10 - E28.2) [...] office in 4 weeks for further management. 02/10/2025: Weight 147 pounds, BMI 23.02. Seca scan completed and discussed with the patient. Patient is down 12 pounds from her last visit in October. On body analysis she is down 12 pounds of fat mass. Fat mass index today is 8.7 which is within normal limits, previously 10.7. She is maintaining 42 pounds of muscle mass. Visceral adiposity is 0.8 L, reduced from 1.5. Patient currently is on Zepbound 5 mg weekly. No adverse effects. Discussed goals of diet and exercise. Plan is to maintain current dose and follow-up in 4 to 6 weeks. # Low back pain: Patient reporting pain in her lower back for the past 3 weeks. On and off in duration. Reports no injuries or strains to her knowledge. Does move a lot in her sleep. On exam there is no tenderness to palpation of the cervical, thoracic, or lumbar spine. Some tenderness to palpation of the left sacroiliac joint. Discussed measures including [id number]-[id number] Tylenol or Profen for pain relief as well as importance of increasing her physical activity and stretching to manage symptoms. Will continue to monitor. # PCOS: No current medication therapy. Patient does follow with [facility] infertility center in [place]. Will continue to monitor. 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 pylori stool antigens on 10/01/2024. Patient has finished triple antibiotic therapy, now needs to repeat her stool antigen studies and then will follow-up shortly afterwards with gastroenterology. Taking omeprazole daily as needed for acid reflux. Patient is to follow-up with her excavating machine operator after stool studies. Reports several cases of [...] Dictation was accomplished with the use of [employer] voice recognition software, which is prone to medical misidentifications and grammatical errors. This are unintentional and the practitioner does try to identify and correct these, but some could still be present. Please do not hesitate to contact practitioner for clarification. 03/10/2025 PCOS (polycystic ovarian syndrome) (ICD-10 - E28.2) Patient is a 24-year-old female who presents today for urgent visit for a bump on the palm of her left hand that has waxed and waned for the past 3 years. Reports that the lump will appear with associated pain, can be present for a few months, then will resolve on its own. She reports no associated numbness or tingling of the hand. States that sometimes her hand has a bruised appearance. Has full range of motion. She reports no constitutional symptoms including fevers or chills. Denies injury or trauma to the extremity. On exam the patient is well-appearing and in no acute distress, vital signs are stable and cardiopulmonary exam unremarkable. Examination of the patient's left hand reveals a approximate 3 x 3 mm circular mass on the palmar surface at the base of the thumb that is tender to palpation. Overlying skin on erythematous. Potentially a ganglion cyst. For further evaluation and treatment will refer to hand surgery. Discussed red flag signs that require ED evaluation, all patient questions answered at this time. # Low back pain: X-ray of her lumbar spine on 12/26/2024 obtained for pain reveals no significant disc narrowing and some straightening of the spine consistent with lordosis. Discussed benefit of strengthening her core to improve pain. Continue analgesic medications including naproxen twice daily as needed for pain and tizanidine 2 mg every 6 hours as needed for muscle spasm. Will continue to monitor. # PCOS: No current medication therapy. Patient does follow with [facility] infertility center in [place]. Will continue to monitor. 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 pylori stool antigens on 10/01/2024. Patient has finished triple antibiotic therapy, now needs to repeat her stool antigen studies and then will follow-up shortly afterwards with gastroenterology. Taking omeprazole daily as needed for acid reflux. Patient is to follow-up with her excavating machine operator after stool studies. Reports several cases of H. pylori infection in the past. Will continue to follow with GI. # Nutritional counseling: Continue Zepbound 5 mg subcutaneous injection weekly. Next follow-up on 03/24/2025. All questions have been answered to patient's satisfaction. Patient verbalized understanding of diagnosis and treatments explained. Advised to call sooner prior to next visit it any questions/concerns arise. Case discussed with collaborating physician Bhargavi Pedraza who reviewed the assessment and plan. Chart, medications, labs, vital signs reviewed. Dictation was accomplished with the use of [employer] voice recognition software, which is prone to medical misidentifications and grammatical errors. This are unintentional and the practitioner does try to identify and correct these, but some could still be present. Please do not hesitate to contact practitioner for clarification. 02/10/2025 Nutritional counseling (ICD-10 - Z71.3) Patient is [...] office in 4 weeks for further management. 02/10/2025: Weight 147 pounds, BMI 23.02. Seca scan completed and discussed with the patient. Patient is down 12 pounds from her last visit in October. On body analysis she is down 12 pounds of fat mass. Fat mass index today is 8.7 which is within normal limits, previously 10.7. She is maintaining 42 pounds of muscle mass. Visceral adiposity is 0.8 L, reduced from 1.5. Patient currently is on Zepbound 5 mg weekly. No adverse effects. Discussed goals of diet and exercise. Plan is to maintain current dose and follow-up in 4 to 6 weeks. # Low back pain: Patient reporting pain in her lower back for the past 3 weeks. On and off in duration. Reports no injuries or strains to her knowledge. Does move a lot in her sleep. On exam there is no tenderness to palpation of the cervical, thoracic, or lumbar spine. Some tenderness to palpation of the left sacroiliac joint. Discussed measures including [id number]-wwbjhxo Tylenol or Profen for pain relief as well as importance of increasing her physical activity and stretching to manage symptoms. Will continue to monitor. # PCOS: No current medication therapy. Patient does follow with [facility] infertility center in [place]. Will continue to monitor. 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 pylori stool antigens on 10/01/2024. Patient has finished triple antibiotic therapy, now needs to repeat her stool antigen studies and then will follow-up shortly afterwards with gastroenterology. Taking omeprazole daily as needed for acid reflux. Patient is to follow-up with her excavating machine operator after stool studies. Reports several cases of [...] Dictation was accomplished with the use of [employer] voice recognition software, which is prone to medical misidentifications and grammatical errors. This are unintentional and the practitioner does try to identify and correct these, but some could still be present. Please do not hesitate to contact practitioner for clarification. 01/29/2025 PCOS (polycystic ovarian syndrome) (ICD-10 - E28.2) Patient is a 24-year-old female with history of PCOS, acid reflux, lordosis, and H. pylori infection who presents today for urgent visit for chronic intermittent rash and acute hair loss. Patient reports that rash has been present for the past 5 months and is transient. Reports no rash present during visit today. She has been mindful about detergents, creams, cosmetics, and perfumes however unable to identify etiology of rash. Does find that rash gets worse with heat from hot showers. Has been using an jclw-kcs-cpyzysb itch spray when necessary. Reports no mucosal involvement. She also reports concern regarding hair loss for 1 month. Reports no patches on her scalp however states that when styling and brushing more hair is coming out in clumps. Has associated scalp itchiness. States that she has tried a prescription ketoconazole shampoo before for similar symptoms which was ineffective. On exam the patient is well-appearing and in no acute distress. Vital signs are stable. Exam of the patient's skin reveals no acute rash at this time. Examination of the patient's scalp reveals no patches of hair loss however there is widespread white patches of dry skin and generalized dandruff. No bleeding or crusting lesions. Based on assessment and examination, unclear for why the patient may be having rash. There are no hypopigmented lesions on the patient's upper extremities which could indicate tinea versicolor. Examination of her scalp appears consistent with seborrheic dermatitis. At this time we will trial topical betamethasone valerate foam, patient can use the topical steroid daily for 2 weeks and then intermittently twice weekly. Will also trial a ciclopirox 1% shampoo, patient will apply 5 mL to wet hair, lather and leave on the area for 3 minutes, then rinse. Can repeat twice weekly for 4 weeks. For further workup we will also obtain updated TSH, CBC, serum iron, and ferritin levels. Will further refer the patient to [facility] for further assessment and treatment. All patient questions answered at this time. # PCOS: Provided today with referral for gynecology. # Hyperlipidemia: Lipid panel on 08/28/2024 with [...] continue to monitor. Blood pressure stable in office. # H. pylori infection: Patient follows with [facility] [place] gastro[facility]ology. Found to have positive stool culture for H. pylori antigens on 10/01/2024. Has now finished triple antibiotic therapy, reports no further abdominal pain or acid reflux. Will continue to monitor. Continue follow-up with GI. All questions have been answered to patient's satisfaction. Patient verbalized understanding of diagnosis and treatments explained. Advised to call sooner prior to next visit it any questions/concerns arise. Case discussed with collaborating physician Bhargavi Pedraza who reviewed the assessment and plan. Chart, medications, labs, vital signs reviewed. Dictation was accomplished with the use of [employer] [employer] voice recognition software, which is prone to medical misidentifications and grammatical errors. This are unintentional and the practitioner does try to identify and correct these, but some could still be present. Please do not hesitate to contact practitioner for clarification. 12/26/2024 Raynaud's disease without gangrene (ICD-10 - I73.00) Patient is a 24-year-old female with history of PCOS, acid reflux, and antibiotic treated H. pylori infection who presents today for urgent visit for persistent back pain for the past 3 months. No initial injuries or trauma. No previous history of spinal surgeries or IV drug use. Patient has trialed use of Tylenol, ibuprofen, and CBD with limited relief. Reports pain localized in the lower back, no radiation of pain and no associated numbness, tingling, or weakness. On exam patient is well-appearing and in no acute distress. Vital signs are stable. Cardiopulmonary exam is unremarkable. No tenderness to palpation of the cervical, thoracic, or lumbar spine. No bilateral sacroiliac tenderness bilaterally. Thoracal spinal muscles are nontender bilaterally. Negative straight leg raise test. Based on clinical evaluation and examination, likely suspect uncomplicated musculoskeletal pain. Low concern at this time for sciatica given lack of numbness or tingling. Low concern for disc bulge at this time however cannot rule out without imaging. Low risk for cauda equina given lack of urinary/fecal incontinence and no saddle anesthesia. At this time we will treat symptomatically with naproxen 250 mg 1-2 times daily as needed for acute pain. For muscle spasm will treat with tizanidine 2 mg every 6-8 hours as needed for spasm. Discussed proper use of the medications and potential side effects. Will also obtain lumbar spine x-ray for further evaluation. Discussed red flag signs of back pain requiring ED evaluation. Patient understanding, all patient questions answered at this time. # PCOS: No current therapy at this time. Previously was following with [facility] infertility center in [place], reports that specialist no longer takes her insurance. Will create new referral. # Hyperlipidemia: Lipid panel on 08/28/2024 with [...] continue to monitor. Blood pressure stable in office. # H. pylori infection: Patient follows with [facility]. Found to have positive stool culture for H. pylori antigens on 10/01/2024. Has now finished triple antibiotic therapy, reports no further abdominal pain or acid reflux. Will continue to monitor. Continue follow-up with GI. All questions have been answered to patient's satisfaction. Patient verbalized understanding of diagnosis and treatments explained. Advised to call sooner prior to next visit it any questions/concerns arise. Case discussed with collaborating physician Bhargavi Pedraza who reviewed the assessment and plan. Chart, medications, labs, vital signs reviewed. Dictation was accomplished with the use of [employer] voice recognition software, which is prone to [...] the left sacroiliac joint. Discussed measures including [id number] Tylenol or Profen for pain relief as well as importance of increasing her physical activity and stretching to manage symptoms. Will continue to monitor. # PCOS: No current medication therapy. Patient does follow with [facility] infertility center in [place]. Will continue to monitor. 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 pylori stool antigens on 10/01/2024. Patient has finished triple antibiotic therapy, now needs to repeat her stool antigen studies and then will follow-up shortly afterwards with gastroenterology. Taking omeprazole daily as needed for acid reflux. Patient is to follow-up with her excavating machine operator after stool studies. Reports several cases of [...] Dictation was accomplished with the use of [employer] voice recognition software, which is prone to medical misidentifications and grammatical errors. This are unintentional and the practitioner does try to identify and correct these, but some could still be present. Please do not hesitate to contact practitioner for clarification. 11/11/2024 PCOS (polycystic ovarian syndrome) (ICD-10 - E28.2) [...] office in 4 weeks for further management. # Low back pain: Patient reporting pain in her lower back for the past 3 weeks. On and off in duration. Reports no injuries or strains to her knowledge. Does move a lot in her sleep. On exam there is no tenderness to palpation of the cervical, thoracic, or lumbar spine. Some tenderness to palpation of the left sacroiliac joint. Discussed measures including [id number] Tylenol or Profen for pain relief as well as importance of increasing her physical activity and stretching to manage symptoms. Will continue to monitor. # PCOS: No current medication therapy. Patient does follow with [facility] infertility center in [place]. Will continue to monitor. 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 pylori stool antigens on 10/01/2024. Patient has finished triple antibiotic therapy, now needs to repeat her stool antigen studies and then will follow-up shortly afterwards with gastroenterology. Taking omeprazole daily as needed for acid reflux. Patient is to follow-up with her excavating machine operator after stool studies. Reports several cases of [...] Dictation was accomplished with the use of [employer] voice recognition software, which is prone to medical misidentifications and grammatical errors. This are unintentional and the practitioner does try to identify and correct these, but some could still be present. Please do not hesitate to contact practitioner for clarification. 10/23/2024 PCOS (polycystic ovarian syndrome) (ICD-10 - E28.2) Patient seen and examined. Comprehensive discussion was done on the following. # H. 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 pylori stool antigens on 10/01/2024. She is now on triple antibiotic therapy including clarithromycin 500 mg, amoxicillin 500 mg, and metronidazole 500 mg. On second day of course for total 14 days. Continue omeprazole once daily. 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 Reports several cases of H. pylori infection in the past. Will continue to follow with GI. # Hyperpigmentation: Patient reporting darkening of her skin in the skin folds of her arms as well as folds of her upper thighs. No irritation. Does not history of PCOS. We discussed topical agents including tretinoin which is a vitamin A derivative which would be helpful for increasing skin turnover. Advised the patient to use the medication at nighttime and small amounts. Discussed the medication may cause dry skin. Will continue to monitor. # PCOS: No current medication therapy. Patient does follow with [facility] infertility center in [place]. Will continue to monitor. # Hyperlipidemia: Lipid panel on 08/28/2024 with cholesterol 192, triglycerides 124, HDL 56, and LDL 114. ASCVD risk less than 5%. Discussed importance of diet and lifestyle to lower cholesterol levels and prevent other comorbidities. Will continue to monitor. # Vitamin D deficiency: Vitamin D level decreased at 08/26/2024 at 21.5. Discussed the importance of daily supplementation. Will continue to monitor. # Overweight: Weight 164 pounds, BMI 25.68. Patient established in weight management program. Currently on Zepbound 2.5 mg weekly. Next follow-up on 11/11/2024. Will continue to monitor. # Hyperlipidemia: Lipid panel on 08/26/2024 significant for LDL 105. Remainder of values in normal limits. ASCVD risk less than 5%. Discussed lifestyle modifications including increasing consumption of whole foods, fiber intake, vitamin D, turmeric/curcumin, and increasing physical activity. Will continue to monitor. # Raynaud's syndrome continue nifedipine 10 mg 1 capsule 3 times daily. Will continue to monitor. Blood pressure stable in office 116/80. 1. Nutrition: It is important to follow a healthy diet based on lots of vegetables and legumes and good fat. Avoid processed food and processed carbohydrates. Prepare your own meals. Read labels and avoid high fructose corn syrup, processed chemicals added to increase shelf life and preprepared meals. Avoid fast foods. Eat slowly and plan meals for a week. Try to count calories and be mindful off daily calorie intake. Get into the habit of keeping an eye on your weight by using an appropriate scale. Learn to log exercise and discussed fitness Apps like [employer] or [employer] which can help keep log off calories taken versus calories burned. Local food should be preferred. Discussed Dirty Dozen Versus Clean Fifteen. Discussed healthy supplements like fish oil, Tumeric, Curcumin, Melatonin, Resveratrol, Probiotics, Vitamin-D, Alpha-Lipoic acid, Vitamin-D and coconut oil. 2. It is important to exercise regularly. Is a good habit to walk at least 30 minutes a day. Gentle weightlifting with standard precautions to protect the back. Finding activity like cycling or hiking and get into the habit of engaging in it. Stretching before and after the exercises important. It is also important to contact me if there are any problems like shortness of breath, chest pain, back pain and joint or muscle pain associated with the exercise. 3. Discussed age appropriate screening guidelines. Colonoscopy needs to start at age 50 with stool for occult blood as appropriate. There is a new test that can test for genetic abnormalities in the stool sample, Cologuard. This would not replace a colonoscopy but could be used as a screening tool for patients who do not want a colonoscopy. We discussed the importance of early detection of colon cancer. 4. Discussed current guidelines with respect to breast examination, mammogram and pap smear for early detection of breast and cervical cancer. Patient advised to follow up with these appointments. 5. Discussed safe driving and no use of smart phone while driving 6. Age-appropriate immunizations were discussed. A tetanus booster is needed every 10 years. Flu vaccine is recommended every year just before the start of the flu season. Shingles vaccine is recommended after age 50 but not all insurances cover it. Pneumonia vaccine is given after age 65 unless there are certain comorbidities for which it is started earlier. 7. Diagnostic labs were discussed. These could include/not limited to CBC CMP and lipids with fasting blood glucose and insulin levels. Vitamin D and hemoglobin A1c testing might be appropriate. All questions have been answered to patient's satisfaction. Patient verbalized understanding of diagnosis and treatments explained. Advised to call sooner prior to next visit it any questions/concerns arise. Case discussed with collaborating physician Bhargavi Pedraza who reviewed the assessment and plan. Chart, medications, labs, vital signs reviewed. Dictation was accomplished with the use of [employer] voice recognition software, which is prone to medical misidentifications and grammatical errors. This are unintentional and the practitioner does try to identify and correct these, but some could still be present. Please do not hesitate to contact practitioner for clarification. 09/05/2024 Nutritional counseling (ICD-10 - Z71.3) Molly is a 24-year-old female with history of overweight who presents to the office today for weight management consult. Medical history, labs, allergies, medications, and social history reviewed with the patient. Provided education on healthy diet and lifestyle which includes high-protein, low carbohydrate, high-fiber, and a variety of fruits and vegetables. Patient encouraged to exercise with emphasis on resistance training minimum 3 times per week to maintain muscle mass and cardio to burn fat. All patient questions answered. Patient will follow-up in 2 to 4 weeks for weight management. 09/05/2024: Weight 179 pounds, BMI 28.03. SECA [...] office in 4 weeks for further management. # PCOS: No current medication therapy. Patient does follow with [facility] infertility center in [place]. Will continue to monitor. # Acid reflux: Continue famotidine 40 mg once daily as needed for acid reflux. Discussed proper use and side effect profile. Will continue to monitor. # Hyperlipidemia: Lipid panel on 08/28/2024 with cholesterol 192, triglycerides 124, HDL 56, and LDL 114. ASCVD risk less than 5%. Discussed importance of diet and lifestyle to lower cholesterol levels and prevent other comorbidities. Will continue to monitor. # Vitamin D deficiency: Vitamin D level decreased at 08/26/2024 at 21.5. Discussed the importance of daily supplementation. Will continue to monitor. Patient was reassured and welcomed to the practice. We discussed that we stress a hollistic medical approach with emphasis on lifestyle modification. Patient was informed that a healthy lifestyle with exercise and good eating habits can help reduce their risk of medical complications. Patient is explained that obesity increases their risk of diabetes, cardiovascular disease, or organ damage. We spent a lot of time discussing the relationship between food, exercise, sleep, mental health and obesity. Patient was counseled on the importance EATING local, organic food when possible. Patient was educated on clean 15 and dirty dozen. I provided information about reading books called The Food Rules by Kyler Watt and Eat Fat Get Lean by Dr Erasto Rachel. Self education is important in the journey for weight management. Patient was offered diagnostic testing/ SECA scale. We want to measure visceral adiposity, advanced body composition, adverse lipids, fatty acid balance, risk for heart disease and atherosclerosis, markers of inflammation and genetic susceptibility. Patient was counseled on weight management and was advised to lose weight using A. Meal Replacement Products Patient was educated on the replacement products called optifast. This is a good way of taking fixed amount of calories. It has been shown in studies to be ineffective weight management tool. This however has to be coupled with lifestyle intervention as well as laboratory data and EKG monitoring. It is impossible to know how a person will tolerate complete meal replacement. The side effects of meal replacement and weight loss could include syncopal attacks, dizziness, gallstones, potential cholecystectomy, possible heart attack and even . The benefits of meal replacement would be potential weight loss but no guarantees can be made. Meal replacement products are not covered by insurance. Once the patient has bought these products we cannot return them B. Lifestyle management which includes several strategies as below 1. Eat a low carbohydrate good fat good protein diet. Eliminate refined carbohydrates from the diet. Limit sugared beverages. Eat local organic when possible. Cook your own meals. Read food labels. Focus on healthy snacks. Portion control and food with low glycemic index 2. Exercise regularly. Try to get at least 6000 steps a day. Use a predominant to track activity level. Consider using apps like 7 minute excercise, SecureAlertpal, lose it, stick as needed for self-monitoring and weight management. Consider group exercises. Consider hiring a safety trainer. Regular exercise is [place] to sustainable health and prevents as a buffer against weight regain 3. Sleep is most important for healing. Try to sleep at least 6-8 hours a night. A good quality sleep needs a sleep ritual with ideal room temperature of around 68. It might help to take a shower and have no electronics in the room and sleep in a very dark room without artificial light. Start sleep routine and get up early in the morning and go to bed on time. 4. Make a social connection. Surround yourself with positive people with positive energy. Connect with friends and family. 5. Get into the habit of meditating and mindfulness while doing everything. 6. Go outside and connect with nature. C. Prescription medications Patient was educated on the use of prescription medications for medical weight loss. This is a growing list and includes phentermine, Topamax,Qsymia, contrave, belviq and saxenda, wegovy etc. All prescription medications could have side effects including but not limited to kidney stones, seizure disorder cardiac arrhythmias heart attack pancreatitis, GI effects, Etc. Patient was encouraged to read the prescription insert and have coaching with their pharmacist and make an informed decision about taking medication and know that these medications are being prescribed with good intentions and we do not know how a patient would react to the medication. Some medications are FDA approved for weight loss and there is also off label use depending on patient's inability to afford medications in an attempt to lose weight D. Behavioral counseling was done to establish a relationship between food and an mood. Patient was provided information about local counseling and psychiatry and Dr Fung at [facility]. We would like to cover regular topics and build on low glycemic eating exercise mindful eating, using yoga and meditation along with deep breathing and connecting with friends and family. E. MASS PAT reviewed, Patient's current medications were reviewed and opinion was given on medication that can cause weight gain and can be substituted F. Patient was assessed for risk with obesity including and not limiting to atherosclerosis heart disease stroke kidney disease, restrictive lung disease, irritable bowel syndrome and overall mortality. Risk of developing prediabetes diabetes and metabolic syndrome was discussed G. Therapeutic plan: We have decided to make therapeutic plan which would include choosing wisely on calories restricting portion getting active, tracking weight, getting good quality sleep and working on time management H. Patient will follow up in 4 weeks for weight management Total time spent today was 60 minutes of which greater than 50% was spent on coordinating and counseling Case discussed with collaborating physician Diane Pedraza who reviewed the assessment and plan. Chart, medications, labs, vital signs reviewed. Dictation was accomplished with the use of [employer] voice recognition software, prone to medical misidentifications and grammatical errors. This is unintentional and the practitioner does try to identify and correct these, but some could still be present. Please do not hesitate to contact practitioner for clarification. All questions answered to patients satisfaction. Patient verbalized understanding of diagnosis and treatments explained. To call sooner prior to next visit it any questions/concerns arise. Patient was offered diagnostic testing/ SECA scale. We want to measure visceral adiposity, advanced body composition, adverse lipids, fatty acid balance, risk for heart disease and atherosclerosis, markers of inflammation and genetic susceptibility. Patient was counseled on weight management and was advised to lose weight using A. Meal Replacement Products Patient was educated on the replacement products called optifast. This is a good way of taking fixed amount of calories. It has been shown in studies to be ineffective weight management tool. This however has to be coupled with lifestyle intervention as well as laboratory data and EKG monitoring. It is impossible to know how a person will tolerate complete meal replacement. The side effects of meal replacement and weight loss could include syncopal attacks, dizziness, gallstones, potential cholecystectomy, possible heart attack and even . The benefits of meal replacement would be potential weight loss but no guarantees can be made. Meal replacement products are not covered by insurance. Once the patient has bought these products we cannot return them B. Lifestyle management which includes several strategies as below 1. Eat a low carbohydrate good fat good protein diet. Eliminate refined carbohydrates from the diet. Limit sugared beverages. Eat local organic when possible. Cook your own meals. Read food labels. Focus on healthy snacks. Portion control and food with low glycemic index 2. Exercise regularly. Try to get at least 6000 steps a day. Use a predominant to track activity level. Consider using apps like 7 minute excercise, SecureAlertpal, lose it, stick as needed for self-monitoring and weight management. Consider group exercises. Consider hiring a safety trainer. Regular exercise is [place] to sustainable health and prevents as a buffer against weight regain 3. Sleep is most important for healing. Try to sleep at least 6-8 hours a night. A good quality sleep needs a sleep ritual with ideal room temperature of around 68. It might help to take a shower and have no electronics in the room and sleep in a very dark room without artificial light. Start sleep routine and get up early in the morning and go to bed on time. 4. Make a social connection. Surround yourself with positive people with positive energy. Connect with friends and family. 5. Get into the habit of meditating and mindfulness while doing everything. 6. Go outside and connect with nature. C. Prescription medications Patient was educated on the use of prescription medications for medical weight loss. This is a growing list and includes phentermine, Topamax,Qsymia, contrave, belviq and saxenda, wegovy etc. All prescription medications could have side effects including but not limited to kidney stones, seizure disorder cardiac arrhythmias heart attack pancreatitis, GI effects, Etc. Patient was encouraged to read the prescription insert and have coaching with their pharmacist and make an informed decision about taking medication and know that these medications are being prescribed with good intentions and we do not know how a patient would react to the medication. Some medications are FDA approved for weight loss and there is also off label use depending on patient's inability to afford medications in an attempt to lose weight D. Behavioral counseling was done to establish a relationship between food and an mood. Patient was provided information about local counseling and psychiatry and Dr Fugn at [facility]. We would like to cover regular topics and build on low glycemic eating exercise mindful eating, using yoga and meditation along with deep breathing and connecting with friends and family. E. MASS PAT reviewed, Patient's current medications were reviewed and opinion was given on medication that can cause weight gain and can be substituted F. Patient was assessed for risk with obesity including and not limiting to atherosclerosis heart disease stroke kidney disease, restrictive lung disease, irritable bowel syndrome and overall mortality. Risk of developing prediabetes diabetes and metabolic syndrome was discussed G. Therapeutic plan: We have decided to make therapeutic plan which would include choosing wisely on calories restricting portion getting active, tracking weight, getting good quality sleep and working on time management H. Patient will follow up in 4 weeks for weight management Total time spent today was 60 minutes of which greater than 50% was spent on coordinating and counseling After consultation and careful review of medical history, this patient would benefit from Zepbound based off of the following criteria met: Patient is over the age of 18, has a BMI of 28.03. Additional comorbidities include PCOS, hyperlipidemia, acid reflux, and vitamin D deficiency. Patient has trialed other methods of weight loss including improving diet, exercise without success over three months. This medication is prescribed by or in consultation with a board certified obesity and weight management physician (Dr. Liane Pedraza or Dr. Vivi Pedraza) Case discussed with collaborating physician Diane Pedraza who reviewed the assessment and plan. Chart, medications, labs, vital signs reviewed. Dictation was accomplished with the use of [employer] voice recognition software, prone to medical misidentifications and grammatical errors. This is unintentional and the practitioner does try to identify and correct these, but some could still be present. Please do not hesitate to contact practitioner for clarification. All questions answered to patients satisfaction. Patient verbalized understanding of diagnosis and treatments explained. To call sooner prior to next visit it any questions/concerns arise. 08/13/2024 Overweight (BMI 25.0-29.9) (ICD-10 - E66.3) Kaleb is a 23-year-old female who presents to the office today for new patient evaluation. Patient is welcomed to the practice. They are coming from [facility]. Last complete physical exam with labs last year. Medications, medical history, allergies, surgeries, hospitalizations, family history, and social history were reviewed. Problem list updated. Cardiopulmonary and abdominal exam unremarkable. Patient will follow-up in office. All patient questions answered at this time. # Hand cramping: Patient reporting 2-year history of cramping of her hands worse with exposure to cold. On physical exam bilateral extremities without visible deformity. Nontender to palpation of bilateral MCP, DIP, or PIP joints. Negative Tinel's test bilaterally. Given worsening pain with exposure to cold likely suspect Raynaud's phenomenon. To further workup other vasculitis will order ESR, ANCA, complement C3, complement C4, and CRP. Will also obtain vitamin B12 level. At this time will prescribe nifedipine to be taken 10 mg 3 times daily for management of cramping. Discussed proper use of the medication as well as expected side effect profile including but not limited to low blood pressure, headache, dizziness, and flushing. Patient understanding. She will follow-up in approximately 1 month for complete physical exam and will assess effect of the medication. # PCOS: No current medication therapy. Patient does follow with [facility] infertility center in [place]. Will continue to monitor. # Acid reflux: Patient reporting intermittent upper abdominal pain, states consistent with heartburn. Will prescribe famotidine 40 mg to be used once daily as needed for acid reflux. Discussed proper use of the medication and expected side effect profile including but not limited to headache, dizziness, constipation. Will also refer to gastroenterology for further management. Will continue to monitor. # Overweight: Weight 180 pounds, BMI 28.19. Discussed importance of diet and lifestyle in maintaining healthy weight for the patient and preventing other comorbidities. Will continue to monitor. All questions have been answered to patient's satisfaction. Patient verbalized understanding of diagnosis and treatments explained. Advised to call sooner prior to next visit it any questions/concerns arise. Case discussed with collaborating physician Bhargavi Pedraza who reviewed the assessment and plan. Chart, medications, labs, vital signs reviewed. Dictation was accomplished with the use of [employer] voice recognition software, which is prone to medical misidentifications and grammatical errors. This are unintentional and the practitioner does try to identify and correct these, but some could still be present. Please do not hesitate to contact practitioner for clarification. 08/13/2024 PCOS (polycystic ovarian syndrome) (ICD-10 - E28.2) Kaleb is a 23-year-old female who presents to the office today for new patient evaluation. Patient is welcomed to the practice. They are coming from [facility]. Last complete physical exam with labs last year. Medications, medical history, allergies, surgeries, hospitalizations, family history, and social history were reviewed. Problem list updated. Cardiopulmonary and abdominal exam unremarkable. Patient will follow-up in office. All patient questions answered at this time. # Hand cramping: Patient reporting 2-year history of cramping of her hands worse with exposure to cold. On physical exam bilateral extremities without visible deformity. Nontender to palpation of bilateral MCP, DIP, or PIP joints. Negative Tinel's test bilaterally. Given worsening pain with exposure to cold likely suspect Raynaud's phenomenon. To further workup other vasculitis will order ESR, ANCA, complement C3, complement C4, and CRP. Will also obtain vitamin B12 level. At this time will prescribe nifedipine to be taken 10 mg 3 times daily for management of cramping. Discussed proper use of the medication as well as expected side effect profile including but not limited to low blood pressure, headache, dizziness, and flushing. Patient understanding. She will follow-up in approximately 1 month for complete physical exam and will assess effect of the medication. # PCOS: No current medication therapy. Patient does follow with [facility] infertility center in [place]. Will continue to monitor. # Acid reflux: Patient reporting intermittent upper abdominal pain, states consistent with heartburn. Will prescribe famotidine 40 mg to be used once daily as needed for acid reflux. Discussed proper use of the medication and expected side effect profile including but not limited to headache, dizziness, constipation. Will also refer to gastroenterology for further management. Will continue to monitor. # Overweight: Weight 180 pounds, BMI 28.19. Discussed importance of diet and lifestyle in maintaining healthy weight for the patient and preventing other comorbidities. Will continue to monitor. All questions have been answered to patient's satisfaction. Patient verbalized understanding of diagnosis and treatments explained. Advised to call sooner prior to next visit it any questions/concerns arise. Case discussed with collaborating physician Bhargavi Pedraza who reviewed the assessment and plan. Chart, medications, labs, vital signs reviewed. Dictation was accomplished with the use of [employer] voice recognition software, which is prone to medical misidentifications and grammatical errors. This are unintentional and the practitioner does try to identify and correct these, but some could still be present. Please do not hesitate to contact practitioner for clarification. 09/05/2024 Elevated LDL cholesterol level (ICD-10 - E78.00) Molly is a 24-year-old female with history of overweight who presents to the office today for weight management consult. Medical history, labs, allergies, medications, and social history reviewed with the patient. Provided education on healthy diet and lifestyle which includes high-protein, low carbohydrate, high-fiber, and a variety of fruits and vegetables. Patient encouraged to exercise with emphasis on resistance training minimum 3 times per week to maintain muscle mass and cardio to burn fat. All patient questions answered. Patient will follow-up in 2 to 4 weeks for weight management. 09/05/2024: Weight 179 pounds, BMI 28.03. SECA [...] office in 4 weeks for further management. # PCOS: No current medication therapy. Patient does follow with [facility] infertility center in [place]. Will continue to monitor. # Acid reflux: Continue famotidine 40 mg once daily as needed for acid reflux. Discussed proper use and side effect profile. Will continue to monitor. # Hyperlipidemia: Lipid panel on 08/28/2024 with cholesterol 192, triglycerides 124, HDL 56, and LDL 114. ASCVD risk less than 5%. Discussed importance of diet and lifestyle to lower cholesterol levels and prevent other comorbidities. Will continue to monitor. # Vitamin D deficiency: Vitamin D level decreased at 08/26/2024 at 21.5. Discussed the importance of daily supplementation. Will continue to monitor. Patient was reassured and welcomed to the practice. We discussed that we stress a hollistic medical approach with emphasis on lifestyle modification. Patient was informed that a healthy lifestyle with exercise and good eating habits can help reduce their risk of medical complications. Patient is explained that obesity increases their risk of diabetes, cardiovascular disease, or organ damage. We spent a lot of time discussing the relationship between food, exercise, sleep, mental health and obesity. Patient was counseled on the importance EATING local, organic food when possible. Patient was educated on clean 15 and dirty dozen. I provided information about reading books called The Food Rules by Kyler Watt and Eat Fat Get Lean by Dr Erasto Rachel. Self education is important in the journey for weight management. Patient was offered diagnostic testing/ SECA scale. We want to measure visceral adiposity, advanced body composition, adverse lipids, fatty acid balance, risk for heart disease and atherosclerosis, markers of inflammation and genetic susceptibility. Patient was counseled on weight management and was advised to lose weight using A. Meal Replacement Products Patient was educated on the replacement products called optifast. This is a good way of taking fixed amount of calories. It has been shown in studies to be ineffective weight management tool. This however has to be coupled with lifestyle intervention as well as laboratory data and EKG monitoring. It is impossible to know how a person will tolerate complete meal replacement. The side effects of meal replacement and weight loss could include syncopal attacks, dizziness, gallstones, potential cholecystectomy, possible heart attack and even . The benefits of meal replacement would be potential weight loss but no guarantees can be made. Meal replacement products are not covered by insurance. Once the patient has bought these products we cannot return them B. Lifestyle management which includes several strategies as below 1. Eat a low carbohydrate good fat good protein diet. Eliminate refined carbohydrates from the diet. Limit sugared beverages. Eat local organic when possible. Cook your own meals. Read food labels. Focus on healthy snacks. Portion control and food with low glycemic index 2. Exercise regularly. Try to get at least 6000 steps a day. Use a predominant to track activity level. Consider using apps like 7 minute excercise, myfitnesspal, lose it, stick as needed for self-monitoring and weight management. Consider group exercises. Consider hiring a safety trainer. Regular exercise is [place] to sustainable health and prevents as a buffer against weight regain 3. Sleep is most important for healing. Try to sleep at least 6-8 hours a night. A good quality sleep needs a sleep ritual with ideal room temperature of around 68. It might help to take a shower and have no electronics in the room and sleep in a very dark room without artificial light. Start sleep routine and get up early in the morning and go to bed on time. 4. Make a social connection. Surround yourself with positive people with positive energy. Connect with friends and family. 5. Get into the habit of meditating and mindfulness while doing everything. 6. Go outside and connect with nature. C. Prescription medications Patient was educated on the use of prescription medications for medical weight loss. This is a growing list and includes phentermine, Topamax,Qsymia, contrave, belviq and saxenda, wegovy etc. All prescription medications could have side effects including but not limited to kidney stones, seizure disorder cardiac arrhythmias heart attack pancreatitis, GI effects, Etc. Patient was encouraged to read the prescription insert and have coaching with their pharmacist and make an informed decision about taking medication and know that these medications are being prescribed with good intentions and we do not know how a patient would react to the medication. Some medications are FDA approved for weight loss and there is also off label use depending on patient's inability to afford medications in an attempt to lose weight D. Behavioral counseling was done to establish a relationship between food and an mood. Patient was provided information about local counseling and psychiatry and Dr Fung at [facility]. We would like to cover regular topics and build on low glycemic eating exercise mindful eating, using yoga and meditation along with deep breathing and connecting with friends and family. E. MASS PAT reviewed, Patient's current medications were reviewed and opinion was given on medication that can cause weight gain and can be substituted F. Patient was assessed for risk with obesity including and not limiting to atherosclerosis heart disease stroke kidney disease, restrictive lung disease, irritable bowel syndrome and overall mortality. Risk of developing prediabetes diabetes and metabolic syndrome was discussed G. Therapeutic plan: We have decided to make therapeutic plan which would include choosing wisely on calories restricting portion getting active, tracking weight, getting good quality sleep and working on time management H. Patient will follow up in 4 weeks for weight management Total time spent today was 60 minutes of which greater than 50% was spent on coordinating and counseling Case discussed with collaborating physician Diane Pedraza who reviewed the assessment and plan. Chart, medications, labs, vital signs reviewed. Dictation was accomplished with the use of [employer] voice recognition software, prone to medical misidentifications and grammatical errors. This is unintentional and the practitioner does try to identify and correct these, but some could still be present. Please do not hesitate to contact practitioner for clarification. All questions answered to patients satisfaction. Patient verbalized understanding of diagnosis and treatments explained. To call sooner prior to next visit it any questions/concerns arise. Patient was offered diagnostic testing/ SECA scale. We want to measure visceral adiposity, advanced body composition, adverse lipids, fatty acid balance, risk for heart disease and atherosclerosis, markers of inflammation and genetic susceptibility. Patient was counseled on weight management and was advised to lose weight using A. Meal Replacement Products Patient was educated on the replacement products called optifast. This is a good way of taking fixed amount of calories. It has been shown in studies to be ineffective weight management tool. This however has to be coupled with lifestyle intervention as well as laboratory data and EKG monitoring. It is impossible to know how a person will tolerate complete meal replacement. The side effects of meal replacement and weight loss could include syncopal attacks, dizziness, gallstones, potential cholecystectomy, possible heart attack and even . The benefits of meal replacement would be potential weight loss but no guarantees can be made. Meal replacement products are not covered by insurance. Once the patient has bought these products we cannot return them B. Lifestyle management which includes several strategies as below 1. Eat a low carbohydrate good fat good protein diet. Eliminate refined carbohydrates from the diet. Limit sugared beverages. Eat local organic when possible. Cook your own meals. Read food labels. Focus on healthy snacks. Portion control and food with low glycemic index 2. Exercise regularly. Try to get at least 6000 steps a day. Use a predominant to track activity level. Consider using apps like 7 minute excercise, [employer], lose it, stick as needed for self-monitoring and weight management. Consider group exercises. Consider hiring a safety trainer. Regular exercise is [place] to sustainable health and prevents as a buffer against weight regain 3. Sleep is most important for healing. Try to sleep at least 6-8 hours a night. A good quality sleep needs a sleep ritual with ideal room temperature of around 68. It might help to take a shower and have no electronics in the room and sleep in a very dark room without artificial light. Start sleep routine and get up early in the morning and go to bed on time. 4. Make a social connection. Surround yourself with positive people with positive energy. Connect with friends and family. 5. Get into the habit of meditating and mindfulness while doing everything. 6. Go outside and connect with nature. C. Prescription medications Patient was educated on the use of prescription medications for medical weight loss. This is a growing list and includes phentermine, Topamax,Qsymia, contrave, belviq and saxenda, wegovy etc. All prescription medications could have side effects including but not limited to kidney stones, seizure disorder cardiac arrhythmias heart attack pancreatitis, GI effects, Etc. Patient was encouraged to read the prescription insert and have coaching with their pharmacist and make an informed decision about taking medication and know that these medications are being prescribed with good intentions and we do not know how a patient would react to the medication. Some medications are FDA approved for weight loss and there is also off label use depending on patient's inability to afford medications in an attempt to lose weight D. Behavioral counseling was done to establish a relationship between food and an mood. Patient was provided information about local counseling and psychiatry and Dr Fung at [facility]. We would like to cover regular topics and build on low glycemic eating exercise mindful eating, using yoga and meditation along with deep breathing and connecting with friends and family. E. MASS PAT reviewed, Patient's current medications were reviewed and opinion was given on medication that can cause weight gain and can be substituted F. Patient was assessed for risk with obesity including and not limiting to atherosclerosis heart disease stroke kidney disease, restrictive lung disease, irritable bowel syndrome and overall mortality. Risk of developing prediabetes diabetes and metabolic syndrome was discussed G. Therapeutic plan: We have decided to make therapeutic plan which would include choosing wisely on calories restricting portion getting active, tracking weight, getting good quality sleep and working on time management H. Patient will follow up in 4 weeks for weight management Total time spent today was 60 minutes of which greater than 50% was spent on coordinating and counseling After consultation and careful review of medical history, this patient would benefit from Zepbound based off of the following criteria met: Patient is over the age of 18, has a BMI of 28.03. Additional comorbidities include PCOS, hyperlipidemia, acid reflux, and vitamin D deficiency. Patient has trialed other methods of weight loss including improving diet, exercise without success over three months. This medication is prescribed by or in consultation with a board certified obesity and weight management physician (Dr. Liane Pedraza or Dr. Vivi Pedraza) Case discussed with collaborating physician Diane Pedraza who reviewed the assessment and plan. Chart, medications, labs, vital signs reviewed. Dictation was accomplished with the use of [employer] voice recognition software, prone to medical misidentifications and grammatical errors. This is unintentional and the practitioner does try to identify and correct these, but some could still be present. Please do not hesitate to contact practitioner for clarification. All questions answered to patients satisfaction. Patient verbalized understanding of diagnosis and treatments explained. To call sooner prior to next visit it any questions/concerns arise. 11/11/2024 Raynaud's phenomenon without gangrene (ICD-10 - I73.00) [...] office in 4 weeks for further management. # Low back pain: Patient reporting pain in her lower back for the past 3 weeks. On and off in duration. Reports no injuries or strains to her knowledge. Does move a lot in her sleep. On exam there is no tenderness to palpation of the cervical, thoracic, or lumbar spine. Some tenderness to palpation of the left sacroiliac joint. Discussed measures including [id number] Tylenol or Profen for pain relief as well as importance of increasing her physical activity and stretching to manage symptoms. Will continue to monitor. # PCOS: No current medication therapy. Patient does follow with [facility] infertility center in [place]. Will continue to monitor. 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 pylori stool antigens on 10/01/2024. Patient has finished triple antibiotic therapy, now needs to repeat her stool antigen studies and then will follow-up shortly afterwards with gastroenterology. Taking omeprazole daily as needed for acid reflux. Patient is to follow-up with her excavating machine operator after stool studies. Reports several cases of [...] Dictation was accomplished with the use of [employer] voice recognition software, which is prone to medical misidentifications and grammatical errors. This are unintentional and the practitioner does try to identify and correct these, but some could still be present. Please do not hesitate to contact practitioner for clarification. 10/23/2024 Elevated LDL cholesterol level (ICD-10 - E78.00) Patient seen and examined. Comprehensive discussion was done on the following. # H. 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 pylori stool antigens on 10/01/2024. She is now on triple antibiotic therapy including clarithromycin 500 mg, amoxicillin 500 mg, and metronidazole 500 mg. On second day of course for total 14 days. Continue omeprazole once daily. 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 Reports several cases of H. pylori infection in the past. Will continue to follow with GI. # Hyperpigmentation: Patient reporting darkening of her skin in the skin folds of her arms as well as folds of her upper thighs. No irritation. Does not history of PCOS. We discussed topical agents including tretinoin which is a vitamin A derivative which would be helpful for increasing skin turnover. Advised the patient to use the medication at nighttime and small amounts. Discussed the medication may cause dry skin. Will continue to monitor. # PCOS: No current medication therapy. Patient does follow with [facility] infertility center in [place]. Will continue to monitor. # Hyperlipidemia: Lipid panel on 08/28/2024 with cholesterol 192, triglycerides 124, HDL 56, and LDL 114. ASCVD risk less than 5%. Discussed importance of diet and lifestyle to lower cholesterol levels and prevent other comorbidities. Will continue to monitor. # Vitamin D deficiency: Vitamin D level decreased at 08/26/2024 at 21.5. Discussed the importance of daily supplementation. Will continue to monitor. # Overweight: Weight 164 pounds, BMI 25.68. Patient established in weight management program. Currently on Zepbound 2.5 mg weekly. Next follow-up on 11/11/2024. Will continue to monitor. # Hyperlipidemia: Lipid panel on 08/26/2024 significant for LDL 105. Remainder of values in normal limits. ASCVD risk less than 5%. Discussed lifestyle modifications including increasing consumption of whole foods, fiber intake, vitamin D, turmeric/curcumin, and increasing physical activity. Will continue to monitor. # Raynaud's syndrome continue nifedipine 10 mg 1 capsule 3 times daily. Will continue to monitor. Blood pressure stable in office 116/80. 1. Nutrition: It is important to follow a healthy diet based on lots of vegetables and legumes and good fat. Avoid processed food and processed carbohydrates. Prepare your own meals. Read labels and avoid high fructose corn syrup, processed chemicals added to increase shelf life and preprepared meals. Avoid fast foods. Eat slowly and plan meals for a week. Try to count calories and be mindful off daily calorie intake. Get into the habit of keeping an eye on your weight by using an appropriate scale. Learn to log exercise and discussed fitness Apps like [employer] or [employer] which can help keep log off calories taken versus calories burned. Local food should be preferred. Discussed Dirty Dozen Versus Clean Fifteen. Discussed healthy supplements like fish oil, Tumeric, Curcumin, Melatonin, Resveratrol, Probiotics, Vitamin-D, Alpha-Lipoic acid, Vitamin-D and coconut oil. 2. It is important to exercise regularly. Is a good habit to walk at least 30 minutes a day. Gentle weightlifting with standard precautions to protect the back. Finding activity like cycling or hiking and get into the habit of engaging in it. Stretching before and after the exercises important. It is also important to contact me if there are any problems like shortness of breath, chest pain, back pain and joint or muscle pain associated with the exercise. 3. Discussed age appropriate screening guidelines. Colonoscopy needs to start at age 50 with stool for occult blood as appropriate. There is a new test that can test for genetic abnormalities in the stool sample, Cologuard. This would not replace a colonoscopy but could be used as a screening tool for patients who do not want a colonoscopy. We discussed the importance of early detection of colon cancer. 4. Discussed current guidelines with respect to breast examination, mammogram and pap smear for early detection of breast and cervical cancer. Patient advised to follow up with these appointments. 5. Discussed safe driving and no use of smart phone while driving 6. Age-appropriate immunizations were discussed. A tetanus booster is needed every 10 years. Flu vaccine is recommended every year just before the start of the flu season. Shingles vaccine is recommended after age 50 but not all insurances cover it. Pneumonia vaccine is given after age 65 unless there are certain comorbidities for which it is started earlier. 7. Diagnostic labs were discussed. These could include/not limited to CBC CMP and lipids with fasting blood glucose and insulin levels. Vitamin D and hemoglobin A1c testing might be appropriate. All questions have been answered to patient's satisfaction. Patient verbalized understanding of diagnosis and treatments explained. Advised to call sooner prior to next visit it any questions/concerns arise. Case discussed with collaborating physician Bhargavi Pedraza who reviewed the assessment and plan. Chart, medications, labs, vital signs reviewed. Dictation was accomplished with the use of [employer] voice recognition software, which is prone to [...] the left sacroiliac joint. Discussed measures including [id number] Tylenol or Profen for pain relief as well as importance of increasing her physical activity and stretching to manage symptoms. Will continue to monitor. # PCOS: No current medication therapy. Patient does follow with [facility] infertility center in [place]. Will continue to monitor. 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 pylori stool antigens on 10/01/2024. Patient has finished triple antibiotic therapy, now needs to repeat her stool antigen studies and then will follow-up shortly afterwards with gastroenterology. Taking omeprazole daily as needed for acid reflux. Patient is to follow-up with her excavating machine operator after stool studies. Reports several cases of [...] Dictation was accomplished with the use of [employer] voice recognition software, which is prone to medical misidentifications and grammatical errors. This are unintentional and the practitioner does try to identify and correct these, but some could still be present. Please do not hesitate to contact practitioner for clarification. 12/26/2024 Elevated LDL cholesterol level (ICD-10 - E78.00) Patient is a 24-year-old female with history of PCOS, acid reflux, and antibiotic treated H. pylori infection who presents today for urgent visit for persistent back pain for the past 3 months. No initial injuries or trauma. No previous history of spinal surgeries or IV drug use. Patient has trialed use of Tylenol, ibuprofen, and CBD with limited relief. Reports pain localized in the lower back, no radiation of pain and no associated numbness, tingling, or weakness. On exam patient is well-appearing and in no acute distress. Vital signs are stable. Cardiopulmonary exam is unremarkable. No tenderness to palpation of the cervical, thoracic, or lumbar spine. No bilateral sacroiliac tenderness bilaterally. Thoracal spinal muscles are nontender bilaterally. Negative straight leg raise test. Based on clinical evaluation and examination, likely suspect uncomplicated musculoskeletal pain. Low concern at this time for sciatica given lack of numbness or tingling. Low concern for disc bulge at this time however cannot rule out without imaging. Low risk for cauda equina given lack of urinary/fecal incontinence and no saddle anesthesia. At this time we will treat symptomatically with naproxen 250 mg 1-2 times daily as needed for acute pain. For muscle spasm will treat with tizanidine 2 mg every 6-8 hours as needed for spasm. Discussed proper use of the medications and potential side effects. Will also obtain lumbar spine x-ray for further evaluation. Discussed red flag signs of back pain requiring ED evaluation. Patient understanding, all patient questions answered at this time. # PCOS: No current therapy at this time. Previously was following with [facility] infertility center in [place], reports that specialist no longer takes her insurance. Will create new referral. # Hyperlipidemia: Lipid panel on 08/28/2024 with [...] continue to monitor. Blood pressure stable in office. # H. pylori infection: Patient follows with [facility] gastro[facility]ology. Found to have positive stool culture for H. pylori antigens on 10/01/2024. Has now finished triple antibiotic therapy, reports no further abdominal pain or acid reflux. Will continue to monitor. Continue follow-up with GI. All questions have been answered to patient's satisfaction. Patient verbalized understanding of diagnosis and treatments explained. Advised to call sooner prior to next visit it any questions/concerns arise. Case discussed with collaborating physician Bhargavi Pedraza who reviewed the assessment and plan. Chart, medications, labs, vital signs reviewed. Dictation was accomplished with the use of [employer] voice recognition software, which is prone to medical misidentifications and grammatical errors. This are unintentional and the practitioner does try to identify and correct these, but some could still be present. Please do not hesitate to contact practitioner for clarification. 01/29/2025 Mild acid reflux (ICD-10 - K21.9) Patient is a 24-year-old female with history of PCOS, acid reflux, lordosis, and H. pylori infection who presents today for urgent visit for chronic intermittent rash and acute hair loss. Patient reports that rash has been present for the past 5 months and is transient. Reports no rash present during visit today. She has been mindful about detergents, creams, cosmetics, and perfumes however unable to identify etiology of rash. Does find that rash gets worse with heat from hot showers. Has been using an [id number]-[id number] itch spray when necessary. Reports no mucosal involvement. She also reports concern regarding hair loss for 1 month. Reports no patches on her scalp however states that when styling and brushing more hair is coming out in clumps. Has associated scalp itchiness. States that she has tried a prescription ketoconazole shampoo before for similar symptoms which was ineffective. On exam the patient is well-appearing and in no acute distress. Vital signs are stable. Exam of the patient's skin reveals no acute rash at this time. Examination of the patient's scalp reveals no patches of hair loss however there is widespread white patches of dry skin and generalized dandruff. No bleeding or crusting lesions. Based on assessment and examination, unclear for why the patient may be having rash. There are no hypopigmented lesions on the patient's upper extremities which could indicate tinea versicolor. Examination of her scalp appears consistent with seborrheic dermatitis. At this time we will trial topical betamethasone valerate foam, patient can use the topical steroid daily for 2 weeks and then intermittently twice weekly. Will also trial a ciclopirox 1% shampoo, patient will apply 5 mL to wet hair, lather and leave on the area for 3 minutes, then rinse. Can repeat twice weekly for 4 weeks. For further workup we will also obtain updated TSH, CBC, serum iron, and ferritin levels. Will further refer the patient to [facility] for further assessment and treatment. All patient questions answered at this time. # PCOS: Provided today with referral for gynecology. # Hyperlipidemia: Lipid panel on 08/28/2024 with [...] continue to monitor. Blood pressure stable in office. # H. pylori infection: Patient follows with [facility]. Found to have positive stool culture for H. pylori antigens on 10/01/2024. Has now finished triple antibiotic therapy, reports no further abdominal pain or acid reflux. Will continue to monitor. Continue follow-up with GI. All questions have been answered to patient's satisfaction. Patient verbalized understanding of diagnosis and treatments explained. Advised to call sooner prior to next visit it any questions/concerns arise. Case discussed with collaborating physician Bhagravi Pedraza who reviewed the assessment and plan. Chart, medications, labs, vital signs reviewed. Dictation was accomplished with the use of [employer] voice recognition software, which is prone to medical misidentifications and grammatical errors. This are unintentional and the practitioner does try to identify and correct these, but some could still be present. Please do not hesitate to contact practitioner for clarification. 02/10/2025 Raynaud's phenomenon without gangrene (ICD-10 - I73.00) [...] office in 4 weeks for further management. 02/10/2025: Weight 147 pounds, BMI 23.02. Seca scan completed and discussed with the patient. Patient is down 12 pounds from her last visit in October. On body analysis she is down 12 pounds of fat mass. Fat mass index today is 8.7 which is within normal limits, previously 10.7. She is maintaining 42 pounds of muscle mass. Visceral adiposity is 0.8 L, reduced from 1.5. Patient currently is on Zepbound 5 mg weekly. No adverse effects. Discussed goals of diet and exercise. Plan is to maintain current dose and follow-up in 4 to 6 weeks. # Low back pain: Patient reporting pain in her lower back for the past 3 weeks. On and off in duration. Reports no injuries or strains to her knowledge. Does move a lot in her sleep. On exam there is no tenderness to palpation of the cervical, thoracic, or lumbar spine. Some tenderness to palpation of the left sacroiliac joint. Discussed measures including [id number] Tylenol or Profen for pain relief as well as importance of increasing her physical activity and stretching to manage symptoms. Will continue to monitor. # PCOS: No current medication therapy. Patient does follow with [facility] infertility center in [place]. Will continue to monitor. 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 pylori stool antigens on 10/01/2024. Patient has finished triple antibiotic therapy, now needs to repeat her stool antigen studies and then will follow-up shortly afterwards with gastroenterology. Taking omeprazole daily as needed for acid reflux. Patient is to follow-up with her excavating machine operator after stool studies. Reports several cases of [...] Dictation was accomplished with the use of [employer] voice recognition software, which is prone to medical misidentifications and grammatical errors. This are unintentional and the practitioner does try to identify and correct these, but some could still be present. Please do not hesitate to contact practitioner for clarification. 03/10/2025 Mild acid reflux (ICD-10 - K21.9) Patient is a 24-year-old female who presents today for urgent visit for a bump on the palm of her left hand that has waxed and waned for the past 3 years. Reports that the lump will appear with associated pain, can be present for a few months, then will resolve on its own. She reports no associated numbness or tingling of the hand. States that sometimes her hand has a bruised appearance. Has full range of motion. She reports no constitutional symptoms including fevers or chills. Denies injury or trauma to the extremity. On exam the patient is well-appearing and in no acute distress, vital signs are stable and cardiopulmonary exam unremarkable. Examination of the patient's left hand reveals a approximate 3 x 3 mm circular mass on the palmar surface at the base of the thumb that is tender to palpation. Overlying skin on erythematous. Potentially a ganglion cyst. For further evaluation and treatment will refer to hand surgery. Discussed red flag signs that require ED evaluation, all patient questions answered at this time. # Low back pain: X-ray of her lumbar spine on 12/26/2024 obtained for pain reveals no significant disc narrowing and some straightening of the spine consistent with lordosis. Discussed benefit of strengthening her core to improve pain. Continue analgesic medications including naproxen twice daily as needed for pain and tizanidine 2 mg every 6 hours as needed for muscle spasm. Will continue to monitor. # PCOS: No current medication therapy. Patient does follow with [facility] infertility center in [place]. Will continue to monitor. 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 pylori stool antigens on 10/01/2024. Patient has finished triple antibiotic therapy, now needs to repeat her stool antigen studies and then will follow-up shortly afterwards with gastroenterology. Taking omeprazole daily as needed for acid reflux. Patient is to follow-up with her excavating machine operator after stool studies. Reports several cases of H. pylori infection in the past. Will continue to follow with GI. # Nutritional counseling: Continue Zepbound 5 mg subcutaneous injection weekly. Next follow-up on 03/24/2025. All questions have been answered to patient's satisfaction. Patient verbalized understanding of diagnosis and treatments explained. Advised to call sooner prior to next visit it any questions/concerns arise. Case discussed with collaborating physician Bhargavi Pedraza who reviewed the assessment and plan. Chart, medications, labs, vital signs reviewed. Dictation was accomplished with the use of [employer] voice recognition software, which is prone to medical misidentifications and grammatical errors. This are unintentional and the practitioner does try to identify and correct these, but some could still be present. Please do not hesitate to contact practitioner for clarification. 03/24/2025 Raynaud's phenomenon without gangrene (ICD-10 - I73.00) [...] office in 4 weeks for further management. 02/10/2025: Weight 147 pounds, BMI 23.02. Seca scan completed and discussed with the patient. Patient is down 12 pounds from her last visit in October. On body analysis she is down 12 pounds of fat mass. Fat mass index today is 8.7 which is within normal limits, previously 10.7. She is maintaining 42 pounds of muscle mass. Visceral adiposity is 0.8 L, reduced from 1.5. Patient currently is on Zepbound 5 mg weekly. No adverse effects. Discussed goals of diet and exercise. Plan is to maintain current dose and follow-up in 4 to 6 weeks. 03/24/2025: Weight 149 pounds, BMI 24.2. Seca scan completed and discussed results with the patient. She is up approximately 2 pounds since her last visit. On body composition analysis however she is maintaining 53 pounds of fat mass, fat mass index of 8.6. She has had a 3 pound increase of muscle mass which she was congratulated for. Visceral adiposity is stable at 0.9 L. Patient currently on Zepbound 5 mg weekly. Endorsing good tolerance of medication. Has adjusted her goal to reach approximately 10 more pounds weight loss. At this time plan will be to temporarily increase dose 7.5 mg to more efficiently reach goal along with maintaining lifestyle adjustments. Follow-up in approximately 4 to 6 weeks. # Low back pain: Patient reporting pain in her lower back for the past 3 weeks. On and off in duration. Reports no injuries or strains to her knowledge. Does move a lot in her sleep. On exam there is no tenderness to palpation of the cervical, thoracic, or lumbar spine. Some tenderness to palpation of the left sacroiliac joint. Discussed measures including [id number] Tylenol or Profen for pain relief as well as importance of increasing her physical activity and stretching to manage symptoms. Will continue to monitor. # PCOS: No current medication therapy. Patient does follow with [facility] infertility center in [place]. Will continue to monitor. 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 pylori stool antigens on 10/01/2024. Patient has finished triple antibiotic therapy, now needs to repeat her stool antigen studies and then will follow-up shortly afterwards with gastroenterology. Taking omeprazole daily as needed for acid reflux. Patient is to follow-up with her excavating machine operator after stool studies. Reports several cases of H. pylori infection in the past. Will continue to follow with GI. # Sore throat: Patient reports having gone to urgent care for symptoms of sore throat, diagnosed with bacterial strep and treated with 10 days of penicillin. Patient continued to have symptoms and was evaluated again by urgent care who refilled medication for 5 more days. Today she reports continued sore throat as well as fatigue and right-sided neck swelling. On exam, the tonsils are enlarged and erythematous bilaterally, no exudates seen. No uvular deviation. There is right-sided anterior cervical lymphadenopathy and lymphadenitis. Based on history and examination, high suspicion for mononucleosis. Will obtain Monospot testing. Discussed that symptoms will be continuing rest, hydration, proper nutrition, and as needed Tylenol and ibuprofen. Discussed that can take several weeks to recover. Discussed that if mononucleosis to avoid contact activity until feeling better. All questions have been answered to patient's satisfaction. Patient verbalized understanding of diagnosis and treatments explained. Advised to call sooner prior to next visit it any questions/concerns arise. Case discussed with collaborating physician Bhargavi Pedraza who reviewed the assessment and plan. Chart, medications, labs, vital signs reviewed. Dictation was accomplished with the use of [employer] voice recognition software, which is prone to medical misidentifications and grammatical errors. This are unintentional and the practitioner does try to identify and correct these, but some could still be present. Please do not hesitate to contact practitioner for clarification. 03/24/2025 Nutritional counseling (ICD-10 - Z71.3) Patient is [...] office in 4 weeks for further management. 02/10/2025: Weight 147 pounds, BMI 23.02. Seca scan completed and discussed with the patient. Patient is down 12 pounds from her last visit in October. On body analysis she is down 12 pounds of fat mass. Fat mass index today is 8.7 which is within normal limits, previously 10.7. She is maintaining 42 pounds of muscle mass. Visceral adiposity is 0.8 L, reduced from 1.5. Patient currently is on Zepbound 5 mg weekly. No adverse effects. Discussed goals of diet and exercise. Plan is to maintain current dose and follow-up in 4 to 6 weeks. 03/24/2025: Weight 149 pounds, BMI 24.2. Seca scan completed and discussed results with the patient. She is up approximately 2 pounds since her last visit. On body composition analysis however she is maintaining 53 pounds of fat mass, fat mass index of 8.6. She has had a 3 pound increase of muscle mass which she was congratulated for. Visceral adiposity is stable at 0.9 L. Patient currently on Zepbound 5 mg weekly. Endorsing good tolerance of medication. Has adjusted her goal to reach approximately 10 more pounds weight loss. At this time plan will be to temporarily increase dose 7.5 mg to more efficiently reach goal along with maintaining lifestyle adjustments. Follow-up in approximately 4 to 6 weeks. # Low back pain: Patient reporting pain in her lower back for the past 3 weeks. On and off in duration. Reports no injuries or strains to her knowledge. Does move a lot in her sleep. On exam there is no tenderness to palpation of the cervical, thoracic, or lumbar spine. Some tenderness to palpation of the left sacroiliac joint. Discussed measures including [id number] Tylenol or Profen for pain relief as well as importance of increasing her physical activity and stretching to manage symptoms. Will continue to monitor. # PCOS: No current medication therapy. Patient does follow with [facility] infertility center in [place]. Will continue to monitor. 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 pylori stool antigens on 10/01/2024. Patient has finished triple antibiotic therapy, now needs to repeat her stool antigen studies and then will follow-up shortly afterwards with gastroenterology. Taking omeprazole daily as needed for acid reflux. Patient is to follow-up with her excavating machine operator after stool studies. Reports several cases of H. pylori infection in the past. Will continue to follow with GI. # Sore throat: Patient reports having gone to urgent care for symptoms of sore throat, diagnosed with bacterial strep and treated with 10 days of penicillin. Patient continued to have symptoms and was evaluated again by urgent care who refilled medication for 5 more days. Today she reports continued sore throat as well as fatigue and right-sided neck swelling. On exam, the tonsils are enlarged and erythematous bilaterally, no exudates seen. No uvular deviation. There is right-sided anterior cervical lymphadenopathy and lymphadenitis. Based on history and examination, high suspicion for mononucleosis. Will obtain Monospot testing. Discussed that symptoms will be continuing rest, hydration, proper nutrition, and as needed Tylenol and ibuprofen. Discussed that can take several weeks to recover. Discussed that if mononucleosis to avoid contact activity until feeling better. All questions have been answered to patient's satisfaction. Patient verbalized understanding of diagnosis and treatments explained. Advised to call sooner prior to next visit it any questions/concerns arise. Case discussed with collaborating physician Bhargavi Pedraza who reviewed the assessment and plan. Chart, medications, labs, vital signs reviewed. Dictation was accomplished with the use of [employer] voice recognition software, which is prone to medical misidentifications and grammatical errors. This are unintentional and the practitioner does try to identify and correct these, but some could still be present. Please do not hesitate to contact practitioner for clarification. 05/27/2025 Raynaud's phenomenon without gangrene (ICD-10 - I73.00) [...] office in 4 weeks for further management. 02/10/2025: Weight 147 pounds, BMI 23.02. Seca scan completed and discussed with the patient. Patient is down 12 pounds from her last visit in October. On body analysis she is down 12 pounds of fat mass. Fat mass index today is 8.7 which is within normal limits, previously 10.7. She is maintaining 42 pounds of muscle mass. Visceral adiposity is 0.8 L, reduced from 1.5. Patient currently is on Zepbound 5 mg weekly. No adverse effects. Discussed goals of diet and exercise. Plan is to maintain current dose and follow-up in 4 to 6 weeks. 03/24/2025: Weight 149 pounds, BMI 24.2. Seca scan completed and discussed results with the patient. She is up approximately 2 pounds since her last visit. On body composition analysis however she is maintaining 53 pounds of fat mass, fat mass index of 8.6. She has had a 3 pound increase of muscle mass which she was congratulated for. Visceral adiposity is stable at 0.9 L. Patient currently on Zepbound 5 mg weekly. Endorsing good tolerance of medication. Has adjusted her goal to reach approximately 10 more pounds weight loss. At this time plan will be to temporarily increase dose 7.5 mg to more efficiently reach goal along with maintaining lifestyle adjustments. Follow-up in approximately 4 to 6 weeks. 05/27/2025: Weight 145 pounds, BMI 22.71. Seca scan completed and discussed results with the patient. Patient is down 4 pounds from last visit. On body composition analysis fat mass is largely stable, index today of 8.7. Muscle mass has reduced by 6 pounds. No longer has high composition. Discussed importance of increasing intensity weight training and adding more protein into diet. Patient understanding. Visceral adiposity stable at 0.9 L. Currently on Zepbound 7.5 mg weekly. Will maintain this dose and follow-up in 6 weeks. # PCOS: No current medication therapy. Patient does follow with [facility] infertility center in [place]. Will continue to monitor. # Hyperlipidemia: Lipid [...] 3 times daily. Will continue to monitor. # Ingrown toenail: Patient reports bilateral great toenail are ingrown. Attempts to treat with regular pedicures. Will refer to podiatry. All questions have been answered to patient's satisfaction. Patient verbalized understanding of diagnosis and treatments explained. Advised to call sooner prior to next visit it any questions/concerns arise. Case discussed with collaborating physician Bhargavi Pedraza who reviewed the assessment and plan. Chart, medications, labs, vital signs reviewed. Dictation was accomplished with the use of [employer] voice recognition software, which is prone to medical misidentifications and grammatical errors. This are unintentional and the practitioner does try to identify and correct these, but some could still be present. Please do not hesitate to contact practitioner for clarification. 05/27/2025 Elevated LDL cholesterol level (ICD-10 - E78.00) [...] office in 4 weeks for further management. 02/10/2025: Weight 147 pounds, BMI 23.02. Seca scan completed and discussed with the patient. Patient is down 12 pounds from her last visit in October. On body analysis she is down 12 pounds of fat mass. Fat mass index today is 8.7 which is within normal limits, previously 10.7. She is maintaining 42 pounds of muscle mass. Visceral adiposity is 0.8 L, reduced from 1.5. Patient currently is on Zepbound 5 mg weekly. No adverse effects. Discussed goals of diet and exercise. Plan is to maintain current dose and follow-up in 4 to 6 weeks. 03/24/2025: Weight 149 pounds, BMI 24.2. Seca scan completed and discussed results with the patient. She is up approximately 2 pounds since her last visit. On body composition analysis however she is maintaining 53 pounds of fat mass, fat mass index of 8.6. She has had a 3 pound increase of muscle mass which she was congratulated for. Visceral adiposity is stable at 0.9 L. Patient currently on Zepbound 5 mg weekly. Endorsing good tolerance of medication. Has adjusted her goal to reach approximately 10 more pounds weight loss. At this time plan will be to temporarily increase dose 7.5 mg to more efficiently reach goal along with maintaining lifestyle adjustments. Follow-up in approximately 4 to 6 weeks. 05/27/2025: Weight 145 pounds, BMI 22.71. Seca scan completed and discussed results with the patient. Patient is down 4 pounds from last visit. On body composition analysis fat mass is largely stable, index today of 8.7. Muscle mass has reduced by 6 pounds. No longer has high composition. Discussed importance of increasing intensity weight training and adding more protein into diet. Patient understanding. Visceral adiposity stable at 0.9 L. Currently on Zepbound 7.5 mg weekly. Will maintain this dose and follow-up in 6 weeks. # PCOS: No current medication therapy. Patient does follow with [facility] infertility center in [place]. Will continue to monitor. # Hyperlipidemia: Lipid [...] 3 times daily. Will continue to monitor. # Ingrown toenail: Patient reports bilateral great toenail are ingrown. Attempts to treat with regular pedicures. Will refer to podiatry. All questions have been answered to patient's satisfaction. Patient verbalized understanding of diagnosis and treatments explained. Advised to call sooner prior to next visit it any questions/concerns arise. Case discussed with collaborating physician Bhargavi Pedraza who reviewed the assessment and plan. Chart, medications, labs, vital signs reviewed. Dictation was accomplished with the use of [employer] voice recognition software, which is prone to medical misidentifications and grammatical errors. This are unintentional and the practitioner does try to identify and correct these, but some could still be present. Please do not hesitate to contact practitioner for clarification. 05/27/2025 Nutritional counseling (ICD-10 - Z71.3) Patient is [...] office in 4 weeks for further management. 02/10/2025: Weight 147 pounds, BMI 23.02. Seca scan completed and discussed with the patient. Patient is down 12 pounds from her last visit in October. On body analysis she is down 12 pounds of fat mass. Fat mass index today is 8.7 which is within normal limits, previously 10.7. She is maintaining 42 pounds of muscle mass. Visceral adiposity is 0.8 L, reduced from 1.5. Patient currently is on Zepbound 5 mg weekly. No adverse effects. Discussed goals of diet and exercise. Plan is to maintain current dose and follow-up in 4 to 6 weeks. 03/24/2025: Weight 149 pounds, BMI 24.2. Seca scan completed and discussed results with the patient. She is up approximately 2 pounds since her last visit. On body composition analysis however she is maintaining 53 pounds of fat mass, fat mass index of 8.6. She has had a 3 pound increase of muscle mass which she was congratulated for. Visceral adiposity is stable at 0.9 L. Patient currently on Zepbound 5 mg weekly. Endorsing good tolerance of medication. Has adjusted her goal to reach approximately 10 more pounds weight loss. At this time plan will be to temporarily increase dose 7.5 mg to more efficiently reach goal along with maintaining lifestyle adjustments. Follow-up in approximately 4 to 6 weeks. 05/27/2025: Weight 145 pounds, BMI 22.71. Seca scan completed and discussed results with the patient. Patient is down 4 pounds from last visit. On body composition analysis fat mass is largely stable, index today of 8.7. Muscle mass has reduced by 6 pounds. No longer has high composition. Discussed importance of increasing intensity weight training and adding more protein into diet. Patient understanding. Visceral adiposity stable at 0.9 L. Currently on Zepbound 7.5 mg weekly. Will maintain this dose and follow-up in 6 weeks. # PCOS: No current medication therapy. Patient does follow with [facility] infertility center in [place]. Will continue to monitor. # Hyperlipidemia: Lipid [...] 3 times daily. Will continue to monitor. # Ingrown toenail: Patient reports bilateral great toenail are ingrown. Attempts to treat with regular pedicures. Will refer to podiatry. All questions have been answered to patient's satisfaction. Patient verbalized understanding of diagnosis and treatments explained. Advised to call sooner prior to next visit it any questions/concerns arise. Case discussed with collaborating physician Bhargavi Pedraza who reviewed the assessment and plan. Chart, medications, labs, vital signs reviewed. Dictation was accomplished with the use of [employer] voice recognition software, which is prone to medical misidentifications and grammatical errors. This are unintentional and the practitioner does try to identify and correct these, but some could still be present. Please do not hesitate to contact practitioner for clarification. 03/24/2025 Helicobacter pylori (H. pylori) (ICD-10 - A04.8) [...] office in 4 weeks for further management. 02/10/2025: Weight 147 pounds, BMI 23.02. Seca scan completed and discussed with the patient. Patient is down 12 pounds from her last visit in October. On body analysis she is down 12 pounds of fat mass. Fat mass index today is 8.7 which is within normal limits, previously 10.7. She is maintaining 42 pounds of muscle mass. Visceral adiposity is 0.8 L, reduced from 1.5. Patient currently is on Zepbound 5 mg weekly. No adverse effects. Discussed goals of diet and exercise. Plan is to maintain current dose and follow-up in 4 to 6 weeks. 03/24/2025: Weight 149 pounds, BMI 24.2. Seca scan completed and discussed results with the patient. She is up approximately 2 pounds since her last visit. On body composition analysis however she is maintaining 53 pounds of fat mass, fat mass index of 8.6. She has had a 3 pound increase of muscle mass which she was congratulated for. Visceral adiposity is stable at 0.9 L. Patient currently on Zepbound 5 mg weekly. Endorsing good tolerance of medication. Has adjusted her goal to reach approximately 10 more pounds weight loss. At this time plan will be to temporarily increase dose 7.5 mg to more efficiently reach goal along with maintaining lifestyle adjustments. Follow-up in approximately 4 to 6 weeks. # Low back pain: Patient reporting pain in her lower back for the past 3 weeks. On and off in duration. Reports no injuries or strains to her knowledge. Does move a lot in her sleep. On exam there is no tenderness to palpation of the cervical, thoracic, or lumbar spine. Some tenderness to palpation of the left sacroiliac joint. Discussed measures including [id number] Tylenol or Profen for pain relief as well as importance of increasing her physical activity and stretching to manage symptoms. Will continue to monitor. # PCOS: No current medication therapy. Patient does follow with [facility] infertility center in [place]. Will continue to monitor. 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 pylori stool antigens on 10/01/2024. Patient has finished triple antibiotic therapy, now needs to repeat her stool antigen studies and then will follow-up shortly afterwards with gastroenterology. Taking omeprazole daily as needed for acid reflux. Patient is to follow-up with her excavating machine operator after stool studies. Reports several cases of H. pylori infection in the past. Will continue to follow with GI. # Sore throat: Patient reports having gone to urgent care for symptoms of sore throat, diagnosed with bacterial strep and treated with 10 days of penicillin. Patient continued to have symptoms and was evaluated again by urgent care who refilled medication for 5 more days. Today she reports continued sore throat as well as fatigue and right-sided neck swelling. On exam, the tonsils are enlarged and erythematous bilaterally, no exudates seen. No uvular deviation. There is right-sided anterior cervical lymphadenopathy and lymphadenitis. Based on history and examination, high suspicion for mononucleosis. Will obtain Monospot testing. Discussed that symptoms will be continuing rest, hydration, proper nutrition, and as needed Tylenol and ibuprofen. Discussed that can take several weeks to recover. Discussed that if mononucleosis to avoid contact activity until feeling better. All questions have been answered to patient's satisfaction. Patient verbalized understanding of diagnosis and treatments explained. Advised to call sooner prior to next visit it any questions/concerns arise. Case discussed with collaborating physician Bhargavi Pedraza who reviewed the assessment and plan. Chart, medications, labs, vital signs reviewed. Dictation was accomplished with the use of [employer] voice recognition software, which is prone to medical misidentifications and grammatical errors. This are unintentional and the practitioner does try to identify and correct these, but some could still be present. Please do not hesitate to contact practitioner for clarification. 03/10/2025 Elevated LDL cholesterol level (ICD-10 - E78.00) Patient is a 24-year-old female who presents today for urgent visit for a bump on the palm of her left hand that has waxed and waned for the past 3 years. Reports that the lump will appear with associated pain, can be present for a few months, then will resolve on its own. She reports no associated numbness or tingling of the hand. States that sometimes her hand has a bruised appearance. Has full range of motion. She reports no constitutional symptoms including fevers or chills. Denies injury or trauma to the extremity. On exam the patient is well-appearing and in no acute distress, vital signs are stable and cardiopulmonary exam unremarkable. Examination of the patient's left hand reveals a approximate 3 x 3 mm circular mass on the palmar surface at the base of the thumb that is tender to palpation. Overlying skin on erythematous. Potentially a ganglion cyst. For further evaluation and treatment will refer to hand surgery. Discussed red flag signs that require ED evaluation, all patient questions answered at this time. # Low back pain: X-ray of her lumbar spine on 12/26/2024 obtained for pain reveals no significant disc narrowing and some straightening of the spine consistent with lordosis. Discussed benefit of strengthening her core to improve pain. Continue analgesic medications including naproxen twice daily as needed for pain and tizanidine 2 mg every 6 hours as needed for muscle spasm. Will continue to monitor. # PCOS: No current medication therapy. Patient does follow with [facility] infertility center in [place]. Will continue to monitor. 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 pylori stool antigens on 10/01/2024. Patient has finished triple antibiotic therapy, now needs to repeat her stool antigen studies and then will follow-up shortly afterwards with gastroenterology. Taking omeprazole daily as needed for acid reflux. Patient is to follow-up with her excavating machine operator after stool studies. Reports several cases of H. pylori infection in the past. Will continue to follow with GI. # Nutritional counseling: Continue Zepbound 5 mg subcutaneous injection weekly. Next follow-up on 03/24/2025. All questions have been answered to patient's satisfaction. Patient verbalized understanding of diagnosis and treatments explained. Advised to call sooner prior to next visit it any questions/concerns arise. Case discussed with collaborating physician Bhargavi Pedraza who reviewed the assessment and plan. Chart, medications, labs, vital signs reviewed. Dictation was accomplished with the use of [employer] voice recognition software, which is prone to medical misidentifications and grammatical errors. This are unintentional and the practitioner does try to identify and correct these, but some could still be present. Please do not hesitate to contact practitioner for clarification. 02/10/2025 Helicobacter pylori (H. pylori) (ICD-10 - A04.8) [...] office in 4 weeks for further management. 02/10/2025: Weight 147 pounds, BMI 23.02. Seca scan completed and discussed with the patient. Patient is down 12 pounds from her last visit in October. On body analysis she is down 12 pounds of fat mass. Fat mass index today is 8.7 which is within normal limits, previously 10.7. She is maintaining 42 pounds of muscle mass. Visceral adiposity is 0.8 L, reduced from 1.5. Patient currently is on Zepbound 5 mg weekly. No adverse effects. Discussed goals of diet and exercise. Plan is to maintain current dose and follow-up in 4 to 6 weeks. # Low back pain: Patient reporting pain in her lower back for the past 3 weeks. On and off in duration. Reports no injuries or strains to her knowledge. Does move a lot in her sleep. On exam there is no tenderness to palpation of the cervical, thoracic, or lumbar spine. Some tenderness to palpation of the left sacroiliac joint. Discussed measures including [id number] Tylenol or Profen for pain relief as well as importance of increasing her physical activity and stretching to manage symptoms. Will continue to monitor. # PCOS: No current medication therapy. Patient does follow with [facility] infertility center in [place]. Will continue to monitor. 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 pylori stool antigens on 10/01/2024. Patient has finished triple antibiotic therapy, now needs to repeat her stool antigen studies and then will follow-up shortly afterwards with gastroenterology. Taking omeprazole daily as needed for acid reflux. Patient is to follow-up with her excavating machine operator after stool studies. Reports several cases of [...] Dictation was accomplished with the use of [employer] voice recognition software, which is prone to medical misidentifications and grammatical errors. This are unintentional and the practitioner does try to identify and correct these, but some could still be present. Please do not hesitate to contact practitioner for clarification. 01/29/2025 Raynaud's disease without gangrene (ICD-10 - I73.00) Patient is a 24-year-old female with history of PCOS, acid reflux, lordosis, and H. pylori infection who presents today for urgent visit for chronic intermittent rash and acute hair loss. Patient reports that rash has been present for the past 5 months and is transient. Reports no rash present during visit today. She has been mindful about detergents, creams, cosmetics, and perfumes however unable to identify etiology of rash. Does find that rash gets worse with heat from hot showers. Has been using an ilux-fnc-cgzjhtx itch spray when necessary. Reports no mucosal involvement. She also reports concern regarding hair loss for 1 month. Reports no patches on her scalp however states that when styling and brushing more hair is coming out in clumps. Has associated scalp itchiness. States that she has tried a prescription ketoconazole shampoo before for similar symptoms which was ineffective. On exam the patient is well-appearing and in no acute distress. Vital signs are stable. Exam of the patient's skin reveals no acute rash at this time. Examination of the patient's scalp reveals no patches of hair loss however there is widespread white patches of dry skin and generalized dandruff. No bleeding or crusting lesions. Based on assessment and examination, unclear for why the patient may be having rash. There are no hypopigmented lesions on the patient's upper extremities which could indicate tinea versicolor. Examination of her scalp appears consistent with seborrheic dermatitis. At this time we will trial topical betamethasone valerate foam, patient can use the topical steroid daily for 2 weeks and then intermittently twice weekly. Will also trial a ciclopirox 1% shampoo, patient will apply 5 mL to wet hair, lather and leave on the area for 3 minutes, then rinse. Can repeat twice weekly for 4 weeks. For further workup we will also obtain updated TSH, CBC, serum iron, and ferritin levels. Will further refer the patient to [facility] for further assessment and treatment. All patient questions answered at this time. # PCOS: Provided today with referral for gynecology. # Hyperlipidemia: Lipid panel on 08/28/2024 with [...] continue to monitor. Blood pressure stable in office. # H. pylori infection: Patient follows with [facility] [place] gastro[facility]. Found to have positive stool culture for H. pylori antigens on 10/01/2024. Has now finished triple antibiotic therapy, reports no further abdominal pain or acid reflux. Will continue to monitor. Continue follow-up with GI. All questions have been answered to patient's satisfaction. Patient verbalized understanding of diagnosis and treatments explained. Advised to call sooner prior to next visit it any questions/concerns arise. Case discussed with collaborating physician Bhargavi Pedraza who reviewed the assessment and plan. Chart, medications, labs, vital signs reviewed. Dictation was accomplished with the use of [employer] voice recognition software, which is prone to medical misidentifications and grammatical errors. This are unintentional and the practitioner does try to identify and correct these, but some could still be present. Please do not hesitate to contact practitioner for clarification. 12/26/2024 Vitamin D insufficiency (ICD-10 - E55.9) Patient is a 24-year-old female with history of PCOS, acid reflux, and antibiotic treated H. pylori infection who presents today for urgent visit for persistent back pain for the past 3 months. No initial injuries or trauma. No previous history of spinal surgeries or IV drug use. Patient has trialed use of Tylenol, ibuprofen, and CBD with limited relief. Reports pain localized in the lower back, no radiation of pain and no associated numbness, tingling, or weakness. On exam patient is well-appearing and in no acute distress. Vital signs are stable. Cardiopulmonary exam is unremarkable. No tenderness to palpation of the cervical, thoracic, or lumbar spine. No bilateral sacroiliac tenderness bilaterally. Thoracal spinal muscles are nontender bilaterally. Negative straight leg raise test. Based on clinical evaluation and examination, likely suspect uncomplicated musculoskeletal pain. Low concern at this time for sciatica given lack of numbness or tingling. Low concern for disc bulge at this time however cannot rule out without imaging. Low risk for cauda equina given lack of urinary/fecal incontinence and no saddle anesthesia. At this time we will treat symptomatically with naproxen 250 mg 1-2 times daily as needed for acute pain. For muscle spasm will treat with tizanidine 2 mg every 6-8 hours as needed for spasm. Discussed proper use of the medications and potential side effects. Will also obtain lumbar spine x-ray for further evaluation. Discussed red flag signs of back pain requiring ED evaluation. Patient understanding, all patient questions answered at this time. # PCOS: No current therapy at this time. Previously was following with [facility] infertility center in [place], reports that specialist no longer takes her insurance. Will create new referral. # Hyperlipidemia: Lipid panel on 08/28/2024 with [...] continue to monitor. Blood pressure stable in office. # H. pylori infection: Patient follows with [facility] [place] gastro[facility]ology. Found to have positive stool culture for H. pylori antigens on 10/01/2024. Has now finished triple antibiotic therapy, reports no further abdominal pain or acid reflux. Will continue to monitor. Continue follow-up with GI. All questions have been answered to patient's satisfaction. Patient verbalized understanding of diagnosis and treatments explained. Advised to call sooner prior to next visit it any questions/concerns arise. Case discussed with collaborating physician Bhargavi Pedraza who reviewed the assessment and plan. Chart, medications, labs, vital signs reviewed. Dictation was accomplished with the use of [employer] voice recognition software, which is prone to [...] the left sacroiliac joint. Discussed measures including ctee-hep-[id number] Tylenol or Profen for pain relief as well as importance of increasing her physical activity and stretching to manage symptoms. Will continue to monitor. # PCOS: No current medication therapy. Patient does follow with [facility] infertility center in [place]. Will continue to monitor. 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 pylori stool antigens on 10/01/2024. Patient has finished triple antibiotic therapy, now needs to repeat her stool antigen studies and then will follow-up shortly afterwards with gastroenterology. Taking omeprazole daily as needed for acid reflux. Patient is to follow-up with her excavating machine operator after stool studies. Reports several cases of [...] Dictation was accomplished with the use of [employer] voice recognition software, which is prone to medical misidentifications and grammatical errors. This are unintentional and the practitioner does try to identify and correct these, but some could still be present. Please do not hesitate to contact practitioner for clarification. 11/11/2024 Helicobacter pylori (H. pylori) (ICD-10 - A04.8) [...] office in 4 weeks for further management. # Low back pain: Patient reporting pain in her lower back for the past 3 weeks. On and off in duration. Reports no injuries or strains to her knowledge. Does move a lot in her sleep. On exam there is no tenderness to palpation of the cervical, thoracic, or lumbar spine. Some tenderness to palpation of the left sacroiliac joint. Discussed measures including lsme-xat-[id number] Tylenol or Profen for pain relief as well as importance of increasing her physical activity and stretching to manage symptoms. Will continue to monitor. # PCOS: No current medication therapy. Patient does follow with [facility] infertility center in [place]. Will continue to monitor. 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 pylori stool antigens on 10/01/2024. Patient has finished triple antibiotic therapy, now needs to repeat her stool antigen studies and then will follow-up shortly afterwards with gastroenterology. Taking omeprazole daily as needed for acid reflux. Patient is to follow-up with her excavating machine operator after stool studies. Reports several cases of [...] Dictation was accomplished with the use of [employer] voice recognition software, which is prone to medical misidentifications and grammatical errors. This are unintentional and the practitioner does try to identify and correct these, but some could still be present. Please do not hesitate to contact practitioner for clarification. 10/23/2024 Vitamin D deficiency (ICD-10 - E55.9) Patient seen and examined. Comprehensive discussion was done on the following. # H. 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 pylori stool antigens on 10/01/2024. She is now on triple antibiotic therapy including clarithromycin 500 mg, amoxicillin 500 mg, and metronidazole 500 mg. On second day of course for total 14 days. Continue omeprazole once daily. 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 Reports several cases of H. pylori infection in the past. Will continue to follow with GI. # Hyperpigmentation: Patient reporting darkening of her skin in the skin folds of her arms as well as folds of her upper thighs. No irritation. Does not history of PCOS. We discussed topical agents including tretinoin which is a vitamin A derivative which would be helpful for increasing skin turnover. Advised the patient to use the medication at nighttime and small amounts. Discussed the medication may cause dry skin. Will continue to monitor. # PCOS: No current medication therapy. Patient does follow with [facility] infertility center in [place]. Will continue to monitor. # Hyperlipidemia: Lipid panel on 08/28/2024 with cholesterol 192, triglycerides 124, HDL 56, and LDL 114. ASCVD risk less than 5%. Discussed importance of diet and lifestyle to lower cholesterol levels and prevent other comorbidities. Will continue to monitor. # Vitamin D deficiency: Vitamin D level decreased at 08/26/2024 at 21.5. Discussed the importance of daily supplementation. Will continue to monitor. # Overweight: Weight 164 pounds, BMI 25.68. Patient established in weight management program. Currently on Zepbound 2.5 mg weekly. Next follow-up on 11/11/2024. Will continue to monitor. # Hyperlipidemia: Lipid panel on 08/26/2024 significant for LDL 105. Remainder of values in normal limits. ASCVD risk less than 5%. Discussed lifestyle modifications including increasing consumption of whole foods, fiber intake, vitamin D, turmeric/curcumin, and increasing physical activity. Will continue to monitor. # Raynaud's syndrome continue nifedipine 10 mg 1 capsule 3 times daily. Will continue to monitor. Blood pressure stable in office 116/80. 1. Nutrition: It is important to follow a healthy diet based on lots of vegetables and legumes and good fat. Avoid processed food and processed carbohydrates. Prepare your own meals. Read labels and avoid high fructose corn syrup, processed chemicals added to increase shelf life and preprepared meals. Avoid fast foods. Eat slowly and plan meals for a week. Try to count calories and be mindful off daily calorie intake. Get into the habit of keeping an eye on your weight by using an appropriate scale. Learn to log exercise and discussed fitness Apps like [employer] or [employer] which can help keep log off calories taken versus calories burned. Local food should be preferred. Discussed Dirty Dozen Versus Clean Fifteen. Discussed healthy supplements like fish oil, Tumeric, Curcumin, Melatonin, Resveratrol, Probiotics, Vitamin-D, Alpha-Lipoic acid, Vitamin-D and coconut oil. 2. It is important to exercise regularly. Is a good habit to walk at least 30 minutes a day. Gentle weightlifting with standard precautions to protect the back. Finding activity like cycling or hiking and get into the habit of engaging in it. Stretching before and after the exercises important. It is also important to contact me if there are any problems like shortness of breath, chest pain, back pain and joint or muscle pain associated with the exercise. 3. Discussed age appropriate screening guidelines. Colonoscopy needs to start at age 50 with stool for occult blood as appropriate. There is a new test that can test for genetic abnormalities in the stool sample, Cologuard. This would not replace a colonoscopy but could be used as a screening tool for patients who do not want a colonoscopy. We discussed the importance of early detection of colon cancer. 4. Discussed current guidelines with respect to breast examination, mammogram and pap smear for early detection of breast and cervical cancer. Patient advised to follow up with these appointments. 5. Discussed safe driving and no use of smart phone while driving 6. Age-appropriate immunizations were discussed. A tetanus booster is needed every 10 years. Flu vaccine is recommended every year just before the start of the flu season. Shingles vaccine is recommended after age 50 but not all insurances cover it. Pneumonia vaccine is given after age 65 unless there are certain comorbidities for which it is started earlier. 7. Diagnostic labs were discussed. These could include/not limited to CBC CMP and lipids with fasting blood glucose and insulin levels. Vitamin D and hemoglobin A1c testing might be appropriate. All questions have been answered to patient's satisfaction. Patient verbalized understanding of diagnosis and treatments explained. Advised to call sooner prior to next visit it any questions/concerns arise. Case discussed with collaborating physician Bhargavi Pedraza who reviewed the assessment and plan. Chart, medications, labs, vital signs reviewed. Dictation was accomplished with the use of [employer] voice recognition software, which is prone to medical misidentifications and grammatical errors. This are unintentional and the practitioner does try to identify and correct these, but some could still be present. Please do not hesitate to contact practitioner for clarification. 08/13/2024 Mild acid reflux (ICD-10 - K21.9) Kaleb is a 23-year-old female who presents to the office today for new patient evaluation. Patient is welcomed to the practice. They are coming from [facility]. Last complete physical exam with labs last year. Medications, medical history, allergies, surgeries, hospitalizations, family history, and social history were reviewed. Problem list updated. Cardiopulmonary and abdominal exam unremarkable. Patient will follow-up in office. All patient questions answered at this time. # Hand cramping: Patient reporting 2-year history of cramping of her hands worse with exposure to cold. On physical exam bilateral extremities without visible deformity. Nontender to palpation of bilateral MCP, DIP, or PIP joints. Negative Tinel's test bilaterally. Given worsening pain with exposure to cold likely suspect Raynaud's phenomenon. To further workup other vasculitis will order ESR, ANCA, complement C3, complement C4, and CRP. Will also obtain vitamin B12 level. At this time will prescribe nifedipine to be taken 10 mg 3 times daily for management of cramping. Discussed proper use of the medication as well as expected side effect profile including but not limited to low blood pressure, headache, dizziness, and flushing. Patient understanding. She will follow-up in approximately 1 month for complete physical exam and will assess effect of the medication. # PCOS: No current medication therapy. Patient does follow with [facility] infertility center in [place]. Will continue to monitor. # Acid reflux: Patient reporting intermittent upper abdominal pain, states consistent with heartburn. Will prescribe famotidine 40 mg to be used once daily as needed for acid reflux. Discussed proper use of the medication and expected side effect profile including but not limited to headache, dizziness, constipation. Will also refer to gastroenterology for further management. Will continue to monitor. # Overweight: Weight 180 pounds, BMI 28.19. Discussed importance of diet and lifestyle in maintaining healthy weight for the patient and preventing other comorbidities. Will continue to monitor. All questions have been answered to patient's satisfaction. Patient verbalized understanding of diagnosis and treatments explained. Advised to call sooner prior to next visit it any questions/concerns arise. Case discussed with collaborating physician Bhargavi Pedraza who reviewed the assessment and plan. Chart, medications, labs, vital signs reviewed. Dictation was accomplished with the use of [employer] voice recognition software, which is prone to medical misidentifications and grammatical errors. This are unintentional and the practitioner does try to identify and correct these, but some could still be present. Please do not hesitate to contact practitioner for clarification. 09/05/2024 PCOS (polycystic ovarian syndrome) (ICD-10 - E28.2) Molly is a 24-year-old female with history of overweight who presents to the office today for weight management consult. Medical history, labs, allergies, medications, and social history reviewed with the patient. Provided education on healthy diet and lifestyle which includes high-protein, low carbohydrate, high-fiber, and a variety of fruits and vegetables. Patient encouraged to exercise with emphasis on resistance training minimum 3 times per week to maintain muscle mass and cardio to burn fat. All patient questions answered. Patient will follow-up in 2 to 4 weeks for weight management. 09/05/2024: Weight 179 pounds, BMI 28.03. SECA [...] office in 4 weeks for further management. # PCOS: No current medication therapy. Patient does follow with [facility] infertility center in [place]. Will continue to monitor. # Acid reflux: Continue famotidine 40 mg once daily as needed for acid reflux. Discussed proper use and side effect profile. Will continue to monitor. # Hyperlipidemia: Lipid panel on 08/28/2024 with cholesterol 192, triglycerides 124, HDL 56, and LDL 114. ASCVD risk less than 5%. Discussed importance of diet and lifestyle to lower cholesterol levels and prevent other comorbidities. Will continue to monitor. # Vitamin D deficiency: Vitamin D level decreased at 08/26/2024 at 21.5. Discussed the importance of daily supplementation. Will continue to monitor. Patient was reassured and welcomed to the practice. We discussed that we stress a hollistic medical approach with emphasis on lifestyle modification. Patient was informed that a healthy lifestyle with exercise and good eating habits can help reduce their risk of medical complications. Patient is explained that obesity increases their risk of diabetes, cardiovascular disease, or organ damage. We spent a lot of time discussing the relationship between food, exercise, sleep, mental health and obesity. Patient was counseled on the importance EATING local, organic food when possible. Patient was educated on clean 15 and dirty dozen. I provided information about reading books called The Food Rules by Kyler Watt and Eat Fat Get Lean by Dr Erasto Rachel. Self education is important in the journey for weight management. Patient was offered diagnostic testing/ SECA scale. We want to measure visceral adiposity, advanced body composition, adverse lipids, fatty acid balance, risk for heart disease and atherosclerosis, markers of inflammation and genetic susceptibility. Patient was counseled on weight management and was advised to lose weight using A. Meal Replacement Products Patient was educated on the replacement products called optifast. This is a good way of taking fixed amount of calories. It has been shown in studies to be ineffective weight management tool. This however has to be coupled with lifestyle intervention as well as laboratory data and EKG monitoring. It is impossible to know how a person will tolerate complete meal replacement. The side effects of meal replacement and weight loss could include syncopal attacks, dizziness, gallstones, potential cholecystectomy, possible heart attack and even . The benefits of meal replacement would be potential weight loss but no guarantees can be made. Meal replacement products are not covered by insurance. Once the patient has bought these products we cannot return them B. Lifestyle management which includes several strategies as below 1. Eat a low carbohydrate good fat good protein diet. Eliminate refined carbohydrates from the diet. Limit sugared beverages. Eat local organic when possible. Cook your own meals. Read food labels. Focus on healthy snacks. Portion control and food with low glycemic index 2. Exercise regularly. Try to get at least 6000 steps a day. Use a predominant to track activity level. Consider using apps like 7 minute excercise, [employer], lose it, stick as needed for self-monitoring and weight management. Consider group exercises. Consider hiring a safety trainer. Regular exercise is [place] to sustainable health and prevents as a buffer against weight regain 3. Sleep is most important for healing. Try to sleep at least 6-8 hours a night. A good quality sleep needs a sleep ritual with ideal room temperature of around 68. It might help to take a shower and have no electronics in the room and sleep in a very dark room without artificial light. Start sleep routine and get up early in the morning and go to bed on time. 4. Make a social connection. Surround yourself with positive people with positive energy. Connect with friends and family. 5. Get into the habit of meditating and mindfulness while doing everything. 6. Go outside and connect with nature. C. Prescription medications Patient was educated on the use of prescription medications for medical weight loss. This is a growing list and includes phentermine, Topamax,Qsymia, contrave, belviq and saxenda, wegovy etc. All prescription medications could have side effects including but not limited to kidney stones, seizure disorder cardiac arrhythmias heart attack pancreatitis, GI effects, Etc. Patient was encouraged to read the prescription insert and have coaching with their pharmacist and make an informed decision about taking medication and know that these medications are being prescribed with good intentions and we do not know how a patient would react to the medication. Some medications are FDA approved for weight loss and there is also off label use depending on patient's inability to afford medications in an attempt to lose weight D. Behavioral counseling was done to establish a relationship between food and an mood. Patient was provided information about local counseling and psychiatry and Dr Fung at [facility]. We would like to cover regular topics and build on low glycemic eating exercise mindful eating, using yoga and meditation along with deep breathing and connecting with friends and family. E. MASS PAT reviewed, Patient's current medications were reviewed and opinion was given on medication that can cause weight gain and can be substituted F. Patient was assessed for risk with obesity including and not limiting to atherosclerosis heart disease stroke kidney disease, restrictive lung disease, irritable bowel syndrome and overall mortality. Risk of developing prediabetes diabetes and metabolic syndrome was discussed G. Therapeutic plan: We have decided to make therapeutic plan which would include choosing wisely on calories restricting portion getting active, tracking weight, getting good quality sleep and working on time management H. Patient will follow up in 4 weeks for weight management Total time spent today was 60 minutes of which greater than 50% was spent on coordinating and counseling Case discussed with collaborating physician Diane Pedraza who reviewed the assessment and plan. Chart, medications, labs, vital signs reviewed. Dictation was accomplished with the use of [employer] voice recognition software, prone to medical misidentifications and grammatical errors. This is unintentional and the practitioner does try to identify and correct these, but some could still be present. Please do not hesitate to contact practitioner for clarification. All questions answered to patients satisfaction. Patient verbalized understanding of diagnosis and treatments explained. To call sooner prior to next visit it any questions/concerns arise. Patient was offered diagnostic testing/ SECA scale. We want to measure visceral adiposity, advanced body composition, adverse lipids, fatty acid balance, risk for heart disease and atherosclerosis, markers of inflammation and genetic susceptibility. Patient was counseled on weight management and was advised to lose weight using A. Meal Replacement Products Patient was educated on the replacement products called optifast. This is a good way of taking fixed amount of calories. It has been shown in studies to be ineffective weight management tool. This however has to be coupled with lifestyle intervention as well as laboratory data and EKG monitoring. It is impossible to know how a person will tolerate complete meal replacement. The side effects of meal replacement and weight loss could include syncopal attacks, dizziness, gallstones, potential cholecystectomy, possible heart attack and even . The benefits of meal replacement would be potential weight loss but no guarantees can be made. Meal replacement products are not covered by insurance. Once the patient has bought these products we cannot return them B. Lifestyle management which includes several strategies as below 1. Eat a low carbohydrate good fat good protein diet. Eliminate refined carbohydrates from the diet. Limit sugared beverages. Eat local organic when possible. Cook your own meals. Read food labels. Focus on healthy snacks. Portion control and food with low glycemic index 2. Exercise regularly. Try to get at least 6000 steps a day. Use a predominant to track activity level. Consider using apps like 7 minute excercise, [employer], lose it, stick as needed for self-monitoring and weight management. Consider group exercises. Consider hiring a safety trainer. Regular exercise is [place] to sustainable health and prevents as a buffer against weight regain 3. Sleep is most important for healing. Try to sleep at least 6-8 hours a night. A good quality sleep needs a sleep ritual with ideal room temperature of around 68. It might help to take a shower and have no electronics in the room and sleep in a very dark room without artificial light. Start sleep routine and get up early in the morning and go to bed on time. 4. Make a social connection. Surround yourself with positive people with positive energy. Connect with friends and family. 5. Get into the habit of meditating and mindfulness while doing everything. 6. Go outside and connect with nature. C. Prescription medications Patient was educated on the use of prescription medications for medical weight loss. This is a growing list and includes phentermine, Topamax,Qsymia, contrave, belviq and saxenda, wegovy etc. All prescription medications could have side effects including but not limited to kidney stones, seizure disorder cardiac arrhythmias heart attack pancreatitis, GI effects, Etc. Patient was encouraged to read the prescription insert and have coaching with their pharmacist and make an informed decision about taking medication and know that these medications are being prescribed with good intentions and we do not know how a patient would react to the medication. Some medications are FDA approved for weight loss and there is also off label use depending on patient's inability to afford medications in an attempt to lose weight D. Behavioral counseling was done to establish a relationship between food and an mood. Patient was provided information about local counseling and psychiatry and Dr Fung at [facility]. We would like to cover regular topics and build on low glycemic eating exercise mindful eating, using yoga and meditation along with deep breathing and connecting with friends and family. E. MASS PAT reviewed, Patient's current medications were reviewed and opinion was given on medication that can cause weight gain and can be substituted F. Patient was assessed for risk with obesity including and not limiting to atherosclerosis heart disease stroke kidney disease, restrictive lung disease, irritable bowel syndrome and overall mortality. Risk of developing prediabetes diabetes and metabolic syndrome was discussed G. Therapeutic plan: We have decided to make therapeutic plan which would include choosing wisely on calories restricting portion getting active, tracking weight, getting good quality sleep and working on time management H. Patient will follow up in 4 weeks for weight management Total time spent today was 60 minutes of which greater than 50% was spent on coordinating and counseling After consultation and careful review of medical history, this patient would benefit from Zepbound based off of the following criteria met: Patient is over the age of 18, has a BMI of 28.03. Additional comorbidities include PCOS, hyperlipidemia, acid reflux, and vitamin D deficiency. Patient has trialed other methods of weight loss including improving diet, exercise without success over three months. This medication is prescribed by or in consultation with a board certified obesity and weight management physician (Dr. Liane Pedraza or Dr. Vivi Pedraza) Case discussed with collaborating physician Diane Pedraza who reviewed the assessment and plan. Chart, medications, labs, vital signs reviewed. Dictation was accomplished with the use of [employer] voice recognition software, prone to medical misidentifications and grammatical errors. This is unintentional and the practitioner does try to identify and correct these, but some could still be present. Please do not hesitate to contact practitioner for clarification. All questions answered to patients satisfaction. Patient verbalized understanding of diagnosis and treatments explained. To call sooner prior to next visit it any questions/concerns arise. 09/05/2024 Mild acid reflux (ICD-10 - K21.9) Molly is a 24-year-old female with history of overweight who presents to the office today for weight management consult. Medical history, labs, allergies, medications, and social history reviewed with the patient. Provided education on healthy diet and lifestyle which includes high-protein, low carbohydrate, high-fiber, and a variety of fruits and vegetables. Patient encouraged to exercise with emphasis on resistance training minimum 3 times per week to maintain muscle mass and cardio to burn fat. All patient questions answered. Patient will follow-up in 2 to 4 weeks for weight management. 09/05/2024: Weight 179 pounds, BMI 28.03. SECA [...] office in 4 weeks for further management. # PCOS: No current medication therapy. Patient does follow with [facility] infertility center in [place]. Will continue to monitor. # Acid reflux: Continue famotidine 40 mg once daily as needed for acid reflux. Discussed proper use and side effect profile. Will continue to monitor. # Hyperlipidemia: Lipid panel on 08/28/2024 with cholesterol 192, triglycerides 124, HDL 56, and LDL 114. ASCVD risk less than 5%. Discussed importance of diet and lifestyle to lower cholesterol levels and prevent other comorbidities. Will continue to monitor. # Vitamin D deficiency: Vitamin D level decreased at 08/26/2024 at 21.5. Discussed the importance of daily supplementation. Will continue to monitor. Patient was reassured and welcomed to the practice. We discussed that we stress a hollistic medical approach with emphasis on lifestyle modification. Patient was informed that a healthy lifestyle with exercise and good eating habits can help reduce their risk of medical complications. Patient is explained that obesity increases their risk of diabetes, cardiovascular disease, or organ damage. We spent a lot of time discussing the relationship between food, exercise, sleep, mental health and obesity. Patient was counseled on the importance EATING local, organic food when possible. Patient was educated on clean 15 and dirty dozen. I provided information about reading books called The Food Rules by Kyler Watt and Eat Fat Get Lean by Dr Erasto Rachel. Self education is important in the journey for weight management. Patient was offered diagnostic testing/ SECA scale. We want to measure visceral adiposity, advanced body composition, adverse lipids, fatty acid balance, risk for heart disease and atherosclerosis, markers of inflammation and genetic susceptibility. Patient was counseled on weight management and was advised to lose weight using A. Meal Replacement Products Patient was educated on the replacement products called optifast. This is a good way of taking fixed amount of calories. It has been shown in studies to be ineffective weight management tool. This however has to be coupled with lifestyle intervention as well as laboratory data and EKG monitoring. It is impossible to know how a person will tolerate complete meal replacement. The side effects of meal replacement and weight loss could include syncopal attacks, dizziness, gallstones, potential cholecystectomy, possible heart attack and even . The benefits of meal replacement would be potential weight loss but no guarantees can be made. Meal replacement products are not covered by insurance. Once the patient has bought these products we cannot return them B. Lifestyle management which includes several strategies as below 1. Eat a low carbohydrate good fat good protein diet. Eliminate refined carbohydrates from the diet. Limit sugared beverages. Eat local organic when possible. Cook your own meals. Read food labels. Focus on healthy snacks. Portion control and food with low glycemic index 2. Exercise regularly. Try to get at least 6000 steps a day. Use a predominant to track activity level. Consider using apps like 7 minute excercise, myfitnesspal, lose it, stick as needed for self-monitoring and weight management. Consider group exercises. Consider hiring a safety trainer. Regular exercise is [place] to sustainable health and prevents as a buffer against weight regain 3. Sleep is most important for healing. Try to sleep at least 6-8 hours a night. A good quality sleep needs a sleep ritual with ideal room temperature of around 68. It might help to take a shower and have no electronics in the room and sleep in a very dark room without artificial light. Start sleep routine and get up early in the morning and go to bed on time. 4. Make a social connection. Surround yourself with positive people with positive energy. Connect with friends and family. 5. Get into the habit of meditating and mindfulness while doing everything. 6. Go outside and connect with nature. C. Prescription medications Patient was educated on the use of prescription medications for medical weight loss. This is a growing list and includes phentermine, Topamax,Qsymia, contrave, belviq and saxenda, wegovy etc. All prescription medications could have side effects including but not limited to kidney stones, seizure disorder cardiac arrhythmias heart attack pancreatitis, GI effects, Etc. Patient was encouraged to read the prescription insert and have coaching with their pharmacist and make an informed decision about taking medication and know that these medications are being prescribed with good intentions and we do not know how a patient would react to the medication. Some medications are FDA approved for weight loss and there is also off label use depending on patient's inability to afford medications in an attempt to lose weight D. Behavioral counseling was done to establish a relationship between food and an mood. Patient was provided information about local counseling and psychiatry and Dr Fung at [facility]. We would like to cover regular topics and build on low glycemic eating exercise mindful eating, using yoga and meditation along with deep breathing and connecting with friends and family. E. MASS PAT reviewed, Patient's current medications were reviewed and opinion was given on medication that can cause weight gain and can be substituted F. Patient was assessed for risk with obesity including and not limiting to atherosclerosis heart disease stroke kidney disease, restrictive lung disease, irritable bowel syndrome and overall mortality. Risk of developing prediabetes diabetes and metabolic syndrome was discussed G. Therapeutic plan: We have decided to make therapeutic plan which would include choosing wisely on calories restricting portion getting active, tracking weight, getting good quality sleep and working on time management H. Patient will follow up in 4 weeks for weight management Total time spent today was 60 minutes of which greater than 50% was spent on coordinating and counseling Case discussed with collaborating physician Diane Pedraza who reviewed the assessment and plan. Chart, medications, labs, vital signs reviewed. Dictation was accomplished with the use of [employer] voice recognition software, prone to medical misidentifications and grammatical errors. This is unintentional and the practitioner does try to identify and correct these, but some could still be present. Please do not hesitate to contact practitioner for clarification. All questions answered to patients satisfaction. Patient verbalized understanding of diagnosis and treatments explained. To call sooner prior to next visit it any questions/concerns arise. Patient was offered diagnostic testing/ SECA scale. We want to measure visceral adiposity, advanced body composition, adverse lipids, fatty acid balance, risk for heart disease and atherosclerosis, markers of inflammation and genetic susceptibility. Patient was counseled on weight management and was advised to lose weight using A. Meal Replacement Products Patient was educated on the replacement products called optifast. This is a good way of taking fixed amount of calories. It has been shown in studies to be ineffective weight management tool. This however has to be coupled with lifestyle intervention as well as laboratory data and EKG monitoring. It is impossible to know how a person will tolerate complete meal replacement. The side effects of meal replacement and weight loss could include syncopal attacks, dizziness, gallstones, potential cholecystectomy, possible heart attack and even . The benefits of meal replacement would be potential weight loss but no guarantees can be made. Meal replacement products are not covered by insurance. Once the patient has bought these products we cannot return them B. Lifestyle management which includes several strategies as below 1. Eat a low carbohydrate good fat good protein diet. Eliminate refined carbohydrates from the diet. Limit sugared beverages. Eat local organic when possible. Cook your own meals. Read food labels. Focus on healthy snacks. Portion control and food with low glycemic index 2. Exercise regularly. Try to get at least 6000 steps a day. Use a predominant to track activity level. Consider using apps like 7 minute excercise, [employer] Diabetespal, lose it, stick as needed for self-monitoring and weight management. Consider group exercises. Consider hiring a safety trainer. Regular exercise is [place] to sustainable health and prevents as a buffer against weight regain 3. Sleep is most important for healing. Try to sleep at least 6-8 hours a night. A good quality sleep needs a sleep ritual with ideal room temperature of around 68. It might help to take a shower and have no electronics in the room and sleep in a very dark room without artificial light. Start sleep routine and get up early in the morning and go to bed on time. 4. Make a social connection. Surround yourself with positive people with positive energy. Connect with friends and family. 5. Get into the habit of meditating and mindfulness while doing everything. 6. Go outside and connect with nature. C. Prescription medications Patient was educated on the use of prescription medications for medical weight loss. This is a growing list and includes phentermine, Topamax,Qsymia, contrave, belviq and saxenda, wegovy etc. All prescription medications could have side effects including but not limited to kidney stones, seizure disorder cardiac arrhythmias heart attack pancreatitis, GI effects, Etc. Patient was encouraged to read the prescription insert and have coaching with their pharmacist and make an informed decision about taking medication and know that these medications are being prescribed with good intentions and we do not know how a patient would react to the medication. Some medications are FDA approved for weight loss and there is also off label use depending on patient's inability to afford medications in an attempt to lose weight D. Behavioral counseling was done to establish a relationship between food and an mood. Patient was provided information about local counseling and psychiatry and Dr Fung at [facility]. We would like to cover regular topics and build on low glycemic eating exercise mindful eating, using yoga and meditation along with deep breathing and connecting with friends and family. E. MASS PAT reviewed, Patient's current medications were reviewed and opinion was given on medication that can cause weight gain and can be substituted F. Patient was assessed for risk with obesity including and not limiting to atherosclerosis heart disease stroke kidney disease, restrictive lung disease, irritable bowel syndrome and overall mortality. Risk of developing prediabetes diabetes and metabolic syndrome was discussed G. Therapeutic plan: We have decided to make therapeutic plan which would include choosing wisely on calories restricting portion getting active, tracking weight, getting good quality sleep and working on time management H. Patient will follow up in 4 weeks for weight management Total time spent today was 60 minutes of which greater than 50% was spent on coordinating and counseling After consultation and careful review of medical history, this patient would benefit from Zepbound based off of the following criteria met: Patient is over the age of 18, has a BMI of 28.03. Additional comorbidities include PCOS, hyperlipidemia, acid reflux, and vitamin D deficiency. Patient has trialed other methods of weight loss including improving diet, exercise without success over three months. This medication is prescribed by or in consultation with a board certified obesity and weight management physician (Dr. Liane Pedraza or Dr. Vivi Pedraza) Case discussed with collaborating physician Diane Pedraza who reviewed the assessment and plan. Chart, medications, labs, vital signs reviewed. Dictation was accomplished with the use of [employer] voice recognition software, prone to medical misidentifications and grammatical errors. This is unintentional and the practitioner does try to identify and correct these, but some could still be present. Please do not hesitate to contact practitioner for clarification. All questions answered to patients satisfaction. Patient verbalized understanding of diagnosis and treatments explained. To call sooner prior to next visit it any questions/concerns arise. 12/10/2024 Helicobacter pylori (H. pylori) (ICD-10 - [...] the left sacroiliac joint. Discussed measures including [id number] Tylenol or Profen for pain relief as well as importance of increasing her physical activity and stretching to manage symptoms. Will continue to monitor. # PCOS: No current medication therapy. Patient does follow with [facility] infertility center in [place]. Will continue to monitor. 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 pylori stool antigens on 10/01/2024. Patient has finished triple antibiotic therapy, now needs to repeat her stool antigen studies and then will follow-up shortly afterwards with gastroenterology. Taking omeprazole daily as needed for acid reflux. Patient is to follow-up with her excavating machine operator after stool studies. Reports several cases of [...] Dictation was accomplished with the use of [employer] voice recognition software, which is prone to medical misidentifications and grammatical errors. This are unintentional and the practitioner does try to identify and correct these, but some could still be present. Please do not hesitate to contact practitioner for clarification. 10/23/2024 Hyperpigmentation (ICD-10 - L81.9) Patient seen and examined. Comprehensive discussion was done on the following. # H. 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 pylori stool antigens on 10/01/2024. She is now on triple antibiotic therapy including clarithromycin 500 mg, amoxicillin 500 mg, and metronidazole 500 mg. On second day of course for total 14 days. Continue omeprazole once daily. 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 Reports several cases of H. pylori infection in the past. Will continue to follow with GI. # Hyperpigmentation: Patient reporting darkening of her skin in the skin folds of her arms as well as folds of her upper thighs. No irritation. Does not history of PCOS. We discussed topical agents including tretinoin which is a vitamin A derivative which would be helpful for increasing skin turnover. Advised the patient to use the medication at nighttime and small amounts. Discussed the medication may cause dry skin. Will continue to monitor. # PCOS: No current medication therapy. Patient does follow with [facility] infertility center in [place]. Will continue to monitor. # Hyperlipidemia: Lipid panel on 08/28/2024 with cholesterol 192, triglycerides 124, HDL 56, and LDL 114. ASCVD risk less than 5%. Discussed importance of diet and lifestyle to lower cholesterol levels and prevent other comorbidities. Will continue to monitor. # Vitamin D deficiency: Vitamin D level decreased at 08/26/2024 at 21.5. Discussed the importance of daily supplementation. Will continue to monitor. # Overweight: Weight 164 pounds, BMI 25.68. Patient established in weight management program. Currently on Zepbound 2.5 mg weekly. Next follow-up on 11/11/2024. Will continue to monitor. # Hyperlipidemia: Lipid panel on 08/26/2024 significant for LDL 105. Remainder of values in normal limits. ASCVD risk less than 5%. Discussed lifestyle modifications including increasing consumption of whole foods, fiber intake, vitamin D, turmeric/curcumin, and increasing physical activity. Will continue to monitor. # Raynaud's syndrome continue nifedipine 10 mg 1 capsule 3 times daily. Will continue to monitor. Blood pressure stable in office 116/80. 1. Nutrition: It is important to follow a healthy diet based on lots of vegetables and legumes and good fat. Avoid processed food and processed carbohydrates. Prepare your own meals. Read labels and avoid high fructose corn syrup, processed chemicals added to increase shelf life and preprepared meals. Avoid fast foods. Eat slowly and plan meals for a week. Try to count calories and be mindful off daily calorie intake. Get into the habit of keeping an eye on your weight by using an appropriate scale. Learn to log exercise and discussed fitness Apps like [employer] or [employer] which can help keep log off calories taken versus calories burned. Local food should be preferred. Discussed Dirty Dozen Versus Clean Fifteen. Discussed healthy supplements like fish oil, Tumeric, Curcumin, Melatonin, Resveratrol, Probiotics, Vitamin-D, Alpha-Lipoic acid, Vitamin-D and coconut oil. 2. It is important to exercise regularly. Is a good habit to walk at least 30 minutes a day. Gentle weightlifting with standard precautions to protect the back. Finding activity like cycling or hiking and get into the habit of engaging in it. Stretching before and after the exercises important. It is also important to contact me if there are any problems like shortness of breath, chest pain, back pain and joint or muscle pain associated with the exercise. 3. Discussed age appropriate screening guidelines. Colonoscopy needs to start at age 50 with stool for occult blood as appropriate. There is a new test that can test for genetic abnormalities in the stool sample, Cologuard. This would not replace a colonoscopy but could be used as a screening tool for patients who do not want a colonoscopy. We discussed the importance of early detection of colon cancer. 4. Discussed current guidelines with respect to breast examination, mammogram and pap smear for early detection of breast and cervical cancer. Patient advised to follow up with these appointments. 5. Discussed safe driving and no use of smart phone while driving 6. Age-appropriate immunizations were discussed. A tetanus booster is needed every 10 years. Flu vaccine is recommended every year just before the start of the flu season. Shingles vaccine is recommended after age 50 but not all insurances cover it. Pneumonia vaccine is given after age 65 unless there are certain comorbidities for which it is started earlier. 7. Diagnostic labs were discussed. These could include/not limited to CBC CMP and lipids with fasting blood glucose and insulin levels. Vitamin D and hemoglobin A1c testing might be appropriate. All questions have been answered to patient's satisfaction. Patient verbalized understanding of diagnosis and treatments explained. Advised to call sooner prior to next visit it any questions/concerns arise. Case discussed with collaborating physician Bhargavi Pedraza who reviewed the assessment and plan. Chart, medications, labs, vital signs reviewed. Dictation was accomplished with the use of [employer] voice recognition software, which is prone to medical misidentifications and grammatical errors. This are unintentional and the practitioner does try to identify and correct these, but some could still be present. Please do not hesitate to contact practitioner for clarification. 11/11/2024 Elevated LDL cholesterol level (ICD-10 - E78.00) [...] office in 4 weeks for further management. # Low back pain: Patient reporting pain in her lower back for the past 3 weeks. On and off in duration. Reports no injuries or strains to her knowledge. Does move a lot in her sleep. On exam there is no tenderness to palpation of the cervical, thoracic, or lumbar spine. Some tenderness to palpation of the left sacroiliac joint. Discussed measures including [id number] Tylenol or Profen for pain relief as well as importance of increasing her physical activity and stretching to manage symptoms. Will continue to monitor. # PCOS: No current medication therapy. Patient does follow with [facility] infertility center in [place]. Will continue to monitor. 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 pylori stool antigens on 10/01/2024. Patient has finished triple antibiotic therapy, now needs to repeat her stool antigen studies and then will follow-up shortly afterwards with gastroenterology. Taking omeprazole daily as needed for acid reflux. Patient is to follow-up with her excavating machine operator after stool studies. Reports several cases of [...] Dictation was accomplished with the use of [employer] voice recognition software, which is prone to medical misidentifications and grammatical errors. This are unintentional and the practitioner does try to identify and correct these, but some could still be present. Please do not hesitate to contact practitioner for clarification. 12/26/2024 Helicobacter pylori (H. pylori) (ICD-10 - A04.8) Patient is a 24-year-old female with history of PCOS, acid reflux, and antibiotic treated H. pylori infection who presents today for urgent visit for persistent back pain for the past 3 months. No initial injuries or trauma. No previous history of spinal surgeries or IV drug use. Patient has trialed use of Tylenol, ibuprofen, and CBD with limited relief. Reports pain localized in the lower back, no radiation of pain and no associated numbness, tingling, or weakness. On exam patient is well-appearing and in no acute distress. Vital signs are stable. Cardiopulmonary exam is unremarkable. No tenderness to palpation of the cervical, thoracic, or lumbar spine. No bilateral sacroiliac tenderness bilaterally. Thoracal spinal muscles are nontender bilaterally. Negative straight leg raise test. Based on clinical evaluation and examination, likely suspect uncomplicated musculoskeletal pain. Low concern at this time for sciatica given lack of numbness or tingling. Low concern for disc bulge at this time however cannot rule out without imaging. Low risk for cauda equina given lack of urinary/fecal incontinence and no saddle anesthesia. At this time we will treat symptomatically with naproxen 250 mg 1-2 times daily as needed for acute pain. For muscle spasm will treat with tizanidine 2 mg every 6-8 hours as needed for spasm. Discussed proper use of the medications and potential side effects. Will also obtain lumbar spine x-ray for further evaluation. Discussed red flag signs of back pain requiring ED evaluation. Patient understanding, all patient questions answered at this time. # PCOS: No current therapy at this time. Previously was following with [facility] infertility center in [place], reports that specialist no longer takes her insurance. Will create new referral. # Hyperlipidemia: Lipid panel on 08/28/2024 with [...] continue to monitor. Blood pressure stable in office. # H. pylori infection: Patient follows with [facility]. Found to have positive stool culture for H. pylori antigens on 10/01/2024. Has now finished triple antibiotic therapy, reports no further abdominal pain or acid reflux. Will continue to monitor. Continue follow-up with GI. All questions have been answered to patient's satisfaction. Patient verbalized understanding of diagnosis and treatments explained. Advised to call sooner prior to next visit it any questions/concerns arise. Case discussed with collaborating physician Bhargavi Pedraza who reviewed the assessment and plan. Chart, medications, labs, vital signs reviewed. Dictation was accomplished with the use of [employer] voice recognition software, which is prone to medical misidentifications and grammatical errors. This are unintentional and the practitioner does try to identify and correct these, but some could still be present. Please do not hesitate to contact practitioner for clarification. 02/10/2025 Elevated LDL cholesterol level (ICD-10 - E78.00) [...] office in 4 weeks for further management. 02/10/2025: Weight 147 pounds, BMI 23.02. Seca scan completed and discussed with the patient. Patient is down 12 pounds from her last visit in October. On body analysis she is down 12 pounds of fat mass. Fat mass index today is 8.7 which is within normal limits, previously 10.7. She is maintaining 42 pounds of muscle mass. Visceral adiposity is 0.8 L, reduced from 1.5. Patient currently is on Zepbound 5 mg weekly. No adverse effects. Discussed goals of diet and exercise. Plan is to maintain current dose and follow-up in 4 to 6 weeks. # Low back pain: Patient reporting pain in her lower back for the past 3 weeks. On and off in duration. Reports no injuries or strains to her knowledge. Does move a lot in her sleep. On exam there is no tenderness to palpation of the cervical, thoracic, or lumbar spine. Some tenderness to palpation of the left sacroiliac joint. Discussed measures including [id number] Tylenol or Profen for pain relief as well as importance of increasing her physical activity and stretching to manage symptoms. Will continue to monitor. # PCOS: No current medication therapy. Patient does follow with [facility] infertility center in [place]. Will continue to monitor. 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 pylori stool antigens on 10/01/2024. Patient has finished triple antibiotic therapy, now needs to repeat her stool antigen studies and then will follow-up shortly afterwards with gastroenterology. Taking omeprazole daily as needed for acid reflux. Patient is to follow-up with her excavating machine operator after stool studies. Reports several cases of [...] Dictation was accomplished with the use of [employer] voice recognition software, which is prone to medical misidentifications and grammatical errors. This are unintentional and the practitioner does try to identify and correct these, but some could still be present. Please do not hesitate to contact practitioner for clarification. 01/29/2025 Elevated LDL cholesterol level (ICD-10 - E78.00) Patient is a 24-year-old female with history of PCOS, acid reflux, lordosis, and H. pylori infection who presents today for urgent visit for chronic intermittent rash and acute hair loss. Patient reports that rash has been present for the past 5 months and is transient. Reports no rash present during visit today. She has been mindful about detergents, creams, cosmetics, and perfumes however unable to identify etiology of rash. Does find that rash gets worse with heat from hot showers. Has been using an ozeg-bjt-dfijcbh itch spray when necessary. Reports no mucosal involvement. She also reports concern regarding hair loss for 1 month. Reports no patches on her scalp however states that when styling and brushing more hair is coming out in clumps. Has associated scalp itchiness. States that she has tried a prescription ketoconazole shampoo before for similar symptoms which was ineffective. On exam the patient is well-appearing and in no acute distress. Vital signs are stable. Exam of the patient's skin reveals no acute rash at this time. Examination of the patient's scalp reveals no patches of hair loss however there is widespread white patches of dry skin and generalized dandruff. No bleeding or crusting lesions. Based on assessment and examination, unclear for why the patient may be having rash. There are no hypopigmented lesions on the patient's upper extremities which could indicate tinea versicolor. Examination of her scalp appears consistent with seborrheic dermatitis. At this time we will trial topical betamethasone valerate foam, patient can use the topical steroid daily for 2 weeks and then intermittently twice weekly. Will also trial a ciclopirox 1% shampoo, patient will apply 5 mL to wet hair, lather and leave on the area for 3 minutes, then rinse. Can repeat twice weekly for 4 weeks. For further workup we will also obtain updated TSH, CBC, serum iron, and ferritin levels. Will further refer the patient to [facility] for further assessment and treatment. All patient questions answered at this time. # PCOS: Provided today with referral for gynecology. # Hyperlipidemia: Lipid panel on 08/28/2024 with [...] continue to monitor. Blood pressure stable in office. # H. pylori infection: Patient follows with [facility]. Found to have positive stool culture for H. pylori antigens on 10/01/2024. Has now finished triple antibiotic therapy, reports no further abdominal pain or acid reflux. Will continue to monitor. Continue follow-up with GI. All questions have been answered to patient's satisfaction. Patient verbalized understanding of diagnosis and treatments explained. Advised to call sooner prior to next visit it any questions/concerns arise. Case discussed with collaborating physician Bhargavi Pedraza who reviewed the assessment and plan. Chart, medications, labs, vital signs reviewed. Dictation was accomplished with the use of [employer] voice recognition software, which is prone to medical misidentifications and grammatical errors. This are unintentional and the practitioner does try to identify and correct these, but some could still be present. Please do not hesitate to contact practitioner for clarification. 03/10/2025 Helicobacter pylori (H. pylori) (ICD-10 - A04.8) Patient is a 24-year-old female who presents today for urgent visit for a bump on the palm of her left hand that has waxed and waned for the past 3 years. Reports that the lump will appear with associated pain, can be present for a few months, then will resolve on its own. She reports no associated numbness or tingling of the hand. States that sometimes her hand has a bruised appearance. Has full range of motion. She reports no constitutional symptoms including fevers or chills. Denies injury or trauma to the extremity. On exam the patient is well-appearing and in no acute distress, vital signs are stable and cardiopulmonary exam unremarkable. Examination of the patient's left hand reveals a approximate 3 x 3 mm circular mass on the palmar surface at the base of the thumb that is tender to palpation. Overlying skin on erythematous. Potentially a ganglion cyst. For further evaluation and treatment will refer to hand surgery. Discussed red flag signs that require ED evaluation, all patient questions answered at this time. # Low back pain: X-ray of her lumbar spine on 12/26/2024 obtained for pain reveals no significant disc narrowing and some straightening of the spine consistent with lordosis. Discussed benefit of strengthening her core to improve pain. Continue analgesic medications including naproxen twice daily as needed for pain and tizanidine 2 mg every 6 hours as needed for muscle spasm. Will continue to monitor. # PCOS: No current medication therapy. Patient does follow with [facility] infertility center in [place]. Will continue to monitor. 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 pylori stool antigens on 10/01/2024. Patient has finished triple antibiotic therapy, now needs to repeat her stool antigen studies and then will follow-up shortly afterwards with gastroenterology. Taking omeprazole daily as needed for acid reflux. Patient is to follow-up with her excavating machine operator after stool studies. Reports several cases of H. pylori infection in the past. Will continue to follow with GI. # Nutritional counseling: Continue Zepbound 5 mg subcutaneous injection weekly. Next follow-up on 03/24/2025. All questions have been answered to patient's satisfaction. Patient verbalized understanding of diagnosis and treatments explained. Advised to call sooner prior to next visit it any questions/concerns arise. Case discussed with collaborating physician Bhargavi Pedraza who reviewed the assessment and plan. Chart, medications, labs, vital signs reviewed. Dictation was accomplished with the use of [employer] voice recognition software, which is prone to medical misidentifications and grammatical errors. This are unintentional and the practitioner does try to identify and correct these, but some could still be present. Please do not hesitate to contact practitioner for clarification. 03/24/2025 Elevated LDL cholesterol level (ICD-10 - E78.00) [...] office in 4 weeks for further management. 02/10/2025: Weight 147 pounds, BMI 23.02. Seca scan completed and discussed with the patient. Patient is down 12 pounds from her last visit in October. On body analysis she is down 12 pounds of fat mass. Fat mass index today is 8.7 which is within normal limits, previously 10.7. She is maintaining 42 pounds of muscle mass. Visceral adiposity is 0.8 L, reduced from 1.5. Patient currently is on Zepbound 5 mg weekly. No adverse effects. Discussed goals of diet and exercise. Plan is to maintain current dose and follow-up in 4 to 6 weeks. 03/24/2025: Weight 149 pounds, BMI 24.2. Seca scan completed and discussed results with the patient. She is up approximately 2 pounds since her last visit. On body composition analysis however she is maintaining 53 pounds of fat mass, fat mass index of 8.6. She has had a 3 pound increase of muscle mass which she was congratulated for. Visceral adiposity is stable at 0.9 L. Patient currently on Zepbound 5 mg weekly. Endorsing good tolerance of medication. Has adjusted her goal to reach approximately 10 more pounds weight loss. At this time plan will be to temporarily increase dose 7.5 mg to more efficiently reach goal along with maintaining lifestyle adjustments. Follow-up in approximately 4 to 6 weeks. # Low back pain: Patient reporting pain in her lower back for the past 3 weeks. On and off in duration. Reports no injuries or strains to her knowledge. Does move a lot in her sleep. On exam there is no tenderness to palpation of the cervical, thoracic, or lumbar spine. Some tenderness to palpation of the left sacroiliac joint. Discussed measures including koln-nli-hookrkz Tylenol or Profen for pain relief as well as importance of increasing her physical activity and stretching to manage symptoms. Will continue to monitor. # PCOS: No current medication therapy. Patient does follow with [facility] infertility center in [place]. Will continue to monitor. 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 pylori stool antigens on 10/01/2024. Patient has finished triple antibiotic therapy, now needs to repeat her stool antigen studies and then will follow-up shortly afterwards with gastroenterology. Taking omeprazole daily as needed for acid reflux. Patient is to follow-up with her excavating machine operator after stool studies. Reports several cases of H. pylori infection in the past. Will continue to follow with GI. # Sore throat: Patient reports having gone to urgent care for symptoms of sore throat, diagnosed with bacterial strep and treated with 10 days of penicillin. Patient continued to have symptoms and was evaluated again by urgent care who refilled medication for 5 more days. Today she reports continued sore throat as well as fatigue and right-sided neck swelling. On exam, the tonsils are enlarged and erythematous bilaterally, no exudates seen. No uvular deviation. There is right-sided anterior cervical lymphadenopathy and lymphadenitis. Based on history and examination, high suspicion for mononucleosis. Will obtain Monospot testing. Discussed that symptoms will be continuing rest, hydration, proper nutrition, and as needed Tylenol and ibuprofen. Discussed that can take several weeks to recover. Discussed that if mononucleosis to avoid contact activity until feeling better. All questions have been answered to patient's satisfaction. Patient verbalized understanding of diagnosis and treatments explained. Advised to call sooner prior to next visit it any questions/concerns arise. Case discussed with collaborating physician Bhargavi Pedraza who reviewed the assessment and plan. Chart, medications, labs, vital signs reviewed. Dictation was accomplished with the use of [employer] voice recognition software, which is prone to medical misidentifications and grammatical errors. This are unintentional and the practitioner does try to identify and correct these, but some could still be present. Please do not hesitate to contact practitioner for clarification. 05/27/2025 Vitamin D insufficiency (ICD-10 - E55.9) Patient [...] office in 4 weeks for further management. 02/10/2025: Weight 147 pounds, BMI 23.02. Seca scan completed and discussed with the patient. Patient is down 12 pounds from her last visit in October. On body analysis she is down 12 pounds of fat mass. Fat mass index today is 8.7 which is within normal limits, previously 10.7. She is maintaining 42 pounds of muscle mass. Visceral adiposity is 0.8 L, reduced from 1.5. Patient currently is on Zepbound 5 mg weekly. No adverse effects. Discussed goals of diet and exercise. Plan is to maintain current dose and follow-up in 4 to 6 weeks. 03/24/2025: Weight 149 pounds, BMI 24.2. Seca scan completed and discussed results with the patient. She is up approximately 2 pounds since her last visit. On body composition analysis however she is maintaining 53 pounds of fat mass, fat mass index of 8.6. She has had a 3 pound increase of muscle mass which she was congratulated for. Visceral adiposity is stable at 0.9 L. Patient currently on Zepbound 5 mg weekly. Endorsing good tolerance of medication. Has adjusted her goal to reach approximately 10 more pounds weight loss. At this time plan will be to temporarily increase dose 7.5 mg to more efficiently reach goal along with maintaining lifestyle adjustments. Follow-up in approximately 4 to 6 weeks. 05/27/2025: Weight 145 pounds, BMI 22.71. Seca scan completed and discussed results with the patient. Patient is down 4 pounds from last visit. On body composition analysis fat mass is largely stable, index today of 8.7. Muscle mass has reduced by 6 pounds. No longer has high composition. Discussed importance of increasing intensity weight training and adding more protein into diet. Patient understanding. Visceral adiposity stable at 0.9 L. Currently on Zepbound 7.5 mg weekly. Will maintain this dose and follow-up in 6 weeks. # PCOS: No current medication therapy. Patient does follow with [facility] infertility center in [place]. Will continue to monitor. # Hyperlipidemia: Lipid [...] 3 times daily. Will continue to monitor. # Ingrown toenail: Patient reports bilateral great toenail are ingrown. Attempts to treat with regular pedicures. Will refer to podiatry. All questions have been answered to patient's satisfaction. Patient verbalized understanding of diagnosis and treatments explained. Advised to call sooner prior to next visit it any questions/concerns arise. Case discussed with collaborating physician Bhargavi Pedraza who reviewed the assessment and plan. Chart, medications, labs, vital signs reviewed. Dictation was accomplished with the use of [employer] voice recognition software, which is prone to medical misidentifications and grammatical errors. This are unintentional and the practitioner does try to identify and correct these, but some could still be present. Please do not hesitate to contact practitioner for clarification. 05/27/2025 Ingrown toenail (ICD-10 - L60.0) Patient is here for weight management follow-up. [...] office in 4 weeks for further management. 02/10/2025: Weight 147 pounds, BMI 23.02. Seca scan completed and discussed with the patient. Patient is down 12 pounds from her last visit in October. On body analysis she is down 12 pounds of fat mass. Fat mass index today is 8.7 which is within normal limits, previously 10.7. She is maintaining 42 pounds of muscle mass. Visceral adiposity is 0.8 L, reduced from 1.5. Patient currently is on Zepbound 5 mg weekly. No adverse effects. Discussed goals of diet and exercise. Plan is to maintain current dose and follow-up in 4 to 6 weeks. 03/24/2025: Weight 149 pounds, BMI 24.2. Seca scan completed and discussed results with the patient. She is up approximately 2 pounds since her last visit. On body composition analysis however she is maintaining 53 pounds of fat mass, fat mass index of 8.6. She has had a 3 pound increase of muscle mass which she was congratulated for. Visceral adiposity is stable at 0.9 L. Patient currently on Zepbound 5 mg weekly. Endorsing good tolerance of medication. Has adjusted her goal to reach approximately 10 more pounds weight loss. At this time plan will be to temporarily increase dose 7.5 mg to more efficiently reach goal along with maintaining lifestyle adjustments. Follow-up in approximately 4 to 6 weeks. 05/27/2025: Weight 145 pounds, BMI 22.71. Seca scan completed and discussed results with the patient. Patient is down 4 pounds from last visit. On body composition analysis fat mass is largely stable, index today of 8.7. Muscle mass has reduced by 6 pounds. No longer has high composition. Discussed importance of increasing intensity weight training and adding more protein into diet. Patient understanding. Visceral adiposity stable at 0.9 L. Currently on Zepbound 7.5 mg weekly. Will maintain this dose and follow-up in 6 weeks. # PCOS: No current medication therapy. Patient does follow with [facility] infertility center in [place]. Will continue to monitor. # Hyperlipidemia: Lipid [...] 3 times daily. Will continue to monitor. # Ingrown toenail: Patient reports bilateral great toenail are ingrown. Attempts to treat with regular pedicures. Will refer to podiatry. All questions have been answered to patient's satisfaction. Patient verbalized understanding of diagnosis and treatments explained. Advised to call sooner prior to next visit it any questions/concerns arise. Case discussed with collaborating physician Bhargavi Pedraza who reviewed the assessment and plan. Chart, medications, labs, vital signs reviewed. Dictation was accomplished with the use of [employer] voice recognition software, which is prone to medical misidentifications and grammatical errors. This are unintentional and the practitioner does try to identify and correct these, but some could still be present. Please do not hesitate to contact practitioner for clarification. 03/24/2025 Vitamin D insufficiency (ICD-10 - E55.9) Patient [...] office in 4 weeks for further management. 02/10/2025: Weight 147 pounds, BMI 23.02. Seca scan completed and discussed with the patient. Patient is down 12 pounds from her last visit in October. On body analysis she is down 12 pounds of fat mass. Fat mass index today is 8.7 which is within normal limits, previously 10.7. She is maintaining 42 pounds of muscle mass. Visceral adiposity is 0.8 L, reduced from 1.5. Patient currently is on Zepbound 5 mg weekly. No adverse effects. Discussed goals of diet and exercise. Plan is to maintain current dose and follow-up in 4 to 6 weeks. 03/24/2025: Weight 149 pounds, BMI 24.2. Seca scan completed and discussed results with the patient. She is up approximately 2 pounds since her last visit. On body composition analysis however she is maintaining 53 pounds of fat mass, fat mass index of 8.6. She has had a 3 pound increase of muscle mass which she was congratulated for. Visceral adiposity is stable at 0.9 L. Patient currently on Zepbound 5 mg weekly. Endorsing good tolerance of medication. Has adjusted her goal to reach approximately 10 more pounds weight loss. At this time plan will be to temporarily increase dose 7.5 mg to more efficiently reach goal along with maintaining lifestyle adjustments. Follow-up in approximately 4 to 6 weeks. # Low back pain: Patient reporting pain in her lower back for the past 3 weeks. On and off in duration. Reports no injuries or strains to her knowledge. Does move a lot in her sleep. On exam there is no tenderness to palpation of the cervical, thoracic, or lumbar spine. Some tenderness to palpation of the left sacroiliac joint. Discussed measures including dasn-lob-lpzyzti Tylenol or Profen for pain relief as well as importance of increasing her physical activity and stretching to manage symptoms. Will continue to monitor. # PCOS: No current medication therapy. Patient does follow with [facility] infertility center in [place]. Will continue to monitor. 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 pylori stool antigens on 10/01/2024. Patient has finished triple antibiotic therapy, now needs to repeat her stool antigen studies and then will follow-up shortly afterwards with gastroenterology. Taking omeprazole daily as needed for acid reflux. Patient is to follow-up with her excavating machine operator after stool studies. Reports several cases of H. pylori infection in the past. Will continue to follow with GI. # Sore throat: Patient reports having gone to urgent care for symptoms of sore throat, diagnosed with bacterial strep and treated with 10 days of penicillin. Patient continued to have symptoms and was evaluated again by urgent care who refilled medication for 5 more days. Today she reports continued sore throat as well as fatigue and right-sided neck swelling. On exam, the tonsils are enlarged and erythematous bilaterally, no exudates seen. No uvular deviation. There is right-sided anterior cervical lymphadenopathy and lymphadenitis. Based on history and examination, high suspicion for mononucleosis. Will obtain Monospot testing. Discussed that symptoms will be continuing rest, hydration, proper nutrition, and as needed Tylenol and ibuprofen. Discussed that can take several weeks to recover. Discussed that if mononucleosis to avoid contact activity until feeling better. All questions have been answered to patient's satisfaction. Patient verbalized understanding of diagnosis and treatments explained. Advised to call sooner prior to next visit it any questions/concerns arise. Case discussed with collaborating physician Bhargavi Pedraza who reviewed the assessment and plan. Chart, medications, labs, vital signs reviewed. Dictation was accomplished with the use of [employer] voice recognition software, which is prone to medical misidentifications and grammatical errors. This are unintentional and the practitioner does try to identify and correct these, but some could still be present. Please do not hesitate to contact practitioner for clarification. 02/10/2025 Vitamin D insufficiency (ICD-10 - E55.9) Patient [...] office in 4 weeks for further management. 02/10/2025: Weight 147 pounds, BMI 23.02. Seca scan completed and discussed with the patient. Patient is down 12 pounds from her last visit in October. On body analysis she is down 12 pounds of fat mass. Fat mass index today is 8.7 which is within normal limits, previously 10.7. She is maintaining 42 pounds of muscle mass. Visceral adiposity is 0.8 L, reduced from 1.5. Patient currently is on Zepbound 5 mg weekly. No adverse effects. Discussed goals of diet and exercise. Plan is to maintain current dose and follow-up in 4 to 6 weeks. # Low back pain: Patient reporting pain in her lower back for the past 3 weeks. On and off in duration. Reports no injuries or strains to her knowledge. Does move a lot in her sleep. On exam there is no tenderness to palpation of the cervical, thoracic, or lumbar spine. Some tenderness to palpation of the left sacroiliac joint. Discussed measures including fwxn-fgw-[id number] Tylenol or Profen for pain relief as well as importance of increasing her physical activity and stretching to manage symptoms. Will continue to monitor. # PCOS: No current medication therapy. Patient does follow with [facility] infertility center in [place]. Will continue to monitor. 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 pylori stool antigens on 10/01/2024. Patient has finished triple antibiotic therapy, now needs to repeat her stool antigen studies and then will follow-up shortly afterwards with gastroenterology. Taking omeprazole daily as needed for acid reflux. Patient is to follow-up with her excavating machine operator after stool studies. Reports several cases of [...] Dictation was accomplished with the use of [employer] voice recognition software, which is prone to medical misidentifications and grammatical errors. This are unintentional and the practitioner does try to identify and correct these, but some could still be present. Please do not hesitate to contact practitioner for clarification. 03/10/2025 Nutritional counseling (ICD-10 - Z71.3) Patient is a 24-year-old female who presents today for urgent visit for a bump on the palm of her left hand that has waxed and waned for the past 3 years. Reports that the lump will appear with associated pain, can be present for a few months, then will resolve on its own. She reports no associated numbness or tingling of the hand. States that sometimes her hand has a bruised appearance. Has full range of motion. She reports no constitutional symptoms including fevers or chills. Denies injury or trauma to the extremity. On exam the patient is well-appearing and in no acute distress, vital signs are stable and cardiopulmonary exam unremarkable. Examination of the patient's left hand reveals a approximate 3 x 3 mm circular mass on the palmar surface at the base of the thumb that is tender to palpation. Overlying skin on erythematous. Potentially a ganglion cyst. For further evaluation and treatment will refer to hand surgery. Discussed red flag signs that require ED evaluation, all patient questions answered at this time. # Low back pain: X-ray of her lumbar spine on 12/26/2024 obtained for pain reveals no significant disc narrowing and some straightening of the spine consistent with lordosis. Discussed benefit of strengthening her core to improve pain. Continue analgesic medications including naproxen twice daily as needed for pain and tizanidine 2 mg every 6 hours as needed for muscle spasm. Will continue to monitor. # PCOS: No current medication therapy. Patient does follow with [facility] infertility center in [place]. Will continue to monitor. 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 pylori stool antigens on 10/01/2024. Patient has finished triple antibiotic therapy, now needs to repeat her stool antigen studies and then will follow-up shortly afterwards with gastroenterology. Taking omeprazole daily as needed for acid reflux. Patient is to follow-up with her excavating machine operator after stool studies. Reports several cases of H. pylori infection in the past. Will continue to follow with GI. # Nutritional counseling: Continue Zepbound 5 mg subcutaneous injection weekly. Next follow-up on 03/24/2025. All questions have been answered to patient's satisfaction. Patient verbalized understanding of diagnosis and treatments explained. Advised to call sooner prior to next visit it any questions/concerns arise. Case discussed with collaborating physician Bhargavi Pedraza who reviewed the assessment and plan. Chart, medications, labs, vital signs reviewed. Dictation was accomplished with the use of [employer] voice recognition software, which is prone to medical misidentifications and grammatical errors. This are unintentional and the practitioner does try to identify and correct these, but some could still be present. Please do not hesitate to contact practitioner for clarification. 01/29/2025 Vitamin D insufficiency (ICD-10 - E55.9) Patient is a 24-year-old female with history of PCOS, acid reflux, lordosis, and H. pylori infection who presents today for urgent visit for chronic intermittent rash and acute hair loss. Patient reports that rash has been present for the past 5 months and is transient. Reports no rash present during visit today. She has been mindful about detergents, creams, cosmetics, and perfumes however unable to identify etiology of rash. Does find that rash gets worse with heat from hot showers. Has been using an ucrx-vdj-hmeeqhi itch spray when necessary. Reports no mucosal involvement. She also reports concern regarding hair loss for 1 month. Reports no patches on her scalp however states that when styling and brushing more hair is coming out in clumps. Has associated scalp itchiness. States that she has tried a prescription ketoconazole shampoo before for similar symptoms which was ineffective. On exam the patient is well-appearing and in no acute distress. Vital signs are stable. Exam of the patient's skin reveals no acute rash at this time. Examination of the patient's scalp reveals no patches of hair loss however there is widespread white patches of dry skin and generalized dandruff. No bleeding or crusting lesions. Based on assessment and examination, unclear for why the patient may be having rash. There are no hypopigmented lesions on the patient's upper extremities which could indicate tinea versicolor. Examination of her scalp appears consistent with seborrheic dermatitis. At this time we will trial topical betamethasone valerate foam, patient can use the topical steroid daily for 2 weeks and then intermittently twice weekly. Will also trial a ciclopirox 1% shampoo, patient will apply 5 mL to wet hair, lather and leave on the area for 3 minutes, then rinse. Can repeat twice weekly for 4 weeks. For further workup we will also obtain updated TSH, CBC, serum iron, and ferritin levels. Will further refer the patient to [facility] for further assessment and treatment. All patient questions answered at this time. # PCOS: Provided today with referral for gynecology. # Hyperlipidemia: Lipid panel on 08/28/2024 with [...] continue to monitor. Blood pressure stable in office. # H. pylori infection: Patient follows with [facility] gastro[facility]. Found to have positive stool culture for H. pylori antigens on 10/01/2024. Has now finished triple antibiotic therapy, reports no further abdominal pain or acid reflux. Will continue to monitor. Continue follow-up with GI. All questions have been answered to patient's satisfaction. Patient verbalized understanding of diagnosis and treatments explained. Advised to call sooner prior to next visit it any questions/concerns arise. Case discussed with collaborating physician Bhargavi Pedraza who reviewed the assessment and plan. Chart, medications, labs, vital signs reviewed. Dictation was accomplished with the use of [employer] voice recognition software, which is prone to medical misidentifications and grammatical errors. This are unintentional and the practitioner does try to identify and correct these, but some could still be present. Please do not hesitate to contact practitioner for clarification. 11/11/2024 Vitamin D insufficiency (ICD-10 - E55.9) Patient [...] office in 4 weeks for further management. # Low back pain: Patient reporting pain in her lower back for the past 3 weeks. On and off in duration. Reports no injuries or strains to her knowledge. Does move a lot in her sleep. On exam there is no tenderness to palpation of the cervical, thoracic, or lumbar spine. Some tenderness to palpation of the left sacroiliac joint. Discussed measures including azsd-fyq-tzpalvq Tylenol or Profen for pain relief as well as importance of increasing her physical activity and stretching to manage symptoms. Will continue to monitor. # PCOS: No current medication therapy. Patient does follow with [facility] infertility center in [place]. Will continue to monitor. 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 pylori stool antigens on 10/01/2024. Patient has finished triple antibiotic therapy, now needs to repeat her stool antigen studies and then will follow-up shortly afterwards with gastroenterology. Taking omeprazole daily as needed for acid reflux. Patient is to follow-up with her excavating machine operator after stool studies. Reports several cases of [...] Dictation was accomplished with the use of [employer] voice recognition software, which is prone to [...] the left sacroiliac joint. Discussed measures including mbam-nav-ttrabou Tylenol or Profen for pain relief as well as importance of increasing her physical activity and stretching to manage symptoms. Will continue to monitor. # PCOS: No current medication therapy. Patient does follow with [facility] infertility center in [place]. Will continue to monitor. 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 pylori stool antigens on 10/01/2024. Patient has finished triple antibiotic therapy, now needs to repeat her stool antigen studies and then will follow-up shortly afterwards with gastroenterology. Taking omeprazole daily as needed for acid reflux. Patient is to follow-up with her excavating machine operator after stool studies. Reports several cases of [...] Dictation was accomplished with the use of [employer] voice recognition software, which is prone to medical misidentifications and grammatical errors. This are unintentional and the practitioner does try to identify and correct these, but some could still be present. Please do not hesitate to contact practitioner for clarification. 10/23/2024 Overweight (ICD-10 - E66.3) Patient seen and examined. Comprehensive discussion was done on the following. # H. 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 pylori stool antigens on 10/01/2024. She is now on triple antibiotic therapy including clarithromycin 500 mg, amoxicillin 500 mg, and metronidazole 500 mg. On second day of course for total 14 days. Continue omeprazole once daily. 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 Reports several cases of H. pylori infection in the past. Will continue to follow with GI. # Hyperpigmentation: Patient reporting darkening of her skin in the skin folds of her arms as well as folds of her upper thighs. No irritation. Does not history of PCOS. We discussed topical agents including tretinoin which is a vitamin A derivative which would be helpful for increasing skin turnover. Advised the patient to use the medication at nighttime and small amounts. Discussed the medication may cause dry skin. Will continue to monitor. # PCOS: No current medication therapy. Patient does follow with [facility] infertility center in [place]. Will continue to monitor. # Hyperlipidemia: Lipid panel on 08/28/2024 with cholesterol 192, triglycerides 124, HDL 56, and LDL 114. ASCVD risk less than 5%. Discussed importance of diet and lifestyle to lower cholesterol levels and prevent other comorbidities. Will continue to monitor. # Vitamin D deficiency: Vitamin D level decreased at 08/26/2024 at 21.5. Discussed the importance of daily supplementation. Will continue to monitor. # Overweight: Weight 164 pounds, BMI 25.68. Patient established in weight management program. Currently on Zepbound 2.5 mg weekly. Next follow-up on 11/11/2024. Will continue to monitor. # Hyperlipidemia: Lipid panel on 08/26/2024 significant for LDL 105. Remainder of values in normal limits. ASCVD risk less than 5%. Discussed lifestyle modifications including increasing consumption of whole foods, fiber intake, vitamin D, turmeric/curcumin, and increasing physical activity. Will continue to monitor. # Raynaud's syndrome continue nifedipine 10 mg 1 capsule 3 times daily. Will continue to monitor. Blood pressure stable in office 116/80. 1. Nutrition: It is important to follow a healthy diet based on lots of vegetables and legumes and good fat. Avoid processed food and processed carbohydrates. Prepare your own meals. Read labels and avoid high fructose corn syrup, processed chemicals added to increase shelf life and preprepared meals. Avoid fast foods. Eat slowly and plan meals for a week. Try to count calories and be mindful off daily calorie intake. Get into the habit of keeping an eye on your weight by using an appropriate scale. Learn to log exercise and discussed fitness Apps like CleanBeeBabypal or [employer] which can help keep log off calories taken versus calories burned. Local food should be preferred. Discussed Dirty Dozen Versus Clean Fifteen. Discussed healthy supplements like fish oil, Tumeric, Curcumin, Melatonin, Resveratrol, Probiotics, Vitamin-D, Alpha-Lipoic acid, Vitamin-D and coconut oil. 2. It is important to exercise regularly. Is a good habit to walk at least 30 minutes a day. Gentle weightlifting with standard precautions to protect the back. Finding activity like cycling or hiking and get into the habit of engaging in it. Stretching before and after the exercises important. It is also important to contact me if there are any problems like shortness of breath, chest pain, back pain and joint or muscle pain associated with the exercise. 3. Discussed age appropriate screening guidelines. Colonoscopy needs to start at age 50 with stool for occult blood as appropriate. There is a new test that can test for genetic abnormalities in the stool sample, Cologuard. This would not replace a colonoscopy but could be used as a screening tool for patients who do not want a colonoscopy. We discussed the importance of early detection of colon cancer. 4. Discussed current guidelines with respect to breast examination, mammogram and pap smear for early detection of breast and cervical cancer. Patient advised to follow up with these appointments. 5. Discussed safe driving and no use of smart phone while driving 6. Age-appropriate immunizations were discussed. A tetanus booster is needed every 10 years. Flu vaccine is recommended every year just before the start of the flu season. Shingles vaccine is recommended after age 50 but not all insurances cover it. Pneumonia vaccine is given after age 65 unless there are certain comorbidities for which it is started earlier. 7. Diagnostic labs were discussed. These could include/not limited to CBC CMP and lipids with fasting blood glucose and insulin levels. Vitamin D and hemoglobin A1c testing might be appropriate. All questions have been answered to patient's satisfaction. Patient verbalized understanding of diagnosis and treatments explained. Advised to call sooner prior to next visit it any questions/concerns arise. Case discussed with collaborating physician Bhargavi Pedraza who reviewed the assessment and plan. Chart, medications, labs, vital signs reviewed. Dictation was accomplished with the use of [employer] voice recognition software, which is prone to medical misidentifications and grammatical errors. This are unintentional and the practitioner does try to identify and correct these, but some could still be present. Please do not hesitate to contact practitioner for clarification. 09/05/2024 Vitamin D deficiency (ICD-10 - E55.9) Molly is a 24-year-old female with history of overweight who presents to the office today for weight management consult. Medical history, labs, allergies, medications, and social history reviewed with the patient. Provided education on healthy diet and lifestyle which includes high-protein, low carbohydrate, high-fiber, and a variety of fruits and vegetables. Patient encouraged to exercise with emphasis on resistance training minimum 3 times per week to maintain muscle mass and cardio to burn fat. All patient questions answered. Patient will follow-up in 2 to 4 weeks for weight management. 09/05/2024: Weight 179 pounds, BMI 28.03. SECA [...] office in 4 weeks for further management. # PCOS: No current medication therapy. Patient does follow with [facility] infertility center in [place]. Will continue to monitor. # Acid reflux: Continue famotidine 40 mg once daily as needed for acid reflux. Discussed proper use and side effect profile. Will continue to monitor. # Hyperlipidemia: Lipid panel on 08/28/2024 with cholesterol 192, triglycerides 124, HDL 56, and LDL 114. ASCVD risk less than 5%. Discussed importance of diet and lifestyle to lower cholesterol levels and prevent other comorbidities. Will continue to monitor. # Vitamin D deficiency: Vitamin D level decreased at 08/26/2024 at 21.5. Discussed the importance of daily supplementation. Will continue to monitor. Patient was reassured and welcomed to the practice. We discussed that we stress a hollistic medical approach with emphasis on lifestyle modification. Patient was informed that a healthy lifestyle with exercise and good eating habits can help reduce their risk of medical complications. Patient is explained that obesity increases their risk of diabetes, cardiovascular disease, or organ damage. We spent a lot of time discussing the relationship between food, exercise, sleep, mental health and obesity. Patient was counseled on the importance EATING local, organic food when possible. Patient was educated on clean 15 and dirty dozen. I provided information about reading books called The Food Rules by Kyler Watt and Eat Fat Get Lean by Dr Erasto Rachel. Self education is important in the journey for weight management. Patient was offered diagnostic testing/ SECA scale. We want to measure visceral adiposity, advanced body composition, adverse lipids, fatty acid balance, risk for heart disease and atherosclerosis, markers of inflammation and genetic susceptibility. Patient was counseled on weight management and was advised to lose weight using A. Meal Replacement Products Patient was educated on the replacement products called optifast. This is a good way of taking fixed amount of calories. It has been shown in studies to be ineffective weight management tool. This however has to be coupled with lifestyle intervention as well as laboratory data and EKG monitoring. It is impossible to know how a person will tolerate complete meal replacement. The side effects of meal replacement and weight loss could include syncopal attacks, dizziness, gallstones, potential cholecystectomy, possible heart attack and even . The benefits of meal replacement would be potential weight loss but no guarantees can be made. Meal replacement products are not covered by insurance. Once the patient has bought these products we cannot return them B. Lifestyle management which includes several strategies as below 1. Eat a low carbohydrate good fat good protein diet. Eliminate refined carbohydrates from the diet. Limit sugared beverages. Eat local organic when possible. Cook your own meals. Read food labels. Focus on healthy snacks. Portion control and food with low glycemic index 2. Exercise regularly. Try to get at least 6000 steps a day. Use a predominant to track activity level. Consider using apps like 7 minute excercise, myThermalin Diabetespal, lose it, stick as needed for self-monitoring and weight management. Consider group exercises. Consider hiring a safety trainer. Regular exercise is [place] to sustainable health and prevents as a buffer against weight regain 3. Sleep is most important for healing. Try to sleep at least 6-8 hours a night. A good quality sleep needs a sleep ritual with ideal room temperature of around 68. It might help to take a shower and have no electronics in the room and sleep in a very dark room without artificial light. Start sleep routine and get up early in the morning and go to bed on time. 4. Make a social connection. Surround yourself with positive people with positive energy. Connect with friends and family. 5. Get into the habit of meditating and mindfulness while doing everything. 6. Go outside and connect with nature. C. Prescription medications Patient was educated on the use of prescription medications for medical weight loss. This is a growing list and includes phentermine, Topamax,Qsymia, contrave, belviq and saxenda, wegovy etc. All prescription medications could have side effects including but not limited to kidney stones, seizure disorder cardiac arrhythmias heart attack pancreatitis, GI effects, Etc. Patient was encouraged to read the prescription insert and have coaching with their pharmacist and make an informed decision about taking medication and know that these medications are being prescribed with good intentions and we do not know how a patient would react to the medication. Some medications are FDA approved for weight loss and there is also off label use depending on patient's inability to afford medications in an attempt to lose weight D. Behavioral counseling was done to establish a relationship between food and an mood. Patient was provided information about local counseling and psychiatry and Dr Fung at [facility]. We would like to cover regular topics and build on low glycemic eating exercise mindful eating, using yoga and meditation along with deep breathing and connecting with friends and family. E. MASS PAT reviewed, Patient's current medications were reviewed and opinion was given on medication that can cause weight gain and can be substituted F. Patient was assessed for risk with obesity including and not limiting to atherosclerosis heart disease stroke kidney disease, restrictive lung disease, irritable bowel syndrome and overall mortality. Risk of developing prediabetes diabetes and metabolic syndrome was discussed G. Therapeutic plan: We have decided to make therapeutic plan which would include choosing wisely on calories restricting portion getting active, tracking weight, getting good quality sleep and working on time management H. Patient will follow up in 4 weeks for weight management Total time spent today was 60 minutes of which greater than 50% was spent on coordinating and counseling Case discussed with collaborating physician Diane Pedraza who reviewed the assessment and plan. Chart, medications, labs, vital signs reviewed. Dictation was accomplished with the use of [employer] voice recognition software, prone to medical misidentifications and grammatical errors. This is unintentional and the practitioner does try to identify and correct these, but some could still be present. Please do not hesitate to contact practitioner for clarification. All questions answered to patients satisfaction. Patient verbalized understanding of diagnosis and treatments explained. To call sooner prior to next visit it any questions/concerns arise. Patient was offered diagnostic testing/ SECA scale. We want to measure visceral adiposity, advanced body composition, adverse lipids, fatty acid balance, risk for heart disease and atherosclerosis, markers of inflammation and genetic susceptibility. Patient was counseled on weight management and was advised to lose weight using A. Meal Replacement Products Patient was educated on the replacement products called optifast. This is a good way of taking fixed amount of calories. It has been shown in studies to be ineffective weight management tool. This however has to be coupled with lifestyle intervention as well as laboratory data and EKG monitoring. It is impossible to know how a person will tolerate complete meal replacement. The side effects of meal replacement and weight loss could include syncopal attacks, dizziness, gallstones, potential cholecystectomy, possible heart attack and even . The benefits of meal replacement would be potential weight loss but no guarantees can be made. Meal replacement products are not covered by insurance. Once the patient has bought these products we cannot return them B. Lifestyle management which includes several strategies as below 1. Eat a low carbohydrate good fat good protein diet. Eliminate refined carbohydrates from the diet. Limit sugared beverages. Eat local organic when possible. Cook your own meals. Read food labels. Focus on healthy snacks. Portion control and food with low glycemic index 2. Exercise regularly. Try to get at least 6000 steps a day. Use a predominant to track activity level. Consider using apps like 7 minute excercise, myfitnesspal, lose it, stick as needed for self-monitoring and weight management. Consider group exercises. Consider hiring a safety trainer. Regular exercise is [place] to sustainable health and prevents as a buffer against weight regain 3. Sleep is most important for healing. Try to sleep at least 6-8 hours a night. A good quality sleep needs a sleep ritual with ideal room temperature of around 68. It might help to take a shower and have no electronics in the room and sleep in a very dark room without artificial light. Start sleep routine and get up early in the morning and go to bed on time. 4. Make a social connection. Surround yourself with positive people with positive energy. Connect with friends and family. 5. Get into the habit of meditating and mindfulness while doing everything. 6. Go outside and connect with nature. C. Prescription medications Patient was educated on the use of prescription medications for medical weight loss. This is a growing list and includes phentermine, Topamax,Qsymia, contrave, belviq and saxenda, wegovy etc. All prescription medications could have side effects including but not limited to kidney stones, seizure disorder cardiac arrhythmias heart attack pancreatitis, GI effects, Etc. Patient was encouraged to read the prescription insert and have coaching with their pharmacist and make an informed decision about taking medication and know that these medications are being prescribed with good intentions and we do not know how a patient would react to the medication. Some medications are FDA approved for weight loss and there is also off label use depending on patient's inability to afford medications in an attempt to lose weight D. Behavioral counseling was done to establish a relationship between food and an mood. Patient was provided information about local counseling and psychiatry and Dr Fung at [facility]. We would like to cover regular topics and build on low glycemic eating exercise mindful eating, using yoga and meditation along with deep breathing and connecting with friends and family. E. MASS PAT reviewed, Patient's current medications were reviewed and opinion was given on medication that can cause weight gain and can be substituted F. Patient was assessed for risk with obesity including and not limiting to atherosclerosis heart disease stroke kidney disease, restrictive lung disease, irritable bowel syndrome and overall mortality. Risk of developing prediabetes diabetes and metabolic syndrome was discussed G. Therapeutic plan: We have decided to make therapeutic plan which would include choosing wisely on calories restricting portion getting active, tracking weight, getting good quality sleep and working on time management H. Patient will follow up in 4 weeks for weight management Total time spent today was 60 minutes of which greater than 50% was spent on coordinating and counseling After consultation and careful review of medical history, this patient would benefit from Zepbound based off of the following criteria met: Patient is over the age of 18, has a BMI of 28.03. Additional comorbidities include PCOS, hyperlipidemia, acid reflux, and vitamin D deficiency. Patient has trialed other methods of weight loss including improving diet, exercise without success over three months. This medication is prescribed by or in consultation with a board certified obesity and weight management physician (Dr. Liane Pedraza or Dr. Vivi Pedraza) Case discussed with collaborating physician Diane Pedraza who reviewed the assessment and plan. Chart, medications, labs, vital signs reviewed. Dictation was accomplished with the use of [employer] voice recognition software, prone to medical misidentifications and grammatical errors. This is unintentional and the practitioner does try to identify and correct these, but some could still be present. Please do not hesitate to contact practitioner for clarification. All questions answered to patients satisfaction. Patient verbalized understanding of diagnosis and treatments explained. To call sooner prior to next visit it any questions/concerns arise. 11/11/2024 Lumbar back pain (ICD-10 - M54.50) Patient [...] office in 4 weeks for further management. # Low back pain: Patient reporting pain in her lower back for the past 3 weeks. On and off in duration. Reports no injuries or strains to her knowledge. Does move a lot in her sleep. On exam there is no tenderness to palpation of the cervical, thoracic, or lumbar spine. Some tenderness to palpation of the left sacroiliac joint. Discussed measures including [id number] Tylenol or Profen for pain relief as well as importance of increasing her physical activity and stretching to manage symptoms. Will continue to monitor. # PCOS: No current medication therapy. Patient does follow with [facility] center in [place]. Will continue to monitor. 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 pylori stool antigens on 10/01/2024. Patient has finished triple antibiotic therapy, now needs to repeat her stool antigen studies and then will follow-up shortly afterwards with gastroenterology. Taking omeprazole daily as needed for acid reflux. Patient is to follow-up with her excavating machine operator after stool studies. Reports several cases of [...] Dictation was accomplished with the use of [employer] voice recognition software, which is prone to medical misidentifications and grammatical errors. This are unintentional and the practitioner does try to identify and correct these, but some could still be present. Please do not hesitate to contact practitioner for clarification. 10/23/2024 Depression screening (ICD-10 - Z13.31) Patient seen and examined. Comprehensive discussion was done on the following. # H. 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 pylori stool antigens on 10/01/2024. She is now on triple antibiotic therapy including clarithromycin 500 mg, amoxicillin 500 mg, and metronidazole 500 mg. On second day of course for total 14 days. Continue omeprazole once daily. 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 Reports several cases of H. pylori infection in the past. Will continue to follow with GI. # Hyperpigmentation: Patient reporting darkening of her skin in the skin folds of her arms as well as folds of her upper thighs. No irritation. Does not history of PCOS. We discussed topical agents including tretinoin which is a vitamin A derivative which would be helpful for increasing skin turnover. Advised the patient to use the medication at nighttime and small amounts. Discussed the medication may cause dry skin. Will continue to monitor. # PCOS: No current medication therapy. Patient does follow with [facility] infertility center in [place]. Will continue to monitor. # Hyperlipidemia: Lipid panel on 08/28/2024 with cholesterol 192, triglycerides 124, HDL 56, and LDL 114. ASCVD risk less than 5%. Discussed importance of diet and lifestyle to lower cholesterol levels and prevent other comorbidities. Will continue to monitor. # Vitamin D deficiency: Vitamin D level decreased at 08/26/2024 at 21.5. Discussed the importance of daily supplementation. Will continue to monitor. # Overweight: Weight 164 pounds, BMI 25.68. Patient established in weight management program. Currently on Zepbound 2.5 mg weekly. Next follow-up on 11/11/2024. Will continue to monitor. # Hyperlipidemia: Lipid panel on 08/26/2024 significant for LDL 105. Remainder of values in normal limits. ASCVD risk less than 5%. Discussed lifestyle modifications including increasing consumption of whole foods, fiber intake, vitamin D, turmeric/curcumin, and increasing physical activity. Will continue to monitor. # Raynaud's syndrome continue nifedipine 10 mg 1 capsule 3 times daily. Will continue to monitor. Blood pressure stable in office 116/80. 1. Nutrition: It is important to follow a healthy diet based on lots of vegetables and legumes and good fat. Avoid processed food and processed carbohydrates. Prepare your own meals. Read labels and avoid high fructose corn syrup, processed chemicals added to increase shelf life and preprepared meals. Avoid fast foods. Eat slowly and plan meals for a week. Try to count calories and be mindful off daily calorie intake. Get into the habit of keeping an eye on your weight by using an appropriate scale. Learn to log exercise and discussed fitness Apps like HelpingDoc or EvntLive which can help keep log off calories taken versus calories burned. Local food should be preferred. Discussed Dirty Dozen Versus Clean Fifteen. Discussed healthy supplements like fish oil, Tumeric, Curcumin, Melatonin, Resveratrol, Probiotics, Vitamin-D, Alpha-Lipoic acid, Vitamin-D and coconut oil. 2. It is important to exercise regularly. Is a good habit to walk at least 30 minutes a day. Gentle weightlifting with standard precautions to protect the back. Finding activity like cycling or hiking and get into the habit of engaging in it. Stretching before and after the exercises important. It is also important to contact me if there are any problems like shortness of breath, chest pain, back pain and joint or muscle pain associated with the exercise. 3. Discussed age appropriate screening guidelines. Colonoscopy needs to start at age 50 with stool for occult blood as appropriate. There is a new test that can test for genetic abnormalities in the stool sample, Cologuard. This would not replace a colonoscopy but could be used as a screening tool for patients who do not want a colonoscopy. We discussed the importance of early detection of colon cancer. 4. Discussed current guidelines with respect to breast examination, mammogram and pap smear for early detection of breast and cervical cancer. Patient advised to follow up with these appointments. 5. Discussed safe driving and no use of smart phone while driving 6. Age-appropriate immunizations were discussed. A tetanus booster is needed every 10 years. Flu vaccine is recommended every year just before the start of the flu season. Shingles vaccine is recommended after age 50 but not all insurances cover it. Pneumonia vaccine is given after age 65 unless there are certain comorbidities for which it is started earlier. 7. Diagnostic labs were discussed. These could include/not limited to CBC CMP and lipids with fasting blood glucose and insulin levels. Vitamin D and hemoglobin A1c testing might be appropriate. All questions have been answered to patient's satisfaction. Patient verbalized understanding of diagnosis and treatments explained. Advised to call sooner prior to next visit it any questions/concerns arise. Case discussed with collaborating physician Bhargavi Pedraza who reviewed the assessment and plan. Chart, medications, labs, vital signs reviewed. Dictation was accomplished with the use of [employer] voice recognition software, which is prone to medical misidentifications and grammatical errors. This are unintentional and the practitioner does try to identify and correct these, but some could still be present. Please do not hesitate to contact practitioner for clarification. 02/10/2025 Lumbar back pain (ICD-10 - M54.50) Patient [...] office in 4 weeks for further management. 02/10/2025: Weight 147 pounds, BMI 23.02. Seca scan completed and discussed with the patient. Patient is down 12 pounds from her last visit in October. On body analysis she is down 12 pounds of fat mass. Fat mass index today is 8.7 which is within normal limits, previously 10.7. She is maintaining 42 pounds of muscle mass. Visceral adiposity is 0.8 L, reduced from 1.5. Patient currently is on Zepbound 5 mg weekly. No adverse effects. Discussed goals of diet and exercise. Plan is to maintain current dose and follow-up in 4 to 6 weeks. # Low back pain: Patient reporting pain in her lower back for the past 3 weeks. On and off in duration. Reports no injuries or strains to her knowledge. Does move a lot in her sleep. On exam there is no tenderness to palpation of the cervical, thoracic, or lumbar spine. Some tenderness to palpation of the left sacroiliac joint. Discussed measures including [id number] Tylenol or Profen for pain relief as well as importance of increasing her physical activity and stretching to manage symptoms. Will continue to monitor. # PCOS: No current medication therapy. Patient does follow with [facility] infertility center in [place]. Will continue to monitor. 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 pylori stool antigens on 10/01/2024. Patient has finished triple antibiotic therapy, now needs to repeat her stool antigen studies and then will follow-up shortly afterwards with gastroenterology. Taking omeprazole daily as needed for acid reflux. Patient is to follow-up with her excavating machine operator after stool studies. Reports several cases of [...] Dictation was accomplished with the use of [employer] voice recognition software, which is prone to [...] the left sacroiliac joint. Discussed measures including axma-fat-ptvbftr Tylenol or Profen for pain relief as well as importance of increasing her physical activity and stretching to manage symptoms. Will continue to monitor. # PCOS: No current medication therapy. Patient does follow with [facility] infertility center in [place]. Will continue to monitor. 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 pylori stool antigens on 10/01/2024. Patient has finished triple antibiotic therapy, now needs to repeat her stool antigen studies and then will follow-up shortly afterwards with gastroenterology. Taking omeprazole daily as needed for acid reflux. Patient is to follow-up with her excavating machine operator after stool studies. Reports several cases of [...] Dictation was accomplished with the use of [employer] voice recognition software, which is prone to medical misidentifications and grammatical errors. This are unintentional and the practitioner does try to identify and correct these, but some could still be present. Please do not hesitate to contact practitioner for clarification. 03/10/2025 Encounter for examination of blood pressure without abnormal findings (ICD-10 - Z01.30) Patient is a 24-year-old female who presents today for urgent visit for a bump on the palm of her left hand that has waxed and waned for the past 3 years. Reports that the lump will appear with associated pain, can be present for a few months, then will resolve on its own. She reports no associated numbness or tingling of the hand. States that sometimes her hand has a bruised appearance. Has full range of motion. She reports no constitutional symptoms including fevers or chills. Denies injury or trauma to the extremity. On exam the patient is well-appearing and in no acute distress, vital signs are stable and cardiopulmonary exam unremarkable. Examination of the patient's left hand reveals a approximate 3 x 3 mm circular mass on the palmar surface at the base of the thumb that is tender to palpation. Overlying skin on erythematous. Potentially a ganglion cyst. For further evaluation and treatment will refer to hand surgery. Discussed red flag signs that require ED evaluation, all patient questions answered at this time. # Low back pain: X-ray of her lumbar spine on 12/26/2024 obtained for pain reveals no significant disc narrowing and some straightening of the spine consistent with lordosis. Discussed benefit of strengthening her core to improve pain. Continue analgesic medications including naproxen twice daily as needed for pain and tizanidine 2 mg every 6 hours as needed for muscle spasm. Will continue to monitor. # PCOS: No current medication therapy. Patient does follow with [facility] infertility center in [place]. Will continue to monitor. 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 pylori stool antigens on 10/01/2024. Patient has finished triple antibiotic therapy, now needs to repeat her stool antigen studies and then will follow-up shortly afterwards with gastroenterology. Taking omeprazole daily as needed for acid reflux. Patient is to follow-up with her excavating machine operator after stool studies. Reports several cases of H. pylori infection in the past. Will continue to follow with GI. # Nutritional counseling: Continue Zepbound 5 mg subcutaneous injection weekly. Next follow-up on 03/24/2025. All questions have been answered to patient's satisfaction. Patient verbalized understanding of diagnosis and treatments explained. Advised to call sooner prior to next visit it any questions/concerns arise. Case discussed with collaborating physician Bhargavi Pedraza who reviewed the assessment and plan. Chart, medications, labs, vital signs reviewed. Dictation was accomplished with the use of [employer] voice recognition software, which is prone to medical misidentifications and grammatical errors. This are unintentional and the practitioner does try to identify and correct these, but some could still be present. Please do not hesitate to contact practitioner for clarification. 05/27/2025 Encounter for examination of blood pressure without abnormal findings (ICD-10 - Z01.30) Patient is here for weight management follow-up. [...] office in 4 weeks for further management. 02/10/2025: Weight 147 pounds, BMI 23.02. Seca scan completed and discussed with the patient. Patient is down 12 pounds from her last visit in October. On body analysis she is down 12 pounds of fat mass. Fat mass index today is 8.7 which is within normal limits, previously 10.7. She is maintaining 42 pounds of muscle mass. Visceral adiposity is 0.8 L, reduced from 1.5. Patient currently is on Zepbound 5 mg weekly. No adverse effects. Discussed goals of diet and exercise. Plan is to maintain current dose and follow-up in 4 to 6 weeks. 03/24/2025: Weight 149 pounds, BMI 24.2. Seca scan completed and discussed results with the patient. She is up approximately 2 pounds since her last visit. On body composition analysis however she is maintaining 53 pounds of fat mass, fat mass index of 8.6. She has had a 3 pound increase of muscle mass which she was congratulated for. Visceral adiposity is stable at 0.9 L. Patient currently on Zepbound 5 mg weekly. Endorsing good tolerance of medication. Has adjusted her goal to reach approximately 10 more pounds weight loss. At this time plan will be to temporarily increase dose 7.5 mg to more efficiently reach goal along with maintaining lifestyle adjustments. Follow-up in approximately 4 to 6 weeks. 05/27/2025: Weight 145 pounds, BMI 22.71. Seca scan completed and discussed results with the patient. Patient is down 4 pounds from last visit. On body composition analysis fat mass is largely stable, index today of 8.7. Muscle mass has reduced by 6 pounds. No longer has high composition. Discussed importance of increasing intensity weight training and adding more protein into diet. Patient understanding. Visceral adiposity stable at 0.9 L. Currently on Zepbound 7.5 mg weekly. Will maintain this dose and follow-up in 6 weeks. # PCOS: No current medication therapy. Patient does follow with [facility] infertility center in [place]. Will continue to monitor. # Hyperlipidemia: Lipid [...] 3 times daily. Will continue to monitor. # Ingrown toenail: Patient reports bilateral great toenail are ingrown. Attempts to treat with regular pedicures. Will refer to podiatry. All questions have been answered to patient's satisfaction. Patient verbalized understanding of diagnosis and treatments explained. Advised to call sooner prior to next visit it any questions/concerns arise. Case discussed with collaborating physician Bhargavi Pedraza who reviewed the assessment and plan. Chart, medications, labs, vital signs reviewed. Dictation was accomplished with the use of [employer] voice recognition software, which is prone to medical misidentifications and grammatical errors. This are unintentional and the practitioner does try to identify and correct these, but some could still be present. Please do not hesitate to contact practitioner for clarification. 03/24/2025 Lumbar back pain (ICD-10 - M54.50) Patient [...] office in 4 weeks for further management. 02/10/2025: Weight 147 pounds, BMI 23.02. Seca scan completed and discussed with the patient. Patient is down 12 pounds from her last visit in October. On body analysis she is down 12 pounds of fat mass. Fat mass index today is 8.7 which is within normal limits, previously 10.7. She is maintaining 42 pounds of muscle mass. Visceral adiposity is 0.8 L, reduced from 1.5. Patient currently is on Zepbound 5 mg weekly. No adverse effects. Discussed goals of diet and exercise. Plan is to maintain current dose and follow-up in 4 to 6 weeks. 03/24/2025: Weight 149 pounds, BMI 24.2. Seca scan completed and discussed results with the patient. She is up approximately 2 pounds since her last visit. On body composition analysis however she is maintaining 53 pounds of fat mass, fat mass index of 8.6. She has had a 3 pound increase of muscle mass which she was congratulated for. Visceral adiposity is stable at 0.9 L. Patient currently on Zepbound 5 mg weekly. Endorsing good tolerance of medication. Has adjusted her goal to reach approximately 10 more pounds weight loss. At this time plan will be to temporarily increase dose 7.5 mg to more efficiently reach goal along with maintaining lifestyle adjustments. Follow-up in approximately 4 to 6 weeks. # Low back pain: Patient reporting pain in her lower back for the past 3 weeks. On and off in duration. Reports no injuries or strains to her knowledge. Does move a lot in her sleep. On exam there is no tenderness to palpation of the cervical, thoracic, or lumbar spine. Some tenderness to palpation of the left sacroiliac joint. Discussed measures including [id number] Tylenol or Profen for pain relief as well as importance of increasing her physical activity and stretching to manage symptoms. Will continue to monitor. # PCOS: No current medication therapy. Patient does follow with [facility] infertility center in [place]. Will continue to monitor. 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 pylori stool antigens on 10/01/2024. Patient has finished triple antibiotic therapy, now needs to repeat her stool antigen studies and then will follow-up shortly afterwards with gastroenterology. Taking omeprazole daily as needed for acid reflux. Patient is to follow-up with her excavating machine operator after stool studies. Reports several cases of H. pylori infection in the past. Will continue to follow with GI. # Sore throat: Patient reports having gone to urgent care for symptoms of sore throat, diagnosed with bacterial strep and treated with 10 days of penicillin. Patient continued to have symptoms and was evaluated again by urgent care who refilled medication for 5 more days. Today she reports continued sore throat as well as fatigue and right-sided neck swelling. On exam, the tonsils are enlarged and erythematous bilaterally, no exudates seen. No uvular deviation. There is right-sided anterior cervical lymphadenopathy and lymphadenitis. Based on history and examination, high suspicion for mononucleosis. Will obtain Monospot testing. Discussed that symptoms will be continuing rest, hydration, proper nutrition, and as needed Tylenol and ibuprofen. Discussed that can take several weeks to recover. Discussed that if mononucleosis to avoid contact activity until feeling better. All questions have been answered to patient's satisfaction. Patient verbalized understanding of diagnosis and treatments explained. Advised to call sooner prior to next visit it any questions/concerns arise. Case discussed with collaborating physician Bhargavi Pedraza who reviewed the assessment and plan. Chart, medications, labs, vital signs reviewed. Dictation was accomplished with the use of [employer] voice recognition software, which is prone to medical misidentifications and grammatical errors. This are unintentional and the practitioner does try to identify and correct these, but some could still be present. Please do not hesitate to contact practitioner for clarification. 03/24/2025 Hypertrophy of tonsils (ICD-10 - J35.1) Patient is here for weight management follow-up. [...] office in 4 weeks for further management. 02/10/2025: Weight 147 pounds, BMI 23.02. Seca scan completed and discussed with the patient. Patient is down 12 pounds from her last visit in October. On body analysis she is down 12 pounds of fat mass. Fat mass index today is 8.7 which is within normal limits, previously 10.7. She is maintaining 42 pounds of muscle mass. Visceral adiposity is 0.8 L, reduced from 1.5. Patient currently is on Zepbound 5 mg weekly. No adverse effects. Discussed goals of diet and exercise. Plan is to maintain current dose and follow-up in 4 to 6 weeks. 03/24/2025: Weight 149 pounds, BMI 24.2. Seca scan completed and discussed results with the patient. She is up approximately 2 pounds since her last visit. On body composition analysis however she is maintaining 53 pounds of fat mass, fat mass index of 8.6. She has had a 3 pound increase of muscle mass which she was congratulated for. Visceral adiposity is stable at 0.9 L. Patient currently on Zepbound 5 mg weekly. Endorsing good tolerance of medication. Has adjusted her goal to reach approximately 10 more pounds weight loss. At this time plan will be to temporarily increase dose 7.5 mg to more efficiently reach goal along with maintaining lifestyle adjustments. Follow-up in approximately 4 to 6 weeks. # Low back pain: Patient reporting pain in her lower back for the past 3 weeks. On and off in duration. Reports no injuries or strains to her knowledge. Does move a lot in her sleep. On exam there is no tenderness to palpation of the cervical, thoracic, or lumbar spine. Some tenderness to palpation of the left sacroiliac joint. Discussed measures including [id number] Tylenol or Profen for pain relief as well as importance of increasing her physical activity and stretching to manage symptoms. Will continue to monitor. # PCOS: No current medication therapy. Patient does follow with [facility] infertility center in [place]. Will continue to monitor. 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 pylori stool antigens on 10/01/2024. Patient has finished triple antibiotic therapy, now needs to repeat her stool antigen studies and then will follow-up shortly afterwards with gastroenterology. Taking omeprazole daily as needed for acid reflux. Patient is to follow-up with her excavating machine operator after stool studies. Reports several cases of H. pylori infection in the past. Will continue to follow with GI. # Sore throat: Patient reports having gone to urgent care for symptoms of sore throat, diagnosed with bacterial strep and treated with 10 days of penicillin. Patient continued to have symptoms and was evaluated again by urgent care who refilled medication for 5 more days. Today she reports continued sore throat as well as fatigue and right-sided neck swelling. On exam, the tonsils are enlarged and erythematous bilaterally, no exudates seen. No uvular deviation. There is right-sided anterior cervical lymphadenopathy and lymphadenitis. Based on history and examination, high suspicion for mononucleosis. Will obtain Monospot testing. Discussed that symptoms will be continuing rest, hydration, proper nutrition, and as needed Tylenol and ibuprofen. Discussed that can take several weeks to recover. Discussed that if mononucleosis to avoid contact activity until feeling better. All questions have been answered to patient's satisfaction. Patient verbalized understanding of diagnosis and treatments explained. Advised to call sooner prior to next visit it any questions/concerns arise. Case discussed with collaborating physician Bhargavi Pedraza who reviewed the assessment and plan. Chart, medications, labs, vital signs reviewed. Dictation was accomplished with the use of [employer] voice recognition software, which is prone to medical misidentifications and grammatical errors. This are unintentional and the practitioner does try to identify and correct these, but some could still be present. Please do not hesitate to contact practitioner for clarification. 10/23/2024 Screening for substance abuse (ICD-10 - Z13.89) Patient seen and examined. Comprehensive discussion was done on the following. # H. 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 pylori stool antigens on 10/01/2024. She is now on triple antibiotic therapy including clarithromycin 500 mg, amoxicillin 500 mg, and metronidazole 500 mg. On second day of course for total 14 days. Continue omeprazole once daily. 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 Reports several cases of H. pylori infection in the past. Will continue to follow with GI. # Hyperpigmentation: Patient reporting darkening of her skin in the skin folds of her arms as well as folds of her upper thighs. No irritation. Does not history of PCOS. We discussed topical agents including tretinoin which is a vitamin A derivative which would be helpful for increasing skin turnover. Advised the patient to use the medication at nighttime and small amounts. Discussed the medication may cause dry skin. Will continue to monitor. # PCOS: No current medication therapy. Patient does follow with [facility] infertility center in [place]. Will continue to monitor. # Hyperlipidemia: Lipid panel on 08/28/2024 with cholesterol 192, triglycerides 124, HDL 56, and LDL 114. ASCVD risk less than 5%. Discussed importance of diet and lifestyle to lower cholesterol levels and prevent other comorbidities. Will continue to monitor. # Vitamin D deficiency: Vitamin D level decreased at 08/26/2024 at 21.5. Discussed the importance of daily supplementation. Will continue to monitor. # Overweight: Weight 164 pounds, BMI 25.68. Patient established in weight management program. Currently on Zepbound 2.5 mg weekly. Next follow-up on 11/11/2024. Will continue to monitor. # Hyperlipidemia: Lipid panel on 08/26/2024 significant for LDL 105. Remainder of values in normal limits. ASCVD risk less than 5%. Discussed lifestyle modifications including increasing consumption of whole foods, fiber intake, vitamin D, turmeric/curcumin, and increasing physical activity. Will continue to monitor. # Raynaud's syndrome continue nifedipine 10 mg 1 capsule 3 times daily. Will continue to monitor. Blood pressure stable in office 116/80. 1. Nutrition: It is important to follow a healthy diet based on lots of vegetables and legumes and good fat. Avoid processed food and processed carbohydrates. Prepare your own meals. Read labels and avoid high fructose corn syrup, processed chemicals added to increase shelf life and preprepared meals. Avoid fast foods. Eat slowly and plan meals for a week. Try to count calories and be mindful off daily calorie intake. Get into the habit of keeping an eye on your weight by using an appropriate scale. Learn to log exercise and discussed fitness Apps like [employer] or [employer] which can help keep log off calories taken versus calories burned. Local food should be preferred. Discussed Dirty Dozen Versus Clean Fifteen. Discussed healthy supplements like fish oil, Tumeric, Curcumin, Melatonin, Resveratrol, Probiotics, Vitamin-D, Alpha-Lipoic acid, Vitamin-D and coconut oil. 2. It is important to exercise regularly. Is a good habit to walk at least 30 minutes a day. Gentle weightlifting with standard precautions to protect the back. Finding activity like cycling or hiking and get into the habit of engaging in it. Stretching before and after the exercises important. It is also important to contact me if there are any problems like shortness of breath, chest pain, back pain and joint or muscle pain associated with the exercise. 3. Discussed age appropriate screening guidelines. Colonoscopy needs to start at age 50 with stool for occult blood as appropriate. There is a new test that can test for genetic abnormalities in the stool sample, Cologuard. This would not replace a colonoscopy but could be used as a screening tool for patients who do not want a colonoscopy. We discussed the importance of early detection of colon cancer. 4. Discussed current guidelines with respect to breast examination, mammogram and pap smear for early detection of breast and cervical cancer. Patient advised to follow up with these appointments. 5. Discussed safe driving and no use of smart phone while driving 6. Age-appropriate immunizations were discussed. A tetanus booster is needed every 10 years. Flu vaccine is recommended every year just before the start of the flu season. Shingles vaccine is recommended after age 50 but not all insurances cover it. Pneumonia vaccine is given after age 65 unless there are certain comorbidities for which it is started earlier. 7. Diagnostic labs were discussed. These could include/not limited to CBC CMP and lipids with fasting blood glucose and insulin levels. Vitamin D and hemoglobin A1c testing might be appropriate. All questions have been answered to patient's satisfaction. Patient verbalized understanding of diagnosis and treatments explained. Advised to call sooner prior to next visit it any questions/concerns arise. Case discussed with collaborating physician Bhargavi Pedraza who reviewed the assessment and plan. Chart, medications, labs, vital signs reviewed. Dictation was accomplished with the use of [employer] voice recognition software, which is prone to [...] the left sacroiliac joint. Discussed measures including [id number] Tylenol or Profen for pain relief as well as importance of increasing her physical activity and stretching to manage symptoms. Will continue to monitor. # PCOS: No current medication therapy. Patient does follow with [facility] infertility center in [place]. Will continue to monitor. 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 pylori stool antigens on 10/01/2024. Patient has finished triple antibiotic therapy, now needs to repeat her stool antigen studies and then will follow-up shortly afterwards with gastroenterology. Taking omeprazole daily as needed for acid reflux. Patient is to follow-up with her excavating machine operator after stool studies. Reports several cases of [...] Dictation was accomplished with the use of [employer] voice recognition software, which is prone to medical misidentifications and grammatical errors. This are unintentional and the practitioner does try to identify and correct these, but some could still be present. Please do not hesitate to contact practitioner for clarification. 10/23/2024 Raynaud's phenomenon without gangrene (ICD-10 - I73.00) Patient seen and examined. Comprehensive discussion was done on the following. # H. 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 pylori stool antigens on 10/01/2024. She is now on triple antibiotic therapy including clarithromycin 500 mg, amoxicillin 500 mg, and metronidazole 500 mg. On second day of course for total 14 days. Continue omeprazole once daily. 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 Reports several cases of H. pylori infection in the past. Will continue to follow with GI. # Hyperpigmentation: Patient reporting darkening of her skin in the skin folds of her arms as well as folds of her upper thighs. No irritation. Does not history of PCOS. We discussed topical agents including tretinoin which is a vitamin A derivative which would be helpful for increasing skin turnover. Advised the patient to use the medication at nighttime and small amounts. Discussed the medication may cause dry skin. Will continue to monitor. # PCOS: No current medication therapy. Patient does follow with [facility] infertility center in [place]. Will continue to monitor. # Hyperlipidemia: Lipid panel on 08/28/2024 with cholesterol 192, triglycerides 124, HDL 56, and LDL 114. ASCVD risk less than 5%. Discussed importance of diet and lifestyle to lower cholesterol levels and prevent other comorbidities. Will continue to monitor. # Vitamin D deficiency: Vitamin D level decreased at 08/26/2024 at 21.5. Discussed the importance of daily supplementation. Will continue to monitor. # Overweight: Weight 164 pounds, BMI 25.68. Patient established in weight management program. Currently on Zepbound 2.5 mg weekly. Next follow-up on 11/11/2024. Will continue to monitor. # Hyperlipidemia: Lipid panel on 08/26/2024 significant for LDL 105. Remainder of values in normal limits. ASCVD risk less than 5%. Discussed lifestyle modifications including increasing consumption of whole foods, fiber intake, vitamin D, turmeric/curcumin, and increasing physical activity. Will continue to monitor. # Raynaud's syndrome continue nifedipine 10 mg 1 capsule 3 times daily. Will continue to monitor. Blood pressure stable in office 116/80. 1. Nutrition: It is important to follow a healthy diet based on lots of vegetables and legumes and good fat. Avoid processed food and processed carbohydrates. Prepare your own meals. Read labels and avoid high fructose corn syrup, processed chemicals added to increase shelf life and preprepared meals. Avoid fast foods. Eat slowly and plan meals for a week. Try to count calories and be mindful off daily calorie intake. Get into the habit of keeping an eye on your weight by using an appropriate scale. Learn to log exercise and discussed fitness Apps like [employer] or [employer] which can help keep log off calories taken versus calories burned. Local food should be preferred. Discussed [employer] Versus Clean Fifteen. Discussed healthy supplements like fish oil, Tumeric, Curcumin, Melatonin, Resveratrol, Probiotics, Vitamin-D, Alpha-Lipoic acid, Vitamin-D and coconut oil. 2. It is important to exercise regularly. Is a good habit to walk at least 30 minutes a day. Gentle weightlifting with standard precautions to protect the back. Finding activity like cycling or hiking and get into the habit of engaging in it. Stretching before and after the exercises important. It is also important to contact me if there are any problems like shortness of breath, chest pain, back pain and joint or muscle pain associated with the exercise. 3. Discussed age appropriate screening guidelines. Colonoscopy needs to start at age 50 with stool for occult blood as appropriate. There is a new test that can test for genetic abnormalities in the stool sample, Cologuard. This would not replace a colonoscopy but could be used as a screening tool for patients who do not want a colonoscopy. We discussed the importance of early detection of colon cancer. 4. Discussed current guidelines with respect to breast examination, mammogram and pap smear for early detection of breast and cervical cancer. Patient advised to follow up with these appointments. 5. Discussed safe driving and no use of smart phone while driving 6. Age-appropriate immunizations were discussed. A tetanus booster is needed every 10 years. Flu vaccine is recommended every year just before the start of the flu season. Shingles vaccine is recommended after age 50 but not all insurances cover it. Pneumonia vaccine is given after age 65 unless there are certain comorbidities for which it is started earlier. 7. Diagnostic labs were discussed. These could include/not limited to CBC CMP and lipids with fasting blood glucose and insulin levels. Vitamin D and hemoglobin A1c testing might be appropriate. All questions have been answered to patient's satisfaction. Patient verbalized understanding of diagnosis and treatments explained. Advised to call sooner prior to next visit it any questions/concerns arise. Case discussed with collaborating physician Bhargavi Pedraza who reviewed the assessment and plan. Chart, medications, labs, vital signs reviewed. Dictation was accomplished with the use of [employer] voice recognition software, which is prone to medical misidentifications and grammatical errors. This are unintentional and the practitioner does try to identify and correct these, but some could still be present. Please do not hesitate to contact practitioner for clarification. 03/24/2025 Sore throat (ICD-10 - J02.9) Patient is here for weight management follow-up. [...] office in 4 weeks for further management. 02/10/2025: Weight 147 pounds, BMI 23.02. Seca scan completed and discussed with the patient. Patient is down 12 pounds from her last visit in October. On body analysis she is down 12 pounds of fat mass. Fat mass index today is 8.7 which is within normal limits, previously 10.7. She is maintaining 42 pounds of muscle mass. Visceral adiposity is 0.8 L, reduced from 1.5. Patient currently is on Zepbound 5 mg weekly. No adverse effects. Discussed goals of diet and exercise. Plan is to maintain current dose and follow-up in 4 to 6 weeks. 03/24/2025: Weight 149 pounds, BMI 24.2. Seca scan completed and discussed results with the patient. She is up approximately 2 pounds since her last visit. On body composition analysis however she is maintaining 53 pounds of fat mass, fat mass index of 8.6. She has had a 3 pound increase of muscle mass which she was congratulated for. Visceral adiposity is stable at 0.9 L. Patient currently on Zepbound 5 mg weekly. Endorsing good tolerance of medication. Has adjusted her goal to reach approximately 10 more pounds weight loss. At this time plan will be to temporarily increase dose 7.5 mg to more efficiently reach goal along with maintaining lifestyle adjustments. Follow-up in approximately 4 to 6 weeks. # Low back pain: Patient reporting pain in her lower back for the past 3 weeks. On and off in duration. Reports no injuries or strains to her knowledge. Does move a lot in her sleep. On exam there is no tenderness to palpation of the cervical, thoracic, or lumbar spine. Some tenderness to palpation of the left sacroiliac joint. Discussed measures including [id number] Tylenol or Profen for pain relief as well as importance of increasing her physical activity and stretching to manage symptoms. Will continue to monitor. # PCOS: No current medication therapy. Patient does follow with [facility] infertility center in [place]. Will continue to monitor. 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 pylori stool antigens on 10/01/2024. Patient has finished triple antibiotic therapy, now needs to repeat her stool antigen studies and then will follow-up shortly afterwards with gastroenterology. Taking omeprazole daily as needed for acid reflux. Patient is to follow-up with her excavating machine operator after stool studies. Reports several cases of H. pylori infection in the past. Will continue to follow with GI. # Sore throat: Patient reports having gone to urgent care for symptoms of sore throat, diagnosed with bacterial strep and treated with 10 days of penicillin. Patient continued to have symptoms and was evaluated again by urgent care who refilled medication for 5 more days. Today she reports continued sore throat as well as fatigue and right-sided neck swelling. On exam, the tonsils are enlarged and erythematous bilaterally, no exudates seen. No uvular deviation. There is right-sided anterior cervical lymphadenopathy and lymphadenitis. Based on history and examination, high suspicion for mononucleosis. Will obtain Monospot testing. Discussed that symptoms will be continuing rest, hydration, proper nutrition, and as needed Tylenol and ibuprofen. Discussed that can take several weeks to recover. Discussed that if mononucleosis to avoid contact activity until feeling better. All questions have been answered to patient's satisfaction. Patient verbalized understanding of diagnosis and treatments explained. Advised to call sooner prior to next visit it any questions/concerns arise. Case discussed with collaborating physician Bhargavi Pedraza who reviewed the assessment and plan. Chart, medications, labs, vital signs reviewed. Dictation was accomplished with the use of [employer] voice recognition software, which is prone to medical misidentifications and grammatical errors. This are unintentional and the practitioner does try to identify and correct these, but some could still be present. Please do not hesitate to contact practitioner for clarification. 03/24/2025 Encounter for examination of blood pressure without abnormal findings (ICD-10 - Z01.30) Patient is here for weight management follow-up. [...] office in 4 weeks for further management. 02/10/2025: Weight 147 pounds, BMI 23.02. Seca scan completed and discussed with the patient. Patient is down 12 pounds from her last visit in October. On body analysis she is down 12 pounds of fat mass. Fat mass index today is 8.7 which is within normal limits, previously 10.7. She is maintaining 42 pounds of muscle mass. Visceral adiposity is 0.8 L, reduced from 1.5. Patient currently is on Zepbound 5 mg weekly. No adverse effects. Discussed goals of diet and exercise. Plan is to maintain current dose and follow-up in 4 to 6 weeks. 03/24/2025: Weight 149 pounds, BMI 24.2. Seca scan completed and discussed results with the patient. She is up approximately 2 pounds since her last visit. On body composition analysis however she is maintaining 53 pounds of fat mass, fat mass index of 8.6. She has had a 3 pound increase of muscle mass which she was congratulated for. Visceral adiposity is stable at 0.9 L. Patient currently on Zepbound 5 mg weekly. Endorsing good tolerance of medication. Has adjusted her goal to reach approximately 10 more pounds weight loss. At this time plan will be to temporarily increase dose 7.5 mg to more efficiently reach goal along with maintaining lifestyle adjustments. Follow-up in approximately 4 to 6 weeks. # Low back pain: Patient reporting pain in her lower back for the past 3 weeks. On and off in duration. Reports no injuries or strains to her knowledge. Does move a lot in her sleep. On exam there is no tenderness to palpation of the cervical, thoracic, or lumbar spine. Some tenderness to palpation of the left sacroiliac joint. Discussed measures including [id number] Tylenol or Profen for pain relief as well as importance of increasing her physical activity and stretching to manage symptoms. Will continue to monitor. # PCOS: No current medication therapy. Patient does follow with [facility] infertility center in [place]. Will continue to monitor. 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 pylori stool antigens on 10/01/2024. Patient has finished triple antibiotic therapy, now needs to repeat her stool antigen studies and then will follow-up shortly afterwards with gastroenterology. Taking omeprazole daily as needed for acid reflux. Patient is to follow-up with her excavating machine operator after stool studies. Reports several cases of H. pylori infection in the past. Will continue to follow with GI. # Sore throat: Patient reports having gone to urgent care for symptoms of sore throat, diagnosed with bacterial strep and treated with 10 days of penicillin. Patient continued to have symptoms and was evaluated again by urgent care who refilled medication for 5 more days. Today she reports continued sore throat as well as fatigue and right-sided neck swelling. On exam, the tonsils are enlarged and erythematous bilaterally, no exudates seen. No uvular deviation. There is right-sided anterior cervical lymphadenopathy and lymphadenitis. Based on history and examination, high suspicion for mononucleosis. Will obtain Monospot testing. Discussed that symptoms will be continuing rest, hydration, proper nutrition, and as needed Tylenol and ibuprofen. Discussed that can take several weeks to recover. Discussed that if mononucleosis to avoid contact activity until feeling better. All questions have been answered to patient's satisfaction. Patient verbalized understanding of diagnosis and treatments explained. Advised to call sooner prior to next visit it any questions/concerns arise. Case discussed with collaborating physician Bhargavi Pedraza who reviewed the assessment and plan. Chart, medications, labs, vital signs reviewed. Dictation was accomplished with the use of [employer] voice recognition software, which is prone to medical misidentifications and grammatical errors. This are unintentional and the practitioner does try to identify and correct these, but some could still be present. Please do not hesitate to contact practitioner for clarification. 10/23/2024 Nausea (ICD-10 - R11.0) Patient seen and examined. Comprehensive discussion was done on the following. # H. 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 pylori stool antigens on 10/01/2024. She is now on triple antibiotic therapy including clarithromycin 500 mg, amoxicillin 500 mg, and metronidazole 500 mg. On second day of course for total 14 days. Continue omeprazole once daily. 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 Reports several cases of H. pylori infection in the past. Will continue to follow with GI. # Hyperpigmentation: Patient reporting darkening of her skin in the skin folds of her arms as well as folds of her upper thighs. No irritation. Does not history of PCOS. We discussed topical agents including tretinoin which is a vitamin A derivative which would be helpful for increasing skin turnover. Advised the patient to use the medication at nighttime and small amounts. Discussed the medication may cause dry skin. Will continue to monitor. # PCOS: No current medication therapy. Patient does follow with [facility] infertility center in [place]. Will continue to monitor. # Hyperlipidemia: Lipid panel on 08/28/2024 with cholesterol 192, triglycerides 124, HDL 56, and LDL 114. ASCVD risk less than 5%. Discussed importance of diet and lifestyle to lower cholesterol levels and prevent other comorbidities. Will continue to monitor. # Vitamin D deficiency: Vitamin D level decreased at 08/26/2024 at 21.5. Discussed the importance of daily supplementation. Will continue to monitor. # Overweight: Weight 164 pounds, BMI 25.68. Patient established in weight management program. Currently on Zepbound 2.5 mg weekly. Next follow-up on 11/11/2024. Will continue to monitor. # Hyperlipidemia: Lipid panel on 08/26/2024 significant for LDL 105. Remainder of values in normal limits. ASCVD risk less than 5%. Discussed lifestyle modifications including increasing consumption of whole foods, fiber intake, vitamin D, turmeric/curcumin, and increasing physical activity. Will continue to monitor. # Raynaud's syndrome continue nifedipine 10 mg 1 capsule 3 times daily. Will continue to monitor. Blood pressure stable in office 116/80. 1. Nutrition: It is important to follow a healthy diet based on lots of vegetables and legumes and good fat. Avoid processed food and processed carbohydrates. Prepare your own meals. Read labels and avoid high fructose corn syrup, processed chemicals added to increase shelf life and preprepared meals. Avoid fast foods. Eat slowly and plan meals for a week. Try to count calories and be mindful off daily calorie intake. Get into the habit of keeping an eye on your weight by using an appropriate scale. Learn to log exercise and discussed fitness Apps like [employer] or [employer] which can help keep log off calories taken versus calories burned. Local food should be preferred. Discussed Dirty Dozen Versus Clean Fifteen. Discussed healthy supplements like fish oil, Tumeric, Curcumin, Melatonin, Resveratrol, Probiotics, Vitamin-D, Alpha-Lipoic acid, Vitamin-D and coconut oil. 2. It is important to exercise regularly. Is a good habit to walk at least 30 minutes a day. Gentle weightlifting with standard precautions to protect the back. Finding activity like cycling or hiking and get into the habit of engaging in it. Stretching before and after the exercises important. It is also important to contact me if there are any problems like shortness of breath, chest pain, back pain and joint or muscle pain associated with the exercise. 3. Discussed age appropriate screening guidelines. Colonoscopy needs to start at age 50 with stool for occult blood as appropriate. There is a new test that can test for genetic abnormalities in the stool sample, Cologuard. This would not replace a colonoscopy but could be used as a screening tool for patients who do not want a colonoscopy. We discussed the importance of early detection of colon cancer. 4. Discussed current guidelines with respect to breast examination, mammogram and pap smear for early detection of breast and cervical cancer. Patient advised to follow up with these appointments. 5. Discussed safe driving and no use of smart phone while driving 6. Age-appropriate immunizations were discussed. A tetanus booster is needed every 10 years. Flu vaccine is recommended every year just before the start of the flu season. Shingles vaccine is recommended after age 50 but not all insurances cover it. Pneumonia vaccine is given after age 65 unless there are certain comorbidities for which it is started earlier. 7. Diagnostic labs were discussed. These could include/not limited to CBC CMP and lipids with fasting blood glucose and insulin levels. Vitamin D and hemoglobin A1c testing might be appropriate. All questions have been answered to patient's satisfaction. Patient verbalized understanding of diagnosis and treatments explained. Advised to call sooner prior to next visit it any questions/concerns arise. Case discussed with collaborating physician Bhargavi Pedraza who reviewed the assessment and plan. Chart, medications, labs, vital signs reviewed. Dictation was accomplished with the use of [employer] voice recognition software, which is prone to medical misidentifications and grammatical errors. This are unintentional and the practitioner does try to identify and correct these, but some could still be present. Please do not hesitate to contact practitioner for clarification. 12/25/2024 # PCOS: No current medication therapy. Patient does follow with [facility] infertility center in [place]. Will continue to monitor. # Hyperlipidemia: Lipid [...] stable in office (). Plan Of Treatment Pending Test Test Name Order Date Iron, Serum 01/29/2025 FERRITIN 01/29/2025 ESR 08/13/2024 LIPID PANEL, STANDARD 08/13/2024 COMPREHENSIVE METABOLIC PANEL 08/13/2024 CBC (INCLUDES DIFF/PLT) 01/29/2025 CBC (INCLUDES DIFF/PLT) 08/13/2024 URINALYSIS, COMPLETE 08/13/2024 C-REACTIVE PROTEIN 08/13/2024 VITAMIN B12 08/13/2024 TSH 08/13/2024 TSH 01/29/2025 VITAMIN D,25-OH,TOTAL,IA 08/13/2024 Lumbar Spine 2 or 3 Views 12/26/2024 MONO SCREEN 03/24/2025 ANCA 08/13/2024 COMPLEMENT C3 08/13/2024 COMPLEMENT C4 08/13/2024 Next Appt Details Provider Name:CHARLES ZIMMERMAN , 07/08/2025 09:30:00 AM, [address] [facility], [place] [address], [place], [address], Provider Name:CHARLES ZIMMERMAN , 10/24/2025 09:00:00 AM, [address] [facility], [facility], [place], [address], Insurance Providers Payer Name Payer Address Payer Phone Subscriber Number Group Number Insured Name Patient Relationship to Insured Coverage Start Date Coverage End Date [employer] MAT[employer] [address] [place] [address] [phone] [id number] Molly Joya Self - patient is the insured Medical (General) History Medical History History ICD Code PCOS (polycystic ovarian syndrome) E28.2 Mild acid reflux K21.9 Surgical History Surgery Date(Month/Year) Gastric surgery as a
--- OUTSIDE RECORDS SUMMARY | 2025-06-13 19:19 | XMS_ITS | Encounter Summary ---
Author Organization [facility] Address [address] [place] [address] Care Team Providers Care Sill Worker Name Role Phone Sana Carvalho Primary Care Provider [phone] Encounter Details Date Type Department Care Team (Late st Contact Info) Description 05/05/2025 Results Follow-Up [facility] [address] [place] [address] Fire Safety Director: Cheri Gómez, MS [address] [place] [phone] Social History Tobacco Use Types Packs/Day Years [...] Info) Description 10/03/2025 1:00 PM EST Appointment [facility] [address] [place] [address] Fire Safety Director: Supa Olson MD [address] [place] [address] documented as of this encounter Visit Diagnoses Not on filedocumented in this encounter Care Teams Sill Worker Relationship Specialty Start Date End Date Sana Carvalho [address] [facility] [address] [place], [place] [address] PCP - General Internal Medicine 02/28/24 documented as of this encounter
--- OUTSIDE RECORDS SUMMARY | 2025-06-13 19:19 | XMS_ITS | Encounter Summary ---
Author Organization [facility] Address [address] [place] [address] Care Team Providers Care Spring Bender Name Role Phone Sana Carvalho Primary Care Provider [phone] Encounter Details Date Type Department Care Team (Late st Contact Info) Description 03/18/2025 Banyan Message [facility] Financial Counseling Department [address] [place], [place] [phone] [employer], Generic Provider [address] [place], [place] [phone] To set up Payment plan Please read [...] Info) Description 10/03/2025 1:00 PM EST Appointment [facility] [address] [place] [address] Vault Teller: Supa Olson MD [address] [place], [place] [phone] documented as of this encounter Visit Diagnoses Not on filedocumented in this encounter Care Teams Spring Bender Relationship Specialty Start Date End Date Sana Carvalho [address] [facility] [place] [address] PCP - General Internal Medicine 02/28/24 documented as of this encounter
--- OUTSIDE RECORDS SUMMARY | 2025-06-13 19:19 | XMS_ITS | Clinical Summary ---
Author Organization [facility] Address [address] [place] [address] Care Team Providers Care Tunnel Form Placing Supervisor Name Role Phone Sana Carvalho Primary Care Provider [phone] Allergies Active Allergy Reactions Criticality Noted Date Comments Meperidine Rash 07/09/2024 Morphine Rash 07/09/2024 Medications medroxyPROGESTER one (PROVERA) 10 mg tabletIndication s:PCOS (polycystic ovarian syndrome) Take 1 tablet (10 mg total) by mouth once a day. 10 tablet 07/09/2024 Active Active Problems Problem Noted Date Diagnosed Date Procreation management investigation and testing 07/09/2024 Encounters Date Type Department Care Team Description 05/15/2025 myChart Message [facility] [address] [place] [address] Retouching Operator: Cheri Llanes MS Next step 05/14/2025 myCEpiclistt Message [facility] [address] [address] Mychart, Generic Provider Carito Quintana 202405/13/2025 Documentation [facility] [address] [place] [address] Retouching Operator: Danya Reynoso RN 05/05/2025 Results Follow-Up [facility] [address] [place] [address] Retouching Operator: Cheri Gómez, MS 03/18/2025 myChart Message [facility] Financial Counseling Department [address] [place] [address] Mychart, Generic Provider To set up Payment [...] Info) Description 10/03/2025 1:00 PM EST Appointment [facility] Ot[facility]ology Clinic [address] [place] [address] Retouching Operator: Supa Olson MD [address] [place] [address] Health Maintenance Due Date Last Done Comments [...] ual Screening 08/21/2024 COVID-19 Vaccine (1 - 2024-2 6 season) 2025 Influenza Vaccine (#1) 2025 Chlamydia Screening 10/15/2025 10/15/2024 RSV Vaccine (60+ years old a nd patients) (1 - 1-dose 75+ series) 2073 HIV Screening Completed 07/09/2024 Hepatitis C Screening Completed 07/09/2024 Pneumococcal Vaccine: Pediat lynnette (0-5 Years) and At-Risk Patients (6-50 Years) Aged Out No longer eligible b ased on patient's age to complete this topic Procedures * Due to [place] [employer] law, this organization might not be sharing [...] to Health Maintenance Results * Due to [place] [employer] law, this organization might not be sharing negative HIV tests. * Chlamydia/Neisseria gonorrhoeae RNA (10/15/2024 11:32 AM EST) Chlamydia trachomatis RNA, TMA NOT DETECTED NOT DETECTED 10/16/2024 9:48 AM EST [facility] Neisseria Gonorrhoeae RNA, TMA NOT DETECTED NOT DETECTED 10/16/2024 9:48 AM EST [facility] Comment: The analytical performance characteristics of this assay, when used to test SurePath(TM) specimens have been determined by [employer]. The modifications have not been cleared or approved by the FDA. This assay has been validated pursuant to the CLIA regulations and is used for clinical purposes. For additional information, please refer to https://education.Gowalla/faq/ZAT022 (This link is being provided for information/ educational purposes only.) Urine Voided urine specimen / Unknown Non-Blood Collection / Unknown 10/15/2024 11:32 AM EST 10/15/2024 12:36 PM EST Narrative [facility] - 10/16/2024 9:48 AM EST [facility] Received Date:[id number] Sandra Leigh NEON SIGN INSTALLER LAB URINE ORDERABLES Fin al Result Performing Organization Address City[facility]/ZIP Co de Phone Number DONATO ZAMORA [address], [place] [address], [place] [phone] [facility] [address], [place] [address], [place] [phone] * Hepatitis C Antibody w/Reflex to HCV RNA, Quantitative PCR (07/09/2024 2:16 PM EST) Hepatitis C Antibody NON-REACT KAITLIN NON-REACT KAITLIN 07/09/2024 10:42 PM EST [facility] Comment: HCV antibody was non-reactive. There is no laboratory evidence of HCV infection. In most cases, no further action is required. However, if recent HCV exposure is suspected, a test for HCV RNA (test code 41771) is suggested. For additional information please refer to http://education.Gowalla/faq/XSE00e5 (This link is being provided for informational/ educational purposes only.) Blood Structure of peripheral vein / Unknown Venipuncture / Unknown 07/09/2024 2:16 PM EST 07/09/2024 2:41 PM EST Narrative [facility] - 07/09/2024 10:42 PM EST [facility] Received Date:[id number] us Sandra Leigh NEON SIGN INSTALLER LAB BLOOD ORDERABLES Fin al Result Performing Organization Address City/[facility]/ZIP Co de Phone Number DONATO ZAMORA [address], [place] [address], [place] [phone] [facility] [address], [place] [address], [place] [phone] from Last 3 Months or Most Recently Relevant to Health Maintenance Insurance [employer] HMO/POS Care Teams Tunnel Form Placing Supervisor Relationship Specialty Start Date End Date Sana Carvalho [address] [facility] [place] [address] PCP - General Internal Medicine 02/28/24
--- OUTSIDE RECORDS SUMMARY | 2025-06-13 19:20 | XMS_ITS | Encounter Summary ---
Author Organization [facility] Address [address] [place] [address] Care Team Providers Care Field Support Representative Name Role Phone Sana Carvalho Primary Care Provider [phone] Encounter Details Date Type Department Care Team (Late st Contact Info) Description 05/15/2025 myChart Message [facility] [address] [place] [address] [place] [address] Industrial Electrician: Cheri Llanes, MS [address] [place] [address] Next step Social History Tobacco Use Types Packs/Day Years [...] Info) Description 10/03/2025 1:00 PM EST Appointment [facility] [address] [place] [address] Industrial Electrician: Supa Olson MD [address] [place] [address] documented as of this encounter Visit Diagnoses Not on filedocumented in this encounter Care Teams Field Support Representative Relationship Specialty Start Date End Date Sana Carvalho [address] [place] [address] [place] [address] PCP - General Internal Medicine 02/28/24 documented as of this encounter
--- OUTSIDE RECORDS SUMMARY | 2025-06-13 19:20 | XMS_ITS | Encounter Summary ---
Author Organization [facility] Address [address] [place] [address] Care Team Providers Care Millinery Department Manager Name Role Phone Sana Carvalho Primary Care Provider [phone] Encounter Details Date Type Department Care Team (Late st Contact Info) Description 10/11/2024 [facility] - Second Floor [address] [place] [address] [employer], Generic Provider [address] [place] [address] Maribeth con la [employer] Social History [...] Info) Description 10/03/2025 1:00 PM EST Appointment [facility] [address] [place] [address] Ruby Engineer: Supa Olson MD [address] [place] [phone] documented as of this encounter Visit Diagnoses Not on filedocumented in this encounter Care Teams Millinery Department Manager Relationship Specialty Start Date End Date Sana Carvalho [address] [facility] [place] [address] PCP - General Internal Medicine 02/28/24 documented as of this encounter
--- OUTSIDE RECORDS SUMMARY | 2025-06-13 19:20 | XMS_ITS | Encounter Summary ---
Author Organization [facility] Address [address] [place] [address] Care Team Providers Care Cadastral Surveyor Name Role Phone Sana Carvalho Primary Care Provider [phone] Encounter Details Date Type Department Care Team (Late st Contact Info) Description 05/14/2025 [facility] - Second Floor [address] [place] [address] [employer], Generic Provider [address] [place] [address] [facility]ibeth [facility] 2024 Social History Tobacco Use Types Packs/Day Years [...] Info) Description 10/03/2025 1:00 PM EST Appointment [facility] [address] [place] [address] Firearms Model Maker: Supa Olson MD [address] [place] [address] documented as of this encounter Visit Diagnoses Not on filedocumented in this encounter Care Teams Cadastral Surveyor Relationship Specialty Start Date End Date Sana Carvalho [address] [facility] [place] [address] PCP - General Internal Medicine 02/28/24 documented as of this encounter
--- OUTSIDE RECORDS SUMMARY | 2025-06-13 19:20 | XMS_ITS | Patient Health Record ---
[facility] Address [address] [place] [address] Care Team Providers Care Boat Dispatcher Name Role Phone Rizwan Segovia Rashawn Allergies Allergen (clinical drug ingredient) Drug/Non Drug Allergy documented on EMR Reaction Allergy Type Onset Date Status meperidine Demerol Heart races Drug Allergy Acti ve morphine Morphine Heart races Drug Allergy Activ e Reason For Referral No Information Medications Medication SIG (Take, Route, Fr equency, [...] Problem Status W/U Status Risk Notes Problem Ingrowing nail of toe of left foot (84657346688257328) Ingrown nail (L60.0) Active confirmed 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 [address] [place] [address] 06/12/2025 Rizwan Segovia Ingrown nail L60.0 ; Neuritis of right foot G57.91 and Pain in right foot M79.671 Assessments Encounter Date Diagnosis (ICD Code) Assessment Notes Treatment Notes Treatment Clinical Notes Section Notes 06/12/2025 Ingrown nail (ICD-10 - L60.0) 06/12/2025 Neuritis of right foot (ICD-10 - G57.91) 06/12/2025 Pain in right foot (ICD-10 - M79.671) Plan Of Treatment Pending Test Test Name Order Date [id number]-Apzohwky Plate 06/12/2025 Next Appt Details Provider Name:Rizwan Segovia, 06/26/2025 02:30:00 PM, [address] [facility], [place], [address], Insurance Providers Payer Name Payer Address Payer Phone Subscriber Number Group Number Insured Name Patient Relationship to Insured Coverage Start Date Coverage End Date Nancy [address] [place] [address] [id number] Molly Cuenca Self - patient is the insured Medical (General) History Medical History History ICD Code Broken bones Headaches/Migraines High Blood Pressure Stomach ulcer Hospitalization History Reason Date(Month/Year) [facility] [place]2025
--- OUTSIDE RECORDS SUMMARY | 2025-06-13 19:20 | XMS_ITS | Clinical Summary ---
Author Organization [address] [facility] Address [address] [place] [address] Phone Care Team Providers Care Digital Designer Name Role Phone Rochelle Musa Primary Care Provider [phone] Allergies Active Allergy Reactions Criticality Noted Date [...] 2025 Cholesterol Screening (Lipid Panel) 10/15/2029 10/15/2024 RSV Immunization Adult Patie nts (1 - 1-dose 75+ series) 2073 Hepatitis C Screening Completed 07/09/2024 HIB Vaccines [...] Monospot Negative Negative 03/24/2025 2:07 PM EDT [facility] Blood Venous blood specimen / Unknown Venipuncture / Unknown 03/24/2025 11:16 AM EDT 03/24/2025 12:43 PM EDT [facility] BLOOD ORDERABLES [place] hilario [facility] [address] [place] [address], [place] [phone] from Last 3 Months Insurance [employer] MEDICA[place] - [place] Care Teams Digital Designer Relationship Specialty Start Date End Date Rochelle Musa PA [address] [place] [address] PCP - General 08/13/24
[2025-06-13 19:29] VITALS: BP 111/57; PULSE 80; RESP 16; O2SAT 99
[2025-06-13 19:34] VITALS: BP 111/57; PULSE 80; RESP 16; TEMP 36.6; O2SAT 99
== END 2025-06-13 19:35 | disposition home or self-care (01) ==
PROVIDERS: Emergency Provider Emergency Medicine Emergency Medical Services
DX: S40.022A Contusion of left upper arm, initial encounter (principal); S00.83XA Contusion of other part of head, initial encounter; V49.49XA Driver injured in collision with other motor vehicles in traffic accident, initial encounter; Y93.9 Activity, unspecified; Y92.9 Unspecified place or not applicable
CPT/HCPCS: 99283